=== PATIENT | male | born 1945 | race Caucasian/White ===

== ENCOUNTER 2018-04-08 14:43 | Outpatient (CLI) | payer MEDICARE, SELFPAY ==
--- NOTE | 2018-04-08 14:08 | DI.RAD_ITS ---
SYMPTOMS/DIAGNOSIS: KNEE PAIN, SWELLING, MEDIAL TENDERNESS, M25.562 LEFT KNEE: There are severe degenerative changes involving the left knee with narrowing of the medial tibial femoral joint compartment, articular sclerosis and periarticular hypertrophic spurring. There is no evidence of a fracture or dislocation. There is no evidence of a joint effusion. SUMMARY: Severe DJD left knee.
== END 2018-04-08 15:03 ==
PROVIDERS: PCP Family Medicine; Visit Provider Student in an Organized Health Care Education/Training Program
DX: M25.562 Pain in left knee (principal); M17.12 Unilateral primary osteoarthritis, left knee
CPT/HCPCS: 73562

== ENCOUNTER 2018-05-18 13:00 | Outpatient (REF) | payer MEDICARE, SELFPAY ==
[2018-05-18 13:24] LABS: Anion Gap 9.7 mmol/L (3-11); BUN 33 mg/dL (7-18); CO2 25.3 mmol/L (21.0-32.0); CREATININE 1.48 mg/dL (0.70-1.30); Calcium 9.2 mg/dL (8.5-10.1); Chloride 104 mmol/L (98-107); Estimated GFR 46.86 (mL/min/1.73m2); Glucose 152 mg/dL (70-100); Potassium 4.6 mmol/L (3.5-5.1); Sodium 139 mmol/L (136-145)
== END 2018-05-18 13:20 ==
LOC: LBN 13:00
PROVIDERS: PCP Family Medicine; Visit Provider Student in an Organized Health Care Education/Training Program
DX: Z79.1 Long term (current) use of non-steroidal anti-inflammatories (NSAID) (principal); M25.562 Pain in left knee; Z86.2 Personal history of diseases of the blood and blood-forming organs and certain disorders involving the immune mechanism; I10 Essential (primary) hypertension
CPT/HCPCS: 80048

== ENCOUNTER → 2018-06-16 09:01 | Outpatient (BNVA) | payer MEDICARE, SELFPAY | PROVIDERS: PCP Student in an Organized Health Care Education/Training Program; Referring Provider Student in an Organized Health Care Education/Training Program; Visit Provider Orthopaedic Surgery | DX: M17.12 Unilateral primary osteoarthritis, left knee (principal); E11.9 Type 2 diabetes mellitus without complications; Z79.84 Long term (current) use of oral hypoglycemic drugs; I10 Essential (primary) hypertension | CPT/HCPCS: 99201; 99214 ==

== ENCOUNTER 2018-06-17 14:18 | Outpatient (REF) | payer MEDICARE, SELFPAY ==
[2018-06-17 15:00] LABS: Anion Gap 10.1 mmol/L (3-11); BUN 31 mg/dL (7-18); CO2 26.9 mmol/L (21.0-32.0); CREATININE 1.72 mg/dL (0.70-1.30); Calcium 8.8 mg/dL (8.5-10.1); Chloride 103 mmol/L (98-107); Estimated GFR 39.39 (mL/min/1.73m2); Glucose 91 mg/dL (70-100); Potassium 4.6 mmol/L (3.5-5.1); Sodium 140 mmol/L (136-145)
== END 2018-06-17 14:38 ==
LOC: LBN 14:18
PROVIDERS: PCP Student in an Organized Health Care Education/Training Program; Visit Provider Student in an Organized Health Care Education/Training Program
DX: E87.5 Hyperkalemia (principal)
CPT/HCPCS: 80048

== ENCOUNTER 2018-06-29 12:56 | Outpatient (REF) | payer MEDICARE, SELFPAY ==
[2018-06-29 13:20] LABS: Anion Gap 11.3 mmol/L (3-11); BUN 30 mg/dL (7-18); CO2 24.7 mmol/L (21.0-32.0); Calcium 9.1 mg/dL (8.5-10.1); Chloride 102 mmol/L (98-107); Estimated GFR 46.13 (mL/min/1.73m2); Glucose 123 mg/dL (70-100); Potassium 4.8 mmol/L (3.5-5.1); Sodium 138 mmol/L (136-145)
[2018-06-29 13:21] LABS: HCT 42.1 % (40.0-50.0); HGB 14.1 g/dL (13.5-17.5); Mean Corp. HGB Concentration 33.5 g/dL (32.0-36.0); Mean Corpuscular Hemoglobin 31.8 pg (27.0-33.0); Mean Platelet Volume 11.2 fL (8.0-11.0); Platelet Count 228 x1000/uL (130-400); RBC 4.43 m/cumm (4.50-6.00); RBC Distribution Width 13.8 % (11.8-14.1); White Blood Cell Count 8.52 k/cumm (4.4-10.8)
== END 2018-06-29 13:16 ==
LOC: LBN 12:56
PROVIDERS: PCP Student in an Organized Health Care Education/Training Program; Visit Provider Student in an Organized Health Care Education/Training Program
DX: R79.89 Other specified abnormal findings of blood chemistry (principal); Z86.2 Personal history of diseases of the blood and blood-forming organs and certain disorders involving the immune mechanism; Z01.818 Encounter for other preprocedural examination
CPT/HCPCS: 80048; 85027

== ENCOUNTER 2018-07-08 09:03 | Outpatient (CLI) | payer MEDICARE, SELFPAY ==
[2018-07-08 10:47] LABS: Abs Immature Grans 0.02 k/cumm (0.0-0.09); Absolute Basophil Count 0.05 k/cumm (0.0-0.2); Absolute Lymphocyte Count 2.28 k/cumm (1.2-3.4); Absolute Monocyte Count 0.71 k/cumm (0.11-0.7); Absolute Neutrophil Count 6.12 k/cumm (1.2-6.7); Basophils % 0.5; Eosinophils % 5.2; HCT 43.1 % (40.0-50.0); Immature Grans % 0.2; Lymphocytes % 23.6; Mean Corp. HGB Concentration 32.5 g/dL (32.0-36.0); Mean Corpuscular Volume 95.6 fL (80-95); Mean Platelet Volume 11.1 fL (8.0-11.0); Monocytes % 7.3; Neutrophils % 63.2; Platelet Count 219 x1000/uL (130-400); RBC 4.51 m/cumm (4.50-6.00); RBC Distribution Width 13.8 % (11.8-14.1); White Blood Cell Count 9.68 k/cumm (4.4-10.8)
== END 2018-07-08 11:00 | disposition home or self-care (01) ==
PROVIDERS: PCP Student in an Organized Health Care Education/Training Program; Visit Provider Orthopaedic Surgery
DX: M25.562 Pain in left knee (principal); M17.12 Unilateral primary osteoarthritis, left knee; R78.5 Finding of other psychotropic drug in blood; E11.8 Type 2 diabetes mellitus with unspecified complications; I10 Essential (primary) hypertension; I25.10 Atherosclerotic heart disease of native coronary artery without angina pectoris
CPT/HCPCS: 36415; 85025; 93005; 93010

== ENCOUNTER 2018-07-13 07:25 | Inpatient (IN) | payer MEDICARE, SELFPAY ==
[2018-07-13] VITALS (16 sets, daily range): BP systolic 110–143; BP diastolic 60–80; PULSE 74–98; RESP 13–20; TEMP 35.8–37.2; O2SAT 92–97
[2018-07-13] MEDS: Lactated Ringers 1,000 ML 80 ML IV ×2 (08:10→09:37)
[2018-07-13] MEDS: Bupivacaine 0.5% Pres-Free 30 ML VIAL (08:33)
[2018-07-13] MEDS: Bupivacaine LIPOSOME/PF 133 MG/10 ML VIAL IJ (08:33)
[2018-07-13] MEDS: Hydrogen Peroxide 3% 480 ML BTL (10:48)
--- NOTE | 2018-07-13 11:43 | DI.RAD_ITS ---
SYMPTOM/DIAGNOSIS: CHECKL TOTAL KNEE COMPONENTS IN RR LEFT KNEE: Two views. Comparison is 04/08/18 The patient is now status post left total knee replacement. The orthopaedic hardware appears in good position. The bones appear intact. Skin viktoriya are present. Vascular calcifications are present. IMPRESSION: Status post left TKR.
[2018-07-13] MEDS: Normal Saline Flush 10 ML SYR IV (11:54)
[2018-07-13] MEDS: HYDROmorphone 2 MG/ML VIAL IVP (11:54)
[2018-07-13] MEDS: Acetaminophen 325 MG TAB 650 MG PO (12:36)
[2018-07-13] MEDS: Normal Saline 1,000 ML 125 ML IV ×2 (13:25→22:19)
[2018-07-13] MEDS: Docusate Sodium 100 MG CAP PO (13:30)
[2018-07-13] MEDS: metFORMIN 500 MG TAB PO (16:42)
[2018-07-13] MEDS: oxyCODONE-CR 10 MG TABCR PO (19:10)
[2018-07-13] MEDS: Magnesium Oxide 400 MG TAB PO (19:11)
[2018-07-13] MEDS: Ketorolac 15 MG/ML VIAL IVP ×2 (19:11→23:52)
[2018-07-13] MEDS: Atorvastatin 40 MG TAB 80 MG PO (19:12)
--- NOTE | 2018-07-13 21:38 | ROE_ITS ---
DATE OF PROCEDURE: July 13, 2018 PREOPERATIVE DIAGNOSIS: Osteoarthritis left knee with varus deformity. POSTOPERATIVE DIAGNOSIS: Osteoarthritis left knee with varus deformity. PROCEDURE: Left total knee arthroplasty. COMPONENTS USED: A size 4 posterior cruciate substituting femoral component, a size 4 tibial compone nt, a size 4 12.5-mm rotating platform posterior cruciate substituting polyethylene insert, a 38-mm t riprong patella. All components were cemented. SURGEON: Shahbaz Castillo M.D. COPY ROOM TECHNICIAN: Dee Villa PA-C ANESTHESIA: General. INDICATIONS: This is a 73-year-old white male with disabling left knee pain due to osteoarthritis of his knee. He has reached the point where he is extremely limited in ambulation and activities of da joan living because of knee pain. Conservative treatment is no longer providing him any useful relief of pain. X-rays showed advanced osteoarthritis of his left knee with a mild varus deformity. Total knee replacement was recommended to alleviate his pain and, hopefully, to increase his ambulatory ab ilities. The risks and complications of the procedure were explained to the patient in detail preope ratively. PROCEDURE: The patient was taken to the Operating Room on 07/13/18. A femoral nerve block was perfor med. Next, a general anesthetic was administered. A roll was placed under his left buttock. A prox imal tourniquet was applied to the left thigh and then the left lower extremity was prepped from toes to tourniquet and draped free in the usual sterile fashion. Under proximal tourniquet control, an a nterior midline incision was made beginning just distal to the tibial tubercle and extending four inc hes proximal to the patella. The incision was carried down to the fascia. A medial parapatellar cap sular incision was made which was extended proximally in line with the midportion of the quadriceps t endon. A complete medial periosteal release was performed. The patella was everted and the knee was hyperflexed. The distal femur was resected using intramedullary alignment guides and jigs. The pat ient was found to require a size 4 posterior cruciate sacrificing femoral component. The proximal ti sadi was then resected using the extramedullary alignment guides and jigs. The patient was found to r equire a size 4 tibial component. The keel for the tibial component was then reamed and punched out in proper rotational alignment. Medial osteophytes were removed. At this point, medial and lateral meniscectomies were performed. Anterior and posterior cruciate lig aments were sacrificed. Using periosteal elevators, the posterior capsule was freed from the distal femur and posterior tibia. The trial femoral component was put in place and then, using this as a gu francis, osteophytes proximal to the posterior flanges of the femoral component were removed using an ost eotome and a mallet and pituitary rongeurs. These osteophytes were removed so they would not block f lexion. Finally, the patella was resected using the patellar resection guide. The patella was measu red and then sizing was performed. The patient was found to require a size 38 triprong patella. Per recommendations, 9 mm of patella were then resected using the patellar resection guide and an oscill ating saw. The holes for the triprong patella were drilled out in proper rotational alignment. The proximal tibia was repaired for cementing with pulsed irrigation lavage of saline solution and th en drying with peroxide-soaked strip sponges. One batch of gentamicin-impregnated methylmethacrylate was vacuum mixed and then hand packed onto the prepared tibia. The tibial component was inserted an d impacted into place with impactor and mallet and was further pressurized using the trial components and extending the knee. Excess cement was trimmed from the margins of the tibial component while th e cement was still soft using the plastic cement removal tool. When the first batch of methylmethacr ylate had cured the trial components were removed. Another batch of gentamicin-impregnated methylmet hacrylate was vacuum mixed and hand packed onto the distal femur and patella. The femoral component was impacted into place with impactor and mallet and was further pressurized using the trial insert a nd extending the knee. The patellar component was inserted and pressurized using a patellar clamp. Excess cement was trimmed from the margins of the femoral and patellar components while the cement wa s still soft using the plastic cement removal tool. When the second batch of methylmethacrylate had cured, the patellar clamp was removed. Sizing had been performed and it was found that a 12.5-mm ins ert provided the best balancing for the ligaments. It allowed the knee to come to full extension and was stable to stressing throughout the full range of flexion. The posterior recesses were then irri gated a final time with pulsed irrigation lavage to remove any residual bone or cement debris. The a ctual insert 12.5 size 4 posterior cruciate substituting was then placed on the tibial component and reduced onto the femoral condyles. Patellar tracking was checked using the rule of no thumb. The daniel muro tracked anatomically. The left knee was flexed over soft goods and closure was begun. The capsule margins and the subcu were infiltrated with 0.5% Marcaine with epinephrine solution. Bet adine and saline solution was instilled into the left knee and allowed to stay for a minute before pineda ctioning. The medial parapatellar capsular incision was repaired using interrupted [id number] s utures of #1 Vicryl suture material. The quadriceps tendon incision was repaired with interrupted fi [id number]-[id number] sutures of #1 Vicryl suture material. The subcu was approximated with interrupted #2-0 Vicryl sutures. The skin edges were approximated with skin viktoriya. One gram of tranexamic acid wa s given IV prior to tourniquet inflation. A second gram of tranexamic acid was given after the tourn iquet was deflated. The wound was dressed with Xeroform gauze, sterile gauze 4x4s, an ABD pad, and w rapped with a Kerlix bandage. A Yousif long leg compressive dressing was applied. The tourniquet was released. There was no breakthrough bleeding to the dressings. A knee immobilizer splint was place d over the Yousif dressing to maintain the knee in extension. The patient's anesthesia was reversed w ithout complication. Blood loss was <50 cc and the patient experiences no intraoperative complicatio ns. He was discharged to the Recovery Room in good condition.
[2018-07-14 03:26] VITALS: BP 133/81; PULSE 91; RESP 19; TEMP 36.7; O2SAT 92
[2018-07-14] MEDS: oxyCODONE-CR 10 MG TABCR PO ×2 (05:49→17:05)
[2018-07-14] MEDS: Ketorolac 15 MG/ML VIAL IVP ×4 (05:51→23:33)
[2018-07-14] MEDS: Normal Saline 1,000 ML 125 ML IV (05:51)
[2018-07-14 07:10] LABS: HCT 38.5 % (40.0-50.0); HGB 12.5 g/dL (13.5-17.5); Mean Corp. HGB Concentration 32.5 g/dL (32.0-36.0); Mean Corpuscular Hemoglobin 31.3 pg (27.0-33.0); Mean Corpuscular Volume 96.3 fL (80-95); Platelet Count 192 x1000/uL (130-400); RBC Distribution Width 13.4 % (11.8-14.1); White Blood Cell Count 14.09 k/cumm (4.4-10.8)
[2018-07-14 07:43] VITALS: BP 131/81; PULSE 90; RESP 16; TEMP 36.8; O2SAT 95
[2018-07-14] MEDS: Tamsulosin 0.4 MG CAPCR PO (09:29)
[2018-07-14] MEDS: Lisinopril 5 MG TAB PO (09:29)
[2018-07-14] MEDS: buPROPion-XL 150 MG TABCR PO (09:30)
[2018-07-14] MEDS: Pantoprazole 40 MG TABCR PO (09:30)
[2018-07-14] MEDS: Docusate Sodium 100 MG CAP PO ×3 (09:30→19:54)
[2018-07-14] MEDS: Magnesium Oxide 400 MG TAB PO ×2 (09:30→19:54)
[2018-07-14] MEDS: metFORMIN 500 MG TAB PO ×2 (09:30→17:05)
[2018-07-14 10:05] VITALS: O2SAT 95
[2018-07-14 11:15] VITALS: BP 134/84; PULSE 102; RESP 19; TEMP 37.4; O2SAT 96
[2018-07-14] MEDS: Enoxaparin 30 MG/0.3 ML SYR SC (11:53)
[2018-07-14] MEDS: Normal Saline Flush 10 ML SYR IV (11:55)
--- NOTE | 2018-07-14 12:05 | PT.INIE ---
Date of service: 07/14/18 Time of Service: 11:00 PT Notes Inpatient Physical Therapy Evaluation Date: 07/14/18 Referring Doctor: Dr. Castillo PT Orders: PT CONSULT: mobilize post-op left total knee. WBAT LLE Precautions: fall, standard Patient Profile/Admitting Diagnosis: Patient admitted 1 day s/p left TKA. PMHX: History of CVA x3, with dysarthria and anarthria; DM; history of anemia; hyperlipidemia; hypertension; CAD; CKD Social History/Home Situation: Patient is a resident of the [facility]. He reports that he typically ambulates with a Rollator walker. He has a friend present with him who reports that he is able to walk to the elevator and down to the dining madden independently. She reports that he has had multiple falls in the past several months. Equipment Owned/DME: Rollator walker, resides in an assisted living facility Subjective: Cl communicates with brief, single word responses and hand gestures. He has a note pad with him, and provides more extensive responses in writing. He is anxious to get up out of bed. Objective: General Observation: Resting in bed with IV in left upper extremity, Morgan catheter in place. He has a Yousif wrap on the left lower extremity, and a knee immobilizer. Mental Status: A and O x3. Significant dysarthria, although with appropriate responses to all questions either with gestures or written responses Pain: 4/10 ROM: Right Upper Extremity: WFL Left Upper Extremity: WFL Right Lower Extremity: WFL Left Lower Extremity: Patient is able to perform ankle pumps and wiggle his toes. Knee motion not assessed due to Yousif wrap. Strength: Right Upper Extremity: Shoulder flexion 4-/5. Biceps 4/5. Triceps 4-/5. Ground Operations Supervisor is strong. Left Upper Extremity: Shoulder flexion 4+/5. Biceps 4+/5. Triceps 4+/5. Ground Operations Supervisor is strong. Right Lower Extremity: Hip flexion 5/5. Quads 4+/5. Hamstrings 4/5. Ankle dorsiflexion 5/5. Left Lower Extremity: Functionally patient is able to perform SLR with Yousif wrap and knee immobilizer in place. Sensation: Intact distally Bed Mobility/Transfers: Supine sit: Mod assist x1 Sit to stand: Mod assist x2 Stand to sit: Mod assist x2 Bed to chair: Mod assist x2 with FW W Gait: Patient tolerates ambulation times 6 feet with FW W, mod assist x2, knee immobilizer on left lower extremity. He requires cues for equipment management and technique. Balance: Static Sitting: Fair Dynamic Sitting: Fair Static Standing:poor Dynamic Standing: Poor Special Tests: Mobility Limitations Standardized Measure [facility] AM-PAC 6 clicks Basic Mobility Inpatient Short Form: Raw Score: 11 CMS Score: 73% deficit Informed Consent/Education: Patient instructed in purpose of PT consult and plan of care. Treatment: Today's session consisted of evaluation, followed by gait and transfer training as noted above. He was instructed in early strengthening activities, consisting of ankle pumps quad sets and glutes sets, as noted on flowsheet. He was also able to perform 10 SLR independently, although with knee immobilizer in place. Assessment: Patient is a 73 year old male referred to physical therapy services with the diagnosis of 1 day status post left TKA. Patient presents with clinical signs and symptoms consistent with postoperative status, with chronic mobility issues and an extensive medical history. Patient is a long-term resident of the [facility], although required a significant level of assistance today, and may require continued rehabilitation in a nursing home facility prior to transitioning back to assisted living. He currently demonstrates the following impairment level findings: 1. Decreased left knee range of motion 2. Decreased left lower extremity strength 3. Decreased activity tolerance 4. Gait impairments 5. Decreased balance 6. History of falls Impairments are contributing to the following functional limitations: 1. Unable to tolerate household distance ambulation without significant assistance 2. Dependent for bed mobility 3. Dependent for transfers 4. Balance deficits, with patient currently at high fall risk 5. Decreased activity tolerance Patient is assessed as High [id number] complexity based on the following: History: 73-year-old male with extensive medical history including history of multiple strokes, history of falls and diabetes, now 1 day status post left TKA. He has mobility deficits at baseline, and is a long-term resident of an assisted living facility. Examination: Functional limitations as noted above Presentation: Unstable, given patient's extensive medical history Decision Making: High complexity Goals: Goals X1 week 1. Supine-Sit: Supervision 2. Sit-Supine: Supervision 3. Sit-Stand: Supervision 4. Stand-Sit: Supervision 5. Bed-Chair: Min assist with FW W 6. Chair-Bed: Min assist with FW W 7. Gait: Min assist with FW W times 25 feet Plan of Care/Treatment Plan: 1-2x/day, 7 days/week x 1 week. Plan of care has been reviewed with the AUDIT OFFICER providing the service under Physical Therapy direction. Initiate Physical Therapy intervention for strengthening, bed mobility, transfers, gait, stairs, balance training, use of assistive device. DISCHARGE RECOMMENDATIONS: Patient will likely require continued rehabilitation and nursing home facility prior to transitioning back to assisted living facility TREATMENT CODE/TIME: 11:00?1130 ([id number])
--- NOTE | 2018-07-14 12:08 | IN_ITS ---
Date of service: 07/14/18 Time of Service: 11:00 PT Notes Inpatient Physical Therapy Evaluation Date: 07/14/18 Referring Doctor: Dr. Castillo PT Orders: PT CONSULT: mobilize post-op left total knee. WBAT LLE Precautions: fall, standard Patient Profile/Admitting Diagnosis: Patient admitted 1 day s/p left TKA. PMHX: History of CVA x3, with dysarthria and anarthria; DM; history of anemia; hyperlipidemia; hypertension; CAD; CKD Social History/Home Situation: Patient is a resident of the [facility]. He reports that he typically ambulates with a Rollator walker. He has a friend present with him who reports that he is able to walk to the elevator and down to the dining madden independently. She reports that he has had multiple falls in the past several months. Equipment Owned/DME: Rollator walker, resides in an assisted living facility Subjective: Cl communicates with brief, single word responses and hand gestures. He has a note pad with him, and provides more extensive responses in writing. He is anxious to get up out of bed. Objective: General Observation: Resting in bed with IV in left upper extremity, Morgan catheter in place. He has a Yousif wrap on the left lower extremity, and a knee immobilizer. Mental Status: A and O x3. Significant dysarthria, although with appropriate responses to all questions either with gestures or written responses Pain: 4/10 ROM: Right Upper Extremity: WFL Left Upper Extremity: WFL Right Lower Extremity: WFL Left Lower Extremity: Patient is able to perform ankle pumps and wiggle his toes. Knee motion not assessed due to Yousif wrap. Strength: Right Upper Extremity: Shoulder flexion 4-/5. Biceps 4/5. Triceps 4-/5. Hopper Attendant is strong. Left Upper Extremity: Shoulder flexion 4+/5. Biceps 4+/5. Triceps 4+/5. Hopper Attendant is strong. Right Lower Extremity: Hip flexion 5/5. Quads 4+/5. Hamstrings 4/5. Ankle dorsiflexion 5/5. Left Lower Extremity: Functionally patient is able to perform SLR with Yousif wrap and knee immobilizer in place. Sensation: Intact distally Bed Mobility/Transfers: Supine sit: Mod assist x1 Sit to stand: Mod assist x2 Stand to sit: Mod assist x2 Bed to chair: Mod assist x2 with FW W Gait: Patient tolerates ambulation times 6 feet with FW W, mod assist x2, knee immobilizer on left lower extremity. He requires cues for equipment management and technique. Balance: Static Sitting: Fair Dynamic Sitting: Fair Static Standing:poor Dynamic Standing: Poor Special Tests: Mobility Limitations Standardized Measure [facility] AM-PAC 6 clicks Basic Mobility Inpatient Short Form: Raw Score: 11 CMS Score: 73% deficit Informed Consent/Education: Patient instructed in purpose of PT consult and plan of care. Treatment: Today's session consisted of evaluation, followed by gait and transfer training as noted above. He was instructed in early strengthening activities, consisting of ankle pumps quad sets and glutes sets, as noted on flowsheet. He was also able to perform 10 SLR independently, although with knee immobilizer in place. Assessment: Patient is a 73 year old male referred to physical therapy services with the diagnosis of 1 day status post left TKA. Patient presents with clinical signs and symptoms consistent with postoperative status, with chronic mobility issues and an extensive medical history. Patient is a long-term resident of the [facility], although required a significant level of assistance today, and may require continued rehabilitation in a retirement facility prior to transitioning back to assisted living. He currently demonstrates the following impairment level findings: 1. Decreased left knee range of motion 2. Decreased left lower extremity strength 3. Decreased activity tolerance 4. Gait impairments 5. Decreased balance 6. History of falls Impairments are contributing to the following functional limitations: 1. Unable to tolerate household distance ambulation without significant assistance 2. Dependent for bed mobility 3. Dependent for transfers 4. Balance deficits, with patient currently at high fall risk 5. Decreased activity tolerance Patient is assessed as High [id number] complexity based on the following: History: 73-year-old male with extensive medical history including history of multiple strokes, history of falls and diabetes, now 1 day status post left TKA. He has mobility deficits at baseline, and is a long-term resident of an assisted living facility. Examination: Functional limitations as noted above Presentation: Unstable, given patient's extensive medical history Decision Making: High complexity Goals: Goals X1 week 1. Supine-Sit: Supervision 2. Sit-Supine: Supervision 3. Sit-Stand: Supervision 4. Stand-Sit: Supervision 5. Bed-Chair: Min assist with FW W 6. Chair-Bed: Min assist with FW W 7. Gait: Min assist with FW W times 25 feet Plan of Care/Treatment Plan: 1-2x/day, 7 days/week x 1 week. Plan of care has been reviewed with the FUEL CELL ENGINEER providing the service under Physical Therapy direction. Initiate Physical Therapy intervention for strengthening, bed mobility, transfers, gait, stairs, balance training, use of assistive device. DISCHARGE RECOMMENDATIONS: Patient will likely require continued rehabilitation and retirement facility prior to transitioning back to assisted living facility TREATMENT CODE/TIME: 11:00?1130 ([id number])
--- NOTE | 2018-07-14 12:14 | PDOC.CMIN ---
- If Service Date Differs Date of service: 07/14/18 Time of Service: 12:14 Care Management Initial Assess REASON FOR HOSPITALIZATION:: Total Right Knee PAST MEDICAL HISTORY/PAST SURGICAL HISTORY:: Medical: HTN, Hyperlipidemia, Other (Patent foramen ovale), CVA (With residual dysphagia and expressive aphasia), Dysphagia; history of colon polyps); Depression, Osteoarthritis, Overactive bladder, Diabetes (Type 2 diabetes mellitus). Surgical: Other (Previous G-tube placement after his stroke. This was removed last summer), Other (Hammertoe repair) PREVIOUS FUNCTIONAL STATUS/SOCIAL/FAMILY SUPPORTS:: Cl lives at the [facility] living. He identifies his support person as Luc Mauricio who also lives at [facility]. Cl is transported by [facility] for appointments. CURRENT FUNCTIONAL STATUS:: Cl is alert and engaged during conversation. He uses pen and paper to communitcate. Cl was able to update his HIPPA with this insurance underwriter sales which was scanned to access. Cl is considering [facility] for [facility] rehab prior to transition back to [facility]. ADVANCE DIRECTIVES:: None on file CM contacted [facility] there is none on file at facility. Has patient been provided with information about the portal?: Yes Did the patient sign up for the portal?: No CODE STATUS:: DNR/DNI INSURANCE COVERAGE / FINANCIAL ISSUES:: Medicare and AARP. CURRENT HOME/COMMUNITY SERVICES/EQUIPMENT:: Assisted living at [facility], Per nursing at [facility] he has a FWW PRIMARY CARE PHYSICIAN:: POTENTIAL DISCHARGE NEEDS:: Cl will need to follow up with orthopedic provider post discharge as directed. PATIENT/FAMILY EDUCATION NEEDS:: Discharge education, limitations and follow up plan of care. ANTICIPATED BARRIERS TO DISCHARGE:: None identified TRANSPORTATION:: Pending discharge disposition. PLAN:: Cl is post op day one, per PT he will need an inpatient stay at SNF prior to returning to [facility]. Patient agrees to referral to [facility] for short stay.CM to continue to provide support to pt ongoing discharge planning and dispositon.
--- NOTE | 2018-07-14 13:11 | INITIAL_ITS ---
- If Service Date Differs Date of service: 07/14/18 Time of Service: 12:14 Care Management Initial Assess REASON FOR HOSPITALIZATION:: Total Right Knee PAST MEDICAL HISTORY/PAST SURGICAL HISTORY:: Medical: HTN, Hyperlipidemia, Other (Patent foramen ovale), CVA (With residual dysphagia and expressive aphasia), Dysphagia; history of colon polyps); Depression, Osteoarthritis, Overactive bladder, Diabetes (Type 2 diabetes mellitus). Surgical: Other (Previous G-tube placement after his stroke. This was removed last summer), Other (Hammertoe repair) PREVIOUS FUNCTIONAL STATUS/SOCIAL/FAMILY SUPPORTS:: Cl lives at the [facility] living. He identifies his support person as Luc Mauricio who also lives at [facility]. Cl is transported by [facility] for appointments. CURRENT FUNCTIONAL STATUS:: Cl is alert and engaged during conversation. He uses pen and paper to communitcate. Cl was able to update his HIPPA with this mortgage or loan underwriter which was scanned to access. Cl is considering [facility] for short term rehab prior to transition back to [facility]. ADVANCE DIRECTIVES:: None on file CM contacted [facility] there is none on file at facility. Has patient been provided with information about the portal?: Yes Did the patient sign up for the portal?: No CODE STATUS:: DNR/DNI INSURANCE COVERAGE / FINANCIAL ISSUES:: Medicare and AARP. CURRENT HOME/COMMUNITY SERVICES/EQUIPMENT:: Assisted living at [facility], Per nursing at [facility] he has a FWW PRIMARY CARE PHYSICIAN:: POTENTIAL DISCHARGE NEEDS:: Cl will need to follow up with orthopedic provider post discharge as directed. PATIENT/FAMILY EDUCATION NEEDS:: Discharge education, limitations and follow up plan of care. ANTICIPATED BARRIERS TO DISCHARGE:: None identified TRANSPORTATION:: Pending discharge disposition. PLAN:: Cl is post op day one, per PT he will need an inpatient stay at SNF prior to returning to [facility]. Patient agrees to referral to [facility] for [facility].CM to continue to provide support to pt ongoing discharge planning and dispositon.
[2018-07-14] MEDS: HYDROcodone 5/Acetaminophen 325 TAB PO (13:34)
--- NOTE | 2018-07-14 13:37 | PT.INTREAT ---
Date of service: 07/14/18 Time of Service: 13:37 PT Notes Inpatient Physical Therapy Treatment Note [facility] Date: 07/14/18 PRECAUTIONS: Fall, WBAT on L SUBJECTIVE: Philip is asking to get back into bed after sitting up in recliner chair for several hours. He reports L knee pain. OBJECTIVE: PAIN: Patient c/o L knee pain with transfers, weight bearing, and ther ex. BED MOBILITY/TRANSFERS Sit-supine: Min A Sit-stand: Mod A Stand-sit: Min A GAIT Assistive Device: FWW Weight bearing: WBAT on L Assist: Min A x2 Distance: 6' THEREX: Patient completed a LE strengthening and stabilization program, in a supine position, as per flow sheet. ASSESSMENT: Patient tolerated session with complaint of left knee pain with transfers, weight bearing, and ther ex. Patient required decreased assist for transfers and gait in the afternoon versus this morning, although continues to require significant cueing for FWW mechanics and for directions. Patient would benefit from continued transfer and gait training as well as strengthening for continued improvement in activity tolerance and improved mobility. PLAN: Continue with PT's POC TREATMENT CODE/TIME: 30 minutes; [id number], [id number]
--- NOTE | 2018-07-14 14:25 | W.PM.PROGNOT ---
Date of Service Date of service: 07/14/18 Time of Service: 14:25 Assessment and Plan (1) Primary osteoarthritis of left knee: Current visit: Yes Status: Acute Assessment: Stable postop day #1 left total knee replacement. Plan: Mobilize with physical therapy per protocol. MANJU Morgan. Will remove his Yousif dressing and start him flexing his knee tomorrow. Subjective Interval history since last seen: Mr. Ortiz says his pain is of moderate intensity. He was able to sleep well last night however. Exam Narrative Exam Narrative: Cl is sitting in the chair eating lunch. Is good sensation to light touch of his left toes. He has good capillary refill of the toes. INR was a good. Hemoglobin 12.5 g this morning. PT was able to get him up and he walked 6 steps to the chair and 6 steps back with moderate assist. Objective Objective Clinical Data: Abnormal lab results 07/14/18 Range/Units 06:50 WBC 14.09 H (4.4-10.8) k/cumm RBC 4.00 L (4.50-6.00) m/cumm Hgb 12.5 L (13.5-17.5) g/dL Hct 38.5 L (40.0-50.0) % MCV 96.3 H (80-95) fL Vital Signs Temperature 37.4 C 07/14/18 11:15 Temperature Source Tympanic 07/14/18 11:15 Pulse 102 H 07/14/18 11:15 Pulse Rhythm Regular 07/13/18 23:54 Respiratory Rate 19 07/14/18 11:15 Respiratory Effort 07/14/18 11:01 Respiratory Depth Normal 07/14/18 11:01 Respiratory Pattern Irregular 07/14/18 11:01 Blood Pressure 134/84 07/14/18 11:15 Pulse Oximetry 96 07/14/18 11:15 Respiratory End-tidal CO2 20 07/13/18 12:50 Oxygen Delivery Method Room Air 07/14/18 11:15 Oxygen Flow Rate 0 07/14/18 11:15 Pain Level 10 07/14/18 13:34 Comment 07/14/18 03:26 Intake & Output 07/13/18 07/14/18 07/14/18 23:59 11:59 23:59 Intake Total 1372.667 / 3042.667 1747.083 / 2627.083 880 / 2627.083 Output Total 1300 / 1745 850 / 1200 350 / 1200 Balance 72.667 / 1297.667 897.083 / 1427.083 530 / 1427.083 Intake: IV 1372.667 / 3042.667 1077.083 / 7.083 880 / 7.083 Oral 670 / 670 Output: Urine 1300 / 1725 850 / 1200 350 / 1200 Other: Urine Color Yellow Yellow Yellow Urine Appearance Clear Clear Clear Comment in place urine flowing no distension Emesis Description None Laboratory Results WBC 14.09 k/cumm (4.4-10.8) H 07/14/18 06:50 RBC 4.00 m/cumm (4.50-6.00) L 07/14/18 06:50 Hgb 12.5 g/dL (13.5-17.5) L 07/14/18 06:50 Hct 38.5 % (40.0-50.0) L 07/14/18 06:50 MCV 96.3 fL (80-95) H 07/14/18 06:50 MCH 31.3 pg (27.0-33.0) 07/14/18 06:50 MCHC 32.5 g/dL (32.0-36.0) 07/14/18 06:50 RDW 13.4 % (11.8-14.1) 07/14/18 06:50 Plt Count 192 x1000/uL (130-400) 07/14/18 06:50 MPV 11.0 fL (8.0-11.0) 07/14/18 06:50
[2018-07-14] MEDS: Normal Saline 1,000 ML 60 ML IV (14:47)
[2018-07-14 15:37] VITALS: BP 100/62; PULSE 97; RESP 18; TEMP 37.4; O2SAT 94
[2018-07-14] MEDS: Atorvastatin 40 MG TAB 80 MG PO (19:54)
[2018-07-14] MEDS: Acetaminophen 325 MG TAB 650 MG PO (19:54)
[2018-07-14 20:19] VITALS: BP 112/67; PULSE 97; RESP 19; TEMP 37.4; O2SAT 93
[2018-07-15] VITALS (7 sets, daily range): BP systolic 126–157; BP diastolic 78–84; PULSE 88–112; RESP 17–20; TEMP 36–37.6; O2SAT 94–97
[2018-07-15] MEDS: Ketorolac 15 MG/ML VIAL IVP ×2 (05:02→12:36)
[2018-07-15] MEDS: Normal Saline 1,000 ML 60 ML IV (05:03)
[2018-07-15] MEDS: HYDROcodone 5/Acetaminophen 325 TAB PO ×2 (05:03→10:30)
[2018-07-15] MEDS: oxyCODONE-CR 10 MG TABCR PO ×2 (06:42→17:16)
[2018-07-15] MEDS: Pantoprazole 40 MG TABCR PO (06:42)
[2018-07-15 07:40] LABS: HGB 12.4 g/dL (13.5-17.5); Mean Corp. HGB Concentration 32.6 g/dL (32.0-36.0); Mean Corpuscular Hemoglobin 31.1 pg (27.0-33.0); Mean Corpuscular Volume 95.2 fL (80-95); Mean Platelet Volume 11.2 fL (8.0-11.0); Platelet Count 179 x1000/uL (130-400); RBC 3.99 m/cumm (4.50-6.00); RBC Distribution Width 13.4 % (11.8-14.1); White Blood Cell Count 14.44 k/cumm (4.4-10.8)
[2018-07-15] MEDS: Tamsulosin 0.4 MG CAPCR PO (08:52)
[2018-07-15] MEDS: Docusate Sodium 100 MG CAP PO ×3 (08:52→20:52)
[2018-07-15] MEDS: buPROPion-XL 150 MG TABCR PO (08:52)
[2018-07-15] MEDS: metFORMIN 500 MG TAB PO ×2 (08:53→17:16)
[2018-07-15] MEDS: Lisinopril 5 MG TAB PO (08:53)
[2018-07-15] MEDS: Magnesium Oxide 400 MG TAB PO ×2 (08:53→20:52)
[2018-07-15] MEDS: Enoxaparin 30 MG/0.3 ML SYR SC (12:36)
[2018-07-15] MEDS: Normal Saline Flush 10 ML SYR IV ×2 (12:38→14:19)
--- NOTE | 2018-07-15 12:59 | PT.INTREAT ---
Date of service: 07/15/18 Time of Service: 12:59 PT Notes Inpatient Physical Therapy Treatment Note [facility] Date: 07/15/18 PRECAUTIONS: Fall, WBAT on L SUBJECTIVE: Philip indicates that he continues to have pain in left knee, although is agreeable to participating in PT. OBJECTIVE: PAIN: Patient complained of left knee pain with transfers, weight bearing, and ROM BED MOBILITY/TRANSFERS Supine-sit: Min A Sit-supine: Max A x2 Sit-stand: Mod A x2 in a.m.; Max A x2 in p.m. Stand-sit: Min A in a.m.; Mod A x2 in p.m. Bed?chair: Min A x2 Chair?bed: Mod A x2 GAIT Assistive Device: FWW Weight bearing: WBAT L Assist: Min A x2 in a.m.; Mod A x2 in p.m. Distance: 6' in a.m.; stand pivot transfer chair?bed in p.m. Deviation: Cueing FWW mechanics and posture THEREX: Patient completed a LE strengthening and stabilization program, as per flow sheet. Patient was able to complete active SLR x10 following removal of Yousif dressing. Patient completed dangling at edge of bed, patient's active assistive left knee flexion is measured as 70 degrees. Patient ends with cryocuff to left knee. REMOVAL OF YOUSIF DRESSING: Following removal of Yousif dressing incision noted to be clean, dry, and intact. No presence of drainage, redness, or blistering. Nursing present to inspect incision site. Replaced with Xeroform gauze, 4 x 4 gauze, tape, and thigh-high Humphrey hose. ASSESSMENT: Patient tolerated session with significant complaints of left knee pain with weight bearing, transfers, and ther ex. Patient required significant cueing during gait training for posture and FWW mechanics. Patient would benefit from continued gait and transfer training, as well as strengthening for improved activity tolerance and mobility. PLAN: Continue with PT's POC TREATMENT CODE/TIME: Session 1: 50 minutes; [id number] x2, [id number] Session 2: 40 minutes; 14252 x2, [id number]
--- NOTE | 2018-07-15 14:20 | PHARADMIT ---
Addendum entered by Varun Maddox III 07/17/18 14:09: Continues to have pain. has ordered Toradol x 6 doses (also on Celebrex) so as to avoid narcotics. PT continues. VS-OK Pain: 10/09 No BM yet. Weight corrected (76.2 kg) [id number]-166 Original Note: Addendum entered by Varun Maddox III 07/16/18 15:36: notes patient is progressing slowly. May stay the weekend and return to [facility] on Friday or Friday Will go to Swing Bed VS-OK [id number]_171 No BM yet Original Note: Admission Pharmacy Clinical Review OA left knee Code Status DNR/DNI Current Weight Wgt- 35.8 kg incorrect wgt called nursing to correct. Renally Cleared and Narrow Therapeutic Index Meds CrCl~22 mL/min Meds-OK QTc Value / Action Taken QTc-425 na BP Control, Fever BP-157/83 Tmax- 37.4C Electrolytes reviewed na DVT Prophylaxis Lovenox Opiate Usage / Scheduled Bowel Regimen Ordered Yes Yes Plt/SCr for Heparin / Enoxaparin Plts-179 INR for Warfarin NA H/H stable, WBC/Bands H&H- 12.4/38.0 WBC- 14.44 Antibiotic appropriateness Ancef Cultures and Sensitivities NA Surgical ABX d/c within 24 hr Yes DM control / Insulin Dosing FSBS-195 Metformin, Heart Failure (Check EF%) (ROBERT's, B-Block, Diuretics) Lisinopril IV to PO Switch No Home Meds Reviewed Yes Home Meds Not Ordered ASA, Comments
--- NOTE | 2018-07-15 17:05 | NUR.NOTE ---
Nursing Note: patient was weighed at the request of the pharmacist. information was passed on, then prior to dinner patient was set up so he could wash his face and hands other than set up , patient was independent
--- NOTE | 2018-07-15 17:36 | PDOC.CMPRO ---
- If Service Date Differs Date of service: 07/15/18 Time of Service: 17:36 Care Management Progress Note S/O: CM reviewed referral with [facility] are able to offer a bed for this week. CM to follow up with to determine patients readiness for discharge. Cl accepts the bed offer from [facility] when he is ready for discharge. A: Cl is a 73 year old male admitted for total left knee. P:Cl is post op day 2, per PT he will need an inpatient stay at SNF prior to returning to [facility]. Patient will transfer when medically ready to [facility] for short stay.CM to coordinate wheelchair van and update [facility]. CM to continue to provide support to pt ongoing discharge planning and disposition.
--- NOTE | 2018-07-15 17:59 | CMPROGNOTE_ITS ---
- If Service Date Differs Date of service: 07/15/18 Time of Service: 17:36 Care Management Progress Note S/O: CM reviewed referral with [facility] they are able to offer a bed for this week. CM to follow up with to determine patients readiness for discharge. Cl accepts the bed offer from [facility] when he is ready for discharge. A: Cl is a 73 year old male admitted for total left knee. P:Cl is post op day 2, per PT he will need an inpatient stay at SNF prior to returning to [facility]. Patient will transfer when medically ready to [facility] for short stay.CM to coordinate wheelchair van and update [facility]. CM to continue to provide support to pt ongoing discharge planning and disposition.
[2018-07-15] MEDS: Atorvastatin 40 MG TAB 80 MG PO (20:52)
[2018-07-16] VITALS: BP 132/79; PULSE 113; RESP 20; TEMP 36.8; O2SAT 97
[2018-07-16 03:21] VITALS: BP 129/75; PULSE 110; RESP 20; TEMP 36.6; O2SAT 96
[2018-07-16] MEDS: HYDROcodone 5/Acetaminophen 325 TAB PO ×3 (04:52→16:38)
[2018-07-16] MEDS: oxyCODONE-CR 10 MG TABCR PO ×2 (06:20→18:00)
[2018-07-16 07:35] VITALS: BP 151/89; PULSE 109; RESP 20; TEMP 36.8; O2SAT 96
[2018-07-16 09:00] VITALS: O2SAT 96
[2018-07-16] MEDS: Lisinopril 5 MG TAB PO (09:03)
[2018-07-16] MEDS: Magnesium Oxide 400 MG TAB PO ×2 (09:03→20:55)
[2018-07-16] MEDS: metFORMIN 500 MG TAB PO ×2 (09:03→16:38)
[2018-07-16] MEDS: buPROPion-XL 150 MG TABCR PO (09:03)
[2018-07-16] MEDS: Tamsulosin 0.4 MG CAPCR PO (09:03)
[2018-07-16] MEDS: Pantoprazole 40 MG TABCR PO (09:03)
[2018-07-16] MEDS: Docusate Sodium 100 MG CAP PO ×2 (09:03→14:47)
--- NOTE | 2018-07-16 13:47 | W.PM.PROGNOT ---
Date of Service Date of service: 07/15/18 Time of Service: 15:01 Assessment and Plan (1) Primary osteoarthritis of left knee: Current visit: Yes Status: Acute Assessment: 48 hours postop left total knee replacement progressing slowly. I think that as his pain subsides he will regain his mobility. Plan: DC IV fluids. Continue to mobilize with physical therapy. May need to swing him on Friday. Subjective Patient reports: pain is less, tolerating a regular diet and voiding w/o difficulty Exam Narrative Exam Narrative: He moves his left toes fully. He has good sensation to light touch of his left toes. His Yousif is off and the incision is clean and dry. He was able to pivot transfer and walk about 6 feet to the chair and back to the bed. He is afebrile and his hemoglobin is 12.4 g today. Objective Objective Clinical Data: Vital Signs Temperature 36.8 C 07/16/18 07:35 Temperature Source Tympanic 07/16/18 07:35 Pulse 109 H 07/16/18 07:35 Pulse Rhythm Regular 07/16/18 08:40 Respiratory Rate 20 07/16/18 07:35 Respiratory Effort 07/16/18 08:40 Respiratory Depth Normal 07/16/18 08:40 Respiratory Pattern Normal 07/16/18 08:40 Blood Pressure 151/89 H 07/16/18 07:35 Pulse Oximetry 96 07/16/18 07:35 Respiratory End-tidal CO2 20 07/13/18 12:50 Oxygen Delivery Method Room Air 07/16/18 07:35 Oxygen Flow Rate 0 07/16/18 07:35 Pain Level 10 07/16/18 11:05 Comment 07/14/18 03:26 Intake & Output 07/15/18 07/16/18 07/16/18 23:59 11:59 23:59 Intake Total 777 / 1693 0 / 0 Output Total 100 / 1090 100 / 100 Balance 677 / 603 -100 / -100 0 / -100 Weight 76.2 kg Intake: IV 537 / 1393 Oral 240 / 300 0 / 0 Output: Urine 100 / 1090 100 / 100 Other: Urine Color Pale Yellow Yellow Urine Appearance Clear Clear Urine Odor None Normal Voiding Methods Urinal Urinal Laboratory Results WBC 14.44 k/cumm (4.4-10.8) H 07/15/18 06:50 RBC 3.99 m/cumm (4.50-6.00) L 07/15/18 06:50 Hgb 12.4 g/dL (13.5-17.5) L 07/15/18 06:50 Hct 38.0 % (40.0-50.0) L 07/15/18 06:50 MCV 95.2 fL (80-95) H 07/15/18 06:50 MCH 31.1 pg (27.0-33.0) 07/15/18 06:50 MCHC 32.6 g/dL (32.0-36.0) 07/15/18 06:50 RDW 13.4 % (11.8-14.1) 07/15/18 06:50 Plt Count 179 x1000/uL (130-400) 07/15/18 06:50 MPV 11.2 fL (8.0-11.0) H 07/15/18 06:50
--- NOTE | 2018-07-16 13:52 | W.PM.PROGNOT ---
Date of Service Date of service: 07/16/18 Time of Service: 13:53 Assessment and Plan (1) Primary osteoarthritis of left knee: Current visit: Yes Status: Acute Assessment: He is progressing slowly with his mobilization following a left total knee replacement. I think however that if he stays over the weekend he may be able to go back to the [facility] on Friday or Friday. Plan: Probably place him on a swing bed tomorrow, so we can continue to get physical therapy over the weekend. Would anticipate that that he would be able to return to [facility] rather than going to a fpc facility next week. Subjective Patient reports: no new complaints Exam Narrative Exam Narrative: He continues to progress only slowly with his ambulation. He has not been able to ambulate outside the room yet. Still needs some assist to get from the bed to standing. He can do a straight leg raise with some difficulty. He remains afebrile. His incision looks great. Objective Objective Clinical Data: Vital Signs Temperature 36.8 C 07/16/18 07:35 Temperature Source Tympanic 07/16/18 07:35 Pulse 109 H 07/16/18 07:35 Pulse Rhythm Regular 07/16/18 08:40 Respiratory Rate 20 07/16/18 07:35 Respiratory Effort 07/16/18 08:40 Respiratory Depth Normal 07/16/18 08:40 Respiratory Pattern Normal 07/16/18 08:40 Blood Pressure 151/89 H 07/16/18 07:35 Pulse Oximetry 96 07/16/18 07:35 Respiratory End-tidal CO2 20 07/13/18 12:50 Oxygen Delivery Method Room Air 07/16/18 07:35 Oxygen Flow Rate 0 07/16/18 07:35 Pain Level 10 07/16/18 11:05 Comment 07/14/18 03:26 Intake & Output 07/15/18 07/16/18 07/16/18 23:59 11:59 23:59 Intake Total 777 / 1693 0 / 0 Output Total 100 / 1090 100 / 100 Balance 677 / 603 -100 / -100 0 / -100 Weight 76.2 kg Intake: IV 537 / 1393 Oral 240 / 300 0 / 0 Output: Urine 100 / 1090 100 / 100 Other: Urine Color Pale Yellow Yellow Urine Appearance Clear Clear Urine Odor None Normal Voiding Methods Urinal Urinal Laboratory Results WBC 14.44 k/cumm (4.4-10.8) H 07/15/18 06:50 RBC 3.99 m/cumm (4.50-6.00) L 07/15/18 06:50 Hgb 12.4 g/dL (13.5-17.5) L 07/15/18 06:50 Hct 38.0 % (40.0-50.0) L 07/15/18 06:50 MCV 95.2 fL (80-95) H 07/15/18 06:50 MCH 31.1 pg (27.0-33.0) 07/15/18 06:50 MCHC 32.6 g/dL (32.0-36.0) 07/15/18 06:50 RDW 13.4 % (11.8-14.1) 07/15/18 06:50 Plt Count 179 x1000/uL (130-400) 07/15/18 06:50 MPV 11.2 fL (8.0-11.0) H 07/15/18 06:50
--- NOTE | 2018-07-16 13:56 | PGE_ITS ---
Date of Service Date of service: 07/16/18 Time of Service: 13:53 Assessment and Plan (1) Primary osteoarthritis of left knee: Current visit: Yes Status: Acute Assessment: He is progressing slowly with his mobilization following a left total knee replacement. I think however that if he stays over the weekend he may be able to go back to the [facility] on Friday or Friday. Plan: Probably place him on a swing bed tomorrow, so we can continue to get physical therapy over the weekend. Would anticipate that that he would be able to return to [facility] rather than going to a detention facility next week. Subjective Patient reports: no new complaints Exam Narrative Exam Narrative: He continues to progress only slowly with his ambulation. He has not been able to ambulate outside the room yet. Still needs some assist to get from the bed to standing. He can do a straight leg raise with some difficulty. He remains afebrile. His incision looks great. Objective Objective Clinical Data: Vital Signs Temperature 36.8 C 07/16/18 07:35 Temperature Source Tympanic 07/16/18 07:35 Pulse 109 H 07/16/18 07:35 Pulse Rhythm Regular 07/16/18 08:40 Respiratory Rate 20 07/16/18 07:35 Respiratory Effort 07/16/18 08:40 Respiratory Depth Normal 07/16/18 08:40 Respiratory Pattern Normal 07/16/18 08:40 Blood Pressure 151/89 H 07/16/18 07:35 Pulse Oximetry 96 07/16/18 07:35 Respiratory End-tidal CO2 20 07/13/18 12:50 Oxygen Delivery Method Room Air 07/16/18 07:35 Oxygen Flow Rate 0 07/16/18 07:35 Pain Level 10 07/16/18 11:05 Comment 07/14/18 03:26 Intake & Output 07/15/18 07/16/18 07/16/18 23:59 11:59 23:59 Intake Total 777 / 1693 0 / 0 Output Total 100 / 1090 100 / 100 Balance 677 / 603 -100 / -100 0 / -100 Weight 76.2 kg Intake: IV 537 / 1393 Oral 240 / 300 0 / 0 Output: Urine 100 / 1090 100 / 100 Other: Urine Color Pale Yellow Yellow Urine Appearance Clear Clear Urine Odor None Normal Voiding Methods Urinal Urinal Laboratory Results WBC 14.44 k/cumm (4.4-10.8) H 07/15/18 06:50 RBC 3.99 m/cumm (4.50-6.00) L 07/15/18 06:50 Hgb 12.4 g/dL (13.5-17.5) L 07/15/18 06:50 Hct 38.0 % (40.0-50.0) L 07/15/18 06:50 MCV 95.2 fL (80-95) H 07/15/18 06:50 MCH 31.1 pg (27.0-33.0) 07/15/18 06:50 MCHC 32.6 g/dL (32.0-36.0) 07/15/18 06:50 RDW 13.4 % (11.8-14.1) 07/15/18 06:50 Plt Count 179 x1000/uL (130-400) 07/15/18 06:50 MPV 11.2 fL (8.0-11.0) H 07/15/18 06:50
[2018-07-16] MEDS: Enoxaparin 30 MG/0.3 ML SYR SC (14:47)
--- NOTE | 2018-07-16 15:02 | PDOC.CMPRO ---
- If Service Date Differs Date of service: 07/16/18 Time of Service: 15:02 Care Management Progress Note S/O: CM met with the patient he will remain acute today and transition to SB1 on Friday. Goals of care PT through the weekend and return to [facility] on Friday or early next week with home health PT. Cl agrees with the plan. CM notified patient of planned to change to SB1 and reviewed contract. CM provided update to [facility]. CM updated [facility] on duty. A: Cl is a 73 year old male admitted for total left knee. P:Cl is post op day 3, patient transition to [facility] on Friday for PT. He will then return to the [facility] with new home health for PT, anticipate early next week. CM reviewed plan with Provider and PT. CM notified [facility] of return and [facility] of canceled discharge. lC will return to [facility] via private vehicle by [facility] transport.
--- NOTE | 2018-07-16 15:11 | CMPROGNOTE_ITS ---
- If Service Date Differs Date of service: 07/16/18 Time of Service: 15:02 Care Management Progress Note S/O: CM met with the patient he will remain acute today and transition to SB1 on Friday. Goals of care PT through the weekend and return to [facility] on Friday or early next week with home health PT. Cl agrees with the plan. CM notified patient of planned to change to SB1 and reviewed contract. CM provided update to [facility]. CM updated [facility] on duty. A: Cl is a 73 year old male admitted for total left knee. P:Cl is post op day 3, patient transition to SB1 on Friday for PT. He will then return to the [facility] with new home health for PT, anticipate early next week. CM reviewed plan with Provider and PT. CM notified [facility] of return and [facility] of canceled discharge. Cl will return to [facility] via private vehicle by [facility] transport.
--- NOTE | 2018-07-16 15:37 | PT.INTREAT ---
Date of service: 07/16/18 Time of Service: 11:25 PT Notes [facility] Date: 07/16/18 PRECAUTIONS: Fall, WBAT on L SUBJECTIVE: Philip states that he is agreeable to participating in PT. He continues to have left knee pain. OBJECTIVE: BED MOBILITY/TRANSFERS Supine-sit: Mod A x2 Sit-supine: Mod A x2 Sit-stand: Mod A x2 Stand-sit: Mod A x2 GAIT Assistive Device: FWW Weight bearing: WBAT L Assist: Mod A x2 Distance: 6' in a.m. x 1, and 6'in the pm x 1 Deviation: Cueing FWW mechanics and posture THEREX: Patient completed a LE strengthening and stabilization program, as per flow sheet. Patient was able to complete active SLR x10, and addition of theraband resisted UE strengthening activities. Patient completed dangling at edge of bed for knee flexion. Active assisted left knee flexion is measured as 78 degrees. Patient ends with cryocuff to left knee. ASSESSMENT: Patient continues to require significant cueing during gait training for posture and FWW mechanics, as well as a significant amount of assistance for short-distance ambulation. He will benefit from continued gait and transfer training, as well as strengthening for improved activity tolerance and mobility. PLAN: Continue per established POC TREATMENT CODE/TIME: Session 1: 30 minutes; [id number] , 76303 (11:20-11:50) Session 2: 30 minutes; 70561 , 24733 (1:35-2:05) Vita Artis, PT, DPT [facility]
--- NOTE | 2018-07-16 15:43 | PTTR_ITS ---
Date of service: 07/16/18 Time of Service: 11:25 PT Notes [facility] Date: 07/16/18 PRECAUTIONS: Fall, WBAT on L SUBJECTIVE: Philip states that he is agreeable to participating in PT. He continues to have left knee pain. OBJECTIVE: BED MOBILITY/TRANSFERS Supine-sit: Mod A x2 Sit-supine: Mod A x2 Sit-stand: Mod A x2 Stand-sit: Mod A x2 GAIT Assistive Device: FWW Weight bearing: WBAT L Assist: Mod A x2 Distance: 6' in a.m. x 1, and 6'in the pm x 1 Deviation: Cueing FWW mechanics and posture THEREX: Patient completed a LE strengthening and stabilization program, as per flow sheet. Patient was able to complete active SLR x10, and addition of theraband resisted UE strengthening activities. Patient completed dangling at edge of bed for knee flexion. Active assisted left knee flexion is measured as 78 degrees. Patient ends with cryocuff to left knee. ASSESSMENT: Patient continues to require significant cueing during gait training for posture and FWW mechanics, as well as a significant amount of assistance for short-distance ambulation. He will benefit from continued gait and transfer training, as well as strengthening for improved activity tolerance and mobility. PLAN: Continue per established POC TREATMENT CODE/TIME: Session 1: 30 minutes; 79612 , [id number] (11:20-11:50) Session 2: 30 minutes; 31863 , 55715 (1:35-2:05) Vita Artis, PT, DPT [facility]
[2018-07-16 16:04] VITALS: BP 111/69; PULSE 104; RESP 20; TEMP 36.7; O2SAT 96
[2018-07-16] MEDS: Atorvastatin 40 MG TAB 80 MG PO (20:54)
[2018-07-16] MEDS: Celecoxib 200 MG CAP PO (20:55)
[2018-07-17] VITALS (7 sets, daily range): BP systolic 101–135; BP diastolic 60–84; PULSE 89–111; RESP 16–20; TEMP 36.2–37.3; O2SAT 93–98
[2018-07-17] MEDS: oxyCODONE-CR 10 MG TABCR PO (05:12)
--- NOTE | 2018-07-17 08:57 | PDOC.CMPRO ---
- If Service Date Differs Date of service: 07/17/18 Time of Service: 08:57 Care Management Progress Note S/O: CM met with patient at the bedside reviewed the swing bed contract. Cl agrees to transition to SB1 today and contract was completed. Goals are that Cl will be here 5-7 days for PT and OT plan to return to [facility] at time of discharge. CM reviewed the plan with provider and notified [facility] of plan. CM requested pre account be placed in EMR for provider to complete orders. A: Cl is a 73 year old male admitted for total left knee. Cl lives in assisted living at [facility]. P: Cl will transition to 1 today for PT/OT prior to transition to [facility] with new home health PT.
--- NOTE | 2018-07-17 09:07 | CMPROGNOTE_ITS ---
- If Service Date Differs Date of service: 07/17/18 Time of Service: 08:57 Care Management Progress Note S/O: CM met with patient at the bedside reviewed the swing bed contract. Cl agrees to transition to SB1 today and contract was completed. Goals are that Cl will be here 5-7 days for PT and OT plan to return to [facility] at time of discharge. CM reviewed the plan with provider and notified [facility] of plan. CM requested pre account be placed in EMR for provider to complete orders. A: Cl is a 73 year old male admitted for total left knee. Cl lives in assisted living at [facility]. P: Cl will transition to [facility] today for PT/OT prior to transition to [facility] with new home health PT.
[2018-07-17] MEDS: HYDROcodone 5/Acetaminophen 325 TAB PO ×3 (09:27→22:14)
[2018-07-17] MEDS: Docusate Sodium 100 MG CAP PO ×3 (09:28→19:56)
[2018-07-17] MEDS: metFORMIN 500 MG TAB PO ×2 (09:28→16:18)
[2018-07-17] MEDS: Magnesium Oxide 400 MG TAB PO ×2 (09:28→19:56)
[2018-07-17] MEDS: buPROPion-XL 150 MG TABCR PO (09:28)
[2018-07-17] MEDS: Pantoprazole 40 MG TABCR PO (09:28)
[2018-07-17] MEDS: Tamsulosin 0.4 MG CAPCR PO (09:28)
[2018-07-17] MEDS: Celecoxib 200 MG CAP PO ×2 (09:28→19:56)
[2018-07-17] MEDS: Lisinopril 5 MG TAB PO (09:28)
[2018-07-17] MEDS: Acetaminophen 325 MG TAB 650 MG PO (11:30)
[2018-07-17] MEDS: Enoxaparin 30 MG/0.3 ML SYR SC (11:30)
--- NOTE | 2018-07-17 12:13 | PGE_ITS ---
Date of Service Date of service: 07/17/18 Time of Service: 12:07 Assessment and Plan (1) Primary osteoarthritis of left knee: Current visit: Yes Status: Acute Assessment: I do not know why he is having more pain today. He does not show any signs of any infection of his total knee. The pain however is significantly hampering his mobility. I do not think he should be on a swing be d right now. I think he needs to stay acute until his pain is controlled with just p.o. pain meds. Plan: I am going to put her on scheduled Toradol 30 mg every 6 hours for 6 doses. Hopefully this will be enough to decrease his pain so that just the oral meds are enough. Continue ice regularly and continue to mobilize with PT. We will leave his IV in until a Toradol is done, since it was not taken out previously as ordered. Subjective Interval history since last seen: Cl is having a lot more pain today. His p.o. hydrocodone does not appear to be covering it. Exam Narrative Exam Narrative: He is afebrile. His left total knee incision looks clean and dry there is no drainage. There is no surrounding erythema. He says he cannot do a straight leg raise today because of pain. He could do it yesterday. Objective Objective Clinical Data: Vital Signs Temperature 36.7 C 07/17/18 07:30 Temperature Source Tympanic 07/17/18 07:30 Pulse 94 H 07/17/18 07:30 Pulse Rhythm Regular 07/16/18 23:41 Respiratory Rate 18 07/17/18 07:30 Respiratory Effort Non-Labored 07/16/18 23:41 Respiratory Depth Normal 07/16/18 23:41 Respiratory Pattern Normal 07/16/18 23:41 Blood Pressure 114/71 07/17/18 07:30 Pulse Oximetry 97 07/17/18 07:30 Respiratory End-tidal CO2 20 07/13/18 12:50 Oxygen Delivery Method Room Air 07/17/18 07:30 Oxygen Flow Rate 0 07/17/18 07:30 Pain Level 10 07/17/18 11:30 Comment 07/14/18 03:26 Intake & Output 07/16/18 07/17/18 07/17/18 23:59 11:59 23:59 Intake Total 240 / 240 100 / 100 Output Total 280 / 280 Balance 240 / 140 -180 / -180 Intake: Oral 240 / 240 100 / 100 Output: Urine 280 / 280 Other: Urine Color Yellow Urine Appearance Clear Cloudy Urine Odor Normal Voiding Methods Urinal Laboratory Results WBC 14.44 k/cumm (4.4-10.8) H 07/15/18 06:50 RBC 3.99 m/cumm (4.50-6.00) L 07/15/18 06:50 Hgb 12.4 g/dL (13.5-17.5) L 07/15/18 06:50 Hct 38.0 % (40.0-50.0) L 07/15/18 06:50 MCV 95.2 fL (80-95) H 07/15/18 06:50 MCH 31.1 pg (27.0-33.0) 07/15/18 06:50 MCHC 32.6 g/dL (32.0-36.0) 07/15/18 06:50 RDW 13.4 % (11.8-14.1) 07/15/18 06:50 Plt Count 179 x1000/uL (130-400) 07/15/18 06:50 MPV 11.2 fL (8.0-11.0) H 07/15/18 06:50
--- NOTE | 2018-07-17 12:16 | PT.INTREAT ---
Date of service: 07/17/18 Time of Service: 10:25 PT Notes [facility] Date: 07/17/18 PRECAUTIONS: Fall, WBAT on L SUBJECTIVE: Philip states that he is agreeable to participating in PT. He states that his knee pain is worse, although continues to rate this as 5/10. OBJECTIVE: PAIN: 5/10 at rest. Post-rx, 10/10 BED MOBILITY/TRANSFERS Supine-sit: Mod A x2 Sit-supine: Mod A x2 Sit-stand: Mod A x2 Stand-sit: Mod A x2 GAIT Assistive Device: FWW Weight bearing: WBAT L Assist: Mod A x2 Distance: 6' Deviation: Cueing FWW mechanics and posture, chair follow THEREX: Patient completed a LE strengthening and stabilization program, as per flow sheet. Patient was able to complete active SLR x10, and addition of theraband resisted UE strengthening activities. Patient completed dangling at edge of bed for knee flexion. Active assisted left knee flexion is measured as 70 degrees. Patient ends with cryocuff to left knee. ASSESSMENT: Patient continues to require significant cueing during gait training for posture and FWW mechanics, as well as a significant amount of assistance for short-distance ambulation. His pain is increased today, which was a limiter for tolerance to mobilization and participation in therex. He will benefit from continued gait and transfer training, as well as strengthening for improved activity tolerance and mobility. PLAN: Continue per established POC TREATMENT CODE/TIME: 25 minutes; [id number] , [id number] (10:25-10:50) Vita Artis, PT, DPT [facility]
[2018-07-17] MEDS: Normal Saline Flush 10 ML SYR IV ×2 (13:34→19:54)
[2018-07-17] MEDS: Ketorolac 30 MG/ML VIAL IVP ×2 (13:34→19:54)
--- NOTE | 2018-07-17 15:19 | PT.INTREAT ---
Date of service: 07/17/18 Time of Service: 15:19 PT Notes Inpatient Physical Therapy Treatment Note [facility] Date: 07/17/18 PRECAUTIONS: Fall, WBAT L SUBJECTIVE: Philip continues to express significant pain in L knee with ther ex and weight bearing activities. OBJECTIVE: PAIN: Please see subjective portion of this note. BED MOBILITY/TRANSFERS Sit-supine: Max A x2 Sit-stand: Mod A x2 Stand-sit: Mod A x2 Chair-bed: Mod A x2 GAIT Assistive Device: FWW Weight bearing: WBAT L Assist: Mod A x2 Distance: Stand?step x10' Deviation: LOB x1, requiring Max A for recovery, max cueing for posture and FWW mechanics THEREX: Patient completed a lower extremity strengthening and stabilization program, as per flow sheet. ASSESSMENT: Patient tolerated session with significant complaints of L knee pain with weight bearing activities and ther ex. Patient was able to tolerate a slight progression in gait distance with FWW support and Mod A x2, with continued max cueing for posture and FWW mechanics. Patient would benefit from continued gait and transfer training as well as strengthening for improved mobility and improved ability to perform daily functional tasks at a more independent level. PLAN: Continue with PTs POC TREATMENT CODE/TIME: 35 minutes; [id number], [id number]
--- NOTE | 2018-07-17 15:23 | PTTR_ITS ---
Date of service: 07/17/18 Time of Service: 15:19 PT Notes Inpatient Physical Therapy Treatment Note [facility] Date: 07/17/18 PRECAUTIONS: Fall, WBAT L SUBJECTIVE: Philip continues to express significant pain in L knee with ther ex and weight bearing activities. OBJECTIVE: PAIN: Please see subjective portion of this note. BED MOBILITY/TRANSFERS Sit-supine: Max A x2 Sit-stand: Mod A x2 Stand-sit: Mod A x2 Chair-bed: Mod A x2 GAIT Assistive Device: FWW Weight bearing: WBAT L Assist: Mod A x2 Distance: Stand?step x10' Deviation: LOB x1, requiring Max A for recovery, max cueing for posture and FWW mechanics THEREX: Patient completed a lower extremity strengthening and stabilization program, as per flow sheet. ASSESSMENT: Patient tolerated session with significant complaints of L knee pain with weight bearing activities and ther ex. Patient was able to tolerate a sl ight progression in gait distance with FWW support and Mod A x2, with continued max cueing for posture and FWW mechanics. Patient would benefit from continued gait and transfer training as well as strengthening for improved mobility and improved ability to perform daily functional tasks at a more independent level. PLAN: Continue with PTs POC TREATMENT CODE/TIME: 35 minutes; [id number], [id number]
[2018-07-17] MEDS: Milk of Magnesia 30 ML CUP PO (19:53)
[2018-07-17] MEDS: Atorvastatin 40 MG TAB 80 MG PO (19:56)
[2018-07-18] MEDS: Normal Saline Flush 10 ML SYR IV ×5 (01:32→19:27)
[2018-07-18] MEDS: Ketorolac 30 MG/ML VIAL IVP ×4 (01:32→19:27)
[2018-07-18] MEDS: HYDROcodone 5/Acetaminophen 325 TAB PO ×3 (02:23→21:54)
[2018-07-18 07:28] LABS: HCT 34.9 % (40.0-50.0); HGB 11.3 g/dL (13.5-17.5); Mean Corp. HGB Concentration 32.4 g/dL (32.0-36.0); Mean Corpuscular Hemoglobin 30.7 pg (27.0-33.0); Mean Corpuscular Volume 94.8 fL (80-95); Mean Platelet Volume 11.1 fL (8.0-11.0); Platelet Count 232 x1000/uL (130-400); RBC 3.68 m/cumm (4.50-6.00); RBC Distribution Width 13.2 % (11.8-14.1); White Blood Cell Count 10.67 k/cumm (4.4-10.8)
[2018-07-18 07:30] VITALS: BP 118/72; PULSE 95; RESP 16; TEMP 36.5; O2SAT 96
[2018-07-18] MEDS: Docusate Sodium 100 MG CAP PO ×2 (07:55→19:28)
[2018-07-18] MEDS: buPROPion-XL 150 MG TABCR PO (07:55)
[2018-07-18] MEDS: Lisinopril 5 MG TAB PO (07:55)
[2018-07-18] MEDS: Tamsulosin 0.4 MG CAPCR PO (07:55)
[2018-07-18] MEDS: Celecoxib 200 MG CAP PO ×2 (07:55→19:27)
[2018-07-18] MEDS: Magnesium Oxide 400 MG TAB PO ×2 (07:55→19:28)
[2018-07-18] MEDS: Pantoprazole 40 MG TABCR PO (07:56)
[2018-07-18] MEDS: metFORMIN 500 MG TAB PO ×2 (07:56→17:16)
--- NOTE | 2018-07-18 10:14 | PT.INTREAT ---
Date of service: 07/18/18 Time of Service: 10:14 PT Notes 07/18/18 SUBJECTIVE: Cl stating 10/10 pain. OBJECTIVE: Seated in recliner. Agreeable to PT treatment. TRANSFERS Sit to stand: Mod x 2 Stand to sit: Mod x 2 GAIT: Device: FWW Weight bearing: AT Assist: Mod x 2 Distance: 10' Deviation: Chair follow Therex: LE strengthening and ROM performed. Perform AA SLR x 10 and PROM into flexion and extension. Perform desensitization massage surrounding medial and lateral joint line. Ends with cryo cuff. ASSESSMENT: Continues to require Mod A throughout for transfers and gait. He is having a hard time managing his pain level. Fatigues quickly with gait and requires quick sit rest so we will continue with chair follow. PLAN: Continue per established POC. Treatment time: 20 minutes [id number] Carolina Hermosillo, SOLAR FIELD SERVICE TECHNICIAN
[2018-07-18] MEDS: Acetaminophen 325 MG TAB 650 MG PO ×2 (10:17→19:28)
--- NOTE | 2018-07-18 10:17 | PTTR_ITS ---
Date of service: 07/18/18 Time of Service: 10:14 PT Notes 07/18/18 SUBJECTIVE: Cl stating 10/10 pain. OBJECTIVE: Seated in recliner. Agreeable to PT treatment. TRANSFERS Sit to stand: Mod x 2 Stand to sit: Mod x 2 GAIT: Device: FWW Weight bearing: AT Assist: Mod x 2 Distance: 10' Deviation: Chair follow Therex: LE strengthening and ROM performed. Perform AA SLR x 10 and PROM into flexion and extension. Perform desensitization massage surrounding medial and lateral joint line. Ends with cryo cuff. ASSESSMENT: Continues to require Mod A throughout for transfers and gait. He is having a hard time managing his pain level. Fatigues quickly with gait and requires quick sit rest so we will continue with chair follow. PLAN: Continue per established POC. Treatment time: 20 minutes [id number] Carolina Hermosillo, HEMMER AUTOMATIC
--- NOTE | 2018-07-18 11:08 | PGE_ITS ---
Date of Service Date of service: 07/18/18 Time of Service: 11:06 Assessment and Plan (1) Primary osteoarthritis of left knee: Current visit: Yes Status: Acute Assessment: 5 days postop left total knee replacement progressing slowly. I do think giving him some scheduled Toradol yesterday has helped with his pain. He still has not walked outside the room yet. I think that once he is able to do that he will be ready to go back to the [facility]. He will not need to go to a prison. I think he should be able to do this within the next 2-3 days. Plan: Continue to mobilize with PT. We will discontinue his IV after his last Toradol dose later today. DC back to [facility] when sufficiently independent. Subjective Patient reports: feels better and pain is less Exam Narrative Exam Narrative: He has no significant effusion palpable on his left knee today. He has no swelling in his left lower leg. He is sitting comfortably in the recliner. Physical therapy says they were able to have him ambulate back and forth across his room. He has not been able to ambulate outside the room yet. He remains afebrile vital signs stable. Objective Objective Clinical Data: Abnormal lab results 07/18/18 Range/Units 06:18 RBC 3.68 L (4.50-6.00) m/cumm Hgb 11.3 L (13.5-17.5) g/dL Hct 34.9 L (40.0-50.0) % MPV 11.1 H (8.0-11.0) fL Vital Signs Temperature 36.5 C 07/18/18 07:30 Temperature Source Tympanic 07/18/18 07:30 Pulse 95 H 07/18/18 07:30 Pulse Rhythm Regular 07/18/18 07:40 Respiratory Rate 16 07/18/18 07:30 Respiratory Effort Non-Labored 07/18/18 07:40 Respiratory Depth Normal 07/18/18 07:40 Respiratory Pattern Normal 07/18/18 07:40 Blood Pressure 118/72 07/18/18 07:30 Pulse Oximetry 96 07/18/18 07:30 Respiratory End-tidal CO2 20 07/13/18 12:50 Oxygen Delivery Method Room Air 07/18/18 07:30 Oxygen Flow Rate 0 07/18/18 07:30 Pain Level 5 07/18/18 06:29 Comment 07/14/18 03:26 Intake & Output 07/17/18 07/17/18 07/18/18 11:59 23:59 11:59 Intake Total 890 / 1160 270 / 1160 Output Total 280 / 480 200 / 480 150 / 150 Balance 610 / 680 70 / 680 -140 / -140 Intake: IV Oral 890 / 1130 240 / 1130 Output: Urine 280 / 480 200 / 480 150 / 150 Other: Urine Color Yellow Light Lillian Yellow Urine Appearance Cloudy Clear Clear Urine Odor Normal None Comment Void x1 in the urinal. Voiding Methods Urinal Urinal Urinal Laboratory Results WBC 10.67 k/cumm (4.4-10.8) 07/18/18 06:18 RBC 3.68 m/cumm (4.50-6.00) L 07/18/18 06:18 Hgb 11.3 g/dL (13.5-17.5) L 07/18/18 06:18 Hct 34.9 % (40.0-50.0) L 07/18/18 06:18 MCV 94.8 fL (80-95) 07/18/18 06:18 MCH 30.7 pg (27.0-33.0) 07/18/18 06:18 MCHC 32.4 g/dL (32.0-36.0) 07/18/18 06:18 RDW 13.2 % (11.8-14.1) 07/18/18 06:18 Plt Count 232 x1000/uL (130-400) 07/18/18 06:18 MPV 11.1 fL (8.0-11.0) H 07/18/18 06:18
[2018-07-18 11:21] VITALS: BP 108/70; PULSE 95; RESP 18; TEMP 35.9; O2SAT 97
[2018-07-18] MEDS: Enoxaparin 30 MG/0.3 ML SYR SC (13:23)
--- NOTE | 2018-07-18 14:23 | PDOC.CMPRO ---
Care Management Progress Note S/O: Sitting up in his recliner. Cryocuff in place. Says he is still in pain but did work with PT today. A: 73 y.o. male admitted for OA s/p L-TKA. Progressing slowly and is having difficulty managing pain. Remains Acute P: Return to [facility] when medically cleared for discharge. Will need [facility] for new Services PT.
--- NOTE | 2018-07-18 14:38 | CMPROGNOTE_ITS ---
Care Management Progress Note S/O: Sitting up in his recliner. Cryocuff in place. Says he is still in pain but did work with PT today. A: 73 y.o. male admitted for OA s/p L-TKA. Progressing slowly and is having difficulty managing pain. Remains Acute P: Return to [facility] when medically cleared for discharge. Will need [facility] for new Services PT.
[2018-07-18 15:40] VITALS: BP 103/67; PULSE 99; RESP 18; TEMP 36.8; O2SAT 96
[2018-07-18] MEDS: Atorvastatin 40 MG TAB 80 MG PO (19:28)
[2018-07-18 19:32] VITALS: BP 132/79; PULSE 99; RESP 18; TEMP 36.5; O2SAT 97
[2018-07-18 23:53] VITALS: BP 136/75; PULSE 99; RESP 18; TEMP 36.5; O2SAT 97
[2018-07-19] MEDS: Milk of Magnesia 30 ML CUP PO (02:12)
[2018-07-19] MEDS: HYDROcodone 5/Acetaminophen 325 TAB PO ×4 (02:12→20:37)
[2018-07-19 03:58] VITALS: BP 115/73; PULSE 89; RESP 18; TEMP 36.9; O2SAT 96
[2018-07-19 07:30] VITALS: BP 167/91; PULSE 92; RESP 18; TEMP 36.7; O2SAT 98
[2018-07-19] MEDS: Celecoxib 200 MG CAP PO ×2 (08:46→20:37)
[2018-07-19] MEDS: Tamsulosin 0.4 MG CAPCR PO (08:46)
[2018-07-19] MEDS: Lisinopril 5 MG TAB PO (08:46)
[2018-07-19] MEDS: buPROPion-XL 150 MG TABCR PO (08:46)
[2018-07-19] MEDS: Pantoprazole 40 MG TABCR PO (08:47)
[2018-07-19] MEDS: Magnesium Oxide 400 MG TAB PO ×2 (08:47→20:38)
[2018-07-19] MEDS: metFORMIN 500 MG TAB PO ×2 (08:47→16:36)
--- NOTE | 2018-07-19 10:06 | PT.INTREAT ---
Date of service: 07/19/18 Time of Service: 10:06 PT Notes 07/19/18 SUBJECTIVE: Pt noting improvement in his pain level today. Pt gives me a thumbs up as to how he is feeling. OBJECTIVE: Supine in bed. Agreeable to PT treatment. TRANSFERS: Supine to sit: Min A x 1 Sit to stand: Mod A x 2 Stand to sit: Mod A x 2 GAIT: Device: FWW Weight bearing: AT Assist: Mod x 2 Distance: 5' Deviation: Pt stood for prolong period of time for cleaning and he was unable to proceed with gait due to fatigue. THEREX: See flow sheet. Pt able to perform 10 active SLR today. ASSESSMENT: Pt appears to be more comfortable today throughout treatment. Continues to fatigue quite quickly and continues to require mod A x 2 for gait and transfers. PLAN: Continue per established POC. Treatment time: 30 minutes [id number], [id number] Carolina Hermosillo, GREENSTONE POLISHER OPERATOR
--- NOTE | 2018-07-19 10:10 | PTTR_ITS ---
Date of service: 07/19/18 Time of Service: 10:06 PT Notes 07/19/18 SUBJECTIVE: Pt noting improvement in his pain level today. Pt gives me a thumbs up as to how he is feeling. OBJECTIVE: Supine in bed. Agreeable to PT treatment. TRANSFERS: Supine to sit: Min A x 1 Sit to stand: Mod A x 2 Stand to sit: Mod A x 2 GAIT: Device: FWW Weight bearing: AT Assist: Mod x 2 Distance: 5' Deviation: Pt stood for prolong period of time for cleaning and he was unable to proceed with gait due to fatigue. THEREX: See flow sheet. Pt able to perform 10 active SLR today. ASSESSMENT: Pt appears to be more comfortable today throughout treatment. Continues to fatigue quite quickly and continues to require mod A x 2 for gait and transfers. PLAN: Continue per established POC. Treatment time: 30 minutes [id number], [id number] Carolina Hermosillo, DIRECTOR METABOLISM
[2018-07-19] MEDS: Acetaminophen 325 MG TAB 650 MG PO (11:37)
--- NOTE | 2018-07-19 12:42 | PGE_ITS ---
Date of Service Date of service: 07/19/18 Time of Service: 12:41 Assessment and Plan (1) Primary osteoarthritis of left knee: Current visit: Yes Status: Acute Assessment: I cannot explain the discrepancy between what he told me and what he told the physical therapist. I do not see any reason for him having increased pain now. He has not been requiring more pain medicines. His total knee is benign on exam. He fatigues easily and this is holding him back. I do not think he will be able to go back to his level 4 facility at [place]. I think he is going to need to go to a assisted facility until he can move a lot better. Plan: Have care management work on assisted facility placement as soon as possible this week. Continue to mobilize with PT. Subjective Patient reports: still having pain Interval history since last seen: Cl says he still having pain. He says it does not feel any less than preop. He is complaining of violent diarrhea last night. No further episodes today. According to today's PT notes, he was having much less pain. Exam Narrative Exam Narrative: He remains afebrile. Vital signs are stable. He has only minimal swelling of his left knee. His incision is clean and dry with no sign of infection. He did 10 active straight leg raises for PT today. He only walk 5 feet x2 because he fatigues easily. Objective Objective Clinical Data: Vital Signs Temperature 36.7 C 07/19/18 07:30 Temperature Source Tympanic 07/19/18 07:30 Pulse 92 H 07/19/18 07:30 Pulse Rhythm Regular 07/19/18 08:34 Respiratory Rate 18 07/19/18 07:30 Respiratory Effort Non-Labored 07/19/18 08:34 Respiratory Depth Normal 07/19/18 08:34 Respiratory Pattern Normal 07/19/18 08:34 Blood Pressure 167/91 H 07/19/18 07:30 Pulse Oximetry 98 07/19/18 07:30 Respiratory End-tidal CO2 20 07/13/18 12:50 Oxygen Delivery Method Room Air 07/19/18 07:30 Oxygen Flow Rate 0 07/19/18 07:30 Pain Level 5 07/19/18 08:47 Comment 07/14/18 03:26 Intake & Output 07/18/18 07/19/18 07/19/18 23:59 11:59 23:59 Intake Total 380 / 390 490 / 490 Output Total 400 / 550 550 / 550 Balance -20 / -160 -60 / -60 Weight 74.7 kg Intake: IV 10 Oral 360 / 360 480 / 480 Output: Urine 400 / 550 550 / 550 Other: Urine Color Straw Light Lillian Urine Appearance Clear Urine Odor Normal Stool Size Large Large Stool Characteristics Soft Liquid Brown Brown Voiding Methods Urinal Urinal Laboratory Results WBC 10.67 k/cumm (4.4-10.8) 07/18/18 06:18 RBC 3.68 m/cumm (4.50-6.00) L 07/18/18 06:18 Hgb 11.3 g/dL (13.5-17.5) L 07/18/18 06:18 Hct 34.9 % (40.0-50.0) L 07/18/18 06:18 MCV 94.8 fL (80-95) 07/18/18 06:18 MCH 30.7 pg (27.0-33.0) 07/18/18 06:18 MCHC 32.4 g/dL (32.0-36.0) 07/18/18 06:18 RDW 13.2 % (11.8-14.1) 07/18/18 06:18 Plt Count 232 x1000/uL (130-400) 07/18/18 06:18 MPV 11.1 fL (8.0-11.0) H 07/18/18 06:18
[2018-07-19] MEDS: Enoxaparin 30 MG/0.3 ML SYR SC (12:44)
--- NOTE | 2018-07-19 15:00 | PDOC.CMPRO ---
Care Management Progress Note S/O: Sitting up in his recliner. Says he is tired and his knee still hurts but doing better today. : 73 y.o. male admitted for OA s/p L-TKA. Progressing slowly and is having difficulty regaining mobility. Remains Acute P: Will need short term SNF placement prior to returning to [facility].
--- NOTE | 2018-07-19 15:09 | CMPROGNOTE_ITS ---
Care Management Progress Note S/O: Sitting up in his recliner. Says he is tired and his knee still hurts but doing better today. : 73 y.o. male admitted for OA s/p L-TKA. Progressing slowly and is having difficulty regaining mobility. Remains Acute P: Will need short term SNF placement prior to returning to [facility].
[2018-07-19 15:46] VITALS: BP 110/67; PULSE 103; RESP 18; TEMP 36.2; O2SAT 96
[2018-07-19 19:52] VITALS: BP 127/80; PULSE 105; RESP 19; TEMP 37.1; O2SAT 98
[2018-07-19] MEDS: Docusate Sodium 100 MG CAP PO (20:37)
[2018-07-19] MEDS: Atorvastatin 40 MG TAB 80 MG PO (20:38)
[2018-07-19] MEDS: Normal Saline Flush 10 ML SYR IV (20:38)
--- NOTE | 2018-07-19 23:32 | NUR.NOTE ---
Nursing Note: Pt complained of pain at a 10 at 2100 after receiving 1 [place] around 1800. He finished his last dose of 6 toradol IV yesterday. At 2100 I gave pt a second [place]. Last night he rated his pain 8-9 and tonight he is a 10. Reported to charge nurse pt's pain is not yet under control and is inhibiting his ambulation. CSM + BLE, 1+ nonpitting edema LLE with thigh high susana on at all times. Gauze dressing has very minimal dried drainage.
[2018-07-20] VITALS (8 sets, daily range): BP systolic 107–158; BP diastolic 68–83; PULSE 97–106; RESP 16–18; TEMP 36.3–36.6; O2SAT 94–98
[2018-07-20] MEDS: HYDROcodone 5/Acetaminophen 325 TAB PO ×2 (01:00→07:05)
[2018-07-20] MEDS: Acetaminophen 325 MG TAB 650 MG PO (02:04)
[2018-07-20] MEDS: Pantoprazole 40 MG TABCR PO (07:05)
[2018-07-20] MEDS: metFORMIN 500 MG TAB PO ×2 (07:05→17:06)
--- NOTE | 2018-07-20 07:08 | NUR.NOTE ---
Nursing Note: Pt pain is 10/10 last 12 hours. Current pain control regimen unsuccessful reported to charge nurse and MD.
[2018-07-20] MEDS: Tamsulosin 0.4 MG CAPCR PO (08:47)
[2018-07-20] MEDS: Celecoxib 200 MG CAP PO ×2 (08:47→22:13)
[2018-07-20] MEDS: Gabapentin 100 MG CAP PO ×3 (08:47→22:13)
[2018-07-20] MEDS: Lisinopril 5 MG TAB PO (08:47)
[2018-07-20] MEDS: buPROPion-XL 150 MG TABCR PO (08:47)
[2018-07-20] MEDS: Docusate Sodium 100 MG CAP PO ×3 (08:47→22:13)
[2018-07-20] MEDS: Magnesium Oxide 400 MG TAB PO ×2 (08:47→22:13)
--- NOTE | 2018-07-20 10:22 | PT.INTREAT ---
Date of service: 07/20/18 Time of Service: 07:55 PT Notes 07/20/18 SUBJECTIVE: Philip states that his pain is better managed, but that he is extremely tired. He rates his pain as a 2/10. OBJECTIVE: Supine in bed. Agreeable to PT treatment. TRANSFERS: Supine to sit: Min A x 1 Sit to stand: Mod A x 2 Stand to sit: Mod A x 2. He requires assist to LLE to prevent excessive loading of the knee during eccentric lowering. GAIT: Device: FWW Weight bearing: AT Assist: Mod x 2 Distance: 6' x 2. Deviation: Patient sat up to chair for approx 60 mintutes between bouts of walking, at which point he requests returning to bed. During second completion of ambulation, he initially requires only min A x2, although as he fatigues (approx penitentiary from chair to bed), he again requires mod A x 2 and max cues for foot placement and WW management. THEREX: See flow sheet. Pt able to perform 10 active SLR today. Also progressed to include tricep push ups with glute sets to initiate sit->stand activities. ASSESSMENT: Slight improvements in mobility today, although patient continues to fatigue easily and require a significant amount of assistance. PLAN: Continue per established POC. Treatment time: 7:55-8:25; 9:30-9:40; 40 minutes [id number], [id number]
--- NOTE | 2018-07-20 10:26 | PTTR_ITS ---
Date of service: 07/20/18 Time of Service: 07:55 PT Notes 07/20/18 SUBJECTIVE: Philip states that his pain is better managed, but that he is extremely tired. He rates his pain as a 2/10. OBJECTIVE: Supine in bed. Agreeable to PT treatment. TRANSFERS: Supine to sit: Min A x 1 Sit to stand: Mod A x 2 Stand to sit: Mod A x 2. He requires assist to LLE to prevent excessive loading of the knee during eccentric lowering. GAIT: Device: FWW Weight bearing: AT Assist: Mod x 2 Distance: 6' x 2. Deviation: Patient sat up to chair for approx 60 mintutes between bouts of walking, at which point he requests returning to bed. During second completion of ambulation, he initially requires only min A x2, although as he fatigues (approx senior care from chair to bed), he again requires mod A x 2 and max cues for foot placement and WW management. THEREX: See flow sheet. Pt able to perform 10 active SLR today. Also progressed to include tricep push ups with glute sets to initiate sit->stand activities. ASSESSMENT: Slight improvements in mobility today, although patient continues to fatigue easily and require a significant amount of assistance. PLAN: Continue per established POC. Treatment time: 7:55-8:25; 9:30-9:40; 40 minutes [id number], [id number]
[2018-07-20] MEDS: Enoxaparin 30 MG/0.3 ML SYR SC (12:32)
[2018-07-20] MEDS: oxyCODONE 5 mg/Acetaminophen 325 mg TAB 1 TAB PO (12:32)
--- NOTE | 2018-07-20 14:46 | PT.INTREAT ---
Date of service: 07/20/18 Time of Service: 14:46 PT Notes Inpatient Physical Therapy Treatment Note [facility] Date: 07/20/18 PRECAUTIONS: Fall, WBAT L SUBJECTIVE: Philip expresses that he continues to have left knee pain, although is agreeable to getting up and participating in PT. OBJECTIVE: PAIN: Patient complained of left knee pain with sit<> stand transfers, gait training, and ther ex BED MOBILITY/TRANSFERS Supine-sit: Mod A Sit-stand: Mod A x2 Stand-sit: Mod A x2 with assist for left knee extension as well as significant verbal cueing to reach back for chair GAIT Assistive Device: FWW Weight bearing: WBAT L Assist: Mod A x2 Distance: 8' + 3' Deviation: Seated rest x1, complaints of dizziness THEREX: Patient completed a lower extremity strengthening program, in a seated position, as per flow sheet. ASSESSMENT: Patient tolerated session with continued complaint of significant left knee pain with weight bearing activities and ther ex. Patient continues to require significant cueing for safety with transfers as well as assist for left knee extension with stand?to?sit transfer. He would benefit from continued gait and transfer training as well as strengthening for improved activity tolerance and mobility. PLAN: Continue with PTs POC TREATMENT CODE/TIME: 35 minutes; [id number], [id number]
--- NOTE | 2018-07-20 15:57 | PDOC.CMPRO ---
- If Service Date Differs Date of service: 07/20/18 Time of Service: 15:58 Care Management Progress Note S/O: CM met with the patient at the bedside, reviewed PT notes, and provider notes. Cl is requesting that he transition to a correction facility prior to returning to [facility]. Cl is able to express his discouragement today related to recovery from surgery. He states he continues to have quite a bit of pain. CM reviewed with patient how to communicate his need for pain medication. He states that he writes it down, CM suggested he use the face pain scale. CM did fax a referral to health and rehab today per patient's request, he has been accepted at facility. He will plan to have a short skilled stay for PT prior to returning to [facility]. CM provided update to nursing administration at [facility]. LARON reviewed the plan with Dr. Castillo who agrees with plan to discharge on Friday. A: Cl is a 73-year-old male admitted with osteoarthritis status post left total knee. P: Cl will transition to [facility] for short skilled rehab stay on Friday, , 2018. LARON has requested wheelchair van from health and rehab if not available [facility] wheelchair van. Cl agrees to the discharge plan, [facility] has been updated. LARON to complete forms placed in the chart for provider and nursing.
--- NOTE | 2018-07-20 16:05 | CMPROGNOTE_ITS ---
- If Service Date Differs Date of service: 07/20/18 Time of Service: 15:58 Care Management Progress Note S/O: CM met with the patient at the bedside, reviewed PT notes, and provider notes. Cl is requesting that he transition to a [facility] facility prior to returning to [facility]. Cl is able to express his discouragement today related to recovery from surgery. He states he continues to have quite a bit of pain. CM reviewed with patient how to communicate his need for pain medication. He states that he writes it down, CM suggested he use the face pain scale. CM did fax a referral to health and rehab today per patient's request, he has been accepted at facility. He will plan to have a short skilled stay for PT prior to returning to [facility]. CM provided update to nursing administration at [facility]. LARON reviewed the plan with Dr. Castillo who agrees with plan to discharge on Friday. A: Cl is a 73-year-old male admitted with osteoarthritis status post left total knee. P: Cl will transition to [facility] for short skilled rehab stay on Friday, , 2018. LARON has requested wheelchair van from health and rehab if not available [facility] wheelchair van. Cl agrees to the discharge plan, [facility] has been updated. LARON to complete forms placed in the chart for provider and nursing.
[2018-07-20] MEDS: Atorvastatin 40 MG TAB 80 MG PO (22:13)
[2018-07-21] MEDS: oxyCODONE 5 mg/Acetaminophen 325 mg TAB 1 TAB PO ×3 (03:54→13:32)
[2018-07-21 04:00] VITALS: BP 126/76; PULSE 94; RESP 18; TEMP 36.7; O2SAT 95
[2018-07-21 07:47] LABS: Platelet Count 308 x1000/uL (130-400)
[2018-07-21 07:49] VITALS: BP 142/88; PULSE 95; RESP 20; TEMP 36.7; O2SAT 98
--- NOTE | 2018-07-21 08:43 | W.PM.DS.N ---
Date of service: 07/21/18 Time of Service: 08:44 DS: Diagnosis Discharge Diagnosis (1) Primary osteoarthritis of left knee: Status: Acute Discharge Plan Disposition Patient Disposition: SKILLED NSG. FAC.(LEVEL 1) Condition: Good Discharge Details Reason For Visit: OA L KNEE Admit Date/Time: 07/13/18 07:25 Admit Provider: Shahbaz Castillo Attending Provider: Shahbaz Castillo Primary Care Provider: Madelin oRgers Hospital Course Hospital Course: The patient was taken to the operating room on the day of admission on 07/13/2018 where he underwent a left total knee replacement without complication. His postoperative course was slower than usual. I think that was because his ambulatory abilities have deteriorated preoperatively more than was thought by the level for facility where he resides. He remained afebrile throughout his postoperative course. He did not require transfusion. Pain was an issue that finally was controlled by 07/20/2018. He was able to take steps across the room and get out of bed but did not ambulate outside the room. I felt he would need much more rehab before he could ever go back to the level for facility. After discussion with the Cl and discharge planning was felt that level 1 fdc facility was indicated. He completed all acute care goals by 07/21/2018 and a bed was available. He was therefore transferred on 07/21/2018. Home Meds and New Rx's Prescriptions: New oxycodone-acetaminophen [Percocet] 5-325 mg tablet 1 tab PO Q6H PRN (Reason: pain) Qty: 20 RF: 0 gabapentin 100 mg capsule 100 mg PO TID 14 Days Qty: 42 RF: 0 Continued guaifenesin 100 mg/5 mL liquid 100 mg PO Q4H PRNRF: 0 metformin 500 mg tablet 500 mg PO BID Qty: 60 RF: 5 lisinopril 5 mg tablet 5 mg PO DAILY Qty: 90 RF: 3 ibuprofen 600 mg tablet 600 mg PO BID Qty: 60 RF: 1 bupropion HCl 150 mg tablet extended release 24 hr 150 mg PO QAM Qty: 90 RF: 3 magnesium oxide 400 mg (241.3 mg magnesium) tablet 400 mg PO BID Qty: 60 RF: 0 tamsulosin [Flomax] 0.4 mg capsule 0.4 mg PO DAILY Qty: 60 RF: 3 atorvastatin 80 mg tablet 80 mg PO DAILY Qty: 90 RF: 3 aspirin 325 MG tablet 325 mg PO DAILY RF: 0 acetaminophen 325 MG tablet 1 - 2 tab PO Q4H PRN PRNRF: 0 Discharge Instructions Instructions: Osteoarthritis (DC) Additional Instructions: See transfer forms. Care Plan Goals: Independant transfers and ambulation. Return to [facility]. Stand Alone Forms: Nursing Discharge Form Referrals: Shahbaz Castillo MD [ [facility] STAFF PHYSICIAN] - (f/u in 2 weeks.) Activity:: Activity as Tolerated Equipment/Supplies:: Walker Diet:: Carb Counting Discharge Orders Discharge Orders: Discharge Order (Routine); Ordered 07/21/18 Ordered By: Shahbaz Castillo DS: Data Vitals/I&O Vitals and I&O: Vital Signs Temperature 36.7 C 07/21/18 04:00 Temperature Source Skin 07/21/18 04:00 Pulse 94 H 07/21/18 04:00 Pulse Rhythm Regular 07/21/18 03:55 Respiratory Rate 18 07/21/18 04:00 Respiratory Effort 07/21/18 03:55 Respiratory Depth Normal 07/21/18 03:55 Respiratory Pattern Normal 07/21/18 03:55 Blood Pressure 126/76 07/21/18 04:00 Pulse Oximetry 95 07/21/18 04:00 Respiratory End-tidal CO2 20 07/13/18 12:50 Oxygen Delivery Method Room Air 07/21/18 04:00 Oxygen Flow Rate 0 07/21/18 04:00 Pain Level 0 07/21/18 04:00 Comment 07/14/18 03:26 Intake & Output 07/20/18 07/20/18 07/21/18 11:59 23:59 11:59 Intake Total 250 / 250 0 / 250 50 / 50 Output Total 175 / 175 Balance 250 / 250 0 / 250 -125 / -125 Intake: Oral 250 / 250 0 / 250 50 / 50 Output: Urine 175 / 175 Other: Urine Color Yellow Urine Appearance Clear Clear Clear Urine Odor Normal Comment large inc. uop, bed change incontinent of large amount of urine Voiding Methods Diaper Diaper Urinal Incontinent Incontinent Labs on day of discharge: Labs from last 24 hours 07/21/18 07:00 Plt Count 308 PFSH Medical History CVA (cerebral vascular accident) Depression Diabetes mellitus Hyperlipidemia Hypertension Surgical History Arthroplasty of knee (~06/2006) Cardiac Catheterization (~12/1999) Correction, Hammertoe (~2010) Gastrostomy Tube Placement Intracardiac Device-Cardioseal of PFO (~04/2000) Tonsillectomy V-P Shunt (~08/2009) Family History Mother No problems noted. Father No problems noted. Social History household members: other details: ErikaOracio Bon resident housing: assisted living facility lives independently: No number of children: 0 service: No current occupational status: retired well-balanced diet: daily or most days what type of physical activity do you participate in: none Smoking and Tabacco status: Former Tobacco Use alcohol intake: never substance use type: does not use Seatbelt use: always Drives intoxicated or rides with intoxicated drivers license examiner: No water heater temp set < 120 deg: Yes fire extinguisher in home: Yes carbon monox detector in home: Yes
--- NOTE | 2018-07-21 08:50 | DSE_ITS ---
Date of service: 07/21/18 Time of Service: 08:44 DS: Diagnosis Discharge Diagnosis (1) Primary osteoarthritis of left knee: Status: Acute Discharge Plan Disposition Patient Disposition: SKILLED NSG. FAC.(LEVEL 1) Condition: Good Discharge Details Reason For Visit: OA L KNEE Admit Date/Time: 07/13/18 07:25 Admit Provider: Shahbaz Castillo Attending Provider: Shahbaz Castillo Primary Care Provider: Madelin Rogers Hospital Course Hospital Course: The patient was taken to the operating room on the day of admission on 07/13/2018 where he underwent a left total knee replacement without complication. His postoperative course was slower than usual. I think that was because his ambulatory abilities have deteriorated preoperatively more than was thought by the level for facility where he resides. He remained afebrile throughout his postoperative course. He did not require transfusion. Pain was an issue that finally was controlled by 07/20/2018. He was able to take steps across the room and get out of bed but did not ambulate outside the room. I felt he would need much more rehab before he could ever go back to the level for facility. After discussion with the Cl and discharge planning was felt that level 1 group home facility was indicated. He completed all acute care goals by 07/21/2018 and a bed was available. He was therefore transferred on 07/21/2018. Home Meds and New Rx's Prescriptions: New oxycodone-acetaminophen [Percocet] 5-325 mg tablet 1 tab PO Q6H PRN (Reason: pain) Qty: 20 RF: 0 gabapentin 100 mg capsule 100 mg PO TID 14 Days Qty: 42 RF: 0 Continued guaifenesin 100 mg/5 mL liquid 100 mg PO Q4H PRNRF: 0 metformin 500 mg tablet 500 mg PO BID Qty: 60 RF: 5 lisinopril 5 mg tablet 5 mg PO DAILY Qty: 90 RF: 3 ibuprofen 600 mg tablet 600 mg PO BID Qty: 60 RF: 1 bupropion HCl 150 mg tablet extended release 24 hr 150 mg PO QAM Qty: 90 RF: 3 magnesium oxide 400 mg (241.3 mg magnesium) tablet 400 mg PO BID Qty: 60 RF: 0 tamsulosin [Flomax] 0.4 mg capsule 0.4 mg PO DAILY Qty: 60 RF: 3 atorvastatin 80 mg tablet 80 mg PO DAILY Qty: 90 RF: 3 aspirin 325 MG tablet 325 mg PO DAILY RF: 0 acetaminophen 325 MG tablet 1 - 2 tab PO Q4H PRN PRNRF: 0 Discharge Instructions Instructions: Osteoarthritis (DC) Additional Instructions: See transfer forms. Care Plan Goals: Independant transfers and ambulation. Return to [facility]. Stand Alone Forms: Nursing Discharge Form Referrals: Shahbaz Castillo MD [ [facility] STAFF PHYSICIAN] - (f/u in 2 weeks.) Activity:: Activity as Tolerated Equipment/Supplies:: Walker Diet:: Carb Counting Discharge Orders Discharge Orders: Discharge Order (Routine); Ordered 07/21/18 Ordered By: Shahbaz Castillo DS: Data Vitals/I&O Vitals and I&O: Vital Signs Temperature 36.7 C 07/21/18 04:00 Temperature Source Skin 07/21/18 04:00 Pulse 94 H 07/21/18 04:00 Pulse Rhythm Regular 07/21/18 03:55 Respiratory Rate 18 07/21/18 04:00 Respiratory Effort 07/21/18 03:55 Respiratory Depth Normal 07/21/18 03:55 Respiratory Pattern Normal 07/21/18 03:55 Blood Pressure 126/76 07/21/18 04:00 Pulse Oximetry 95 07/21/18 04:00 Respiratory End-tidal CO2 20 07/13/18 12:50 Oxygen Delivery Method Room Air 07/21/18 04:00 Oxygen Flow Rate 0 07/21/18 04:00 Pain Level 0 07/21/18 04:00 Comment 07/14/18 03:26 Intake & Output 07/20/18 07/20/18 07/21/18 11:59 23:59 11:59 Intake Total 250 / 250 0 / 250 50 / 50 Output Total 175 / 175 Balance 250 / 250 0 / 250 -125 / -125 Intake: Oral 250 / 250 0 / 250 50 / 50 Output: Urine 175 / 175 Other: Urine Color Yellow Urine Appearance Clear Clear Clear Urine Odor Normal Comment large inc. uop, bed change incontinent of large amount of urine Voiding Methods Diaper Diaper Urinal Incontinent Incontinent Labs on day of discharge: Labs from last 24 hours 07/21/18 07:00 Plt Count 308 PFSH Medical History CVA (cerebral vascular accident) Depression Diabetes mellitus Hyperlipidemia Hypertension Surgical History Arthroplasty of knee (~06/2006) Cardiac Catheterization (~12/1999) Correction, Hammertoe (~2010) Gastrostomy Tube Placement Intracardiac Device-Cardioseal of PFO (~04/2000) Tonsillectomy V-P Shunt (~08/2009) Family History Mother No problems noted. Father No problems noted. Social History household members: other details: ErikaOracio Bon resident housing: assisted living facility lives independently: No number of children: 0 service: No current occupational status: retired well-balanced diet: daily or most days what type of physical activity do you participate in: none Smoking and Tabacco status: Former Tobacco Use alcohol intake: never substance use type: does not use Seatbelt use: always Drives intoxicated or rides with intoxicated [id number] tank driver: No water heater temp set < 120 deg: Yes fire extinguisher in home: Yes carbon monox detector in home: Yes
[2018-07-21] MEDS: Magnesium Oxide 400 MG TAB PO (09:14)
[2018-07-21] MEDS: Gabapentin 100 MG CAP PO ×2 (09:14→13:32)
[2018-07-21] MEDS: Lisinopril 5 MG TAB PO (09:14)
[2018-07-21] MEDS: metFORMIN 500 MG TAB PO (09:14)
[2018-07-21] MEDS: Celecoxib 200 MG CAP PO (09:14)
[2018-07-21] MEDS: Tamsulosin 0.4 MG CAPCR PO (09:14)
[2018-07-21] MEDS: Docusate Sodium 100 MG CAP PO (09:14)
[2018-07-21] MEDS: Pantoprazole 40 MG TABCR PO (09:14)
[2018-07-21] MEDS: buPROPion-XL 150 MG TABCR PO (09:14)
[2018-07-21 09:45] VITALS: O2SAT 98
--- NOTE | 2018-07-21 10:46 | PT.INDS ---
Date of service: 07/21/18 Time of Service: 10:20 PT Notes Date: 07/21/18 Referring Doctor: Dr. Castillo PT Orders: PT CONSULT: mobilize post-op left total knee. WBAT LLE Precautions: fall, standard Treatment Note: 07/14/18 - 07/21/18 Patient Profile/Admitting Diagnosis: Patient admitted 1 day s/p left TKA. He has participated in PT intervention 1-2x/day for the past 7 days, with a total of 13 sessions. PMHX: History of CVA x3, with dysarthria and anarthria; DM; history of anemia; hyperlipidemia; hypertension; CAD; CKD Social History/Home Situation: Patient is a resident of the [facility]. He reports that he typically ambulates with a Rollator walker. He has a friend present with him who reports that he is able to walk to the elevator and down to the dining madden independently. She reports that he has had multiple falls in the past several months. Equipment Owned/DME: Rollator walker, resides in an assisted living facility Subjective: Cl communicates with brief, single word responses and hand gestures. He has a note pad with him, and provides more extensive responses in writing. He requests to get back to bed from the chair, stating that he was assisted to the chair by nursing earlier this morning. He reports that he is very tired and doesn't feel up to much. Objective: General Observation: Sitting up to chair. No lines. Mental Status: A and O x3. Significant dysarthria, although with appropriate responses to all questions either with gestures or written responses Pain: 5/10 ROM: Right Upper Extremity: WFL Left Upper Extremity: WFL Right Lower Extremity: WFL Left Lower Extremity: Knee ROM allows 0-90 degrees, limited by pain. Strength: Right Upper Extremity: Shoulder flexion 4-/5. Biceps 4/5. Triceps 4-/5. Director Of Government Sales is strong. Left Upper Extremity: Shoulder flexion 4+/5. Biceps 4+/5. Triceps 4+/5. Director Of Government Sales is strong. Right Lower Extremity: Hip flexion 5/5. Quads 4+/5. Hamstrings 4/5. Ankle dorsiflexion 5/5. Left Lower Extremity: Knee extension 3/5. Hip flexion 3-/5. HS 3/5. Ankle DF 4/5. Sensation: Intact distally Bed Mobility/Transfers: Supine sit: Min assist x1 sit to supine: mod A x 2 Sit to stand: Mod assist x2 Stand to sit: Mod assist x2 Bed to chair: Mod assist x2 with FW W. Patient requires max cues for technique, and assistance to walker. Gait: During today's session, patient tolerates ambulation times 6 feet with FW W, mod assist x2. He requires cues for equipment management and technique. His farthest distance was 10' (07/18/18). Balance: Static Sitting: Fair Dynamic Sitting: Fair Static Standing:poor Dynamic Standing: Poor Treatment: Today's session consisted of re-evaluation, followed by gait and transfer training as noted above. He was instructed in a limited therex program, as noted on flowsheet. These were all completed in chair, with patient tolerating only a limited number of exercises. He received manual stretching to the left knee in the seated position, tolerating 90 degrees flexion with empty end feel. Assessment: Patient is a 73 year old male referred to physical therapy services with the diagnosis of status post left TKA 07/14/18. Patient presents with clinical signs and symptoms consistent with postoperative status, with chronic mobility issues and an extensive medical history. He participated in skilled PT intervention for a total of 13 sessions, with limited gains in mobility and independence. He continues to require a great deal of assistance for transfers and ambulation, and will require continued rehabilitation prior to returning to [facility]. He does have planned transfer to [facility] this afternoon, and is now appropriate for d/c from PT services in acute care setting, with recommendation of continued PT in SNF setting. Goals: Goals X1 week 1. Supine-Sit: Supervision (NOT MET) 2. Sit-Supine: Supervision(NOT MET) 3. Sit-Stand: Supervision(NOT MET) 4. Stand-Sit: Supervision(NOT MET) 5. Bed-Chair: Min assist with FW W(NOT MET) 6. Chair-Bed: Min assist with FW W(NOT MET) 7. Gait: Min assist with FW W times 25 feet(NOT MET) Plan of Care/Treatment Plan: D/C from PT services in acute care setting. DISCHARGE RECOMMENDATIONS: Patient will require continued [facility] prior to transitioning back to assisted living facility TREATMENT CODE/TIME: 20 minutes (10:20-10:40); [id number]
--- NOTE | 2018-07-21 10:49 | INDS_ITS ---
Date of service: 07/21/18 Time of Service: 10:20 PT Notes Date: 07/21/18 Referring Doctor: Dr. Casitllo PT Orders: PT CONSULT: mobilize post-op left total knee. WBAT LLE Precautions: fall, standard Treatment Note: 07/14/18 - 07/21/18 Patient Profile/Admitting Diagnosis: Patient admitted 1 day s/p left TKA. He h as participated in PT intervention 1-2x/day for the past 7 days, with a total of 13 sessions. PMHX: History of CVA x3, with dysarthria and anarthria; DM; history of anemia; hyperlipidemia; hypertension; CAD; CKD Social History/Home Situation: Patient is a resident of the [facility]. He reports that he typically ambulates with a Rollator walker. He has a friend present with him who reports that he is able to walk to the elevator and down to the dining madden independently. She reports that he has had multiple falls in the past several months. Equipment Owned/DME: Rollator walker, resides in an assisted living facility Subjective: Cl communicates with brief, single word responses and hand gestures. He has a note pad with him, and provides more extensive responses in writing. He requests to get back to bed from the chair, stating that he was assisted to the chair by nursing earlier this morning. He reports that he is very tired and doesn't feel up to much. Objective: General Observation: Sitting up to chair. No lines. Mental Status: A and O x3. Significant dysarthria, although with appropriate responses to all questions either with gestures or written responses Pain: 5/10 ROM: Right Upper Extremity: WFL Left Upper Extremity: WFL Right Lower Extremity: WFL Left Lower Extremity: Knee ROM allows 0-90 degrees, limited by pain. Strength: Right Upper Extremity: Shoulder flexion 4-/5. Biceps 4/5. Triceps 4-/5. Senior Care Provider is strong. Left Upper Extremity: Shoulder flexion 4+/5. Biceps 4+/5. Triceps 4+/5. Senior Care Provider is strong. Right Lower Extremity: Hip flexion 5/5. Quads 4+/5. Hamstrings 4/5. Ankle dorsiflexion 5/5. Left Lower Extremity: Knee extension 3/5. Hip flexion 3-/5. HS 3/5. Ankle DF 4/5. Sensation: Intact distally Bed Mobility/Transfers: Supine sit: Min assist x1 sit to supine: mod A x 2 Sit to stand: Mod assist x2 Stand to sit: Mod assist x2 Bed to chair: Mod assist x2 with FW W. Patient requires max cues for technique, and assistance to walker. Gait: During today's session, patient tolerates ambulation times 6 feet with FW W, mod assist x2. He requires cues for equipment management and technique. His farthest distance was 10' (07/18/18). Balance: Static Sitting: Fair Dynamic Sitting: Fair Static Standing:poor Dynamic Standing: Poor Treatment: Today's session consisted of re-evaluation, followed by gait and transfer training as noted above. He was instructed in a limited therex program, as noted on flowsheet. These were all completed in chair, with patient tolerating only a limited number of exercises. He received manual stretching to the left knee in the seated position, tolerating 90 degrees flexion with empty end feel. Assessment: Patient is a 73 year old male referred to physical therapy services with the diagnosis of status post left TKA 07/14/18. Patient presents with clinical signs and symptoms consistent with postoperative status, with chronic mobility issues and an extensive medical history. He participated in skilled PT intervention for a total of 13 sessions, with limited gains in mobility and independence. He continues to require a great deal of assistance for transfers and ambulation, and will require continued rehabilitation prior to returning to [facility]. He does have planned transfer to [facility] this afternoon, and is now appropriate for d/c from PT services in acute care setting, with recommendation of continued PT in SNF setting. Goals: Goals X1 week 1. Supine-Sit: Supervision (NOT MET) 2. Sit-Supine: Supervision(NOT MET) 3. Sit-Stand: Supervision(NOT MET) 4. Stand-Sit: Supervision(NOT MET) 5. Bed-Chair: Min assist with FW W(NOT MET) 6. Chair-Bed: Min assist with FW W(NOT MET) 7. Gait: Min assist with FW W times 25 feet(NOT MET) Plan of Care/Treatment Plan: D/C from PT services in acute care setting. DISCHARGE RECOMMENDATIONS: Patient will require continued rehabilitation in correction facility prior to transitioning back to assisted living facility TREATMENT CODE/TIME: 20 minutes (10:20-10:40); [id number]
--- NOTE | 2018-07-21 11:28 | PDOC.CMDIS ---
- If Service Date Differs Date of service: 07/21/18 Time of Service: 11:28 LACE Index Scoring Tool - Questions: Length of Stay (in days): 7 - 13 Acuity (Admit via E.D.?): No Comorbidities: Cerebrovascular Disease E.D. Visits: 1 - Answers: Total Score: 7 Risk of Readmission: Low Risk Care Management Discharge Reason for Hospitalization: Total Right Knee Discharge Plan: Cl [facility], CM coordinated [facility] with [facility]. LARON contacted [facility] to notify of discharge and request that they bring him some clothes. LARON spoke to chief nursing officer and she will arrange to have them brought to him. Patient/Family Education Needs: Discharge education, limitations and follow up plan of care including ask me three and self management. Services Needed at Discharge: Care Home Facility, Transportation
[2018-07-21 11:35] VITALS: BP 130/73; PULSE 97; RESP 18; TEMP 36.7; O2SAT 97
--- NOTE | 2018-07-21 11:45 | CMDISCH_ITS ---
- If Service Date Differs Date of service: 07/21/18 Time of Service: 11:28 LACE Index Scoring Tool - Questions: Length of Stay (in days): 7 - 13 Acuity (Admit via E.D.?): No Comorbidities: Cerebrovascular Disease E.D. Visits: 1 - Answers: Total Score: 7 Risk of Readmission: Low Risk Care Management Discharge Reason for Hospitalization: Total Right Knee Discharge Plan: Cl will be [facility] to [facility], CM coordinated transportation with [facility]. LARON contacted [facility] to notify of discharge and request that they bring him some clothes. LARON spoke to nursing education specialist and she will arrange to have them brought to him. Patient/Family Education Needs: Discharge education, limitations and follow up plan of care including ask me three and self management. Services Needed at Discharge: Alf Facility, Transportation
[2018-07-21] MEDS: Enoxaparin 30 MG/0.3 ML SYR SC (13:32)
--- NOTE | 2018-07-21 16:09 | NUR.NOTE ---
Nursing Note: reviewed pt's med list for nurse at [facility] to clarify d/c order
== END 2018-07-21 14:10 | disposition skilled nursing facility (03) | DRG 470 ==
LOC: PDS 07:29 → MS 11:44
PROVIDERS: Admitting Provider Orthopaedic Surgery; PCP Student in an Organized Health Care Education/Training Program; Visit Provider Orthopaedic Surgery
PROC: 0SRD0J9 Replacement of Left Knee Joint with Synthetic Substitute, Cemented, Open Approach (ICD-10-PCS; CPT 27447; principal; 2018-07-13 09:00)
DX: M17.12 Unilateral primary osteoarthritis, left knee (principal); Z96.652 Presence of left artificial knee joint; M21.162 Varus deformity, not elsewhere classified, left knee; G89.18 Other acute postprocedural pain; E11.22 Type 2 diabetes mellitus with diabetic chronic kidney disease; Z79.84 Long term (current) use of oral hypoglycemic drugs; N18.9 Chronic kidney disease, unspecified; I12.9 Hypertensive chronic kidney disease with stage 1 through stage 4 chronic kidney disease, or unspecified chronic kidney disease; E78.5 Hyperlipidemia, unspecified; I69.322 Dysarthria following cerebral infarction
CPT/HCPCS: 27447; 36415; 76942; 85027; 97110; 97163; 97530; NC; 73560; 85049; J0690; J1100; J1650; J1885; J2250; J2405; J3010; L1830

== ENCOUNTER 2018-07-27 10:34 | Outpatient (REF) | payer MEDICARE, SELFPAY ==
[2018-07-27 14:47] LABS: Anion Gap 11.8 mmol/L (3-11); BUN 46 mg/dL (7-18); CO2 23.2 mmol/L (21.0-32.0); CREATININE 1.78 mg/dL (0.70-1.30); Calcium 8.5 mg/dL (8.5-10.1); Chloride 103 mmol/L (98-107); Estimated GFR 37.87 (mL/min/1.73m2); Glucose 225 mg/dL (70-100); Sodium 138 mmol/L (136-145)
[2018-07-27 14:48] LABS: Cholesterol 85 mg/dL (50-200)
[2018-07-27 14:58] LABS: Absolute Basophil Count 0.06 k/cumm (0.0-0.2); Absolute Eosinophil Count 0.69 k/cumm (0.0-0.7); Absolute Monocyte Count 0.88 k/cumm (0.11-0.7); Basophils % 0.5; Eosinophils % 5.5; HCT 41.2 % (40.0-50.0); HGB 13.4 g/dL (13.5-17.5); Immature Grans % 1.6; Lymphocytes % 18.7; Mean Corp. HGB Concentration 32.5 g/dL (32.0-36.0); Mean Corpuscular Hemoglobin 30.9 pg (27.0-33.0); Mean Corpuscular Volume 94.9 fL (80-95); Mean Platelet Volume 10.8 fL (8.0-11.0); Neutrophils % 66.7; Platelet Count 462 x1000/uL (130-400); RBC 4.34 m/cumm (4.50-6.00); RBC Distribution Width 13.6 % (11.8-14.1); White Blood Cell Count 12.59 k/cumm (4.4-10.8)
[2018-07-27 15:00] LABS: Absolute Lymphocyte Count 2.35 k/cumm (1.2-3.4)
== END 2018-07-27 10:54 ==
LOC: LBN 10:34
PROVIDERS: PCP Student in an Organized Health Care Education/Training Program; Visit Provider Family Medicine
DX: E78.5 Hyperlipidemia, unspecified (principal); I10 Essential (primary) hypertension
CPT/HCPCS: 80048; 82465; 85025

== ENCOUNTER → 2018-08-04 09:43 | Outpatient (BNVA) | payer MEDICARE, SELFPAY | PROVIDERS: PCP Student in an Organized Health Care Education/Training Program; Referring Provider Student in an Organized Health Care Education/Training Program; Visit Provider Orthopaedic Surgery | DX: Z47.1 Aftercare following joint replacement surgery (principal); Z96.652 Presence of left artificial knee joint; E11.9 Type 2 diabetes mellitus without complications; Z79.84 Long term (current) use of oral hypoglycemic drugs; I10 Essential (primary) hypertension ==

== ENCOUNTER 2018-08-14 13:17 | Outpatient (CLI) | payer MEDICARE, SELFPAY ==
--- NOTE | 2018-08-14 13:24 | DI.RAD_ITS ---
SYMPTOMS/DIAGNOSIS: FALL, PAIN OF LT KNEE, RECENTLY REPLACED, M17.52, Z96.659, W19.XXXA, ? BONY PATHOLOGY, IMPLANT TRAUMA LEFT KNEE: Comparison is made with [id number]. There has been no change in the left total knee prosthesis or surrounding bone. Mild anterior soft tissue swelling remains present.
== END 2018-08-14 13:37 ==
PROVIDERS: PCP Student in an Organized Health Care Education/Training Program; Visit Provider Student in an Organized Health Care Education/Training Program
DX: M25.562 Pain in left knee (principal); M17.12 Unilateral primary osteoarthritis, left knee; Z96.652 Presence of left artificial knee joint; M79.89 Other specified soft tissue disorders
CPT/HCPCS: 73562

== ENCOUNTER → 2018-09-02 09:48 | Outpatient (BNVA) | payer MEDICARE, SELFPAY | PROVIDERS: PCP Student in an Organized Health Care Education/Training Program; Referring Provider Student in an Organized Health Care Education/Training Program; Visit Provider Orthopaedic Surgery | DX: Z47.1 Aftercare following joint replacement surgery (principal); Z96.652 Presence of left artificial knee joint; I10 Essential (primary) hypertension; E11.9 Type 2 diabetes mellitus without complications ==

== ENCOUNTER → 2018-10-14 10:21 | Outpatient (BNVA) | payer MEDICARE, SELFPAY | PROVIDERS: PCP Student in an Organized Health Care Education/Training Program; Referring Provider Student in an Organized Health Care Education/Training Program; Visit Provider Orthopaedic Surgery | DX: Z47.1 Aftercare following joint replacement surgery (principal); Z96.652 Presence of left artificial knee joint; M25.562 Pain in left knee | CPT/HCPCS: 99213 ==

== ENCOUNTER 2018-10-14 13:25 | Outpatient (REF) | payer MEDICARE, SELFPAY ==
[2018-10-14 19:40] LABS: BUN 27 mg/dL (7-18); CREATININE 1.31 mg/dL (0.70-1.30); Chloride 103 mmol/L (98-107); Estimated GFR 53.94 (mL/min/1.73m2); Glucose 71 mg/dL (70-100); Potassium 4.7 mmol/L (3.5-5.1); Sodium 139 mmol/L (136-145)
== END 2018-10-14 13:45 ==
LOC: LBN 13:25
PROVIDERS: PCP Student in an Organized Health Care Education/Training Program; Visit Provider Student in an Organized Health Care Education/Training Program
DX: R79.89 Other specified abnormal findings of blood chemistry (principal); Z79.1 Long term (current) use of non-steroidal anti-inflammatories (NSAID)
CPT/HCPCS: 80048

== ENCOUNTER 2018-10-22 00:51 | Outpatient (CLI) | payer MEDICARE, SELFPAY ==
--- NOTE | 2018-10-22 10:41 | DI.RAD_ITS ---
SYMPTOMS/DIAGNOSIS: CONTINUED PAIN DESPITE TKR, RECENT FALLS ON KNEE, M25.562, Z96.652 LEFT KNEE: The patient is status post TKA. The prosthesis in good position. Surrounding bone intact with no interval change when compared with prior images of 08/14/18.
== END 2018-10-22 01:11 ==
PROVIDERS: PCP Student in an Organized Health Care Education/Training Program; Visit Provider Student in an Organized Health Care Education/Training Program
DX: M25.562 Pain in left knee (principal); Z96.652 Presence of left artificial knee joint; Z91.81 History of falling
CPT/HCPCS: 73564

== ENCOUNTER 2018-10-27 14:28 | Outpatient (CLI) | payer MEDICARE, SELFPAY ==
--- NOTE | 2018-10-27 12:16 | DI.RAD_ITS ---
SYMPTOMS/DIAGNOSIS: CONTINUED BACK PAIN S/P 2 FALLS, HITTING LOWER BACK AGAINST DOOR FRAME, S/P LEFT TKA, S39.92XA, Z96.652 LUMBAR SPINE: AP, lateral and bilateral oblique views were obtained. There are no priors for comparison. There are five lumbar-type vertebral bodies. No spondylolysis or spondylolisthesis is seen. There is an old compression fracture deformity of the superior endplate of L1 with loss of approximately 20% of the height of the vertebral body. There is an old L2 compression fracture deformity with loss of approximately 50-60% of the height of the vertebral body. There is a compression fracture of the superior endplate of L4 with loss of approximately 30-40% of the vertebral body height. No definite acute fracture or subluxation is seen. There are varying degrees of joint space narrowing and endplate osteophytosis throughout the lumbar spine. Degenerative changes are seen in the facets in the lumbar spine. There is calcium in the abdominal aorta noted. The bones are osteopenic. IMPRESSION: 1. Multiple old compression deformities. 2. Moderate to severe degenerative changes in the lumbar spine.
== END 2018-10-27 14:48 ==
PROVIDERS: PCP Student in an Organized Health Care Education/Training Program; Visit Provider Student in an Organized Health Care Education/Training Program
DX: S39.92XA Unspecified injury of lower back, initial encounter (principal); Z96.652 Presence of left artificial knee joint; M48.56XD Collapsed vertebra, not elsewhere classified, lumbar region, subsequent encounter for fracture with routine healing; M85.88 Other specified disorders of bone density and structure, other site; M47.816 Spondylosis without myelopathy or radiculopathy, lumbar region
CPT/HCPCS: 72110

== ENCOUNTER 2018-11-24 01:22 | Outpatient (CLI) | payer MEDICARE, SELFPAY ==
--- NOTE | 2018-11-24 13:12 | DI.RAD_ITS ---
SYMPTOMS/DIAGNOSIS: BASELINE FOR TREATMENT MONITORING; COLLAPSED VERTEBRA, LUMBAR REGION; COMPRESSION FRACTURE; OSTEOPENIA PER X-RAY, OSTEOPOROSIS PER COMPRESSION FRACTURE FINDINGS; M48.56XA, S39.92XA DEXA SCAN WITH INES: Comparison is made with plain films dated September,, which showed compression fractures of L1, L2, as well as L4. These are visible on the INES image and appear unchanged. The bone mineral density measurements of the lumbar spine correspond to a total T score of 0.2. The bone mineral density measurements of the left hip correspond to a total T score of -3.3 and a femoral neck T score of -3.4, in the osteoporotic range. IMPRESSION: Osteoporosis of the left hip. The lumbar spine shows multiple compression fractures.
== END 2018-11-24 01:42 ==
PROVIDERS: PCP Student in an Organized Health Care Education/Training Program; Visit Provider Student in an Organized Health Care Education/Training Program
DX: M48.56XD Collapsed vertebra, not elsewhere classified, lumbar region, subsequent encounter for fracture with routine healing (principal); S39.92XD Unspecified injury of lower back, subsequent encounter; M80.08XD Age-related osteoporosis with current pathological fracture, vertebra(e), subsequent encounter for fracture with routine healing
CPT/HCPCS: 77080

== ENCOUNTER 2018-11-24 11:58 | Outpatient (CLI) | payer MEDICARE, SELFPAY ==
--- NOTE | 2018-11-24 06:00 | DI.RAD_ITS ---
SYMPTOMS/DIAGNOSIS: LT KNEE PAIN C-ARM FLUOROSCOPY OF THE LEFT KNEE: Fluoroscopy was provided for guidance with pain clinic injection. Please see procedure note for details.
[2018-11-24 12:26] VITALS: BP 129/68; PULSE 90; RESP 24; TEMP 36.6; O2SAT 95
--- NOTE | 2018-11-24 12:52 | PDOC.PAIN ---
Pain Clinic Procedure Note Current Active Problems Problem Status Onset Osteoarthritis of knee Acute 12/02/17 LEFT GENICULAR NERVE BLOCK Date of Service: November 24, 2018 Patient: SOPHIA GUY Provider: Darin Rooney DO, MPH COMMENTS: Previously seen in this clinic on 10/22/18 by Oracio Sudheer. I did review these notes Pre-procedure VAS to the LEFT knee is 5/10. SOPHIA GUY has been [facility] for LEFT genicular nerve block. SOPHIA was interviewed and the medical record reviewed. There were no medical, pharmacologic, radiographic or other structural contraindications to attempting fluoroscopically guided LEFT genicular nerve block. Risks and potential side effects as well as potential benefit of the procedure were reviewed with SOPHIA , and HIS voiced concerns were addressed. After I believed that the patient was completely informed, the printed consent form was signed. Standard time-out procedure was performed. SOPHIA was placed in the supine position on the fluoroscopy table and automated blood pressure cuff and pulse oximeter applied. The skin entry points for approaching LEFT superolateral genicular nerve, the superomedial genicular nerve and the inferomedial genicular was identified under the most advantageous fluoroscopic view and marked. Following thorough Chlorhexadine preparation of the skin and draping, 1% lidocaine infiltration of the skin entry point and subcutaneous tissues was accomplished using a 1.5 25G needle. Next, the 3.5 25G spinal needle was advanced to os at the location of the specific nerve root using fluoroscopic guidance. Next, 1 cc of 2% Lidocaine was injected at each site. The needles were removed without difficulty. SOPHIA's vital signs were stable throughout the procedure and were as recorded in the docflowsheet by the nursing staff. If given, dosages of intravenous drugs for anxiolysis and analgesia were documented in MAR. Follow up plans and appointments were discussed with the SOPHIA . Post procedure instruction was given as documented in nursing documentation and having met discharge criteria, SOPHIA was [facility] from the [facility]. COMMENTS: No complications. Post-procedure VAS to the LEFT knee is 0/10. The patient will keep track of her LEFT knee pain over the next four hours. If SOPHIA has sufficient pain relief, SOPHIA will be a candidate for radiofrequency ablation at the same nerves. Emeka WJ1, Nayan SJ, Barry JG, Luca JG, Donta HUANG, Yarelis PH, Alberto JW. Radiofrequency treatment relieves chronic knee osteoarthritis pain: a double-blind randomized controlled trial. Pain. 2011 Jul;152(3):481-7. doi: 10.1016/j.pain.2010.09.029. Quita S1, Alek ON2, Tiera Y3, ?zl?elen P2, Rajan U1, Terrell ?m?rl? I. Which one is more effective for the clinical treatment of chronic pain in knee osteoarthritis: radiofrequency neurotomy of the genicular nerves or intra-articular injection? Int J Rheum Dis. 2016 Jan 11. F/U with our office by phone to let us know the 1-4 hour post-procedure pain scores. I personally performed this entire procedure. Darin Rooney DO, MPH Attending Physician
--- NOTE | 2018-11-24 12:56 | PDOC.PAIN_ITS ---
Pain Clinic Procedure Note Current Active Problems Problem Status Onset Osteoarthritis of knee Acute 12/02/17 LEFT GENICULAR NERVE BLOCK Date of Service: November 24, 2018 Patient: SOPHIA GUY Provider: Darin Rooney DO, MPH COMMENTS: Previously seen in this clinic on 10/22/18 by Oracio Sudheer. I did review these notes Pre-procedure VAS to the LEFT knee is 5/10. SOPHIA GUY has been referred to the [facility] for LEFT genicular nerve block. SOPHIA was interviewed and the medical record reviewed. There were no medical, pharmacologic, radiographic or other structural contraindications to attempting fluoroscopically guided LEFT genicular nerve block. Risks and potential side e ffects as well as potential benefit of the procedure were reviewed with SOPHIA , and HIS voiced concerns were addressed. After I believed that the patient was completely informed, the printed consent form was signed. Standard time-out procedure was performed. SOPHIA was placed in the supine position on the fluoroscopy table and automated blood pressure cuff and pulse oximeter applied. The skin entry points for approaching LEFT superolateral genicular nerve, the superomedial genicular nerve and the inferomedial genicular was identified under the most advantageous fluoroscopic view and marked. Following thorough Chlorhexadine preparation of the skin and draping, 1% lidocaine infiltration of the skin entry point and subcutaneous tissues was accomplished using a 1.5 25G needle. Next, the 3.5 25G spinal needle was advanced to os at the location of the specific nerve root using fluoroscopic guidance. Next, 1 cc of 2% Lidocaine was injected at each site. The needles were removed without difficulty. SOPHIA's vital signs were stable throughout the procedure and were as recorded in the docflowsheet by the nursing staff. If given, dosages of intravenous drugs for anxiolysis and analgesia were documented in MAR. Follow up plans and appointments were discussed with the SOPHIA . Post procedure instruction was given as documented in nursing documentation and having met discharge criteria, SOPHIA was discharged from the [facility]. COMMENTS: No complications. Post-procedure VAS to the LEFT knee is 0/10. The patient will keep track of her LEFT knee pain over the next four hours. If SOPHIA has sufficient pain relief, SOPHIA will be a candidate for radiofrequency ablation at the same nerves. Emeka WJ1, Nayan SJ, Barry JG, Luca JG, Donta HUANG, Yarelis PH, Alberto JW. Radiofrequency treatment relieves chronic knee osteoarthritis pain: a double-blind randomized controlled trial. Pain. 2010;152(3):481-7. doi: 10.1016/j.pain.2010.09.029. Quita S1, Alek ON2, Tiera Y3, ?zl?elen P2, Rajan U1, Terrell ?m?rl? I. Which one is more effective for the clinical treatment of chronic pain in knee osteoarthritis: radiofrequency neurotomy of the genicular nerves or intra- articular injection? Int J Rheum Dis. 2016 Jan 11. F/U with our office by phone to let us know the 1-4 hour post-procedure pain scores. I personally performed this entire procedure. Darin Rooney DO, MPH Attending Physician
[2018-11-24 13:06] VITALS: PULSE 85; O2SAT 97
[2018-11-24] MEDS: Bupivacaine 0.5% Pres-Free 10 ML VIAL IJ (13:07)
[2018-11-24] MEDS: Omnipaque 240 MG/ML 50 ML BTL IJ (13:07)
== END 2018-11-24 12:18 ==
PROVIDERS: PCP Student in an Organized Health Care Education/Training Program; Visit Provider Preventive Medicine Occupational Medicine
DX: M17.12 Unilateral primary osteoarthritis, left knee (principal); M48.56XA Collapsed vertebra, not elsewhere classified, lumbar region, initial encounter for fracture; S39.92XA Unspecified injury of lower back, initial encounter
CPT/HCPCS: 64640 ×3; 77002; 77080; Q9967

== ENCOUNTER 2018-12-29 07:30 | Outpatient (CLI) | payer MEDICARE, SELFPAY ==
[2018-12-29 07:56] VITALS: BP 110/64; PULSE 75; RESP 16; TEMP 36.7; O2SAT 96
[2018-12-29] MEDS: Midazolam 2 MG/2 ML VIAL IVP (08:30)
[2018-12-29] MEDS: fentaNYL 100 MCG/2 ML VIAL IVP (08:30)
[2018-12-29] MEDS: Lactated Ringers 1,000 ML 80 ML IV (08:32)
[2018-12-29 08:58] VITALS: BP 122/72; PULSE 75; RESP 15; O2SAT 100
--- NOTE | 2018-12-29 09:00 | DI.RAD_ITS ---
SYMPTOM/DIAGNOSIS: OSTEOARTHITIS OF LEFT KNEE PAIN CLINIC: Fluoroscopy Time: 42.8 seconds Fluoroscopy was utilized by Dr. Rooney during the performance of a genicular radiofrequency ablation Please refer to the procedure report for complete details.
--- NOTE | 2018-12-29 09:02 | PDOC.PAIN_ITS ---
Pain Clinic Procedure Note Current Active Problems Problem Status Onset Osteoarthritis of knee 12/02/17 LEFT GENICULAR NERVE RADIOFREQUENCY ABLATION USING THE [employer] MACHINE Date of Service: December 29, 2018 Patient: SOPHIA GUY Provider: Darin Rooney DO, MPH COMMENTS: Previous Genicular nerve block to the LEFT knee. SOPHIA GUY has been referred to the [facility] for LEFT genicular nerve radiofrequency ablation. SOPHIA was interviewed and the medical record reviewed. There were no medical, pharmacologic, radiographic or other structural contraindications to attempting fluoroscopically guided LEFT genicular nerve radiofrequency ablation. Risks and potential side effects as well as potential benefit of the procedure were reviewed with SOPHIA GUY , and HIS voiced concerns were addressed. After I believed that the patient was completely informed, the printed consent form was signed. Standard time-out procedure was performed. SOPHIA was placed in the supine position on the fluoroscopy table and automated blood pressure cuff and pulse oximeter applied. The skin entry points for approaching LEFT suprapellar, superolateral genicular nerve, the superomedial genicular nerve and the inferomedial genicular was identified under the most advantageous fluoroscopic view and marked. Following thorough Chlorhexadine preparation of the skin and draping, 1% lidocaine infiltration of the skin entry point and subcutaneous tissues was accomplished using a 1.5 25G needle. Next, the 10 cm 18G RF Cannula with a 10 mm active tip was advanced to os at the location of the specific nerves (4) using fluoroscopic guidance. Next, sensory and motor testing was performed and no abnormal findings were found. Next, 1 cc of 2% Lidocaine was injected at each site. The lesion was then created with 80 degrees C for 90 seconds. Each needle was advance 1 cm and the lesion was completed again. Each cannula was advanced until the tip reached the posterior aspect of the bone shaft. 1/4 cc of Depomedrol (40 mg/cc) was then injected at each site followed by 2 cc of 0.5% Bupivacaine as the needle was withdrawn. The needles were removed without difficulty. SOPHIA's vital signs were stable throughout the procedure and were as recorded in the docflowsheet by the nursing staff. If given, dosages of intravenous drugs for anxiolysis and analgesia were documented in MAR. Follow up plans and appointments were discussed with the SOPHIA GUY . Post procedure instruction was given as documented in nursing documentation and having met discharge criteria, SOPHIA was discharged from the [facility]. COMMENTS: No complications. Emeka KUMARI, Nayan SJ, Barry JG, Luca JG, Longo HUANG, Park PH, Dominguez JW. Radiofrequency treatment relieves chronic knee osteoarthritis pain: a double-blind randomized controlled trial. Pain. 2010;152(3):481-7. doi: 10.1016/j.pain.2009.09.029. Quita S1, Alek ON2, Tiera Y3, ?zl?elen P2, Rajan U1, Terrell ?m?rl? I. Which one is more effective for the clinical treatment of chronic pain in knee osteoarthritis: radiofrequency neurotomy of the genicular nerves or intra- articular injection? Int J Rheum Dis. 2016 Jan 11. F/U with our office as needed. I personally performed this entire procedure. Darin Rooney DO, MPH Attending Physician
[2018-12-29] MEDS: Bupivacaine 0.5% Pres-Free 10 ML VIAL IJ (09:13)
[2018-12-29] MEDS: Lidocaine 2% Pres-Free 5 ML VIAL IJ (09:16)
[2018-12-29] MEDS: methylPREDNISolone ACETATE 40 MG/ML VIAL IJ (09:17)
== END 2018-12-29 07:50 ==
PROVIDERS: PCP Student in an Organized Health Care Education/Training Program; Visit Provider Preventive Medicine Occupational Medicine
DX: M17.12 Unilateral primary osteoarthritis, left knee (principal)
CPT/HCPCS: 64640 ×4; 77002; J1030; J2250; J3010

== ENCOUNTER → 2019-01-06 09:51 | Outpatient (BNVA) | payer MEDICARE, SELFPAY | PROVIDERS: PCP Student in an Organized Health Care Education/Training Program; Referring Provider Student in an Organized Health Care Education/Training Program; Visit Provider Orthopaedic Surgery | DX: Z96.652 Presence of left artificial knee joint (principal); M25.562 Pain in left knee; Z47.1 Aftercare following joint replacement surgery | CPT/HCPCS: 99213 ==

== ENCOUNTER 2019-01-13 16:53 | Emergency (ER) | payer MEDICARE, SELFPAY ==
[2019-01-13] VITALS (18 sets, daily range): BP systolic 127–161; BP diastolic 69–97; PULSE 83–100; RESP 17–25; TEMP 36.6–36.8; O2SAT 95–98
--- NOTE | 2019-01-13 17:03 | DI.RAD_ITS ---
SYMPTOM/DIAGNOSIS: COUGH AP AND LATERAL CHEST: 01/13 The heart is not enlarged. The lungs appear grossly clear on frontal film, except for question minimal streaky basilar densities. On the lateral film there is apparent posteriorly located streaky area of consolidation, consider pneumonia. Appropriate follow up studies requested. No pleural effusions seen. An intracardiac device is again noted, unchanged from the previous study.
--- NOTE | 2019-01-13 17:05 | W.ED.GENAD ---
Discharge Plan Disposition Patient Disposition: OTHER Condition: Stable Discharge Details Chief Complaint: GenMedical Clinical Impression: Pneumonia Primary Care Provider: Madelin Rogers ED Provider: Phong Reardon Home Meds and New Rx's Prescriptions: No Action magnesium oxide 400 mg (241.3 mg magnesium) tablet 400 mg PO BID Qty: 60 RF: 4 metformin 500 mg tablet 500 mg PO BID Qty: 60 RF: 5 ibuprofen 600 mg tablet 600 mg PO TID RF: 0 lisinopril 5 mg tablet 5 mg PO DAILY Qty: 90 RF: 3 bupropion HCl 150 mg tablet extended release 24 hr 150 mg PO QAM Qty: 90 RF: 3 atorvastatin 80 mg tablet 80 mg PO DAILY Qty: 90 RF: 3 aspirin [Adult Low Dose Aspirin] 81 mg tablet,delayed release (DR/EC) 81 mg PO DAILY Qty: 90 RF: 3 tramadol 50 mg tablet 50 mg PO BID MDD 2 PRN (Reason: pain) Qty: 14 RF: 1 gabapentin 400 mg capsule 400 mg PO TID Qty: 90 RF: 3 (DME) lancets [Easy Touch Lancets] 28 gauge misc See Rx Instructions .ROUTE .MEDSUPPLY Qty: 200 RF: 3 (DME) FreeStyle Lite Strips Strip See Rx Instructions .ROUTE .MEDSUPPLY Qty: 200 RF: 3 prednisone 5 mg Tablet 10 mg PO DAILY AM RF: 0 tamsulosin 0.4 mg Capsule 0.4 mg PO DAILY RF: 0 oxycodone-acetaminophen 5-325 mg Tablet 1 tab PO Q6H PRNRF: 0 ergocalciferol (vitamin D2) [Vitamin D2] 50,000 unit Capsule 50,000 unit PO USEASDIRECTD RF: 0 Medical Decision Making Patient presenting to the emergency department for chief complaint of generalized weakness per Masha and staff. Patient has had a congested sounding cough that is been noticed the past 2 days by staff as well. Patient has history of CVA, diabetes, speech abnormality due to CVA, hypertension. Physical exam shows a alert and awake patient in no acute distress with a congested sounding respirations and rhonchi throughout all lung jose. Patient has soft nontender abdomen with normal active bowel sounds. Plan to check labs, chest x-ray, and EKG. patient's neuro status is at baseline so do not feel that head CT is required at this time. Was informed of the elevated lactate of 2.4 plan to give additional fluids. CBC was reviewed and shows leukocytosis. Review of chest x-ray and radiologist interpretation showsIMPRESSION: 1. Opacities are noted along the right heart border on the frontal radiograph and in the posterior lower lung region on the lateral radiograph which could represent atelectasis or infection. Short-term followup in 4-6 weeks recommended for reassessment. 2. Other findings/details as above. If symptoms remain concerning, CT scan could be considered. Given patient's history of chest congestion, increased cough, and history of CVA with speech abnormalities there is concern for possible aspiration pneumonia plan to start antibiotics. Blood cultures were drawn. patient started on Levaquin and metronidazole to cover for aspiration pneumonia due to patient's penicillin allergy that is listed. Due to no beds available at our facility contacted [facility] and spoke with Dr. Romero whom accepted the patient in transfer for treatment of pneumonia and concern of possible aspiration. ECG Data Attestation: I personally reviewed and interpreted this ECG (s) as follows: Prior ECG tracings: available for review Interpretation: EKG reviewed with attending physician Dr. Velasco and shows sinus rhythm, rate of 87, frequent PACs, no STEMI, nondiagnostic. HPI General Mode of arrival: EMS. Date/Time Provider Initiated Documentation: 01/13/19 17:00. Limitations to Documentation: language barrier. Information obtained by: patient, EMS and RN notes reviewed. History of Present Illness 74 year old M presents to the emergency department with the chief complaint of Generalized weakness, Patient started experiencing this day(s) (2) and it has been constant. No relieving factors improve symptom(s), No exacerbating factors reported . Patient notes cough. Patient did receive the following treatments prior to arrival, none Related Data Home Medications Medication Instructions Recorded Confirmed lisinopril 5 mg tablet 5 mg PO DAILY #90 tab 04/10/18 01/13/19 bupropion HCl 150 mg 24 hr tablet, 150 mg PO QAM #90 tab 05/12/18 01/13/19 extended release atorvastatin 80 mg tablet 80 mg PO DAILY #90 tab-cap 06/01/18 01/13/19 aspirin 81 mg tablet,delayed 81 mg PO DAILY #90 tab 08/18/18 01/13/19 release ibuprofen 600 mg tablet 600 mg PO TID 09/02/18 01/13/19 magnesium oxide 400 mg (241.3 mg 400 mg PO BID #60 tab 10/02/18 01/13/19 magnesium) tablet metformin 500 mg tablet 500 mg PO BID #60 tab-cap 10/02/18 01/13/19 tramadol 50 mg tablet 50 mg PO BID PRN #14 tab MDD 2 10/20/18 01/13/19 gabapentin 400 mg capsule 400 mg PO TID #90 cap 11/11/18 01/13/19 tamsulosin 0.4 mg PO DAILY 11/24/18 01/13/19 blood sugar diagnostic #200 each 12/24/18 01/13/19 lancets 28 gauge #200 each 12/24/18 01/13/19 ergocalciferol (vitamin D2) 50,000 unit PO USEASDIRECTD 12/29/18 01/13/19 [Vitamin D2] oxycodone-acetaminophen 1 tab PO Q6H PRN 12/29/18 01/13/19 prednisone 10 mg PO DAILY AM 01/13/19 01/13/19 Previous Rx's Medication Instructions Recorded lisinopril 5 mg tablet 5 mg PO DAILY #90 tab 04/10/18 bupropion HCl 150 mg 24 hr tablet, 150 mg PO QAM #90 tab 05/12/18 extended release atorvastatin 80 mg tablet 80 mg PO DAILY #90 tab-cap 06/01/18 aspirin 81 mg tablet,delayed 81 mg PO DAILY #90 tab 08/18/18 release magnesium oxide 400 mg (241.3 mg 400 mg PO BID #60 tab 10/02/18 magnesium) tablet metformin 500 mg tablet 500 mg PO BID #60 tab-cap 10/02/18 tramadol 50 mg tablet 50 mg PO BID PRN #14 tab MDD 2 10/20/18 gabapentin 400 mg capsule 400 mg PO TID #90 cap 11/11/18 blood sugar diagnostic #200 each 12/24/18 lancets 28 gauge #200 each 12/24/18 Allergies Allergy/AdvReac Type Severity Reaction Status Date / Time Penicillins Allergy Unknown unknown Verified 01/13/19 18:19 rofecoxib [From Vioxx] Allergy Unknown unknown Verified 01/13/19 18:19 Sulfa (Sulfonamide Allergy Unknown unknown Verified 01/13/19 18:19 Antibiotics) General Stated Complaint: GenMedical JUAN ANTONIO: 3 Review of Systems Constitutional Denies chills, Denies fever(s), Reports malaise and Reports weakness Cardiovascular Denies chest pain and Denies dyspnea Respiratory Reports change in phlegm color, Reports chest congestion, Reports cough and Denies dyspnea Gastrointestinal Denies abdominal pain, Denies nausea and Denies vomiting Genitourinary Denies dysuria Neurologic Reports weakness PFSH Medical History CVA (cerebral vascular accident) Depression Diabetes mellitus Hyperlipidemia Hypertension Surgical History Arthroplasty of knee (~06/2006) Cardiac Catheterization (~12/1999) Correction, Hammertoe (~2010) Gastrostomy Tube Placement History of total left knee replacement (TKR) (Acute) Intracardiac Device-Cardioseal of PFO (~04/2000) Tonsillectomy V-P Shunt (~08/2009) Family History Mother No problems noted. Father No problems noted. Social History Smoking/Tobacco Use Status: Former Tobacco Use Alcohol Intake: never Drug use: Never Substance use type: does not use Household members: other Details: [facility] resident Housing: assisted living facility Number of Children: 0 What type of physical activity do you participate in: none Seatbelt use: always Drive intox or ride w/intox team cdl driver: No Water heater temp set <120 deg: Yes Working smoke detector in home: Yes Fire extinguisher in home: Yes Carbon monox detector in home: Yes Do you feel safe at home: Yes Do you feel safe in your relationship?: Yes Additional Social history: pt lives at the [facility] assisted living Exam Const General: cooperative, no acute distress and not diaphoretic Orientation: alert and awake Neck Neck: normal visual inspection, full ROM, trachea midline, supple and no anterior neck swelling Resp Effort & Inspection: normal respiratory effort and not labored Auscultation: rhonchi (Throughout) Cardio Rate: regular rate Rhythm: regular rhythm Heart Sounds: S1 normal, S2 normal, no click, no gallops, no murmurs and no rubs Bruits: no abdominal aortic bruits and no carotid bruits Pulses: radial pulses present bilaterally 2+ GI Inspection: normal to inspection Palpation: soft, no aortic enlargement, no pulsatile masses and nontender Auscultation: normal bowel sounds Skin General skin exam: no rashes or lesions noted Neuro General: alert and awake Speech: abnormal speech garbled (At patient's baseline) Course Vital Signs Temperature 36.7 C 01/13/19 16:57 Pulse 96 H 01/13/19 16:57 Respiratory Rate 22 01/13/19 16:57 Blood Pressure 130/69 01/13/19 16:57 Pulse Oximetry 95 01/13/19 16:57 Temperature 36.7 C 01/13/19 16:57 Pulse 96 H 01/13/19 16:57 Respiratory Rate 22 01/13/19 16:57 Blood Pressure 130/69 01/13/19 16:57 Pulse Oximetry 95 01/13/19 16:57 Oxygen Delivery Method Room Air 01/13/19 16:57 Oxygen Flow Rate 0 01/13/19 16:57 Pain Level 0 01/13/19 16:57
[2019-01-13 17:34] LABS: Abs Immature Grans 0.04 k/cumm (0.0-0.09); Absolute Basophil Count 0.03 k/cumm (0.0-0.2); Basophils % 0.2; Eosinophils % 0.3; HCT 42.2 % (40.0-50.0); HGB 13.6 g/dL (13.5-17.5); Immature Grans % 0.3; Lymphocytes % 12.4; Mean Corp. HGB Concentration 32.2 g/dL (32.0-36.0); Mean Corpuscular Hemoglobin 29.9 pg (27.0-33.0); Mean Corpuscular Volume 92.7 fL (80-95); Mean Platelet Volume 11.4 fL (8.0-11.0); Monocytes % 7.6; Neutrophils % 79.2; Platelet Count 269 x1000/uL (130-400); RBC 4.55 m/cumm (4.50-6.00); RBC Distribution Width 13.7 % (11.8-14.1); White Blood Cell Count 14.41 k/cumm (4.4-10.8)
[2019-01-13 17:36] LABS: Absolute Eosinophil Count 0.04 k/cumm (0.0-0.7); Absolute Lymphocyte Count 1.79 k/cumm (1.2-3.4); Absolute Neutrophil Count 11.41 k/cumm (1.2-6.7)
[2019-01-13] MEDS: Normal Saline 1,000 ML 1000 ML IV ×2 (17:41→19:45)
[2019-01-13 17:43] LABS: Lactate 2.4 mmol/L (0.6-1.4)
[2019-01-13 17:55] LABS: ALT 13 U/L (12-78); AST 5 U/L (15-37); Albumin 3.4 g/dL (3.4-5.0); Alkaline Phosphatase 151 U/L (46-116); Anion Gap 10.7 mmol/L (3-11); BUN 47 mg/dL (7-18); Bilirubin, Total 0.3 mg/dL (0.2-1.0); CO2 24.3 mmol/L (21.0-32.0); CREATININE 1.65 mg/dL (0.70-1.30); Calcium 8.9 mg/dL (8.5-10.1); Chloride 104 mmol/L (98-107); Estimated GFR 41.21 (mL/min/1.73m2); Glucose 181 mg/dL (70-100); Potassium 4.9 mmol/L (3.5-5.1); Sodium 139 mmol/L (136-145); Total Protein 7.3 g/dL (6.4-8.2)
[2019-01-13 17:57] LABS: Magnesium 2.1 mg/dL (1.8-2.4)
[2019-01-13 17:58] LABS: Troponin I < 0.05 ng/mL (0.00-0.06)
--- NOTE | 2019-01-13 18:10 | DI.VRAD_ITS ---
EXAM: XR Chest, 2 Views EXAM DATE/TIME: 01/13/2019 5:06 PM CLINICAL HISTORY: 74 years old, male; Other: Cough TECHNIQUE: Imaging protocol: XR of the chest, 2 views. COMPARISON: SC PORTABLE CHEST ONE VIEW 09/06/2017 8:03 AM FINDINGS: Lungs: Opacities are noted along the right heart border on the frontal radiograph and in the posterior lower lung region on the lateral radiograph which could represent atelectasis or infection. There is minimal elevation of the right hemidiaphragm. Pleural space: No pneumothorax. Heart/Mediastinum: The mediastinum is measuring widened but unchanged. Cardiac shadow is unchanged. A radiopaque device overlies the cardiac shadow, similar to prior exam Bones/joints: Skeletal degenerative changes. IMPRESSION: 1. Opacities are noted along the right heart border on the frontal radiograph and in the posterior lower lung region on the lateral radiograph which could represent atelectasis or infection. Short-term followup in 4-6 weeks recommended for reassessment. 2. Other findings/details as above. If symptoms remain concerning, CT scan could be considered. Dictated and Authenticated by: Izzy Galvan MD. Ordering:SONNY Darling MD
[2019-01-13] MEDS: metroNIDAZOLE 500 MG/100 ML BAG 100 MG IVPB (18:20)
[2019-01-13] MEDS: levoFLOXacin 750 MG/150 ML BAG 100 MG IVPB (19:20)
[2019-01-13 19:43] LABS: Bilirubin Negative (Negative); Blood Negative (Negative); Clarity Clear (Clear); Glucose 100 mg/dL (Negative); Ketones Trace mg/dL (Negative); Leukocyte Esterase Negative (Negative); Nitrite Negative (Negative); Urobilinogen 0.2 EU/dL (Up TO 0.2); pH 6.5 (5-8)
[2019-01-13 19:58] LABS: Bacteria Negative HPF (Negative); C & S Indicated? No; Casts Negative LPF (Negative); Crystals Negative HPF (Negative); Epithelial Cells Negative HPF (Negative); Mucus Negative (Negative); Other Cells Negative (Negative); RBC Negative (0-2); WBC Negative HPF (0-5)
== END 2019-01-13 22:16 | disposition other institution (70) ==
PROVIDERS: Emergency Provider Nurse Practitioner Family; PCP Student in an Organized Health Care Education/Training Program
DX: J18.9 Pneumonia, unspecified organism (principal); E11.9 Type 2 diabetes mellitus without complications; Z79.84 Long term (current) use of oral hypoglycemic drugs; I10 Essential (primary) hypertension
CPT/HCPCS: 36415; 80053; 87040; 93005; 96361; 96365; 96367; 99285; 71046; 81003; 81015; 83605; 83735; 84484; 85025; 93010; 99284; J1956

== ENCOUNTER → 2019-03-10 09:06 | Outpatient (BNVA) | payer MEDICARE, SELFPAY | PROVIDERS: PCP Student in an Organized Health Care Education/Training Program; Referring Provider Student in an Organized Health Care Education/Training Program; Visit Provider Orthopaedic Surgery | DX: M25.562 Pain in left knee (principal); Z47.1 Aftercare following joint replacement surgery; Z96.652 Presence of left artificial knee joint; I10 Essential (primary) hypertension; E11.9 Type 2 diabetes mellitus without complications | CPT/HCPCS: 99213 ==

== ENCOUNTER 2019-03-18 08:35 | Outpatient (REF) | payer MEDICARE, SELFPAY ==
[2019-03-18 10:02] LABS: ALT 11 U/L (16-63); AST 12 U/L (15-37); Albumin 3.6 g/dL (3.4-5.0); Alkaline Phosphatase 143 U/L (46-116); Anion Gap 9.8 mmol/L (3-11); BUN 37 mg/dL (7-18); Bilirubin, Total 0.4 mg/dL (0.2-1.0); CO2 26.2 mmol/L (21.0-32.0); CREATININE 1.67 mg/dL (0.70-1.30); Calcium 8.9 mg/dL (8.5-10.1); Chloride 109 mmol/L (98-107); Estimated GFR 40.64 (mL/min/1.73m2); Glucose 122 mg/dL (70-100); Potassium 4.8 mmol/L (3.5-5.1); Sodium 145 mmol/L (136-145); Total Protein 6.4 g/dL (6.4-8.2)
[2019-03-18 12:59] LABS: Vitamin D 25 Total 66.7 ng/ml (30-100)
[2019-03-19 10:09] LABS: Parathyroid Hormone,Intact 39 pg/ml (19-88)
== END 2019-03-18 08:55 ==
LOC: LBN 08:35
PROVIDERS: PCP Student in an Organized Health Care Education/Training Program; Visit Provider Internal Medicine Endocrinology, Diabetes & Metabolism
DX: M80.80XS Other osteoporosis with current pathological fracture, unspecified site, sequela (principal)
CPT/HCPCS: 80053; 82306; 83970

== ENCOUNTER 2019-03-23 01:39 | Outpatient (CLI) | payer MEDICARE, SELFPAY ==
--- NOTE | 2019-03-23 10:50 | DI.MRI_ITS ---
EXAM: MR LUMBAR SPINE WO CLINICAL HISTORY: ? IMPINGEMENT SPINAL NERVE ROOT, M48.56XA COLLAPSED VERTEBRA LUMBAR REGION. TECHNIQUE: Multiplanar multisequence MRI was performed. COMPARISON: XR lumbar spine complete from 10/27/2018 XR lumbar spine complete from 10/27/2018 XR DEXA BONE DENSITY W/WO INES from 11/24/2018 FINDINGS: The T11 and T12 vertebral bodies are normal in height. There is a stable mild compression fracture o f the superior endplate of L1. There is a stable severe compression fracture of L2. There is mild c ompression of the inferior aspect of the L3 vertebral body, which shows some increased signal, consis tent with a subacute fracture. There is slightly more compression when compared with the previous pl ain films. There is a stable moderate compression fracture of L4. L5 shows no significant compressi on. Facet degenerative changes are seen throughout. There is moderate to severe neural foraminal narrowi ng throughout. The neural foraminal narrowing is most severe on the right at L3-4. There is moderate central canal stenosis secondary to a combination of degenerative changes at L2-3. Moderate central canal stenosis is also seen at L3-4, mainly secondary to facet degenerative changes . There is mild central canal stenosis at L4-5. There are prominent endplate osteophytes at L5-S1, which are eccentric toward the left and appear to impinge on the left L5 nerve root. There is no sig nificant central canal stenosis. The aorta is normal in diameter. The conus medullaris appears normal. IMPRESSION: Subacute compression fracture of the inferior endplate of L3. Multilevel degenerative disc changes and facet degenerative changes causing neural foraminal narrowin g throughout. Moderate central canal stenosis at L2-3 and L3-4. Left L5 nerve root impingement secondary to asymmetric left-sided osteophytes.
== END 2019-03-23 01:59 ==
PROVIDERS: PCP Student in an Organized Health Care Education/Training Program; Visit Provider Orthopaedic Surgery
DX: M48.56XA Collapsed vertebra, not elsewhere classified, lumbar region, initial encounter for fracture (principal); M48.061 Spinal stenosis, lumbar region without neurogenic claudication; M51.36 Other intervertebral disc degeneration, lumbar region; M51.16 Intervertebral disc disorders with radiculopathy, lumbar region; M25.78 Osteophyte, vertebrae
CPT/HCPCS: 72148

== ENCOUNTER → 2019-03-30 10:10 | Outpatient (BNVA) | payer MEDICARE, SELFPAY | PROVIDERS: PCP Student in an Organized Health Care Education/Training Program; Referring Provider Student in an Organized Health Care Education/Training Program; Visit Provider Orthopaedic Surgery | DX: M48.061 Spinal stenosis, lumbar region without neurogenic claudication (principal); I10 Essential (primary) hypertension; E11.9 Type 2 diabetes mellitus without complications; M25.562 Pain in left knee | CPT/HCPCS: 99213 ==

== ENCOUNTER 2019-07-07 08:14 | Outpatient (REF) | payer MEDICARE, SELFPAY ==
[2019-07-07 09:19] LABS: Anion Gap 12.5 mmol/L (3-11); BUN 34 mg/dL (7-18); CO2 23.5 mmol/L (21.0-32.0); CREATININE 1.52 mg/dL (0.70-1.30); Calcium 8.6 mg/dL (8.5-10.1); Calculated LDL 38 mg/dL (<100); Chloride 108 mmol/L (98-107); Cholesterol 76 mg/dL (<200); Estimated GFR 45.31 (mL/min/1.73m2); Glucose 119 mg/dL (74-106); HDL Cholesterol 28 mg/dL (40-60); Potassium 4.6 mmol/L (3.5-5.1); Sodium 144 mmol/L (136-145); Triglyceride 54 mg/dL (<150)
== END 2019-07-07 08:34 ==
LOC: LBN 08:14
PROVIDERS: PCP Student in an Organized Health Care Education/Training Program; Visit Provider Student in an Organized Health Care Education/Training Program
DX: I10 Essential (primary) hypertension (principal); E11.9 Type 2 diabetes mellitus without complications; N18.9 Chronic kidney disease, unspecified
CPT/HCPCS: 80048; 80061

== ENCOUNTER 2019-07-28 01:58 | Outpatient (RCR) | payer MEDICARE, SELFPAY ==
[2019-07-28] MEDS: Denosumab 60 MG/ML SYR SC (13:41)
== END 2019-07-31 23:59 | disposition home or self-care (01) ==
LOC: INF 01:58
PROVIDERS: PCP Student in an Organized Health Care Education/Training Program; Visit Provider Student in an Organized Health Care Education/Training Program
DX: M80.80XS Other osteoporosis with current pathological fracture, unspecified site, sequela (principal)
CPT/HCPCS: 96372; J0897

== ENCOUNTER 2019-08-12 09:49 | Outpatient (CLI) | payer MEDICARE, SELFPAY ==
--- NOTE | 2019-08-12 10:07 | DI.RAD_ITS ---
EXAM: XR CHEST 2V PA LATERAL CLINICAL HISTORY: ASPIRATION,COUGH,DYSPHAGIA,R05,T17.908A TECHNIQUE: 2D digital imaging was performed. COMPARISON: XR CHEST 2V PA LATERAL from 01/13/2019 FINDINGS: The lungs are suboptimally inflated. There is mild bibasilar densities seen on the lateral view. N o focal infiltrate or effusion is seen. Heart size is normal. The the aorta is mildly tortuous. IMPRESSION: No acute abnormality.
== END 2019-08-12 10:09 ==
PROVIDERS: PCP Student in an Organized Health Care Education/Training Program; Visit Provider Student in an Organized Health Care Education/Training Program
DX: R05 Cough (principal); R13.10 Dysphagia, unspecified
CPT/HCPCS: 71046

== ENCOUNTER 2019-11-03 18:03 | Outpatient (REF) | payer MEDICARE, SELFPAY ==
[2019-11-03 16:57] LABS: Anion Gap 9.3 mmol/L (3-11); BUN 35 mg/dL (7-18); CO2 24.7 mmol/L (21.0-32.0); Calcium 9.2 mg/dL (8.5-10.1); Chloride 104 mmol/L (98-107); Estimated GFR 39.82 (mL/min/1.73m2); Glucose 142 mg/dL (74-106); Potassium 5.2 mmol/L (3.5-5.1); Sodium 138 mmol/L (136-145)
[2019-11-03 17:09] LABS: Hemoglobin A1C 7.3 % (3.8-5.6)
== END 2019-11-03 18:23 ==
LOC: LBN 18:03
PROVIDERS: PCP Student in an Organized Health Care Education/Training Program; Visit Provider Student in an Organized Health Care Education/Training Program
DX: E11.9 Type 2 diabetes mellitus without complications (principal); I10 Essential (primary) hypertension; N18.9 Chronic kidney disease, unspecified
CPT/HCPCS: 80048; 83036

== ENCOUNTER 2020-01-26 01:37 | Outpatient (RCR) | payer MEDICARE, SELFPAY | END 2020-01-31 23:59 | disposition home or self-care (01) | LOC: INF 01:37 | PROVIDERS: PCP Student in an Organized Health Care Education/Training Program; Visit Provider Student in an Organized Health Care Education/Training Program | DX: R69 Illness, unspecified (principal) ==

== ENCOUNTER 2020-02-14 01:51 | Outpatient (RCR) | payer MEDICARE, SELFPAY ==
[2020-02-14] MEDS: Denosumab 60 MG/ML SYR SC (11:12)
== END 2020-03-01 23:59 | disposition home or self-care (01) ==
LOC: INF 01:51
PROVIDERS: PCP Student in an Organized Health Care Education/Training Program; Visit Provider Student in an Organized Health Care Education/Training Program
DX: M80.80XS Other osteoporosis with current pathological fracture, unspecified site, sequela (principal)
CPT/HCPCS: 96372; J0897

== ENCOUNTER 2020-02-21 16:42 | Observation (INO) | payer MEDICARE, SELFPAY ==
--- NOTE | 2020-02-21 16:30 | RT.EKG_ITS ---
APPROVED REPORT Exam: Resting ECG Patient Location: E HR:85 bpm ECG Measurements Heart Rate 85 AXIS TX 173 P 76 QRSd 78 QRS 48 QT 361 T 65 QTc 428 Conclusion Sinus rhythm...normal P axis, V-rate 60- 99 Low voltage, precordial leads...precordial leads <1.0mV
[2020-02-21 16:44] VITALS: BP 121/70; PULSE 88; TEMP 36.7; O2SAT 96
--- NOTE | 2020-02-21 17:07 | W.ED.GENAD ---
Discharge Plan Disposition Patient Disposition: [facility] INPATIENT Condition: Fair Discharge Details Clinical Impression: Acute kidney injury Admit Date/Time: 02/21/20 18:13 Admit Provider: Darin James Attending Provider: Darin James Primary Care Provider: Madelin Rogers ED Provider: Yoana Childress Medical Decision Making This is a 75-year-old gentleman who is been in his usual state of health who was found to have acute kidney injury and hyperkalemia on surveillance labs. I added a phosphorus which was normal magnesium which was elevated at 3.3. He was started on normal saline at 150 cc/h. A post void bladder scan showed 220 cc retained after voiding approximately 270 cc. He denies any dysuria frequency urgency or incontinence. He has no flank pain. He states he has been voiding at baseline. He has been taking ibuprofen 600 mg 3 times daily. Additionally he takes lisinopril and metformin. He reports his p.o. intake has been at baseline. His case was discussed with Dr. James from hospitalist service who requests a CAT scan. This was performed and shows no evidence of hydronephrosis with both kidneys with normal appearance. Patient will be admitted to the medical surgical unit for IV hydration further monitoring of electrolytes and kidney functions. We will avoid nephrotoxic medications. He was given one 8.4 g dose of V[place]. Report and care of patient signed off to Dr. James Medical Records Medical records reviewed: Yes I reviewed the patient's medical records. Lab Data Lab results reviewed: Yes I reviewed the patient's lab results. Lab results narrative: Most recent lab results Calcium 8.2 mg/dL (8.5-10.1) L 02/21/20 17:15 Phosphorus 4.5 mg/dL (2.6-4.7) 02/21/20 17:02 Magnesium 3.3 mg/dL (1.8-2.4) H 02/21/20 17:02 Laboratory Tests Range/Units 02/21/20 02/21/20 02/21/20 17:02 17:09 17:15 WBC (4.4-10.8) 10^3/uL 11.28 H RBC (4.36-5.78) 10^6/uL 4.28 L Hgb (13.5-17.5) g/dL 13.1 L Hct (40.0-50.0) % 41.0 MCV (80-95) fL 95.8 H MCH (27.0-33.0) pg 30.6 MCHC (32.0-36.0) % 32.0 RDW (11.8-14.1) % 13.9 Plt Count (130-400) 10^3/uL 256 MPV (8.0-11.0) fL 11.1 H Immature Gran % 0.4 Neutrophils % 70.4 Lymphocytes % 14.1 Monocytes % 7.3 Eosinophils % 7.4 Basophils % 0.4 Nucleated RBC % % 0 Absolute Neutrophils (1.2-6.7) 10^3/uL 7.94 H Absolute Lymphocytes (1.2-3.4) 10^3/uL 1.59 Absolute Monocytes (0.1-0.8) 10^3/uL 0.82 H Absolute Eosinophils (0.0-0.7) 10^3/uL 0.83 H Absolute Basophils (0.0-0.2) 10^3/uL 0.05 Sodium (136-145) mmol/L 137 Potassium (3.5-5.1) mmol/L 5.7 H Chloride (98-107) mmol/L 104 Carbon Dioxide (21.0-32.0) mmol/L 25.4 Anion Gap (3-11) mmol/L 7.6 BUN (7-18) mg/dL 68 H Creatinine (0.70-1.30) mg/dL 4.36 H* Estimated GFR/1.73 m2 (mL/min/1.73m2) 13.39 Glucose (74-106) mg/dL 201 H Calcium (8.5-10.1) mg/dL 8.2 L Phosphorus (2.6-4.7) mg/dL 4.5 Magnesium (1.8-2.4) mg/dL 3.3 H Total Bilirubin (0.2-1.0) mg/dL 0.2 AST (15-37) U/L 12 L ALT (16-63) U/L 14 L Alkaline Phosphatase (46-116) U/L 119 H Total Protein (6.4-8.2) g/dL 7.1 Albumin (3.4-5.0) g/dL 3.4 Urine Color (Yellow) Urine Clarity (Clear) Urine pH (5-8) Ur Specific [place] (1.005-1.025) Urine Protein (Negative) mg/dL Urine Ketones (Negative) mg/dL Urine Blood (Negative) Urine Nitrite (Negative) Urine Bilirubin (Negative) Urine Urobilinogen (Up TO 0.2) EU/dL Ur Leukocyte Esterase (Negative) Urine RBC (0-2) HPF Urine WBC (0-5) HPF Ur Epithelial Cells (Negative) HPF Urine Crystals (Negative) HPF Urine Bacteria (Negative) HPF Urine Casts (Negative) LPF Urine Mucus (Negative) Urine Other (Negative) Ur Culture Indicated? Urine Glucose (Negative) mg/dL Range/Units 02/21/20 17:48 WBC (4.4-10.8) 10^3/uL RBC (4.36-5.78) 10^6/uL Hgb (13.5-17.5) g/dL Hct (40.0-50.0) % MCV (80-95) fL MCH (27.0-33.0) pg MCHC (32.0-36.0) % RDW (11.8-14.1) % Plt Count (130-400) 10^3/uL MPV (8.0-11.0) fL Immature Gran % Neutrophils % Lymphocytes % Monocytes % Eosinophils % Basophils % Nucleated RBC % % Absolute Neutrophils (1.2-6.7) 10^3/uL Absolute Lymphocytes (1.2-3.4) 10^3/uL Absolute Monocytes (0.1-0.8) 10^3/uL Absolute Eosinophils (0.0-0.7) 10^3/uL Absolute Basophils (0.0-0.2) 10^3/uL Sodium (136-145) mmol/L Potassium (3.5-5.1) mmol/L Chloride (98-107) mmol/L Carbon Dioxide (21.0-32.0) mmol/L Anion Gap (3-11) mmol/L BUN (7-18) mg/dL Creatinine (0.70-1.30) mg/dL Estimated GFR/1.73 m2 (mL/min/1.73m2) Glucose (74-106) mg/dL Calcium (8.5-10.1) mg/dL Phosphorus (2.6-4.7) mg/dL Magnesium (1.8-2.4) mg/dL Total Bilirubin (0.2-1.0) mg/dL AST (15-37) U/L ALT (16-63) U/L Alkaline Phosphatase (46-116) U/L Total Protein (6.4-8.2) g/dL Albumin (3.4-5.0) g/dL Urine Color (Yellow) Yellow Urine Clarity (Clear) Clear Urine pH (5-8) 5.5 Ur Specific [place] (1.005-1.025) 1.020 Urine Protein (Negative) mg/dL 30 H Urine Ketones (Negative) mg/dL Negative Urine Blood (Negative) Negative Urine Nitrite (Negative) Negative Urine Bilirubin (Negative) Negative Urine Urobilinogen (Up TO 0.2) EU/dL 0.2 Ur Leukocyte Esterase (Negative) Negative Urine RBC (0-2) HPF Negative Urine WBC (0-5) HPF 3-5 Ur Epithelial Cells (Negative) HPF Negative Urine Crystals (Negative) HPF Negative Urine Bacteria (Negative) HPF Negative Urine Casts (Negative) LPF Negative Urine Mucus (Negative) Negative Urine Other (Negative) Many renal Ur Culture Indicated? No Urine Glucose (Negative) mg/dL 100 HPI General Mode of arrival: EMS. Date/Time Provider Initiated Documentation: 02/21/20 16:44. Information obtained by: patient, RN/MD and EMS. HPI Narrative: This is a 75-year-old gentleman who is been in his usual state of health who was found to have acute kidney injury and hyperkalemia on surveillance labs. I added a phosphorus which was normal magnesium which was elevated at 3.3. He was started on normal saline at 150 cc/h. A post void bladder scan showed 220 cc retained after voiding approximately 270 cc. He denies any dysuria frequency urgency or incontinence. He has no flank pain. He states he has been voiding at baseline. He has been taking ibuprofen 600 mg 3 times daily. Additionally he takes lisinopril and metformin. He reports his p.o. intake has been at baseline. Related Data Home Medications Medication Instructions Recorded Confirmed tramadol 50 mg tablet 50 mg PO BID PRN #14 tab MDD 2 10/20/18 02/21/20 oxycodone-acetaminophen 1 tab PO Q6H PRN 12/29/18 02/21/20 cholecalciferol (vitamin D3) 1,250 50,000 unit PO QMONTH 03/31/19 02/21/20 mcg (50,000 unit) capsule lisinopril 5 mg tablet 5 mg PO DAILY #90 tab 05/06/19 02/21/20 lancets 28 gauge #200 each 05/12/19 08/18/19 atorvastatin 80 mg tablet 80 mg PO DAILY #90 tab-cap 06/15/19 02/21/20 bupropion HCl 150 mg 24 hr tablet, 150 mg PO QAM #90 tab 06/15/19 02/21/20 extended release denosumab 60 mg/mL subcutaneous 60 mg SC [id number] 06/28/19 08/18/19 syringe aspirin 81 mg tablet,delayed 81 mg PO DAILY #90 tab 07/28/19 02/21/20 release denosumab 60 mg/mL subcutaneous 60 mg SC [id number] PRN 08/12/19 08/12/19 syringe metformin 500 mg tablet 500 mg PO BID #60 tab-cap 09/16/19 02/21/20 ibuprofen 600 mg tablet 600 mg PO TID #90 tab 10/26/19 02/21/20 blood sugar diagnostic #200 each 11/23/19 gabapentin 400 mg capsule 400 mg PO TID #90 cap 11/26/19 02/21/20 magnesium oxide 400 mg (241.3 mg 400 mg PO BID #60 tab 01/03/20 02/21/20 magnesium) tablet tamsulosin 0.4 mg capsule 0.4 mg PO DAILY #90 cap 01/21/20 02/21/20 oxycodone 10 mg PO BID PRN 02/21/20 02/21/20 Previous Rx's Medication Instructions Recorded tramadol 50 mg tablet 50 mg PO BID PRN #14 tab MDD 2 10/20/18 lisinopril 5 mg tablet 5 mg PO DAILY #90 tab 05/06/19 lancets 28 gauge #200 each 05/12/19 atorvastatin 80 mg tablet 80 mg PO DAILY #90 tab-cap 06/15/19 bupropion HCl 150 mg 24 hr tablet, 150 mg PO QAM #90 tab 06/15/19 extended release aspirin 81 mg tablet,delayed 81 mg PO DAILY #90 tab 07/28/19 release metformin 500 mg tablet 500 mg PO BID #60 tab-cap 09/16/19 ibuprofen 600 mg tablet 600 mg PO TID #90 tab 10/26/19 blood sugar diagnostic #200 each 11/23/19 gabapentin 400 mg capsule 400 mg PO TID #90 cap 11/26/19 magnesium oxide 400 mg (241.3 mg 400 mg PO BID #60 tab 01/03/20 magnesium) tablet tamsulosin 0.4 mg capsule 0.4 mg PO DAILY #90 cap 01/21/20 Allergies Allergy/AdvReac Type Severity Reaction Status Date / Time Penicillins Allergy Unknown unknown Verified 02/21/20 17:04 rofecoxib [From Vioxx] Allergy Unknown unknown Verified 02/21/20 17:04 Sulfa (Sulfonamide Allergy Unknown unknown Verified 02/21/20 17:04 Antibiotics) General Stated Complaint: GenMedical JUAN ANTONIO: 3 Review of Systems Narrative: Patient with no complaints All systems reviewed & are unremarkable except as noted in HPI and below PFSH Medical History Aspiration pneumonia CVA (cerebral vascular accident) Depression (12/02/17) Diabetes mellitus Hyperlipidemia Hypertension Surgical History Arthroplasty of knee (~06/2006) Left - Medial/Lateral Meniscectomy Cardiac Catheterization (~12/1999) Correction, Hammertoe (~2010) Left 2-4 Toes Gastrostomy Tube Placement History of total left knee replacement (TKR) in Jul Intracardiac Device-Cardioseal of PFO (~04/2000) Tonsillectomy 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 Father No problems noted. Social History Smoking/Tobacco Use Status: Former Tobacco Use Alcohol Intake: never Drug use: Never Substance use type: does not use Household members: other Details: 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 Water heater temp set <120 deg: Yes Working smoke detector in home: Yes Fire extinguisher in home: Yes Carbon monox detector in home: Yes Do you feel safe at home: Yes Do you feel safe in your relationship?: Yes Additional Social history: pt lives at the [facility] living Exam Const General: cooperative, comfortable and no acute distress Nutritional Appearance: average body habitus and well nourished Orientation: alert, awake and oriented x3 Limitations: other limitations (aphasia) HENCA Head: normal to inspection, normocephalic and atraumatic Mouth: oral mucosae normal Resp Effort & Inspection: normal respiratory effort Auscultation: clear to auscultation bilaterally Cardio Rate: regular rate Rhythm: regular rhythm GI Inspection: normal to inspection Palpation: soft Auscultation: normal bowel sounds Skin General skin exam: no rashes or lesions noted Neuro General: patient alert, patient awake and patient oriented x3 Course Vital Signs Vital signs: Vital Signs Temperature 36.7 C 02/21/20 16:44 Pulse 88 02/21/20 16:44 Blood Pressure 121/70 02/21/20 16:44 Pulse Oximetry 96 02/21/20 16:44 Temperature 36.7 C 02/21/20 16:44 Temperature Source Temporal Artery Scan 02/21/20 16:44 Pulse 88 02/21/20 16:44 Respiratory Effort Non-Labored 02/21/20 17:03 Blood Pressure 121/70 02/21/20 16:44 Blood Pressure Position Sitting 02/21/20 16:44 Pulse Oximetry 96 02/21/20 16:44 Oxygen Delivery Method Room Air 02/21/20 16:44 Oxygen Flow Rate 0 02/21/20 16:44 Pain Level 0 02/21/20 16:44
[2020-02-21 17:08] VITALS: RESP 16
[2020-02-21] MEDS: Normal Saline Flush 10 ML SYR IVP (17:39)
[2020-02-21] MEDS: Normal Saline 1,000 ML 150 ML IV (17:39)
[2020-02-21 17:43] LABS: Abs Immature Grans 0.05 10^3/uL (0.0-0.06); Absolute Basophil Count 0.05 10^3/uL (0.0-0.2); Absolute Eosinophil Count 0.83 10^3/uL (0.0-0.7); Absolute Lymphocyte Count 1.59 10^3/uL (1.2-3.4); Absolute Monocyte Count 0.82 10^3/uL (0.1-0.8); Absolute Neutrophil Count 7.94 10^3/uL (1.2-6.7); Basophils % 0.4; Eosinophils % 7.4; HGB 13.1 g/dL (13.5-17.5); Immature Grans % 0.4; Lymphocytes % 14.1; MCH 30.6 pg (27.0-33.0); MCV 95.8 fL (80-95); MPV 11.1 fL (8.0-11.0); Monocytes % 7.3; Neutrophils % 70.4; Nucleated RBC 0 %; Platelet Count 256 10^3/uL (130-400); RBC 4.28 10^6/uL (4.36-5.78); RDW 13.9 % (11.8-14.1); RDW-SD 49.3 fL; WBC 11.28 10^3/uL (4.4-10.8)
[2020-02-21 17:47] LABS: Magnesium 3.3 mg/dL (1.8-2.4); PHOSPHORUS 4.5 mg/dL (2.6-4.7)
[2020-02-21 17:48] LABS: ALT 14 U/L (16-63); AST 12 U/L (15-37); Albumin 3.4 g/dL (3.4-5.0); Alkaline Phosphatase 119 U/L (46-116); Anion Gap 7.6 mmol/L (3-11); BUN 68 mg/dL (7-18); Bilirubin, Total 0.2 mg/dL (0.2-1.0); CO2 25.4 mmol/L (21.0-32.0); Calcium 8.2 mg/dL (8.5-10.1); Chloride 104 mmol/L (98-107); Estimated GFR 13.39 (mL/min/1.73m2); Glucose 201 mg/dL (74-106); Potassium 5.7 mmol/L (3.5-5.1); Sodium 137 mmol/L (136-145); Total Protein 7.1 g/dL (6.4-8.2)
[2020-02-21 17:55] LABS: Bilirubin Negative (Negative); Blood Negative (Negative); Clarity Clear (Clear); Glucose 100 mg/dL (Negative); Ketones Negative (Negative); Leukocyte Esterase Negative (Negative); Nitrite Negative (Negative); Urobilinogen 0.2 EU/dL (Up TO 0.2); pH 5.5 (5-8)
[2020-02-21 17:59] LABS: CREATININE 4.36 mg/dL (0.70-1.30)
--- NOTE | 2020-02-21 18:01 | W.PM.HP.N ---
Date of service: 02/21/20 Time of Service: 18:01 Assessment and Plan Assessment and plan (1) Renal failure: Status: Chronic Assessment and plan: Renal failure, unclear time course. Last known creatinine 1.7 in October. No s/s uremia, mild hyperkalemia w/o EKG changes. Etiology unknown at present. Will await CT and U/A, will hydrate and hold ROBERT and NSAIDs (and Metformin), and track renal function. History of Present Illness History of Present Illness Chief Complaint: ELEVATED CREATININJE Narrative: 75 male with multiple problems, including HT and DM -- on routine lab work today was noted to be in renal failure with Creatinine 4.6 and BUN 68 (K 5.7, EKG with occ PAC, otherwise normal). Patient entirely asymptomatic. I was asked to admit for further w/u and management. No new meds, but is on ROBERT and NSAIDs (also on Mertformin which will need to be held). Patient resides at [facility]. PVR in ER approx 200. U/A and CT abdomen pending at this time. 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 Father No problems noted. 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 Water heater temp set <120 deg: Yes Working smoke detector in home: Yes Fire extinguisher in home: Yes Carbon monox detector in home: Yes Do you feel safe at home: Yes Do you feel safe in your relationship?: Yes Additional Social history: pt lives at the [facility] Medications and Allergies Home Medications Medication Instructions Recorded Confirmed Type tramadol 50 mg tablet 50 mg PO BID PRN #14 tab MDD 2 10/20/18 02/21/20 Rx oxycodone-acetaminophen 1 tab PO Q6H PRN 12/29/18 02/21/20 History cholecalciferol (vitamin D3) 1,250 50,000 unit PO QMONTH 03/31/19 02/21/20 History mcg (50,000 unit) capsule lisinopril 5 mg tablet 5 mg PO DAILY #90 tab 05/06/19 02/21/20 Rx lancets 28 gauge #200 each 05/12/19 08/18/19 Rx atorvastatin 80 mg tablet 80 mg PO DAILY #90 tab-cap 06/15/19 02/21/20 Rx bupropion HCl 150 mg 24 hr tablet, 150 mg PO QAM #90 tab 06/15/19 02/21/20 Rx extended release denosumab 60 mg/mL subcutaneous 60 mg SC [id number] 06/28/19 08/18/19 History syringe aspirin 81 mg tablet,delayed 81 mg PO DAILY #90 tab 07/28/19 02/21/20 Rx release denosumab 60 mg/mL subcutaneous 60 mg SC [id number] PRN 08/12/19 08/12/19 History syringe metformin 500 mg tablet 500 mg PO BID #60 tab-cap 09/16/19 02/21/20 Rx ibuprofen 600 mg tablet 600 mg PO TID #90 tab 10/26/19 02/21/20 Rx blood sugar diagnostic #200 each 11/23/19 Rx gabapentin 400 mg capsule 400 mg PO TID #90 cap 11/26/19 02/21/20 Rx magnesium oxide 400 mg (241.3 mg 400 mg PO BID #60 tab 01/03/20 02/21/20 Rx magnesium) tablet tamsulosin 0.4 mg capsule 0.4 mg PO DAILY #90 cap 01/21/20 02/21/20 Rx oxycodone 10 mg PO BID PRN 02/21/20 02/21/20 History Allergies Allergy/AdvReac Type Severity Reaction Status Date / Time Penicillins Allergy Unknown unknown Verified 02/21/20 17:04 rofecoxib [From Vioxx] Allergy Unknown unknown Verified 02/21/20 17:04 Sulfa (Sulfonamide Allergy Unknown unknown Verified 02/21/20 17:04 Antibiotics) Exam Narrative Exam Narrative: 121/70, 88, 36.7, 16, 96% RA. HEENT atraumatic; neck supple; lungs clear; heart RRR w/o MRG; abdomen soft and NT w/o organomegaly; extremities w/o edema; neuro Ox3, severe dysarthria, moves all 4s Results Labs Result diagrams: 02/21/20 17:09 02/21/20 17:15 Labs: Laboratory Results - last 24 hr 02/21/20 02/21/20 02/21/20 17:02 17:09 17:15 WBC 11.28 H RBC 4.28 L Hgb 13.1 L Hct 41.0 MCV 95.8 H MCH 30.6 MCHC 32.0 RDW 13.9 Plt Count 256 MPV 11.1 H Immature Gran % 0.4 Neutrophils % 70.4 Lymphocytes % 14.1 Monocytes % 7.3 Eosinophils % 7.4 Basophils % 0.4 Nucleated RBC % 0 Absolute Neutrophils 7.94 H Absolute Lymphocytes 1.59 Absolute Monocytes 0.82 H Absolute Eosinophils 0.83 H Absolute Basophils 0.05 Sodium 137 Potassium 5.7 H Chloride 104 Carbon Dioxide 25.4 Anion Gap 7.6 BUN 68 H Creatinine 4.36 H* Estimated GFR/1.73 m2 13.39 Glucose 201 H Calcium 8.2 L Phosphorus 4.5 Magnesium 3.3 H Total Bilirubin 0.2 AST 12 L ALT 14 L Alkaline Phosphatase 119 H Total Protein 7.1 Albumin 3.4 Last Vital Signs Temp 36.7 C 02/21/20 16:44 Pulse 88 02/21/20 16:44 Resp 16 02/21/20 17:08 BP 121/70 02/21/20 16:44 Pulse Ox 96 02/21/20 16:44 COVID-19 Screening Have you,or household,traveled outside [place] in last 14 days?: No Had IN PERSON contact w/suspected or confirmed C-19 person: No
[2020-02-21 18:15] LABS: Epithelial Cells Negative HPF (Negative); RBC Negative HPF (0-2)
[2020-02-21 18:16] LABS: Bacteria Negative HPF (Negative); C & S Indicated? No; Casts Negative LPF (Negative); Crystals Negative HPF (Negative); Mucus Negative (Negative)
--- NOTE | 2020-02-21 18:35 | DI.CT_ITS ---
EXAM: CT RENAL COLIC WO CLINICAL HISTORY: renal failure. TECHNIQUE: Imaging Protocol: Axial computed tomography images with coronal and sagittal reformatted images were created and reviewed. COMPARISON: MR MR LUMBAR SPINE WO from 03/23/2019 FINDINGS: Patient motion artifact limits examination. ABDOMEN: Lung Bases: Marked coronary artery calcification. Minimal dependent atelectasis. Dilated visualized portion of the ascending thoracic aorta up to 4.4 cm in diameter. Liver: Normal density. No measurable mass. Gallbladder and biliary tract: No radiodense calculus or biliary ductal dilation. Pancreas: Normal density, no abnormal calcifications or inflammatory process. Spleen: Normal. Kidneys: Normal size, contour and axis.No radiodense stones or obstructive uropathy. No masses seen. Adrenal glands: No mass is seen. Lymph nodes: Within normal limits. Abdominal Aorta: Abdominal portion non-dilated. Atherosclerosis. PELVIS: Bladder:Symmetric distention, no gross wall thickening. Bowel: No evidence of bowel obstruction. Moderate amount of stool in the colon. No evidence of acut e appendicitis. Several fluid-filled loops of small bowel which may represent an enteritis. Please correlate clinically. Peritoneal cavity: No ascites, collection or mesenteric inflammatory response note is made of a ventr iculoperitoneal shunt. Reproductive organs: Mildly enlarged prostate gland. Bones: Stable compression fractures of L1 through L4. These are present on the MRI of the lumbar spi ne from 03/23/2019. Degenerative changes in the lumbar spine. Soft Tissues: Within normal limits. IMPRESSION: 1. No evidence of nephrolithiasis or hydronephrosis. 2. Fluid-filled loops of small bowel which may represent a mild enteritis. No evidence of bowel obst ruction. 3. Dilatation of the visualized portions of the ascending thoracic aorta measuring up to 4.4 cm. RADIATION DOSE DELIVERED: 894.94mGy.cm Total DLP DATA REPOSITORY: All CT scans at this facility are submitted to the National Radiology Data Registry (NRDR) Dose Index Registry (DIR) with the [employer] (ACR). RADIATION OPTIMIZATION: All CT scans at this facility use at least one of these dose optimization te chniques: automated exposure control; mA and/or kV adjustment per patient size (includes targeted exa ms where dose is matched to clinical indication); or iterative reconstruction.
--- NOTE | 2020-02-21 18:57 | DI.VRAD_ITS ---
PROCEDURE INFORMATION: Exam: CT Abdomen And Pelvis Without Contrast Exam date and time: 02/21/2020 6:29 PM Age: 75 years old Clinical indication: Other: Renal failure TECHNIQUE: Imaging protocol: Computed tomography of the abdomen and pelvis without contrast. Radiation optimization: All CT scans at this facility use at least one of these dose optimization techniques: automated exposure control; mA and/or kV adjustment per patient size (includes targeted exams where dose is matched to clinical indication); or iterative reconstruction. COMPARISON: No relevant prior studies available. FINDINGS: Tubes, catheters and devices: A ventriculoperitoneal shunt is seen with tip projecting in the right lower quadrant. Lungs: Minimal dependent atelectasis is seen within the lower lobes. Pleural space: No pleural effusion. Heart: The heart is upper limits of normal in size. No pericardial effusion. Possible postoperative changes of an ASD repair. Extensive atherosclerotic calcifications and/or stents are seen throughout the left main, lad, circumflex and right coronary arteries. Mediastinal space: Mild wall thickening within the lower esophagus. Liver: The liver is mildly enlarged. Gallbladder and bile ducts: The gallbladder is normal appearance. No bile duct dilatation. Pancreas: Normal. No ductal dilation. Spleen: Normal. No splenomegaly. Adrenals: Normal. No mass. Kidneys and ureters: The bilateral kidneys are normal appearance. No hydronephrosis. Stomach and bowel: Minimal wall thickening throughout the stomach. The small bowel is fluid-filled. A moderate amount of stool is seen throughout the colon. No bowel obstruction. A few areas of minimal wall thickening are seen within the rectum which may represent a mild form of proctitis. Appendix: No evidence of appendicitis. Intraperitoneal space: Unremarkable. No free air. No significant fluid collection. Vasculature: The ascending thoracic aorta is dilated measuring 4.4 cm in diameter. The imaged descending thoracic aorta is normal in caliber measuring 2.8 cm. Moderate atherosclerotic calcifications are seen within the abdominal aorta without aneurysm. Lymph nodes: Unremarkable. No enlarged lymph nodes. Bladder: The urinary bladder is normal appearance. Reproductive: The prostate gland is mildly enlarged. Bones/joints: Age-indeterminate compression fractures are seen within the L1, L2, L3 and L4 vertebral bodies. The osseous structures are demineralized. Irregularity is seen within the bilateral inferior pubic rami and ischial tuberosities, which may represent chronic, healed fractures. Sequela of prior hamstring tendon tears could also have this appearance. No evidence for acute fracture. Soft tissues: Unremarkable. IMPRESSION: 1. The bilateral kidneys are normal appearance without hydroureteronephrosis or renal calculi. 2. Fluid-filled loops of small bowel, with mild thickening of the gastric wall. This may represent a mild form of gastroenteritis. No bowel obstruction. 3. Mildly enlarged liver. 4. Age-indeterminate compression fractures throughout the lumbar spine, likely chronic. 5. Dilatation of the imaged ascending thoracic aorta measuring up to 4.4 cm. Dictated and Authenticated by: Izzy Painting MD. Ordering:SUJATHA Lees MD
[2020-02-21 19:24] VITALS: BP 148/85; PULSE 95; RESP 17; TEMP 36.6; O2SAT 95
[2020-02-21 20:10] VITALS: BP 145/86; PULSE 100; RESP 20; TEMP 36; O2SAT 97
[2020-02-21 23:00] VITALS: BP 112/68; PULSE 85; RESP 18; TEMP 36.1; O2SAT 95
[2020-02-21] MEDS: Normal Saline 1,000 ML 100 ML IV (23:45)
[2020-02-22] VITALS (9 sets, daily range): BP systolic 132–168; BP diastolic 74–95; PULSE 60–100; RESP 4–20; TEMP 35.9–37.2; O2SAT 94–99
[2020-02-22] MEDS: Acetaminophen 325 MG TAB 650 MG PO ×2 (03:38→08:15)
[2020-02-22 07:31] LABS: Anion Gap 6.6 mmol/L (3-11); BUN 58 mg/dL (7-18); CO2 24.4 mmol/L (21.0-32.0); Chloride 109 mmol/L (98-107); Estimated GFR 17.84 (mL/min/1.73m2); Potassium 5.4 mmol/L (3.5-5.1); Sodium 140 mmol/L (136-145)
[2020-02-22] MEDS: Tamsulosin 0.4 MG CAPCR PO (08:15)
[2020-02-22] MEDS: Aspirin E.C. 81 MG TABEC PO (08:15)
[2020-02-22] MEDS: Atorvastatin 40 MG TAB 80 MG PO (08:18)
[2020-02-22] MEDS: buPROPion-XL 150 MG TABCR PO (08:18)
[2020-02-22 08:25] LABS: COVID-19 RT-PCR UVMMC Result Negative (Negative)
--- NOTE | 2020-02-22 08:49 | PHA.REVIEW ---
Pharmacy Admission Review - Admission Clinical Review (Last Reviewed 02/21/20 @ 18:05 by Darin James MD) Acute kidney injury (Acute) Penicillins Allergy (Unknown, Verified 02/21/20 17:04) unknown rofecoxib [From Vioxx] Allergy (Unknown, Verified 02/21/20 17:04) unknown Sulfa (Sulfonamide Antibiotics) Allergy (Unknown, Verified 02/21/20 17:04) unknown Height 5 ft 10.87 in Weight 165 kg - Renal Dosing Renal Dosing: BUN 58 mg/dL (7-18) H 02/22/20 06:20 Creatinine 3.40 mg/dL (0.70-1.30) H D 02/22/20 06:20 Medications needing adjustments: Intervened (CRCL ~19ML/MIN) List of meds needing interventions: GABAPENTIN dose adjusted - Anticoagulation Anticoagulation: Hgb 13.1 g/dL (13.5-17.5) L 02/21/20 17:09 Hct 41.0 % (40.0-50.0) 02/21/20 17:09 Plt Count 256 10^3/uL (130-400) 02/21/20 17:09 Creatinine 3.40 mg/dL (0.70-1.30) H D 02/22/20 06:20 DVT Prohphylaxis: Reviewed (none at this time h/o CVA will ask provider if appropriate today) - Relevant Labs Sodium 140 mmol/L (136-145) 02/22/20 06:20 Potassium 5.4 mmol/L (3.5-5.1) H 02/22/20 06:20 Chloride 109 mmol/L (98-107) H 02/22/20 06:20 Phosphorus 4.5 mg/dL (2.6-4.7) 02/21/20 17:02 Magnesium 3.3 mg/dL (1.8-2.4) H 02/21/20 17:02 Electrolytes, C-Reactive P, ESR: Reviewed (patiromer ordered to lower K+) - DM Control DM Control: Glucose 201 mg/dL (74-106) H 02/21/20 17:15 Finger Stick Blood Glucose 125 Insulin Dosing: Reviewed (insulin aspart ordered) - BP Control BP Control: Blood Pressure 168/93 Blood Pressure 132/74 Blood Pressure 112/68 If elevated: Reviewed (takes lisinopril at home not yet ordered) - Qtc Review If Elevated: N/A - IV to PO Switch IV Medications: Reviewed (IVF Ns @100) - Home Meds Home Med List reviewed: Reviewed Relevent Home Meds Not ordered & why?: vit D3, oxycodone, lisinopril, magox, metformin - Current meds Current Medication Order Review: Reviewed - Comments Comments/Follow Ups: watch for home med lisinopril to be added. ask if DVT prop appropriate
--- NOTE | 2020-02-22 09:35 | PDOC.CMIN ---
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 Surgical: Other (Previous G-tube placement after his stroke. This was removed last summer), Other (Hammertoe repair) PREVIOUS FUNCTIONAL STATUS/SOCIAL/FAMILY SUPPORTS:: Cl resides at the [facility], the assisted facility intends on Cl returning home once ready per MD. He is mostly independent though struggles with his speech which is garbled. He also requires support with bathing and toileting. He eats and dresses himself independently. There was concern expressed regarding Cl' ability to swallow; per provider he will have a S/T consult. Has patient been provided with info about the portal/API?: Yes Did the patient sign up for the portal?: No CODE STATUS:: DNR/DNI INSURANCE COVERAGE / FINANCIAL ISSUES:: Medicare and AARP. CURRENT HOME/COMMUNITY SERVICES/EQUIPMENT:: Assisted living at [facility], Per nursing at [facility] he has a FWW PRIMARY CARE PHYSICIAN:: Madelin Rogers POTENTIAL DISCHARGE NEEDS:: Evaluations for discharge planning considerations. PATIENT/FAMILY EDUCATION NEEDS:: Review of discharge instructions, discuss Ask Me Three. ANTICIPATED BARRIERS TO DISCHARGE:: None identified. TRANSPORTATION:: TBD by disposition. PLAN:: Cl will be evaluated for further needs. He will return to [place] when ready. He may require repeat Covid swab if not discharge ready within 72 hours of first testing.
[2020-02-22] MEDS: Albuterol/Ipratropium 3 ML UPD VIAL UPD (10:17)
[2020-02-22] MEDS: Gabapentin 300 MG CAP PO (11:25)
--- NOTE | 2020-02-22 11:57 | DI.RAD_ITS ---
EXAM: XR CHEST 2V PA LATERAL CLINICAL HISTORY: congested lung sounds TECHNIQUE: 2D digital imaging was performed. COMPARISON: CR XR CHEST 2V PA LATERAL from 08/12/2019 FINDINGS: MEDIASTINUM: Normal. HEART: Normal. PULMONARY VASCULATURE: Normal. LUNGS: Clear. PLEURAL SPACE: No pleural effusion or pneumothorax. BONE:Within normal limits for the patient's age. OTHER FINDINGS:Normal. IMPRESSION: No acute pulmonary findings. DATA REPOSITORY: RADIATION DOSE DELIVERED:
[2020-02-22] MEDS: Insulin Aspart 300 UNITS/3 ML PEN SC ×3 (12:09→18:20)
--- NOTE | 2020-02-22 14:13 | W.PM.PROGNOT ---
Date of Service Date of service: 02/22/20 Time of Service: 14:14 Assessment and Plan Assessment and plan (1) Acute kidney injury: Start date: 02/22/20 Start time: 14:16 Status: Acute Assessment and plan: Improving, Will continue IV hydration and recheck this afternoon. Down from 4.36 to 3.4. Baseline appears to be around 1.5 Hold nephrotoxic medications Will give IV lopressor for bp while npo telemetry (2) Renal failure: Start date: 02/22/20 Start time: 14:17 Status: Chronic Assessment and plan: Chronic. Hol Qualifiers: Renal failure chronicity: chronic Chronic kidney disease stage: stage 3 (moderate) Qualified Code(s): N18.3 - Chronic kidney disease, stage 3 (moderate) (3) Hyperkalemia: Start date: 02/22/20 Start time: 14:18 Status: Acute Assessment and plan: Given veltassa. Recheck cmp this afternoon. monitor potassium, on telemetry (4) Swallowing dysfunction: Start date: 02/22/20 Start time: 14:19 Status: Acute Assessment and plan: Nursing concerned patient struggles to swallow meds, fluids and food. When asked he denies but witnessed choking and coughing by staff. NPO Swallow eval PPI IV hydration Concern for possible aspiration, however cxr negative. above case discussed with Dr. Guy who is in agreement. Subjective Subjective Patient reports: other Interval history since last seen: Patient does not c/o coughing or choking however nurse concerned for aspiration, every time patient eats or drinks he chokes and coughs. Lungs with crackles and wheezing this am. CXR clear. Will make NPO, speech eval. Repeat BMP this evening. Exam Const General: cooperative, comfortable and no acute distress Nutritional Appearance: average body habitus and well nourished Orientation: alert, awake and oriented x3 Limitations: other limitations (aphasia) [facility] Head: normal to inspection, normocephalic and atraumatic Mouth: oral mucosae normal Resp Effort & Inspection: normal respiratory effort Auscultation: clear to auscultation bilaterally Cardio Rate: regular rate Rhythm: regular rhythm GI Inspection: normal to inspection Palpation: soft Auscultation: normal bowel sounds Skin General skin exam: no rashes or lesions noted Neuro General: patient alert, patient awake and patient oriented x3 Objective Last Vital Signs Temp 35.9 C L 02/22/20 12:45 Pulse 100 H 02/22/20 12:45 Resp 18 02/22/20 12:45 BP 154/84 H 02/22/20 12:45 Pulse Ox 97 02/22/20 12:45 Laboratory Results - last 24 hr 02/21/20 02/21/20 02/21/20 17:02 17:09 17:15 WBC 11.28 H RBC 4.28 L Hgb 13.1 L Hct 41.0 MCV 95.8 H MCH 30.6 MCHC 32.0 RDW 13.9 Plt Count 256 MPV 11.1 H Immature Gran % 0.4 Neutrophils % 70.4 Lymphocytes % 14.1 Monocytes % 7.3 Eosinophils % 7.4 Basophils % 0.4 Nucleated RBC % 0 Absolute Neutrophils 7.94 H Absolute Lymphocytes 1.59 Absolute Monocytes 0.82 H Absolute Eosinophils 0.83 H Absolute Basophils 0.05 Sodium 137 Potassium 5.7 H Chloride 104 Carbon Dioxide 25.4 Anion Gap 7.6 BUN 68 H Creatinine 4.36 H* Estimated GFR/1.73 m2 13.39 Glucose 201 H Calcium 8.2 L Phosphorus 4.5 Magnesium 3.3 H Total Bilirubin 0.2 AST 12 L ALT 14 L Alkaline Phosphatase 119 H Total Protein 7.1 Albumin 3.4 Urine Color Urine Clarity Urine pH Ur Specific [place] Urine Protein Urine Ketones Urine Blood Urine Nitrite Urine Bilirubin Urine Urobilinogen Ur Leukocyte Esterase Urine RBC Urine WBC Ur Epithelial Cells Urine Crystals Urine Bacteria Urine Casts Urine Mucus Urine Other Ur Culture Indicated? Urine Glucose COVID-19 PCR Nasopharyn COVID-19 PCR Ref Test Perform Site 02/21/20 02/21/20 02/22/20 17:48 17:55 06:20 WBC RBC Hgb Hct MCV MCH MCHC RDW Plt Count MPV Immature Gran % Neutrophils % Lymphocytes % Monocytes % Eosinophils % Basophils % Nucleated RBC % Absolute Neutrophils Absolute Lymphocytes Absolute Monocytes Absolute Eosinophils Absolute Basophils Sodium 140 Potassium 5.4 H Chloride 109 H Carbon Dioxide 24.4 Anion Gap 6.6 BUN 58 H Creatinine 3.40 H D Estimated GFR/1.73 m2 17.84 Glucose Calcium Phosphorus Magnesium Total Bilirubin AST ALT Alkaline Phosphatase Total Protein Albumin Urine Color Yellow Urine Clarity Clear Urine pH 5.5 Ur Specific [place] 1.020 Urine Protein 30 H Urine Ketones Negative Urine Blood Negative Urine Nitrite Negative Urine Bilirubin Negative Urine Urobilinogen 0.2 Ur Leukocyte Esterase Negative Urine RBC Negative Urine WBC 3-5 Ur Epithelial Cells Negative Urine Crystals Negative Urine Bacteria Negative Urine Casts Negative Urine Mucus Negative Urine Other Many renal Ur Culture Indicated? No Urine Glucose 100 COVID-19 PCR Negative Nasopharyn COVID-19 PCR Not Applicable Ref Test Perform Site [facility] [facility] 02/22/20 14:00 WBC RBC Hgb Hct MCV MCH MCHC RDW Plt Count MPV Immature Gran % Neutrophils % Lymphocytes % Monocytes % Eosinophils % Basophils % Nucleated RBC % Absolute Neutrophils Absolute Lymphocytes Absolute Monocytes Absolute Eosinophils Absolute Basophils Sodium Cancelled Potassium Cancelled Chloride Cancelled Carbon Dioxide Cancelled Anion Gap Cancelled BUN Cancelled Creatinine Cancelled Estimated GFR/1.73 m2 Cancelled Glucose Cancelled Calcium Cancelled Phosphorus Magnesium Total Bilirubin AST ALT Alkaline Phosphatase Total Protein Albumin Urine Color Urine Clarity Urine pH Ur Specific [place] Urine Protein Urine Ketones Urine Blood Urine Nitrite Urine Bilirubin Urine Urobilinogen Ur Leukocyte Esterase Urine RBC Urine WBC Ur Epithelial Cells Urine Crystals Urine Bacteria Urine Casts Urine Mucus Urine Other Ur Culture Indicated? Urine Glucose COVID-19 PCR Nasopharyn COVID-19 PCR Ref Test Perform Site
[2020-02-22] MEDS: Normal Saline Flush 10 ML SYR IVP (16:03)
[2020-02-22] MEDS: Normal Saline 1,000 ML 100 ML IV (16:03)
[2020-02-22 16:48] LABS: ALT 14 U/L (16-63); AST 11 U/L (15-37); Albumin 3.3 g/dL (3.4-5.0); Alkaline Phosphatase 126 U/L (46-116); Anion Gap 8.3 mmol/L (3-11); BUN 54 mg/dL (7-18); Bilirubin, Total 0.3 mg/dL (0.2-1.0); CO2 24.7 mmol/L (21.0-32.0); CREATININE 3.24 mg/dL (0.70-1.30); Calcium 8.7 mg/dL (8.5-10.1); Chloride 107 mmol/L (98-107); Estimated GFR 18.86 (mL/min/1.73m2); Glucose 175 mg/dL (74-106); Sodium 140 mmol/L (136-145); Total Protein 7.1 g/dL (6.4-8.2)
[2020-02-22] MEDS: Dextrose 50%-Water 25 GM/50 ML SYR IVP (18:20)
[2020-02-22] MEDS: Heparin 5,000 UNITS/ML VIAL 5000 UNITS SC (20:39)
[2020-02-22 20:45] LABS: Potassium 5.2 mmol/L (3.5-5.1)
[2020-02-23] MEDS: Heparin 5,000 UNITS/ML VIAL 5000 UNITS SC ×2 (01:37→09:14)
[2020-02-23] MEDS: Normal Saline 1,000 ML 100 ML IV ×2 (01:42→08:10)
[2020-02-23 03:56] VITALS: BP 134/84; PULSE 89; RESP 18; TEMP 37; O2SAT 94
[2020-02-23 07:18] LABS: Abs Immature Grans 0.03 10^3/uL (0.0-0.06); Absolute Basophil Count 0.06 10^3/uL (0.0-0.2); Absolute Eosinophil Count 0.81 10^3/uL (0.0-0.7); Absolute Lymphocyte Count 2.07 10^3/uL (1.2-3.4); Absolute Monocyte Count 0.89 10^3/uL (0.1-0.8); Absolute Neutrophil Count 6.45 10^3/uL (1.2-6.7); Basophils % 0.6; Eosinophils % 7.9; HCT 41.1 % (40.0-50.0); HGB 13.6 g/dL (13.5-17.5); Immature Grans % 0.3; Lymphocytes % 20.1; MCH 30.8 pg (27.0-33.0); MCHC 33.1 % (32.0-36.0); MCV 93.2 fL (80-95); MPV 11.2 fL (8.0-11.0); Monocytes % 8.6; Neutrophils % 62.5; Nucleated RBC 0 %; Platelet Count 246 10^3/uL (130-400); RBC 4.41 10^6/uL (4.36-5.78); RDW 13.2 % (11.8-14.1); RDW-SD 45.2 fL; WBC 10.31 10^3/uL (4.4-10.8)
[2020-02-23 07:35] LABS: Anion Gap 10.3 mmol/L (3-11); BUN 42 mg/dL (7-18); CO2 21.7 mmol/L (21.0-32.0); CREATININE 2.32 mg/dL (0.70-1.30); Calcium 8.1 mg/dL (8.5-10.1); Chloride 108 mmol/L (98-107); Estimated GFR 27.73 (mL/min/1.73m2); Glucose 132 mg/dL (74-106); Potassium 5.1 mmol/L (3.5-5.1); Sodium 140 mmol/L (136-145)
[2020-02-23] MEDS: Pantoprazole 40 MG VIAL IVP (08:14)
[2020-02-23 08:20] VITALS: BP 175/93; PULSE 69; RESP 20; TEMP 36; O2SAT 97
--- NOTE | 2020-02-23 09:06 | W.PM.DS.N ---
DS: Diagnosis Discharge Diagnosis (1) Acute kidney injury: Status: Acute (2) Renal failure: Status: Chronic (3) Hyperkalemia: Status: Acute (4) Swallowing dysfunction: Status: Acute Discharge Plan Disposition Patient Disposition: LEVEL III ANA JUANJOSE Condition: Improving Discharge Details Reason For Visit: RENAL FAILURE Admit Date/Time: 02/21/20 18:13 Admit Provider: Darin James Attending Provider: Darin James Primary Care Provider: Madelin Rogers Hospital Course Hospital Course: This is a 75-year-old male patient with a past medical history significant for CVA who is aphasic who has been taking scheduled ibuprofen for chronic pain from osteoarthritis who on surveillance labs was noted to have acute on chronic renal injury. Also noted to be hyperkalemic. He was sent to the emergency department for evaluation. He was voicing no complaints and has had no recent illness he has been eating and drinking at his baseline bowels and bladder functioning. He has had no symptoms of urinary retention. Bladder scan showed 220 cc of retained urine on postvoid. CAT scan showed no evidence of hydronephrosis or structural defects. He received a dose of Veltassa and some gentle IV fluids and was referred to observation on medical surgical unit. His metformin and lisinopril were placed on hold in addition to his ibuprofen which was discontinued. His dose of gabapentin was renally dosed. His creatinine did improve to 2.32 with his baseline of 1.5. His potassium normalized. His magnesium was noted to be elevated at 3.3 so his oral magnesium was discontinued as well. He was noted to have difficulty swallowing meds and certain consistencies of food. There was a swallow evaluation placed but it was reported that he has had multiple swallow evaluations in the past and that he refuses to comply with recommendations. We will defer any further work-up to his outpatient team. He was also advised to continue checking blood sugars as his metformin has been discontinued due to his decline in kidney function. Will leave further diabetes management to outpatient team. He will schedule outpatient follow-up appointment with his primary care provider with labs being drawn on Friday, February 28, 2020. He should call or return sooner for new or worsening symptoms. Discharge plan was discussed with who is in agreement Home Meds and New Rx's Prescriptions: Continued aspirin [Adult Low Dose Aspirin] 81 mg tablet,delayed release (DR/EC) 81 mg PO DAILY Qty: 90 RF: 3 cholecalciferol (vitamin D3) 50,000 unit capsule 50,000 unit PO QMONTH RF: 0 Prolia 60 mg/mL syringe 60 mg SC [id number] PRNRF: 0 tramadol 50 mg tablet 50 mg PO BID MDD 2 PRN (Reason: pain) Qty: 14 RF: 1 lisinopril 5 mg tablet 5 mg PO DAILY Qty: 90 RF: 3 (DME) lancets [Easy Touch Lancets] 28 gauge misc See Rx Instructions .ROUTE .MEDSUPPLY Qty: 200 RF: 3 atorvastatin 80 mg tablet 80 mg PO DAILY Qty: 90 RF: 3 bupropion HCl 150 mg tablet extended release 24 hr 150 mg PO QAM Qty: 90 RF: 3 Prolia 60 mg/mL syringe 60 mg SC [id number] RF: 0 (DME) blood sugar diagnostic [FreeStyle Lite Strips] Strip See Rx Instructions .ROUTE .MEDSUPPLY Qty: 200 RF: 3 tamsulosin 0.4 mg capsule 0.4 mg PO DAILY Qty: 90 RF: 3 oxycodone 10 mg Tablet 10 mg PO BID PRNRF: 0 oxycodone-acetaminophen 5-325 mg Tablet 1 tab PO Q6H PRNRF: 0 Changed gabapentin 400 mg capsule 400 mg PO BID Qty: 90 RF: 3 Discontinued metformin 500 mg tablet 500 mg PO BID Qty: 60 RF: 5 ibuprofen 600 mg tablet 600 mg PO TID Qty: 90 RF: 3 magnesium oxide 400 mg (241.3 mg magnesium) tablet 400 mg PO BID Qty: 60 RF: 4 Discharge Instructions Instructions: Acute Kidney Injury (DC) Additional Instructions: Stop motrin, magnesium, and metformin. Have lab work checked on Friday February 28, 2020 then as directed by primary care provider. Continue to check blood sugars as previously directed and review with primary care provider, you may need another diabetic oral agent added. Stand Alone Forms: Nursing Discharge Form Referrals: Olga Strickland NP [NURSE PRACTITIONER] - 03/01/20 10:30 am Activity:: Activity as Tolerated Equipment/Supplies:: No Equipment Needed Diet:: Carb Counting Discharge Orders Discharge Orders: Discharge Order (Routine); Ordered 02/23/20 Ordered By: Yoana Childress Other Ambulatory Orders: Basic Metabolic Panel (Routine) Timeframe: 20200228 Location: None Selected Ordered By: Yoana Childress Complete Blood Count w/Diff (Routine) Timeframe: 20200228 Location: None Selected Ordered By: Yoana Childress Magnesium (Routine) Timeframe: 20200228 Location: None Selected Ordered By: Yoana Childress DS: Summary Status at Discharge Functional status at discharge: wheelchair bound Overall status at discharge: patient is back to baseline Mental Status: mental status grossly normal Speech and Movement: other (aphasic) Mood: congruent mood Affect: normal affect Exam Const General: cooperative, comfortable and no acute distress Nutritional Appearance: average body habitus and well nourished Orientation: alert, awake and oriented x3 Limitations: other limitations (aphasia) H[facility] Head: normal to inspection, normocephalic and atraumatic Mouth: oral mucosae normal Resp Effort & Inspection: normal respiratory effort Auscultation: clear to auscultation bilaterally Cardio Rate: regular rate Rhythm: regular rhythm GI Inspection: normal to inspection Palpation: soft Auscultation: normal bowel sounds Skin General skin exam: no rashes or lesions noted Neuro General: patient alert, patient awake and patient oriented x3 Psych Mental Status: mental status grossly normal Speech and Movement: other (aphasic) Mood: congruent mood Affect: normal affect DS: Data Vitals/I&O Vitals and I&O: Vital Signs Temperature 36.0 C L 02/23/20 08:20 Temperature Source Tympanic 02/23/20 08:20 Pulse 69 02/23/20 08:20 Pulse Rhythm Irregular 02/22/20 23:45 Respiratory Rate 20 02/23/20 08:20 Respiratory Effort 02/22/20 23:45 Respiratory Depth Normal 02/22/20 23:45 Respiratory Pattern Normal 02/22/20 23:45 Blood Pressure 175/93 H 02/23/20 08:20 Blood Pressure Position Sitting 02/21/20 16:44 Pulse Oximetry 97 02/23/20 08:20 Oxygen Delivery Method Room Air 02/23/20 08:20 Oxygen Flow Rate 0 02/23/20 08:20 Pain Level 0 02/22/20 19:51 Comment 02/23/20 08:20 Intake & Output 02/22/20 02/22/20 02/23/20 11:59 23:59 11:59 Intake Total 2250 / 2250 1528.333 / 1528.333 Output Total 800 / 4375 3575 / 4375 700 / 700 Balance -800 / -2125 -1325 / -2125 828.333 / 828.333 Intake: IV 2009 1528.333 / 1528.333 Oral 240 / 240 Output: Urine 800 / 4175 3375 / 4175 700 / 700 Stool 200 / 200 Other: Urine Color Yellow Yellow Yellow Urine Appearance Clear Clear Clear Urine Odor Normal None None Comment pt voided approx 1 hour prior Stool Size Large Large Stool Characteristics Soft Soft Voiding Methods Urinal Urinal Urinal Diaper Data Completed and Pending Labs on day of discharge: Labs from last 24 hours 02/23/20 02/23/20 02/22/20 06:42 06:42 20:15 WBC 10.31 RBC 4.41 Hgb 13.6 Hct 41.1 MCV 93.2 MCH 30.8 MCHC 33.1 RDW 13.2 Plt Count 246 MPV 11.2 H Immature Gran % 0.3 Neutrophils % 62.5 Lymphocytes % 20.1 Monocytes % 8.6 Eosinophils % 7.9 Basophils % 0.6 Nucleated RBC % 0 Absolute Neutrophils 6.45 Absolute Lymphocytes 2.07 Absolute Monocytes 0.89 H Absolute Eosinophils 0.81 H Absolute Basophils 0.06 Sodium 140 Potassium 5.1 5.2 H Chloride 108 H Carbon Dioxide 21.7 Anion Gap 10.3 BUN 42 H D Creatinine 2.32 H D Estimated GFR/1.73 m2 27.73 Glucose 132 H Calcium 8.1 L Total Bilirubin AST ALT Alkaline Phosphatase Total Protein Albumin 02/22/20 02/22/20 16:05 14:00 WBC RBC Hgb Hct MCV MCH MCHC RDW Plt Count MPV Immature Gran % Neutrophils % Lymphocytes % Monocytes % Eosinophils % Basophils % Nucleated RBC % Absolute Neutrophils Absolute Lymphocytes Absolute Monocytes Absolute Eosinophils Absolute Basophils Sodium 140 Cancelled Potassium 6.0 H* Cancelled Chloride 107 Cancelled Carbon Dioxide 24.7 Cancelled Anion Gap 8.3 Cancelled BUN 54 H Cancelled Creatinine 3.24 H Cancelled Estimated GFR/1.73 m2 18.86 Cancelled Glucose 175 H Cancelled Calcium 8.7 Cancelled Total Bilirubin 0.3 AST 11 L ALT 14 L Alkaline Phosphatase 126 H Total Protein 7.1 Albumin 3.3 L PFSH Medical History Aspiration pneumonia CVA (cerebral vascular accident) Depression (12/02/17) Diabetes mellitus Hyperlipidemia Hypertension Surgical History Arthroplasty of knee (~06/2006) Left - Medial/Lateral Meniscectomy Cardiac Catheterization (~12/1999) Correction, Hammertoe (~2010) Left 2-4 Toes Gastrostomy Tube Placement History of total left knee replacement (TKR) in Jul Intracardiac Device-Cardioseal of PFO (~04/2000) Tonsillectomy 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 Father No problems noted. Social History Smoking/Tobacco Use Status: Former Tobacco Use Alcohol Intake: never Drug use: Never Substance use type: does not use Household members: other Details: [facility] resident Housing: assisted living facility Number of Children: 0 Current gender identity: male What type of physical activity do you participate in: none Seatbelt use: always Drive intox or ride w/intox motor pool driver: No Water heater temp set <120 deg: Yes Working smoke detector in home: Yes Fire extinguisher in home: Yes Carbon monox detector in home: Yes Do you feel safe at home: Yes Do you feel safe in your relationship?: Yes Additional Social history: pt lives at the [facility]
--- NOTE | 2020-02-23 09:10 | NUR.NOTE ---
Nursing Note: Clarified prn IV metoprolol order with Darrel Hartman RN. Was told not to give prn metoprolol due to HR not being > 110 beats/min, even though SBP > 150.
[2020-02-23] MEDS: buPROPion-XL 150 MG TABCR PO (09:14)
--- NOTE | 2020-02-23 10:04 | STREC_ITS ---
Date of service: 02/23/20 Time of Service: 09:00 Speech Therapy Recommendations Report ST Recommendations: Swallow consult order received this morning. Per chart, nsg with concerns for dysphagia/aspiration due to noting pt having difficulty swallowing medications, fluids, and food with observed coughing and choking every time he eats or drinks. Pt reportedly denies any swallowing trouble. Pt was placed NPO pending inpatient clinical dysphagia evaluation. MATH SPECIALIST consulted with [facility] and scheduled initial evaluation for this afternoon. MedSurg contacted MATH SPECIALIST shortly after, informing that the order had been cancelled, with pt scheduled to be discharged. MATH SPECIALIST contacted attending MD to discuss POC and recommended follow-up, such as a swallow evaluation in the assisted living home upon his return. MD reported that he spoke with the DON at [facility], where pt resides, and his current swallow status is his baseline. MD indicates that pt has had swallow assessment and studies in the past and refuses to follow recommendations/is non-compliant. MD confirms that no further MATH SPECIALIST consultation is needed at this time, living facility aware of pt's swallow hx. Charge Code: 23811-ec charge
--- NOTE | 2020-02-23 11:14 | CMDISCH_ITS ---
- If Service Date Differs Date of service: 02/23/20 Time of Service: 11:14 LACE Index Scoring Tool - Questions: Length of Stay (in days): 3 Acuity (Admit via E.D.?): Yes Comorbidities: Cerebrovascular Disease, Diabetes w/o Complication E.D. Visits: 1 - Answers: Total Score: 9 Risk of Readmission: Low Risk Care Management Discharge Reason for Hospitalization: Renal Failure Discharge Plan: Cl will return to the [facility] where he resides. He will be transported by [facility] staff, coordinated by CM. He will follow up with his PCP and discharge plan of care. He is agreeable to returning home. Patient/Family Education Needs: Review discharge instructions regarding activity levels and medications, discussion of self care needs and goals of care. Services Needed at Discharge: Transportation ([facility] staff)
[2020-02-23 11:20] VITALS: BP 166/102; PULSE 107; RESP 19; TEMP 36.5; O2SAT 98
[2020-02-23 11:24] VITALS: PULSE 109
[2020-02-23] MEDS: Insulin Aspart 300 UNITS/3 ML PEN SC (12:04)
== END 2020-02-23 13:17 | disposition designated cancer center or children's hospital (05) ==
LOC: ER 19:01 → MS 19:35
PROVIDERS: Family Medicine; Nurse Practitioner Family; Admitting Provider General Practice; Emergency Provider Nurse Practitioner Acute Care; PCP Student in an Organized Health Care Education/Training Program; Visit Provider General Practice
DX: N17.9 Acute kidney failure, unspecified (principal); E87.5 Hyperkalemia; N18.3 Chronic kidney disease, stage 3 (moderate); Z86.73 Personal history of transient ischemic attack (TIA), and cerebral infarction without residual deficits; E78.5 Hyperlipidemia, unspecified; F32.9 Major depressive disorder, single episode, unspecified; Z79.84 Long term (current) use of oral hypoglycemic drugs; E11.22 Type 2 diabetes mellitus with diabetic chronic kidney disease; I12.9 Hypertensive chronic kidney disease with stage 1 through stage 4 chronic kidney disease, or unspecified chronic kidney disease; R13.10 Dysphagia, unspecified
CPT/HCPCS: 36415; 80048; 80051; 80053; 84520; 93005; 96360; 96361; 99217; 99222; 99233; 99285; U0003; 71046; 74176; 81003; 81015; 82565; 83735; 84100; 84132; 85025; 93010; 94640; 94667; 99219; 99226; 99284; G0378; J1644; J7620

== ENCOUNTER 2020-02-21 18:45 | Outpatient (REF) | payer MEDICARE, SELFPAY ==
[2020-02-21 14:56] LABS: Anion Gap 10.1 mmol/L (3-11); BUN 69 mg/dL (7-18); CO2 23.9 mmol/L (21.0-32.0); Calcium 8.1 mg/dL (8.5-10.1); Chloride 105 mmol/L (98-107); Estimated GFR 12.98 (mL/min/1.73m2); Glucose 152 mg/dL (74-106); Potassium 5.7 mmol/L (3.5-5.1); Sodium 139 mmol/L (136-145)
[2020-02-21 15:15] LABS: CREATININE 4.48 mg/dL (0.70-1.30); Hemoglobin A1C 7.8 % (<5.7)
== END 2020-02-21 19:05 ==
LOC: LBN 18:45
PROVIDERS: PCP Student in an Organized Health Care Education/Training Program; Visit Provider Student in an Organized Health Care Education/Training Program
DX: E11.8 Type 2 diabetes mellitus with unspecified complications (principal); I10 Essential (primary) hypertension; N18.9 Chronic kidney disease, unspecified
CPT/HCPCS: 80048; 83036

== ENCOUNTER 2020-02-28 13:23 | Outpatient (REF) | payer MEDICARE, SELFPAY ==
[2020-02-28 13:51] LABS: Abs Immature Grans 0.05 10^3/uL (0.0-0.06); Absolute Basophil Count 0.06 10^3/uL (0.0-0.2); Absolute Lymphocyte Count 1.94 10^3/uL (1.2-3.4); Absolute Monocyte Count 0.81 10^3/uL (0.1-0.8); Basophils % 0.6; Eosinophils % 6.6; HCT 38.2 % (40.0-50.0); HGB 12.1 g/dL (13.5-17.5); Immature Grans % 0.5; Lymphocytes % 18.2; MCH 30.6 pg (27.0-33.0); MCHC 31.7 % (32.0-36.0); MCV 96.7 fL (80-95); MPV 11.5 fL (8.0-11.0); Monocytes % 7.6; Neutrophils % 66.5; Nucleated RBC 0 %; Platelet Count 260 10^3/uL (130-400); RBC 3.95 10^6/uL (4.36-5.78); RDW 13.7 % (11.8-14.1); RDW-SD 48.9 fL; WBC 10.66 10^3/uL (4.4-10.8)
[2020-02-28 14:19] LABS: Anion Gap 11.9 mmol/L (3-11); BUN 61 mg/dL (7-18); CO2 20.1 mmol/L (21.0-32.0); CREATININE 2.67 mg/dL (0.70-1.30); Chloride 106 mmol/L (98-107); Estimated GFR 23.58 (mL/min/1.73m2); Glucose 399 mg/dL (74-106); Magnesium 2.2 mg/dL (1.8-2.4); Potassium 5.5 mmol/L (3.5-5.1); Sodium 138 mmol/L (136-145)
== END 2020-02-28 13:43 ==
LOC: LBN 13:23
PROVIDERS: PCP Student in an Organized Health Care Education/Training Program; Visit Provider Nurse Practitioner Acute Care
DX: E87.5 Hyperkalemia (principal); N17.9 Acute kidney failure, unspecified; E83.41 Hypermagnesemia
CPT/HCPCS: 80048; 83735; 85025

== ENCOUNTER 2020-02-28 14:22 | Outpatient (REF) | payer MEDICARE, SELFPAY | END 2020-02-28 14:42 | LOC: LBN 14:22 | PROVIDERS: PCP Student in an Organized Health Care Education/Training Program; Visit Provider Family Medicine | DX: L60.0 Ingrowing nail (principal); L03.032 Cellulitis of left toe | CPT/HCPCS: 87077; 87070; 87186; 87205 ==

== ENCOUNTER 2020-03-06 11:12 | Outpatient (REF) | payer MEDICARE, SELFPAY ==
[2020-03-06 11:56] LABS: Anion Gap 11.7 mmol/L (3-11); BUN 28 mg/dL (7-18); CO2 22.3 mmol/L (21.0-32.0); CREATININE 1.99 mg/dL (0.70-1.30); Calcium 7.9 mg/dL (8.5-10.1); Chloride 104 mmol/L (98-107); Estimated GFR 33.11 (mL/min/1.73m2); Glucose 315 mg/dL (74-106); Potassium 4.3 mmol/L (3.5-5.1); Sodium 138 mmol/L (136-145)
== END 2020-03-06 11:32 ==
LOC: LBN 11:12
PROVIDERS: PCP Student in an Organized Health Care Education/Training Program; Visit Provider Nurse Practitioner Adult Health
DX: N17.9 Acute kidney failure, unspecified (principal)
CPT/HCPCS: 80048

== ENCOUNTER 2020-04-03 18:02 | Outpatient (REF) | payer MEDICARE, SELFPAY ==
[2020-04-03 20:20] LABS: Anion Gap 10.1 mmol/L (3-11); BUN 24 mg/dL (7-18); CO2 24.9 mmol/L (21.0-32.0); CREATININE 1.74 mg/dL (0.70-1.30); Calcium 8.8 mg/dL (8.5-10.1); Chloride 103 mmol/L (98-107); Estimated GFR 38.65 (mL/min/1.73m2); Glucose 359 mg/dL (74-106); Magnesium 1.8 mg/dL (1.8-2.4); Potassium 4.2 mmol/L (3.5-5.1); Sodium 138 mmol/L (136-145)
== END 2020-04-03 18:22 ==
LOC: LBN 18:02
PROVIDERS: PCP Student in an Organized Health Care Education/Training Program; Visit Provider Student in an Organized Health Care Education/Training Program
DX: E83.41 Hypermagnesemia (principal); E87.5 Hyperkalemia; N17.9 Acute kidney failure, unspecified
CPT/HCPCS: 80048; 83735

== ENCOUNTER 2020-06-28 17:24 | Outpatient (REF) | payer MEDICARE, SELFPAY ==
[2020-06-28 14:33] LABS: ALT 11 U/L (16-63); AST 7 U/L (15-37); Alkaline Phosphatase 126 U/L (46-116); Anion Gap 8.4 mmol/L (3-11); BUN 25 mg/dL (7-18); Bilirubin, Total 0.3 mg/dL (0.2-1.0); CO2 25.6 mmol/L (21.0-32.0); CREATININE 1.73 mg/dL (0.70-1.30); Calcium 8.4 mg/dL (8.5-10.1); Chloride 101 mmol/L (98-107); Estimated GFR 38.91 (mL/min/1.73m2); Glucose 373 mg/dL (74-106); Sodium 135 mmol/L (136-145); TSH (W/Ref FT4) 1.67 uIU/mL (0.36-3.74); Total Protein 6.3 g/dL (6.4-8.2)
[2020-06-28 15:00] LABS: Hemoglobin A1C 10.4 % (<5.7)
[2020-07-03 05:08] LABS: Vitamin D 25 Total 60.9 ng/ml (30-100)
== END 2020-06-28 17:44 ==
LOC: NCHCN 17:24
PROVIDERS: Internal Medicine Endocrinology, Diabetes & Metabolism; PCP Student in an Organized Health Care Education/Training Program; Visit Provider Nurse Practitioner Family
DX: E87.5 Hyperkalemia; E83.42 Hypomagnesemia; N18.9 Chronic kidney disease, unspecified; E11.22 Type 2 diabetes mellitus with diabetic chronic kidney disease; M81.8 Other osteoporosis without current pathological fracture
CPT/HCPCS: 80053; 82306; 83036; 84443

== ENCOUNTER 2020-08-22 02:22 | Outpatient (RCR) | payer MEDICARE, SELFPAY ==
[2020-08-22] MEDS: Denosumab 60 MG/ML SYR SC (10:07)
== END 2020-08-30 23:59 | disposition home or self-care (01) ==
LOC: INF 02:22
PROVIDERS: PCP Student in an Organized Health Care Education/Training Program; Visit Provider Nurse Practitioner Family
DX: M81.8 Other osteoporosis without current pathological fracture (principal)
CPT/HCPCS: 96372; J0897

== ENCOUNTER 2020-09-13 17:00 | Outpatient (REF) | payer MEDICARE, SELFPAY ==
[2020-09-13 16:04] LABS: Hemoglobin A1C 8.2 % (<5.7)
[2020-09-13 16:10] LABS: Bilirubin Negative (Negative); Blood Trace-intact (Negative); Clarity Sl Cloudy (Clear); Glucose 500 mg/dL (Negative); Ketones Negative (Negative); Leukocyte Esterase Small (Negative); Nitrite Negative (Negative); Specific Gravity 1.025 (1.005-1.025); Urobilinogen 0.2 EU/dL (Up TO 0.2); pH 6.5 (5-8)
[2020-09-13 16:17] LABS: COMMENT (LAB VIEW ONLY) 80.79 mg/dL
[2020-09-13 16:26] LABS: Bacteria Many HPF (Negative); Epithelial Cells Rare HPF (Negative); Other Cells Negative (Negative); RBC 0-2 HPF (0-2); WBC 20-50 HPF (0-5)
[2020-09-13 16:27] LABS: C & S Indicated? Yes; Casts Negative LPF (Negative); Crystals Few Amorphous HPF (Negative); Mucus Negative (Negative)
[2020-09-13 16:37] LABS: Microalb ug/mg Crea 1147.5 ug/mg Cr
== END 2020-09-13 17:01 | disposition home or self-care (01) ==
LOC: NCHCN 17:00
PROVIDERS: PCP Student in an Organized Health Care Education/Training Program; Visit Provider Nurse Practitioner Family
DX: E11.9 Type 2 diabetes mellitus without complications (principal); I10 Essential (primary) hypertension; E83.42 Hypomagnesemia; F32.9 Major depressive disorder, single episode, unspecified; N18.9 Chronic kidney disease, unspecified; R39.9 Unspecified symptoms and signs involving the genitourinary system; M54.5 Low back pain
CPT/HCPCS: 87077; 81003; 81015; 82043; 82570; 83036; 87086; 87186

== ENCOUNTER 2020-10-09 14:53 | Outpatient (REF) | payer MEDICARE, SELFPAY ==
[2020-10-09 17:54] LABS: BUN 25 mg/dL (7-18); CREATININE 1.9 mg/dL (0.70-1.30); Chloride 105 mmol/L (98-107); Estimated GFR 34.92 (mL/min/1.73m2); Glucose 134 mg/dL (74-106); Potassium 4.8 mmol/L (3.5-5.1); Sodium 140 mmol/L (136-145)
[2020-10-09 17:58] LABS: Calcium 8.6 mg/dL (8.5-10.1)
== END 2020-10-09 14:54 | disposition home or self-care (01) ==
LOC: NCHCN 14:53
PROVIDERS: PCP Student in an Organized Health Care Education/Training Program; Visit Provider Nurse Practitioner Family
DX: I10 Essential (primary) hypertension (principal); E11.9 Type 2 diabetes mellitus without complications; F32.9 Major depressive disorder, single episode, unspecified; R13.10 Dysphagia, unspecified
CPT/HCPCS: 80048

== ENCOUNTER 2020-10-13 07:49 | Outpatient (REF) | payer MEDICARE, SELFPAY ==
[2020-10-13 09:28] LABS: Hemoglobin A1C 7.8 % (<5.7)
== END 2020-10-13 07:50 | disposition home or self-care (01) ==
LOC: NCHCN 07:49
PROVIDERS: PCP Student in an Organized Health Care Education/Training Program; Visit Provider Nurse Practitioner Family
DX: E11.9 Type 2 diabetes mellitus without complications (principal); I10 Essential (primary) hypertension
CPT/HCPCS: 83036

== ENCOUNTER 2020-11-13 16:38 | Outpatient (REF) | payer MEDICARE, SELFPAY ==
[2020-11-13 15:12] LABS: BUN 26 mg/dL (7-18); CREATININE 1.8 mg/dL (0.70-1.30); Calcium 8.1 mg/dL (8.5-10.1); Chloride 106 mmol/L (98-107); Estimated GFR 37.17 (mL/min/1.73m2); Glucose 174 mg/dL (74-106); Potassium 4.2 mmol/L (3.5-5.1); Sodium 140 mmol/L (136-145)
== END 2020-11-13 16:39 | disposition home or self-care (01) ==
LOC: NCHCN 16:38
PROVIDERS: PCP Student in an Organized Health Care Education/Training Program; Visit Provider Nurse Practitioner Family
DX: I10 Essential (primary) hypertension (principal); E11.9 Type 2 diabetes mellitus without complications
CPT/HCPCS: 80048

== ENCOUNTER 2020-12-07 01:36 | Outpatient (CLI) | payer MEDICARE, SELFPAY ==
--- NOTE | 2020-12-07 | DI.DEXA_ITS ---
Exam(s) XR DEXA BONE DENSITY W/WO INES EXAM: XR DEXA BONE DENSITY W/WO INES CLINICAL HISTORY: OTHER OSTEOPOROSIS,M81.8 TECHNIQUE: Brainient C densitometer COMPARISON: DX XR DEXA BONE DENSITY W/WO INES from 11/24/2018 DX XR DEXA BONE DENSITY W/WO INES from 11/24/[address] RENAL COLIC WO from 02/21/[address] RENAL COLIC WO from 02/21/2020 FINDINGS: Lateral view of the thoracic and lumbar spine shows compression fractures of L1 through L4.. Bone mineral density measurements of the lumbar spine correspond to a total T-score of 1.3, 11.1 perc ent increase when compared with 2019. Bone mineral density measurements of the left hip correspond to a total T-score of -3.1. The femoral neck T-score is -3.6, consistent with osteoporosis. This is not significantly changed from the previ ous exam. . The left forearm bone mineral density measurements correspond to a T-score of the distal 3rd of -2.0 , consistent with osteopenia. Forearm was not analyzed on the previous exam.. IMPRESSION: Stable osteoporosis of the left hip. Multiple compression fractures of the lumbar spine. Osteopenia o f the left forearm.
== END 2020-12-07 01:56 ==
PROVIDERS: PCP Student in an Organized Health Care Education/Training Program; Visit Provider Internal Medicine Endocrinology, Diabetes & Metabolism
DX: M81.0 Age-related osteoporosis without current pathological fracture (principal); S32.010A Wedge compression fracture of first lumbar vertebra, initial encounter for closed fracture; S32.020A Wedge compression fracture of second lumbar vertebra, initial encounter for closed fracture; S32.030A Wedge compression fracture of third lumbar vertebra, initial encounter for closed fracture; S32.040A Wedge compression fracture of fourth lumbar vertebra, initial encounter for closed fracture; M85.832 Other specified disorders of bone density and structure, left forearm; X58.XXXA Exposure to other specified factors, initial encounter
CPT/HCPCS: 77080

== ENCOUNTER 2020-12-22 19:13 | Outpatient (REF) | payer MEDICARE, SELFPAY ==
[2020-12-22 12:11] LABS: Albumin 3.4 g/dL (3.4-5.0); Anion Gap 10.9 mmol/L (3-11); BUN 25 mg/dL (7-18); CO2 23.1 mmol/L (21.0-32.0); Calcium 8.1 mg/dL (8.5-10.1); Chloride 107 mmol/L (98-107); Estimated GFR 32.92 (mL/min/1.73m2); Glucose 234 mg/dL (74-106); Potassium 4.6 mmol/L (3.5-5.1); Sodium 141 mmol/L (136-145)
== END 2020-12-22 19:14 | disposition home or self-care (01) ==
LOC: NCHCN 19:13
PROVIDERS: PCP Student in an Organized Health Care Education/Training Program; Visit Provider Nurse Practitioner Family
DX: I12.9 Hypertensive chronic kidney disease with stage 1 through stage 4 chronic kidney disease, or unspecified chronic kidney disease (principal); N18.9 Chronic kidney disease, unspecified
CPT/HCPCS: 80048; 82040; 83735

== ENCOUNTER 2020-12-25 11:53 | Outpatient (CLI) | payer MEDICARE, SELFPAY ==
--- NOTE | 2020-12-25 11:00 | DI.RAD_ITS ---
Exam(s) XR KNEE LT 3V AP,LAT,CANDY EXAM: XR KNEE LT 3V AP,LAT,CANDY CLINICAL HISTORY: left knee pain; s/p left TKA. TECHNIQUE: 2D digital imaging was performed. COMPARISON: CR XR knee LT 4V AP,lat,candy,pat from 10/22/2018 FINDINGS: Position alignment of the components of the prosthesis remain stable. No fracture or loosening evide nt. Vascular calcification in the femoral and popliteal arteries is again noted. IMPRESSION: DATA REPOSITORY: RADIATION DOSE DELIVERED:
== END 2020-12-25 11:54 | disposition home or self-care (01) ==
LOC: DIORS 11:53
PROVIDERS: PCP Student in an Organized Health Care Education/Training Program; Referring Provider Student in an Organized Health Care Education/Training Program; Visit Provider Student in an Organized Health Care Education/Training Program
DX: G89.29 Other chronic pain (principal); M25.562 Pain in left knee; T84.84XA Pain due to internal orthopedic prosthetic devices, implants and grafts, initial encounter; Z96.652 Presence of left artificial knee joint; T84.82XA Fibrosis due to internal orthopedic prosthetic devices, implants and grafts, initial encounter
CPT/HCPCS: 73562; 99213

== ENCOUNTER 2021-01-11 11:53 | Outpatient (REF) | payer MEDICARE, SELFPAY ==
[2021-01-11 11:19] LABS: Abs Immature Grans 0.03 10^3/uL (0.0-0.06); Absolute Basophil Count 0.08 10^3/uL (0.0-0.2); Absolute Eosinophil Count 0.67 10^3/uL (0.0-0.7); Absolute Lymphocyte Count 1.67 10^3/uL (1.2-3.4); Absolute Monocyte Count 0.69 10^3/uL (0.1-0.8); Absolute Neutrophil Count 6.18 10^3/uL (1.2-6.7); Basophils % 0.9; Eosinophils % 7.2; HCT 37.1 % (40.0-50.0); Immature Grans % 0.3; Lymphocytes % 17.9; MCHC 32.3 % (32.0-36.0); MCV 92.8 fL (80-95); MPV 11.5 fL (8.0-11.0); Monocytes % 7.4; Neutrophils % 66.3; Nucleated RBC 0 %; Platelet Count 222 10^3/uL (130-400); RDW 13.5 % (11.8-14.1); RDW-SD 46.6 fL; WBC 9.32 10^3/uL (4.4-10.8)
[2021-01-11 11:21] LABS: ESR 16 mm/hr (0-20)
[2021-01-11 11:31] LABS: C-Reactive Protein 0.06 mg/dL (0.0-0.3)
== END 2021-01-11 11:54 | disposition home or self-care (01) ==
LOC: LBN 11:53
PROVIDERS: PCP Nurse Practitioner Family; Visit Provider Physician Assistant
DX: M25.562 Pain in left knee (principal); T84.84XA Pain due to internal orthopedic prosthetic devices, implants and grafts, initial encounter; Z96.652 Presence of left artificial knee joint; G89.29 Other chronic pain
CPT/HCPCS: 85652; 85025; 86140

== ENCOUNTER 2021-02-23 05:31 | Outpatient (RCR) | payer MEDICARE, SELFPAY ==
[2021-02-23] MEDS: Denosumab 60 MG/ML SYR SC (13:33)
== END 2021-03-01 23:59 | disposition home or self-care (01) ==
LOC: INF 05:31
PROVIDERS: PCP Nurse Practitioner Family; Visit Provider Nurse Practitioner Family
DX: M81.8 Other osteoporosis without current pathological fracture (principal)
CPT/HCPCS: 96372; J0897

== ENCOUNTER 2021-04-18 15:16 | Outpatient (REF) | payer MEDICARE, SELFPAY ==
[2021-04-18 16:46] LABS: Hemoglobin A1C 7.6 % (<5.7)
== END 2021-04-18 15:17 | disposition home or self-care (01) ==
LOC: NCHCN 15:16
PROVIDERS: PCP Nurse Practitioner Family; Visit Provider Nurse Practitioner Family
DX: I10 Essential (primary) hypertension (principal); E11.9 Type 2 diabetes mellitus without complications
CPT/HCPCS: 83036

== ENCOUNTER 2021-04-25 13:11 | Inpatient (IN) | payer MEDICARE, SELFPAY ==
[2021-04-25] VITALS (27 sets, daily range): BP systolic 126–158; BP diastolic 75–98; PULSE 105–118; RESP 5–29; TEMP 36.9; O2SAT 96–99
--- NOTE | 2021-04-25 13:30 | RT.EKG_ITS ---
APPROVED REPORT Exam: Resting ECG Reason for Exam: SOB Patient Location: E HR:106 bpm ECG Measurements Heart Rate 106 AXIS NE 154 P 68 QRSd 92 QRS 32 QT 375 T 76 QTc 498 Conclusion Sinus tachycardia...rate> 99 Atrial premature complex...SV complex w/ short R-R interval Probable left atrial enlargement...P >50mS, <-0.10mV V1 Nonspecific T abnormalities, lateral leads...T <-0.10mV, I aVL V5 V6
[2021-04-25 13:53] LABS: Abs Immature Grans 0.04 10^3/uL (0.0-0.06); Absolute Basophil Count 0.04 10^3/uL (0.0-0.2); Absolute Eosinophil Count 0.04 10^3/uL (0.0-0.7); Absolute Lymphocyte Count 1.41 10^3/uL (1.2-3.4); Absolute Monocyte Count 1.64 10^3/uL (0.1-0.8); Absolute Neutrophil Count 7.09 10^3/uL (1.2-6.7); Basophils % 0.4; Eosinophils % 0.4; HCT 44.3 % (40.0-50.0); HGB 14.2 g/dL (13.5-17.5); Immature Grans % 0.4; Lymphocytes % 13.7; MCH 29.6 pg (27.0-33.0); MCHC 32.1 % (32.0-36.0); MCV 92.5 fL (80-95); MPV 10.7 fL (8.0-11.0); Neutrophils % 69.1; Nucleated RBC 0 %; Platelet Count 197 10^3/uL (130-400); RBC 4.79 10^6/uL (4.36-5.78); RDW 13.2 % (11.8-14.1); RDW-SD 44.9 fL; WBC 10.26 10^3/uL (4.4-10.8)
--- NOTE | 2021-04-25 14:00 | DI.RAD_ITS ---
Exam(s) XR CHEST 2V PA LATERAL EXAM: XR CHEST 2V PA LATERAL CLINICAL HISTORY: cough, fever, concern for aspiration TECHNIQUE: COMPARISON: CR PORTABLE CHEST ONE VIEW from 09/06/2017 CR XR CHEST 2V PA LATERAL from 02/22/2020 FINDINGS: Heart is not enlarged. There is device projected over the region of the right atrium, present on yoan or films.. Lungs are clear. No pleural effusion. IMPRESSION: No evidence of acute process. RADIATION DOSE DELIVERED: Total DLP
[2021-04-25 14:02] LABS: Diff Comment Diff Reviewed; RBC Morphology Normal
[2021-04-25 14:08] LABS: Source Nasal/Nares
[2021-04-25 14:21] LABS: ALT 17 U/L (16-63); AST 18 U/L (15-37); Albumin 4.1 g/dL (3.4-5.0); Alkaline Phosphatase 112 U/L (46-116); Anion Gap 12.3 mmol/L (3-11); BUN 30 mg/dL (7-18); Bilirubin, Total 0.6 mg/dL (0.2-1.0); CO2 22.7 mmol/L (21.0-32.0); Calcium 8.6 mg/dL (8.5-10.1); Chloride 104 mmol/L (98-107); Estimated GFR 32.82 (mL/min/1.73m2); Glucose 179 mg/dL (74-106); Potassium 4.4 mmol/L (3.5-5.1); Sodium 139 mmol/L (136-145); Total Protein 8.6 g/dL (6.4-8.2)
--- NOTE | 2021-04-25 14:39 | W.PM.HP.N ---
Date of service: 04/25/21 Time of Service: 14:40 Assessment and Plan Assessment and plan (1) Aspiration pneumonia: Status: Acute Assessment and plan: started on levaquin, will continue (pcn allergic) pulmonary toilet speech evaluation (2) Type 2 diabetes mellitus with complication: Status: Chronic Assessment and plan: diabetic diet continue home medication A1C 7.6 April 18, 2021 (3) Chronic kidney disease: Status: Acute Assessment and plan: creatinine at baseline hold justin and arb for now, med rec pending renal dosing avoid nephrotoxic drugs gentle IV fluids discussed with dr Guy History of Present Illness History of Present Illness Chief Complaint: shortness of breath Narrative: [id number] male with history of CVA, residual dysphagia and dysarthria, diabetes, hypertension, hyperlipidemia, here with chief complaint of cough. Patient sent from [facility] with concern for aspiration pneumonia. He has had low-grade fever, increased secretions and cough for the past day. Review of Systems All systems reviewed & are unremarkable except as noted in HPI and below PFSH Active Problem List Arthrofibrosis of total knee arthroplasty (Acute) Painful total knee replacement, left (Acute) Chronic pain of left knee (Acute) Social isolation (Chronic) Living in assisted living (Chronic) Chronic dental infection (Acute) DNI (do not intubate) (Acute) DNR (do not resuscitate) (Acute) POLST (Physician Orders for Life-Sustaining Treatment) (Acute) History of alcohol dependence (Acute) Dysarthria (Chronic) Goals of care, counseling/discussion (Acute) Palliative care patient (Chronic) Ingrown toenail of left foot (Acute) Hypermagnesemia (Acute) Swallowing dysfunction (Chronic) Hyperkalemia (Acute) Acute kidney injury (Acute) Depression (Chronic 12/02/17) Lumbar spinal stenosis (Acute) Osteoporosis (Chronic 09/2018) Compression fracture of lumbar spine, non-traumatic (Acute ~09/2018) Back pain due to injury (Acute 08/2018) Adenoma of colon (Acute 12/02/17) History of total left knee replacement (TKR) (Chronic) Status post total knee replacement, left (Chronic 07/13/18) Pre-op examination (Acute 06/2018) History of anemia (Acute ~08/2017) Left medial knee pain (Acute) Type 2 diabetes mellitus with complication (Chronic) Osteoarthritis of knee (Acute 12/02/17) Hyperlipidemia (Acute 12/02/17) Essential hypertension (Acute 12/02/17) Dysphagia (Acute 12/02/17) Dysarthria and anarthria (Acute 12/02/17) Coronary artery disease with angina pectoris (Acute 12/02/17) Chronic kidney disease (Acute 12/02/17) Cerebral infarction (Acute 12/02/17) (Idiopathic) normal pressure hydrocephalus (Acute 12/02/17) Anemia (Acute) Ventricular tachycardia (Acute) Influenza, bronchopneumonia (Acute) Medical History Aspiration pneumonia CVA (cerebral vascular accident) Diabetes mellitus Hyperlipidemia Hypertension Influenza B Surgical History Arthroplasty of knee (~06/2006) Left - Medial/Lateral Meniscectomy Cardiac Catheterization (~12/1999) Correction, Hammertoe (~2010) Left 2-4 Toes Gastrostomy Tube Placement History of total left knee replacement (TKR) in Jul Intracardiac Device-Cardioseal of PFO (~04/2000) Tonsillectomy V-P Shunt (~08/2009) for NPH Family History Nephew Patient has active durable power of traffic law attorney (DPOA) designee for healthcare Social History Smoking/Tobacco Use Status: Former Tobacco Use Smoking risk assessment performed?: Yes Alcohol Intake: never Details: used to drink heavily, until about 15 years ago (2004) Drug use: Never Substance use type: does not use Household members: other Details: 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 [employer] Pets and animals: No Current gender identity: male What is your relationship status?: How often do you talk on the phone with friends or family?: never How often do you get together with friends or relatives?: never Panel score (0-1 are the most socially isolated patients): 0 What type of physical activity do you participate in: none Special derian needs: No Seatbelt use: always Drive intox or ride w/intox inventory associate and driver: No Water heater temp set <120 deg: Yes Working smoke detector in home: Yes Fire extinguisher in home: Yes Carbon monox detector in home: Yes Do you feel safe at home: Yes Do you feel safe in your relationship?: Yes Additional Social history: pt lives at the [facility] Allergies and Home Medications Allergies Allergy/AdvReac Type Severity Reaction Status Date / Time Penicillins Allergy Unknown unknown Verified 04/25/21 17:22 rofecoxib [From Vioxx] Allergy Unknown unknown Verified 04/25/21 17:22 Sulfa (Sulfonamide Allergy Unknown unknown Verified 04/25/21 17:22 Antibiotics) Home Medications Medication Instructions Recorded Confirmed Type lancets 28 gauge #200 each 05/12/19 12/25/20 Rx blood sugar diagnostic #200 each 11/23/19 12/25/20 Rx tamsulosin 0.4 mg capsule 0.4 mg PO DAILY #90 cap 01/21/20 04/25/21 Rx linagliptin 5 mg tablet 5 mg PO DAILY #90 tab 04/07/20 04/25/21 Rx gabapentin 300 mg capsule 300 mg PO BID #180 cap 05/18/20 04/25/21 Rx atorvastatin 80 mg tablet 80 mg PO DAILY #90 tab-cap 06/05/20 04/25/21 Rx bupropion HCl 150 mg 24 hr tablet, 150 mg PO QAM #90 tab 06/05/20 04/25/21 Rx extended release cholecalciferol (vitamin D3) 1,250 50,000 unit PO QMONTH #90 cap 06/05/20 12/25/20 Rx mcg (50,000 unit) capsule aspirin 81 mg tablet,delayed 81 mg PO DAILY #90 tab 08/17/20 04/25/21 Rx release acetaminophen 325 mg capsule 650 mg PO Q6H PRN cap 12/25/20 12/25/20 History amlodipine 10 mg tablet 5 mg PO DAILY 12/25/20 04/25/21 History insulin glargine 100 unit/mL (3 16 unit SUBCUT QPM 12/25/20 04/25/21 History mL) subcutaneous pen losartan 50 mg tablet 50 mg PO DAILY 12/25/20 04/25/21 History acetaminophen [Tylenol Arthritis] 650 mg PO BID 04/25/21 04/25/21 History benzonatate [Tessalon Perles] 100 mg PO TID PRN 04/25/21 04/25/21 History fluoxetine [Prozac] 10 mg PO DAILY 04/25/21 04/25/21 History Exam Const General: cooperative and no acute distress HENMT Mouth: moist mucous membranes Eyes Conjunctivae: normal conjunctivae Sclera: normal sclerae Neck Neck: trachea midline and supple Resp Effort & Inspection: cough and tachypneic Auscultation: rhonchi and wheezes left lower Cardio Rate: tachycardic Rhythm: regular rhythm GI Palpation: soft, not firm, no guarding, no masses, not rigid and nontender Skin General skin exam: no rashes or lesions noted Neuro General: patient alert, patient awake and tone normal Extrem General: no edema Psych Appearance: grossly normal Mental Status: mental status grossly normal Results Labs Result diagrams: 04/26/21 05:27 04/26/21 05:27 Labs: Laboratory Results - last 24 hr 04/25/21 04/25/21 04/25/21 13:45 13:45 13:45 WBC 10.26 RBC 4.79 Hgb 14.2 Hct 44.3 MCV 92.5 MCH 29.6 MCHC 32.1 RDW 13.2 Plt Count 197 MPV 10.7 Immature Gran % 0.4 Neutrophils % 69.1 Lymphocytes % 13.7 Monocytes % 16.0 Eosinophils % 0.4 Basophils % 0.4 Nucleated RBC % 0 Absolute Neutrophils 7.09 H Absolute Lymphocytes 1.41 Absolute Monocytes 1.64 H Absolute Eosinophils 0.04 Absolute Basophils 0.04 RBC Morphology Normal VBG Lactate 1.0 Sodium 139 Potassium 4.4 Chloride 104 Carbon Dioxide 22.7 Anion Gap 12.3 H BUN 30 H Creatinine 2.0 H Estimated GFR/1.73 m2 32.82 Glucose 179 H Calcium 8.6 Total Bilirubin 0.6 AST 18 ALT 17 Alkaline Phosphatase 112 Total Protein 8.6 H Albumin 4.1 COVID-19 Source 04/25/21 14:05 WBC RBC Hgb Hct MCV MCH MCHC RDW Plt Count MPV Immature Gran % Neutrophils % Lymphocytes % Monocytes % Eosinophils % Basophils % Nucleated RBC % Absolute Neutrophils Absolute Lymphocytes Absolute Monocytes Absolute Eosinophils Absolute Basophils RBC Morphology VBG Lactate Sodium Potassium Chloride Carbon Dioxide Anion Gap BUN Creatinine Estimated GFR/1.73 m2 Glucose Calcium Total Bilirubin AST ALT Alkaline Phosphatase Total Protein Albumin COVID-19 Source Nasal/Nares Last Vital Signs Temp 36.9 C 04/25/21 13:17 Pulse 115 H 04/25/21 13:17 Resp 28 H 04/25/21 13:17 BP 158/93 H 04/25/21 13:17 Pulse Ox 98 04/25/21 13:17
[2021-04-25 15:07] LABS: COVID-19 PCR Negative (Negative)
--- NOTE | 2021-04-25 15:32 | ED.GENADUL_ITS ---
Discharge Plan Disposition Patient Disposition: [facility] INPATIENT Condition: Serious Discharge Details Chief Complaint: RespSymp Clinical Impression: Aspiration pneumonia Primary Care Provider: Dayana Novak ED Provider: Parmjit Milan Home Meds and New Rx's Prescriptions: No Action amlodipine 10 mg tablet 10 mg PO DAILY RF: 0 losartan 50 mg tablet 50 mg PO DAILY RF: 0 Lantus Solostar U-100 Insulin 100 unit/mL (3 mL) insulin pen 10 unit subcut QPM RF: 0 acetaminophen 325 mg capsule 650 mg PO Q6H PRNRF: 0 lisinopril 5 mg tablet 5 mg PO DAILY Qty: 90 RF: 3 Hold Instructions: Home Medication placed on hold at Doctor's office (DME) lancets [Easy Touch Lancets] 28 gauge misc See Rx Instructions .ROUTE .MEDSUPPLY Qty: 200 RF: 3 (DME) FreeStyle Lite Strips Strip See Rx Instructions .ROUTE .MEDSUPPLY Qty: 200 RF: 3 tamsulosin 0.4 mg capsule 0.4 mg PO DAILY Qty: 90 RF: 3 Tradjenta 5 mg tablet 5 mg PO DAILY Qty: 90 RF: 3 gabapentin 300 mg capsule 300 mg PO BID Qty: 180 RF: 3 atorvastatin 80 mg tablet 80 mg PO DAILY Qty: 90 RF: 3 bupropion HCl 150 mg tablet extended release 24 hr 150 mg PO QAM Qty: 90 RF: 3 cholecalciferol (vitamin D3) 1,250 mcg (50,000 unit) capsule 50,000 unit PO QMONTH Qty: 90 RF: 3 aspirin [Adult Low Dose Aspirin] 81 mg tablet,delayed release (DR/EC) 81 mg PO DAILY Qty: 90 RF: 3 Medical Decision Making 76-year-old male with multiple local problems including history of CVA with residual dysarthria dysphagia, frequent aspiration pneumonitis in the past, here with increased cough, increased secretions, low-grade fever. Staff at nursing facility concern for aspiration pneumonia. Patient does have rhonchi and subtle wheeze on exam. Patient is saturating well with frequent coughing spells. He is tachycardic and normotensive. IV fluid 500 mL bolus of LR administered. Considered Covid. Covid test negative. Consider aspiration pneumonia. Chest x-ray reviewed and interpreted by radiology and there is no evidence of acute process. I suspect early pneumonitis. Plan to initiate coverage with Levaquin -penicillin allergy noted. I called and spoke with the on-call hospitalist, Dr. Guy, he will admit the patient. Care transitioned to hospitalist service. I did speak with the charge nurse on [facility] and provided clinical report. Lab Data Lab results reviewed: Yes I reviewed the patient's lab results. Labs: Laboratory Tests Range/Units 04/25/21 04/25/21 04/25/21 13:45 13:45 13:45 WBC (4.4-10.8) 10^3/uL 10.26 RBC (4.36-5.78) 10^6/uL 4.79 Hgb (13.5-17.5) g/dL 14.2 Hct (40.0-50.0) % 44.3 MCV (80-95) fL 92.5 MCH (27.0-33.0) pg 29.6 MCHC (32.0-36.0) % 32.1 RDW (11.8-14.1) % 13.2 Plt Count (130-400) 10^3/uL 197 MPV (8.0-11.0) fL 10.7 Immature Gran % 0.4 Neutrophils % 69.1 Lymphocytes % 13.7 Monocytes % 16.0 Eosinophils % 0.4 Basophils % 0.4 Nucleated RBC % % 0 Absolute Neutrophils (1.2-6.7) 10^3/uL 7.09 H Absolute Lymphocytes (1.2-3.4) 10^3/uL 1.41 Absolute Monocytes (0.1-0.8) 10^3/uL 1.64 H Absolute Eosinophils (0.0-0.7) 10^3/uL 0.04 Absolute Basophils (0.0-0.2) 10^3/uL 0.04 RBC Morphology Normal VBG Lactate (0.6-1.4) mmol/L 1.0 Sodium (136-145) mmol/L 139 Potassium (3.5-5.1) mmol/L 4.4 Chloride (98-107) mmol/L 104 Carbon Dioxide (21.0-32.0) mmol/L 22.7 Anion Gap (3-11) mmol/L 12.3 H BUN (7-18) mg/dL 30 H Creatinine (0.70-1.30) mg/dL 2.0 H Estimated GFR/1.73 m2 (mL/min/1.73m2) 32.82 Glucose (74-106) mg/dL 179 H Calcium (8.5-10.1) mg/dL 8.6 Total Bilirubin (0.2-1.0) mg/dL 0.6 AST (15-37) U/L 18 ALT (16-63) U/L 17 Alkaline Phosphatase (46-116) U/L 112 Total Protein (6.4-8.2) g/dL 8.6 H Albumin (3.4-5.0) g/dL 4.1 COVID-19 Source SARS-CoV-2 (PCR) (Negative) Range/Units 04/25/21 14:05 WBC (4.4-10.8) 10^3/uL RBC (4.36-5.78) 10^6/uL Hgb (13.5-17.5) g/dL Hct (40.0-50.0) % MCV (80-95) fL MCH (27.0-33.0) pg MCHC (32.0-36.0) % RDW (11.8-14.1) % Plt Count (130-400) 10^3/uL MPV (8.0-11.0) fL Immature Gran % Neutrophils % Lymphocytes % Monocytes % Eosinophils % Basophils % Nucleated RBC % % Absolute Neutrophils (1.2-6.7) 10^3/uL Absolute Lymphocytes (1.2-3.4) 10^3/uL Absolute Monocytes (0.1-0.8) 10^3/uL Absolute Eosinophils (0.0-0.7) 10^3/uL Absolute Basophils (0.0-0.2) 10^3/uL RBC Morphology VBG Lactate (0.6-1.4) mmol/L Sodium (136-145) mmol/L Potassium (3.5-5.1) mmol/L Chloride (98-107) mmol/L Carbon Dioxide (21.0-32.0) mmol/L Anion Gap (3-11) mmol/L BUN (7-18) mg/dL Creatinine (0.70-1.30) mg/dL Estimated GFR/1.73 m2 (mL/min/1.73m2) Glucose (74-106) mg/dL Calcium (8.5-10.1) mg/dL Total Bilirubin (0.2-1.0) mg/dL AST (15-37) U/L ALT (16-63) U/L Alkaline Phosphatase (46-116) U/L Total Protein (6.4-8.2) g/dL Albumin (3.4-5.0) g/dL COVID-19 Source Nasal/Nares SARS-CoV-2 (PCR) (Negative) Negative HPI General Mode of arrival: EMS . Date/Time Provider Initiated Documentation: 04/25/21 13:42 . Limitations to Documentation: physical limitation . Information obtained by: patient and EMS . HPI Narrative: [id number] male with history of CVA, residual dysphagia and dysarthria, diabetes, hypertension, hyperlipidemia, here with chief complaint of cough. Patient sent from [facility] with concern for aspiration pneumonia. He has had low-grade fe daylin, increased secretions and cough for the past day. Symptoms are moderate. No modifiers. Patient has had frequent aspiration pneumonia in the past. Related Data Home Medications Medication Instructions Recorded Confirmed lisinopril 5 mg tablet 5 mg PO DAILY #90 tab 05/06/19 12/25/20 lancets 28 gauge #200 each 05/12/19 12/25/20 blood sugar diagnostic #200 each 11/23/19 12/25/20 tamsulosin 0.4 mg capsule 0.4 mg PO DAILY #90 cap 01/21/20 12/25/20 linagliptin 5 mg tablet 5 mg PO DAILY #90 tab 04/07/20 12/25/20 gabapentin 300 mg capsule 300 mg PO BID #180 cap 05/18/20 12/25/20 atorvastatin 80 mg tablet 80 mg PO DAILY #90 tab-cap 06/05/20 12/25/20 bupropion HCl 150 mg 24 hr tablet, 150 mg PO QAM #90 tab 06/05/20 12/25/20 extended release cholecalciferol (vitamin D3) 1,250 50,000 unit PO QMONTH #90 cap 06/05/20 12/25/20 mcg (50,000 unit) capsule aspirin 81 mg tablet,delayed 81 mg PO DAILY #90 tab 08/17/20 12/25/20 release acetaminophen 325 mg capsule 650 mg PO Q6H PRN cap 12/25/20 12/25/20 amlodipine 10 mg tablet 10 mg PO DAILY 12/25/20 12/25/20 insulin glargine 100 unit/mL (3 10 unit SUBCUT QPM 12/25/20 12/25/20 mL) subcutaneous pen losartan 50 mg tablet 50 mg PO DAILY 12/25/20 12/25/20 Previous Rx's Medication Instructions Recorded lisinopril 5 mg tablet 5 mg PO DAILY #90 tab 05/06/19 lancets 28 gauge #200 each 05/12/19 blood sugar diagnostic #200 each 11/23/19 tamsulosin 0.4 mg capsule 0.4 mg PO DAILY #90 cap 01/21/20 linagliptin 5 mg tablet 5 mg PO DAILY #90 tab 04/07/20 gabapentin 300 mg capsule 300 mg PO BID #180 cap 05/18/20 atorvastatin 80 mg tablet 80 mg PO DAILY #90 tab-cap 06/05/20 bupropion HCl 150 mg 24 hr tablet, 150 mg PO QAM #90 tab 06/05/20 extended release cholecalciferol (vitamin D3) 1,250 50,000 unit PO QMONTH #90 cap 06/05/20 mcg (50,000 unit) capsule aspirin 81 mg tablet,delayed 81 mg PO DAILY #90 tab 08/17/20 release Allergies Allergy/AdvReac Type Severity Reaction Status Date / Time Penicillins Allergy Unknown unknown Verified 12/25/20 10:43 rofecoxib [From Vioxx] Allergy Unknown unknown Verified 12/25/20 10:43 Sulfa (Sulfonamide Allergy Unknown unknown Verified 12/25/20 10:43 Antibiotics) General Stated Complaint: RespSymp JUAN ANTONIO: 3 Review of Systems All systems reviewed & are unremarkable except as noted in HPI and below Constitutional Constitutional: Reports as per HPI and Reports fever(s) Respiratory Respiratory: Reports as per HPI PFSH Active Problem List Arthrofibrosis of total knee arthroplasty (Acute) Painful total knee replacement, left (Acute) Chronic pain of left knee (Acute) Social isolation (Chronic) Living in assisted living (Chronic) Chronic dental infection (Acute) DNI (do not intubate) (Acute) DNR (do not resuscitate) (Acute) POLST (Physician Orders for Life-Sustaining Treatment) (Acute) History of alcohol dependence (Acute) Dysarthria (Chronic) Goals of care, counseling/discussion (Acute) Palliative care patient (Chronic) Ingrown toenail of left foot (Acute) Hypermagnesemia (Acute) Swallowing dysfunction (Chronic) Hyperkalemia (Acute) Acute kidney injury (Acute) Depression (Chronic 12/02/17) Lumbar spinal stenosis (Acute) Osteoporosis (Chronic 09/2018) Compression fracture of lumbar spine, non-traumatic (Acute ~09/2018) Back pain due to injury (Acute 08/2018) Adenoma of colon (Acute 12/02/17) History of total left knee replacement (TKR) (Chronic) Status post total knee replacement, left (Chronic 07/13/18) Pre-op examination (Acute 06/2018) History of anemia (Acute ~08/2017) Left medial knee pain (Acute) Type 2 diabetes mellitus with complication (Chronic) Osteoarthritis of knee (Acute 12/02/17) Hyperlipidemia (Acute 12/02/17) Essential hypertension (Acute 12/02/17) Dysphagia (Acute 12/02/17) Dysarthria and anarthria (Acute 12/02/17) Coronary artery disease with angina pectoris (Acute 12/02/17) Chronic kidney disease (Acute 12/02/17) Cerebral infarction (Acute 12/02/17) (Idiopathic) normal pressure hydrocephalus (Acute 12/02/17) Anemia (Acute) Ventricular tachycardia (Acute) Influenza, bronchopneumonia (Acute) Medical History Aspiration pneumonia CVA (cerebral vascular accident) Diabetes mellitus Hyperlipidemia Hypertension Influenza B Surgical History Arthroplasty of knee (~06/2006) Left - Medial/Lateral Meniscectomy Cardiac Catheterization (~12/1999) Correction, Hammertoe (~2010) Left 2-4 Toes Gastrostomy Tube Placement History of total left knee replacement (TKR) in Jul Intracardiac Device-Cardioseal of PFO (~04/2000) Tonsillectomy V-P Shunt (~08/2009) for NPH Family History Nephew Patient has active durable power of trust and estates attorney (DPOA) designee for healthcare Social History Smoking/Tobacco Use Status: Former Tobacco Use Smoking risk assessment performed?: Yes Alcohol Intake: never Details: used to drink heavily, until about 15 years ago (2004) Drug use: Never Substance use type: does not use Household members: other Details: [facility] resident Housing: assisted living facility Number of Children: 0 Communication Needs: Hard of Hearing and Corrective Lenses Education Level: college Do you need help understanding health information?: Often 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, 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 [employer] Pets and animals: No Current gender identity: male What is your relationship status?: How often do you talk on the phone with friends or family?: never How often do you get together with friends or relatives?: never Panel score (0-1 are the most socially isolated patients): 0 What type of physical activity do you participate in: none Special derian needs: No Seatbelt use: always Drive intox or ride w/intox drivers' cash clerk: No Water heater temp set <120 deg: Yes Working smoke detector in home: Yes Fire extinguisher in home: Yes Carbon monox detector in home: Yes Do you feel safe at home: Yes Do you feel safe in your relationship?: Yes Additional Social history: pt lives at the [facility] assisted living Exam Const General: cooperative and no acute distress [facility] Mouth: moist mucous membranes Eyes Conjunctivae: normal conjunctivae Sclera: normal sclerae Neck Neck: trachea midline and supple Resp Effort & Inspection: cough and tachypneic Auscultation: rhonchi and wheezes left lower Cardio Rate: tachycardic Rhythm: regular rhythm GI Palpation: soft, not firm, no guarding, no masses, not rigid and nontender Skin General skin exam: no rashes or lesions noted Neuro General: patient alert, patient awake and tone normal Extrem General: no edema Psych Appearance: grossly normal Mental Status: mental status grossly normal Course Vital Signs Vital signs: Vital Signs Temperature 36.9 C 04/25/21 13:17 Pulse 115 H 04/25/21 13:17 Respiratory Rate 28 H 04/25/21 13:17 Blood Pressure 158/93 H 04/25/21 13:17 Pulse Oximetry 98 04/25/21 13:17 Temperature 36.9 C 04/25/21 13:17 Temperature Source Temporal Artery Scan 04/25/21 13:17 Pulse 115 H 04/25/21 13:17 Respiratory Rate 28 H 04/25/21 13:17 Respiratory Effort Labored 04/25/21 13:26 Respiratory Depth Deep 04/25/21 13:26 Blood Pressure 158/93 H 04/25/21 13:17 Blood Pressure Position Sitting 04/25/21 13:17 Pulse Oximetry 98 04/25/21 13:17 Oxygen Delivery Method Room Air 04/25/21 13:17 Oxygen Flow Rate 0 04/25/21 13:17 Pain Level 0 04/25/21 13:17 Lab/Test Results Lab/Test Results: Laboratory Tests Range/Units 04/25/21 04/25/21 04/25/21 13:45 13:45 13:45 WBC (4.4-10.8) 10^3/uL 10.26 RBC (4.36-5.78) 10^6/uL 4.79 Hgb (13.5-17.5) g/dL 14.2 Hct (40.0-50.0) % 44.3 MCV (80-95) fL 92.5 MCH (27.0-33.0) pg 29.6 MCHC (32.0-36.0) % 32.1 RDW (11.8-14.1) % 13.2 Plt Count (130-400) 10^3/uL 197 MPV (8.0-11.0) fL 10.7 Immature Gran % 0.4 Neutrophils % 69.1 Lymphocytes % 13.7 Monocytes % 16.0 Eosinophils % 0.4 Basophils % 0.4 Nucleated RBC % % 0 Absolute Neutrophils (1.2-6.7) 10^3/uL 7.09 H Absolute Lymphocytes (1.2-3.4) 10^3/uL 1.41 Absolute Monocytes (0.1-0.8) 10^3/uL 1.64 H Absolute Eosinophils (0.0-0.7) 10^3/uL 0.04 Absolute Basophils (0.0-0.2) 10^3/uL 0.04 RBC Morphology Normal VBG Lactate (0.6-1.4) mmol/L 1.0 Sodium (136-145) mmol/L 139 Potassium (3.5-5.1) mmol/L 4.4 Chloride (98-107) mmol/L 104 Carbon Dioxide (21.0-32.0) mmol/L 22.7 Anion Gap (3-11) mmol/L 12.3 H BUN (7-18) mg/dL 30 H Creatinine (0.70-1.30) mg/dL 2.0 H Estimated GFR/1.73 m2 (mL/min/1.73m2) 32.82 Glucose (74-106) mg/dL 179 H Calcium (8.5-10.1) mg/dL 8.6 Total Bilirubin (0.2-1.0) mg/dL 0.6 AST (15-37) U/L 18 ALT (16-63) U/L 17 Alkaline Phosphatase (46-116) U/L 112 Total Protein (6.4-8.2) g/dL 8.6 H Albumin (3.4-5.0) g/dL 4.1 COVID-19 Source SARS-CoV-2 (PCR) (Negative) Range/Units 04/25/21 14:05 WBC (4.4-10.8) 10^3/uL RBC (4.36-5.78) 10^6/uL Hgb (13.5-17.5) g/dL Hct (40.0-50.0) % MCV (80-95) fL MCH (27.0-33.0) pg MCHC (32.0-36.0) % RDW (11.8-14.1) % Plt Count (130-400) 10^3/uL MPV (8.0-11.0) fL Immature Gran % Neutrophils % Lymphocytes % Monocytes % Eosinophils % Basophils % Nucleated RBC % % Absolute Neutrophils (1.2-6.7) 10^3/uL Absolute Lymphocytes (1.2-3.4) 10^3/uL Absolute Monocytes (0.1-0.8) 10^3/uL Absolute Eosinophils (0.0-0.7) 10^3/uL Absolute Basophils (0.0-0.2) 10^3/uL RBC Morphology VBG Lactate (0.6-1.4) mmol/L Sodium (136-145) mmol/L Potassium (3.5-5.1) mmol/L Chloride (98-107) mmol/L Carbon Dioxide (21.0-32.0) mmol/L Anion Gap (3-11) mmol/L BUN (7-18) mg/dL Creatinine (0.70-1.30) mg/dL Estimated GFR/1.73 m2 (mL/min/1.73m2) Glucose (74-106) mg/dL Calcium (8.5-10.1) mg/dL Total Bilirubin (0.2-1.0) mg/dL AST (15-37) U/L ALT (16-63) U/L Alkaline Phosphatase (46-116) U/L Total Protein (6.4-8.2) g/dL Albumin (3.4-5.0) g/dL COVID-19 Source Nasal/Nares SARS-CoV-2 (PCR) (Negative) Negative
[2021-04-25] MEDS: Heparin 5,000 UNITS/ML VIAL 5000 UNITS SC ×2 (15:40→22:21)
[2021-04-25] MEDS: Lactated Ringers 500 ML IV (15:48)
[2021-04-25] MEDS: levoFLOXacin 750 MG/150 ML BAG 100 MG IVPB (15:49)
[2021-04-25] MEDS: Albuterol/Ipratropium 3 ML UPD VIAL UPD ×2 (17:04→22:21)
[2021-04-25] MEDS: Lactated Ringers 1,000 ML 100 ML IV (17:42)
--- NOTE | 2021-04-25 18:40 | W.SPSTE ---
Date of service: 04/25/21 Time of Service: 16:42 Subjective Patient referred for Clinical Swallow Evaluation from Yoana Childress given admit with aspiration pneumonia. Patient received supine, awake, agreeable to evaluation. Able to communicate wants/needs effectively with speech and written supplementation when needed. Able to demonstrate comprehension of recommendations for safe p.o. intake upon discharge once deemed medically stable. Patient reports eating cut up solid foods at home. He does report coughing/sputtering at least once daily but is unsure if this happens more with solids or liquids. While he is partially edentulous, he reports he is awaiting dental implants. 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 Covid negative. Active Problem List Arthrofibrosis of total knee arthroplasty (Acute) Painful total knee replacement, left (Acute) Chronic pain of left knee (Acute) Social isolation (Chronic) Living in assisted living (Chronic) Chronic dental infection (Acute) DNI (do not intubate) (Acute) DNR (do not resuscitate) (Acute) POLST (Physician Orders for Life-Sustaining Treatment) (Acute) History of alcohol dependence (Acute) Dysarthria (Chronic) Goals of care, counseling/discussion (Acute) Palliative care patient (Chronic) Ingrown toenail of left foot (Acute) Hypermagnesemia (Acute) Swallowing dysfunction (Chronic) Hyperkalemia (Acute) Acute kidney injury (Acute) Depression (Chronic 12/02/17) Lumbar spinal stenosis (Acute) Osteoporosis (Chronic 09/2018) Compression fracture of lumbar spine, non-traumatic (Acute ~09/2018) Back pain due to injury (Acute 08/2018) Adenoma of colon (Acute 12/02/17) History of total left knee replacement (TKR) (Chronic) Status post total knee replacement, left (Chronic 07/13/18) Pre-op examination (Acute 06/2018) History of anemia (Acute ~08/2017) Left medial knee pain (Acute) Type 2 diabetes mellitus with complication (Chronic) Osteoarthritis of knee (Acute 12/02/17) Hyperlipidemia (Acute 12/02/17) Essential hypertension (Acute 12/02/17) Dysphagia (Acute 12/02/17) Dysarthria and anarthria (Acute 12/02/17) Coronary artery disease with angina pectoris (Acute 12/02/17) Chronic kidney disease (Acute 12/02/17) Cerebral infarction (Acute 12/02/17) (Idiopathic) normal pressure hydrocephalus (Acute 12/02/17) Anemia (Acute) Ventricular tachycardia (Acute) Influenza, bronchopneumonia (Acute) Medical History Aspiration pneumonia CVA (cerebral vascular accident) Diabetes mellitus Hyperlipidemia Hypertension Influenza B Surgical History Arthroplasty of knee (~06/2006) Left - Medial/Lateral Meniscectomy Cardiac Catheterization (~12/1999) Correction, Hammertoe (~2010) Left 2-4 Toes Gastrostomy Tube Placement History of total left knee replacement (TKR) in Jul Intracardiac Device-Cardioseal of PFO (~04/2000) Tonsillectomy V-P Shunt (~08/2009) for NPH Recent Imaging: Chest XR 04/25 ?No evidence of acute process? Social History/Home Situation: Pt lives at [facility] living facility. [place]. 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 . No Children. Current Diet:Admitted on Pureed/Mild Thick. Predisposing dysphagia risk factors: prior CVA with residual/baseline dysphagia and dysarthria Clinical signs of possible chronic dysphagia: known dysphagia s/p CVA 2018 Precipitating dysphagia risk factors / triggering event: worsening SOB Vitals Temp: 98.4 F Sp02: 98% RR: 26 / [room air, oxygen] Cranial nerve exam / Oral Motor: CN V: facial sensation intact to light touch labial protrusion poorly coordinated labial coordination/ROM WFL Jaw excursion/lateralization WFL mastication impaired (likely 2/2 edentulousness) lingual/labial sensation impaired suspect superior hyoid movement is reduced although cannot rule out at bedside CN VII: lateral sulcus residue minimal anterior spillage present CN IX/X: palatal elevation - symmetrical Vocal Quality - WFL taste - WFL onset of swallow - suspect possible delay pharyngeal residue - WFL per report nasopharyngeal regurgitation - none CN XII: bolus preparation/manipulation/control - impaired AP transit ? likely impairment lingual protrusion symmetrical/weak lingual coordination/ROM impaired lingual residue present, R>L Dentition/Oral Structures/Hygiene: Upper (maxillary) edentulous Mandibular incisors absent, missing mandibular molars, partial premolars (L) oral hygiene appears poor, reports no daily oral care Language: Largely intact, speaks in short phrases due to moderate-severe dysarthria. Supplements with writing which is messy but grammatically correct, full sentences. May benefit from additional rate improvement strategies if interested. Hearing: WFL at short distance Mental Status: AAOx3, recall of current events intact Speech: dysarthric largely 2/2 tongue weakness. Stimulable to cues for reduced rate, but cues for ?over-exaggerated? speech did not improve tongue articulatory contact or precision. Laryngeal function exam: Secretions: WFL Vocal quality: WFL Pitch range: WFL Cough: appears with strong respiratory support but unable to produce sharp coup Glottal coup: not sharp Food items tested: [ ] None. Further swallow assessment not warranted at this time. [ ] Ice: [X] IDDSI 0: [ ] IDDSI 1: [ ] IDDSI 2: [ ] IDDSI 3: [X] IDDSI 4: [ ] IDDSI 5: [ ] IDDSI 6: [X] IDDSI 7: [ ] Pill/tablet: Oral phase: [ ] WFL [X] Leakage from mouth [X] Difficulty with bolus manipulation [X] Difficulty with a-p transport [X] Difficulty chewing [ ] Pocketing [X] Residue solid>puree>liquid Pharyngeal phase: [ ] WFL [ ] Delayed swallow initiation [X] Reduced hyolaryngeal elevation/excursion [ ] Cough after swallow [ ] Voice change after swallow [ ] Throat clearing [ ] Endorsed stasis [place] Swallow Protocol: PASS Assessment IMPRESSIONS Patient is at moderate risk for aspiration-related pulmonary complication, given history of such as well as recent increased work of breathing, poor oral hygiene & moderate oral>pharyngeal dysphagia. No overt s/sx aspiration this date, primarily noting oral impairments though unable to rule out pharyngeal component or silent aspiration without objective instrumental evaluation. Improvements in physical , oral care, and overall pulmonary function likely to further reduce this risk. Suspect his swallow function is stable as compared to baseline, noting clear chest imaging this date, though patient would benefit from monitoring for diet tolerance as well as review of education r/t aspiration precautions, oral care recommendations, and safe swallow strategies. Further VETERINARY ASSISTANT TECHNICIAN services warranted at this time. Provided education to patient, RN re: anatomy/physiology of swallowing mechanism, overt s/sx to monitor for re: potential aspiration of food liquids, recommendations for improved oral care, relationship between respiratory function changes and deglutition. Instrumentation: N/A ? may be appropriate for MBS if patient is still admitted Friday or on outpatient basis. Recommendations: Diet Texture Modification(s): IDDSI Level(s) 4-Pureed Solids 0-Thin Liquids Medication Intake: Whole with 4-Extremely Thick Liquids RISK MANAGEMENT: Oral hygiene BID/2x per day and before/after PO intake using friction with toothbrush on all oral structures as tolerated HOB upright as tolerated; upright for all PO intake. Encourage physical mobility as tolerated. Level of Assistance/Supervision: Distant supervision for all PO intake PO intake only when awake/alert Strategies/Adaptations/Assistive Equipment: Reduce auditory and/or visual distractions when eating Small sips and bites when eating Slow rate of intake Alternate intake of liquids and solids Posture/Positioning Needs: Maintain upright position at least 30 minutes after meals Specialist referrals: N/A Ancillary tests: N/A COMMUNICATION RECOMMENDATIONS: Provide notepad for speech supplementation within arm?s reach of patient. Encourage patient to speak one word at a time if unable to understand. Encourage patient to write only rosas words to reduce communicative burden. Plan VETERINARY ASSISTANT TECHNICIAN to follow while on unit 2-4 x weekly Senior Care Goals: = Short Term Goals, for now 1. Patient will tolerate least restrictive diet without s/sx aspiration with use of swallow strategies and aspiration precautions. 2. Patient will demonstrate understanding of education related to normal vs disordered swallowing, impact of CVA on swallow function, relationship between respiration and deglutition, and recommended strategies for minimizing aspiration/choking risk and risk of aspiration related complication. Dee Palacios [phone] Speech Language Pathologist VETERINARY ASSISTANT TECHNICIAN CPT Code: 20201 Clinical Swallowing Evaluation Time spent: 30 minutes Coding
[2021-04-25] MEDS: Gabapentin 300 MG CAP PO (22:21)
[2021-04-25] MEDS: Insulin Glargine 300 UNITS/3 ML PEN 10 UNITS SC (22:22)
[2021-04-26 00:04] VITALS: BP 117/71; PULSE 101; RESP 20; TEMP 37; O2SAT 97
[2021-04-26 05:44] LABS: Abs Immature Grans 0.04 10^3/uL (0.0-0.06); HCT 35.8 % (40.0-50.0); HGB 11.7 g/dL (13.5-17.5); MCHC 32.7 % (32.0-36.0); MCV 91.8 fL (80-95); MPV 10.9 fL (8.0-11.0); Nucleated RBC 0 %; Platelet Count 172 10^3/uL (130-400); RDW 13.2 % (11.8-14.1); RDW-SD 44.4 fL; WBC 8.17 10^3/uL (4.4-10.8)
[2021-04-26 06:00] LABS: ALT 11 U/L (16-63); AST 11 U/L (15-37); Albumin 2.9 g/dL (3.4-5.0); Alkaline Phosphatase 83 U/L (46-116); Anion Gap 10.8 mmol/L (3-11); BUN 24 mg/dL (7-18); Bilirubin, Total 0.4 mg/dL (0.2-1.0); CO2 22.2 mmol/L (21.0-32.0); Calcium 7.7 mg/dL (8.5-10.1); Chloride 106 mmol/L (98-107); Estimated GFR 32.82 (mL/min/1.73m2); Glucose 126 mg/dL (74-106); Potassium 3.8 mmol/L (3.5-5.1); Sodium 139 mmol/L (136-145); Total Protein 6.6 g/dL (6.4-8.2)
[2021-04-26 06:10] LABS: Absolute Lymphocyte Count 1.72 10^3/uL (1.2-3.4); Absolute Monocyte Count 1.39 10^3/uL (0.1-0.8); Absolute Neutrophil Count 5.07 10^3/uL (1.2-6.7); Atypical Lymphocytes % 2; Diff Comment Manual Differential; RBC Morphology Normal
[2021-04-26] MEDS: Heparin 5,000 UNITS/ML VIAL 5000 UNITS SC ×3 (06:27→21:47)
[2021-04-26 07:40] VITALS: BP 131/78; PULSE 92; RESP 18; TEMP 36.8; O2SAT 95
[2021-04-26] MEDS: Gabapentin 300 MG CAP PO ×2 (08:18→20:22)
[2021-04-26] MEDS: Tamsulosin 0.4 MG CAPCR PO (08:18)
[2021-04-26] MEDS: Aspirin E.C. 81 MG TABEC PO (08:19)
[2021-04-26] MEDS: amLODIPine 10 MG TAB PO (08:19)
[2021-04-26] MEDS: buPROPion-XL 150 MG TABCR PO (08:19)
[2021-04-26] MEDS: Atorvastatin 40 MG TAB 80 MG PO (08:19)
--- NOTE | 2021-04-26 11:12 | W.PM.PROGNOT ---
Date of Service Date of service: 04/26/21 Time of Service: 11:12 Assessment and Plan Assessment and plan (1) Aspiration pneumonia: Status: Acute Assessment and plan: started on levaquin, will continue (pcn allergic) pulmonary toilet speech evaluation (2) Type 2 diabetes mellitus with complication: Status: Chronic Assessment and plan: diabetic diet continue home medication A1C 7.6 April 18, 2021 (3) Chronic kidney disease: Status: Acute Assessment and plan: creatinine at baseline hold justin and arb for now, med rec pending renal dosing avoid nephrotoxic drugs gentle IV fluids discussed with DR Guy Subjective Subjective Interval history since last seen: c/o sore throat, otherwise doing ok, no shortness of breath or cough, no oxygen requirements. tolerating modified diet. vitals stable Exam Const General: cooperative and no acute distress HENMT Mouth: moist mucous membranes Eyes Conjunctivae: normal conjunctivae Sclera: normal sclerae Neck Neck: trachea midline and supple Resp Effort & Inspection: cough and tachypneic Auscultation: rhonchi and wheezes left lower Cardio Rate: tachycardic Rhythm: regular rhythm GI Palpation: soft, not firm, no guarding, no masses, not rigid and nontender Skin General skin exam: no rashes or lesions noted Neuro General: patient alert, patient awake and tone normal Extrem General: no edema Psych Appearance: grossly normal Mental Status: mental status grossly normal Objective Last Vital Signs Temp 36.8 C 04/26/21 07:40 Pulse 92 H 04/26/21 07:40 Resp 18 04/26/21 07:40 BP 131/78 04/26/21 07:40 Pulse Ox 95 04/26/21 07:40 Laboratory Results - last 24 hr 04/25/21 04/25/21 04/25/21 13:45 13:45 13:45 WBC 10.26 RBC 4.79 Hgb 14.2 Hct 44.3 MCV 92.5 MCH 29.6 MCHC 32.1 RDW 13.2 Plt Count 197 MPV 10.7 Immature Gran % 0.4 Neutrophils % 69.1 Lymphocytes % 13.7 Atypical Lymphs % Monocytes % 16.0 Eosinophils % 0.4 Basophils % 0.4 Nucleated RBC % 0 Absolute Neutrophils 7.09 H Absolute Lymphocytes 1.41 Absolute Monocytes 1.64 H Absolute Eosinophils 0.04 Absolute Basophils 0.04 RBC Morphology Normal VBG Lactate 1.0 Sodium 139 Potassium 4.4 Chloride 104 Carbon Dioxide 22.7 Anion Gap 12.3 H BUN 30 H Creatinine 2.0 H Estimated GFR/1.73 m2 32.82 Glucose 179 H Calcium 8.6 Total Bilirubin 0.6 AST 18 ALT 17 Alkaline Phosphatase 112 Total Protein 8.6 H Albumin 4.1 COVID-19 Source SARS-CoV-2 (PCR) 04/25/21 04/26/21 04/26/21 14:05 05:27 05:27 WBC 8.17 RBC 3.90 L Hgb 11.7 L D Hct 35.8 L MCV 91.8 MCH 30.0 MCHC 32.7 RDW 13.2 Plt Count 172 MPV 10.9 Immature Gran % 0.0 Neutrophils % 62.0 Lymphocytes % 19.0 Atypical Lymphs % 2 Monocytes % 17.0 Eosinophils % 0.0 Basophils % 0.0 Nucleated RBC % 0 Absolute Neutrophils 5.07 Absolute Lymphocytes 1.72 Absolute Monocytes 1.39 H Absolute Eosinophils 0.00 Absolute Basophils 0.00 RBC Morphology Normal VBG Lactate Sodium 139 Potassium 3.8 Chloride 106 Carbon Dioxide 22.2 Anion Gap 10.8 BUN 24 H Creatinine 2.0 H Estimated GFR/1.73 m2 32.82 Glucose 126 H Calcium 7.7 L Total Bilirubin 0.4 AST 11 L ALT 11 L Alkaline Phosphatase 83 Total Protein 6.6 Albumin 2.9 L COVID-19 Source Nasal/Nares SARS-CoV-2 (PCR) Negative
[2021-04-26 12:10] VITALS: RESP 5
[2021-04-26] MEDS: Albuterol/Ipratropium 3 ML UPD VIAL UPD ×3 (12:10→20:22)
[2021-04-26 14:59] VITALS: BP 138/79; PULSE 100; RESP 18; TEMP 36.6; O2SAT 94
[2021-04-26] MEDS: Insulin Glargine 300 UNITS/3 ML PEN 10 UNITS SC (20:23)
[2021-04-26 23:18] VITALS: BP 101/76; PULSE 98; RESP 18; TEMP 36.8; O2SAT 98
[2021-04-27] MEDS: Heparin 5,000 UNITS/ML VIAL 5000 UNITS SC (05:26)
[2021-04-27 07:27] VITALS: BP 129/81; PULSE 100; RESP 19; TEMP 36.7; O2SAT 96
[2021-04-27] MEDS: Aspirin E.C. 81 MG TABEC PO (07:32)
[2021-04-27] MEDS: Tamsulosin 0.4 MG CAPCR PO (07:32)
[2021-04-27] MEDS: amLODIPine 10 MG TAB PO (07:32)
[2021-04-27] MEDS: buPROPion-XL 150 MG TABCR PO (07:32)
[2021-04-27] MEDS: Atorvastatin 40 MG TAB 80 MG PO (07:32)
[2021-04-27] MEDS: Gabapentin 300 MG CAP PO (07:32)
--- NOTE | 2021-04-27 08:08 | PDOC.CMIN ---
- If Service Date Differs Date of service: 04/27/21 Time of Service: 08:08 Care Management Initial Assess REASON FOR HOSPITALIZATION:: aspiration pneumonia
--- NOTE | 2021-04-27 10:02 | W.PM.DS.N ---
Documented by User: Yoana Childress NP 04/27/21 10:14 Date of service: 04/27/21 Time of Service: 10:03 DS: Diagnosis Discharge Diagnosis (1) Aspiration pneumonia: Status: Acute (2) Type 2 diabetes mellitus with complication: Status: Chronic (3) Chronic kidney disease: Status: Acute Discharge Plan Disposition Patient Disposition: HOME Condition: Stable Discharge Details Reason For Visit: Aspiration Pneumonia Admit Date/Time: 04/25/21 14:35 Admit Provider: Rom Guy Attending Provider: Rom Guy Primary Care Provider: [facility] Hospital Course: This is a 76 year old male with history of CVA, dysphagia who presented to the ED after a choking episode. He was admitted to med/surg on levaquin d/t pcn allergy. He had no elevated white count or oxygen requirements, his chest xray was clear. He remained medically stable. He was seen by speech therapy and tolerating pureed with thin liquids well. He remains hemodynamically stable and is ready for discharge to home. He will not be discharged on antibiotics in setting of negative chest xray, respiratory status at baseline, no fever or white count since admission. discharge discussed with Dr Guy Home Meds and New Rx's Prescriptions: Continued amlodipine 10 mg tablet 5 mg PO DAILY RF: 0 losartan 50 mg tablet 50 mg PO DAILY RF: 0 Lantus Solostar U-100 Insulin 100 unit/mL (3 mL) insulin pen 16 unit subcut QPM RF: 0 acetaminophen 325 mg capsule 650 mg PO Q6H PRNRF: 0 (DME) lancets [Easy Touch Lancets] 28 gauge misc See Rx Instructions .ROUTE .MEDSUPPLY Qty: 200 RF: 3 (DME) FreeStyle Lite Strips Strip See Rx Instructions .ROUTE .MEDSUPPLY Qty: 200 RF: 3 tamsulosin 0.4 mg capsule 0.4 mg PO DAILY Qty: 90 RF: 3 Tradjenta 5 mg tablet 5 mg PO DAILY Qty: 90 RF: 3 gabapentin 300 mg capsule 300 mg PO BID Qty: 180 RF: 3 atorvastatin 80 mg tablet 80 mg PO DAILY Qty: 90 RF: 3 bupropion HCl 150 mg tablet extended release 24 hr 150 mg PO QAM Qty: 90 RF: 3 cholecalciferol (vitamin D3) 1,250 mcg (50,000 unit) capsule 50,000 unit PO QMONTH Qty: 90 RF: 3 aspirin [Adult Low Dose Aspirin] 81 mg tablet,delayed release (DR/EC) 81 mg PO DAILY Qty: 90 RF: 3 acetaminophen 650 mg Tablet Extended Release 650 mg PO BID RF: 0 fluoxetine 10 mg Tablet 10 mg PO DAILY RF: 0 benzonatate 100 mg Capsule 100 mg PO TID PRNRF: 0 Discharge Instructions Instructions: Aspiration Pneumonia (DC) Stand Alone Forms: Nursing Discharge Form Referrals: Dayana Novak [Primary Care Provider] - 06/07/21 3:00 pm (Alyssa Novak will do a Home Visit on June 07 at 3:00. Have [place] Call [facility] if needed before that date) Activity:: Activity as Tolerated Equipment/Supplies:: No Equipment Needed Diet:: Carb Counting Discharge Orders Discharge Orders: Discharge Order (Routine); Ordered 04/27/21 Ordered By: Yoana Childress DS: Summary Time Spent with Patient providing and/or coordinating discharge services: Less than 30 minutes Status at Discharge Functional status at discharge: independent ambulation Overall status at discharge: patient is back to baseline Mental Status: mental status grossly normal Speech and Movement: other Mood: congruent mood Affect: normal affect Exam Const General: cooperative and no acute distress HENMT Mouth: moist mucous membranes Eyes Conjunctivae: normal conjunctivae Sclera: normal sclerae Neck Neck: trachea midline and supple Resp Effort & Inspection: cough and tachypneic Auscultation: rhonchi and wheezes left lower Cardio Rate: tachycardic Rhythm: regular rhythm GI Palpation: soft, not firm, no guarding, no masses, not rigid and nontender Skin General skin exam: no rashes or lesions noted Neuro General: patient alert, patient awake and tone normal Extrem General: no edema Psych Appearance: grossly normal Mental Status: mental status grossly normal Speech and Movement: other Mood: congruent mood Affect: normal affect DS: Data Vitals/I&O Vitals and I&O: Vital Signs Temperature 36.7 C 04/27/21 07:27 Temperature Source Tympanic 04/27/21 07:27 Pulse 100 H 04/27/21 07:27 Pulse Rhythm Regular 04/27/21 02:08 Pulse 116 H 04/25/21 15:50 Respiratory Rate 19 04/27/21 07:27 Respiratory Effort Non-Labored 04/27/21 02:08 Respiratory Depth Normal 04/27/21 02:08 Respiratory Pattern Normal 04/27/21 02:08 Blood Pressure 129/81 04/27/21 07:27 Blood Pressure Mean 94 04/25/21 15:30 Blood Pressure Position Sitting 04/25/21 13:17 Pulse Oximetry 96 04/27/21 07:27 Oxygen Delivery Method Room Air 04/27/21 07:27 Oxygen Flow Rate 0 04/27/21 07:27 Pain Level 0 04/27/21 07:27 Intake & Output 04/26/21 04/26/21 04/27/21 11:59 23:59 11:59 Intake Total 2150 / 2150 Output Total 500 / 1150 650 / 1150 450 / 450 Balance -500 / 1000 1500 / 1000 -450 / -450 Intake: IV 1650 / 1650 Oral 500 / 500 Output: Urine 500 / 1150 650 / 1150 450 / 450 Other: Urine Color Yellow Yellow Pale Straw Yellow Urine Appearance Clear Clear Clear Urine Odor Normal Normal Voiding Methods Urinal Urinal Urinal [facility] Active Problem List Arthrofibrosis of total knee arthroplasty (Acute) Painful total knee replacement, left (Acute) Chronic pain of left knee (Acute) Social isolation (Chronic) Living in assisted living (Chronic) Chronic dental infection (Acute) DNI (do not intubate) (Acute) DNR (do not resuscitate) (Acute) POLST (Physician Orders for Life-Sustaining Treatment) (Acute) History of alcohol dependence (Acute) Dysarthria (Chronic) Goals of care, counseling/discussion (Acute) Palliative care patient (Chronic) Ingrown toenail of left foot (Acute) Hypermagnesemia (Acute) Swallowing dysfunction (Chronic) Hyperkalemia (Acute) Acute kidney injury (Acute) Depression (Chronic 12/02/17) Lumbar spinal stenosis (Acute) Osteoporosis (Chronic 09/2018) Compression fracture of lumbar spine, non-traumatic (Acute ~09/2018) Back pain due to injury (Acute 08/2018) Adenoma of colon (Acute 12/02/17) History of total left knee replacement (TKR) (Chronic) Status post total knee replacement, left (Chronic 07/13/18) Pre-op examination (Acute 06/2018) History of anemia (Acute ~08/2017) Left medial knee pain (Acute) Type 2 diabetes mellitus with complication (Chronic) Osteoarthritis of knee (Acute 12/02/17) Hyperlipidemia (Acute 12/02/17) Essential hypertension (Acute 12/02/17) Dysphagia (Acute 12/02/17) Dysarthria and anarthria (Acute 12/02/17) Coronary artery disease with angina pectoris (Acute 12/02/17) Chronic kidney disease (Acute 12/02/17) Cerebral infarction (Acute 12/02/17) (Idiopathic) normal pressure hydrocephalus (Acute 12/02/17) Anemia (Acute) Ventricular tachycardia (Acute) Influenza, bronchopneumonia (Acute) Medical History Aspiration pneumonia CVA (cerebral vascular accident) Diabetes mellitus Hyperlipidemia Hypertension Influenza B Surgical History Arthroplasty of knee (~06/2006) Left - Medial/Lateral Meniscectomy Cardiac Catheterization (~12/1999) Correction, Hammertoe (~2010) Left 2-4 Toes Gastrostomy Tube Placement History of total left knee replacement (TKR) in Jul Intracardiac Device-Cardioseal of PFO (~04/2000) Tonsillectomy V-P Shunt (~08/2009) for NPH Family History Nephew Patient has active durable power of prosecuting attorney (DPOA) designee for healthcare Social History Smoking/Tobacco Use Status: Former Tobacco Use Smoking risk assessment performed?: Yes Alcohol Intake: never Details: used to drink heavily, until about 15 years ago (2004) Drug use: Never Substance use type: does not use Household members: other Details: 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[employer] Pets and animals: No Current gender identity: male What is your relationship status?: How often do you talk on the phone with friends or family?: never How often do you get together with friends or relatives?: never Panel score (0-1 are the most socially isolated patients): 0 What type of physical activity do you participate in: none Special derian needs: No Seatbelt use: always Drive intox or ride w/intox cryogenic transport driver: No Water heater temp set <120 deg: Yes Working smoke detector in home: Yes Fire extinguisher in home: Yes Carbon monox detector in home: Yes Do you feel safe at home: Yes Do you feel safe in your relationship?: Yes Additional Social history: pt lives at the [facility] living Documented by User: Rom Guy MD 04/27/21 12:20 Discharge Plan Disposition Patient Disposition: HOME Condition: Stable Discharge Details Reason For Visit: Aspiration Pneumonia Admit Date/Time: 04/25/21 14:35 Admit Provider: Rom Guy Attending Provider: Rom Guy [facility] Hospital Course: This is a 76 year old male with history of CVA, dysphagia who presented to the ED after a choking episode. He was admitted to med/surg on levaquin d/t pcn allergy. He had no elevated white count or oxygen requirements, his chest xray was clear. He remained medically stable. He was seen by speech therapy and tolerating pureed with thin liquids well. He remains hemodynamically stable and is ready for discharge to home. He will not be discharged on antibiotics in setting of negative chest xray, respiratory status at baseline, no fever or white count since admission. discharge discussed with Dr Guy Home Meds and New Rx's Prescriptions: Continued amlodipine 10 mg tablet 5 mg PO DAILY RF: 0 losartan 50 mg tablet 50 mg PO DAILY RF: 0 Lantus Solostar U-100 Insulin 100 unit/mL (3 mL) insulin pen 16 unit subcut QPM RF: 0 acetaminophen 325 mg capsule 650 mg PO Q6H PRNRF: 0 (DME) lancets [Easy Touch Lancets] 28 gauge misc See Rx Instructions .ROUTE .MEDSUPPLY Qty: 200 RF: 3 (DME) FreeStyle Lite Strips Strip See Rx Instructions .ROUTE .MEDSUPPLY Qty: 200 RF: 3 tamsulosin 0.4 mg capsule 0.4 mg PO DAILY Qty: 90 RF: 3 Tradjenta 5 mg tablet 5 mg PO DAILY Qty: 90 RF: 3 gabapentin 300 mg capsule 300 mg PO BID Qty: 180 RF: 3 atorvastatin 80 mg tablet 80 mg PO DAILY Qty: 90 RF: 3 bupropion HCl 150 mg tablet extended release 24 hr 150 mg PO QAM Qty: 90 RF: 3 cholecalciferol (vitamin D3) 1,250 mcg (50,000 unit) capsule 50,000 unit PO QMONTH Qty: 90 RF: 3 aspirin [Adult Low Dose Aspirin] 81 mg tablet,delayed release (DR/EC) 81 mg PO DAILY Qty: 90 RF: 3 acetaminophen 650 mg Tablet Extended Release 650 mg PO BID RF: 0 fluoxetine 10 mg Tablet 10 mg PO DAILY RF: 0 benzonatate 100 mg Capsule 100 mg PO TID PRNRF: 0 Discharge Instructions Instructions: Aspiration Pneumonia (DC) Stand Alone Forms: Nursing Discharge Form Referrals: Dayana Novak [Primary Care Provider] - 06/07/21 3:00 pm (Alyssa Novak will do a Home Visit on June 07 at 3:00. Have [place] Call [facility] if needed before that date) Activity:: Activity as Tolerated Equipment/Supplies:: No Equipment Needed Diet:: Carb Counting Discharge Orders Discharge Orders: Discharge Order (Routine); Ordered 04/27/21 Ordered By: Yoana Childress [facility] Active Problem List Arthrofibrosis of total knee arthroplasty (Acute) Painful total knee replacement, left (Acute) Chronic pain of left knee (Acute) Social isolation (Chronic) Living in assisted living (Chronic) Chronic dental infection (Acute) DNI (do not intubate) (Acute) DNR (do not resuscitate) (Acute) POLST (Physician Orders for Life-Sustaining Treatment) (Acute) History of alcohol dependence (Acute) Dysarthria (Chronic) Goals of care, counseling/discussion (Acute) Palliative care patient (Chronic) Ingrown toenail of left foot (Acute) Hypermagnesemia (Acute) Swallowing dysfunction (Chronic) Hyperkalemia (Acute) Acute kidney injury (Acute) Depression (Chronic 12/02/17) Lumbar spinal stenosis (Acute) Osteoporosis (Chronic 09/2018) Compression fracture of lumbar spine, non-traumatic (Acute ~09/2018) Back pain due to injury (Acute 08/2018) Adenoma of colon (Acute 12/02/17) History of total left knee replacement (TKR) (Chronic) Status post total knee replacement, left (Chronic 07/13/18) Pre-op examination (Acute 06/2018) History of anemia (Acute ~08/2017) Left medial knee pain (Acute) Type 2 diabetes mellitus with complication (Chronic) Osteoarthritis of knee (Acute 12/02/17) Hyperlipidemia (Acute 12/02/17) Essential hypertension (Acute 12/02/17) Dysphagia (Acute 12/02/17) Dysarthria and anarthria (Acute 12/02/17) Coronary artery disease with angina pectoris (Acute 12/02/17) Chronic kidney disease (Acute 12/02/17) Cerebral infarction (Acute 12/02/17) (Idiopathic) normal pressure hydrocephalus (Acute 12/02/17) Anemia (Acute) Ventricular tachycardia (Acute) Influenza, bronchopneumonia (Acute) Medical History Aspiration pneumonia CVA (cerebral vascular accident) Diabetes mellitus Hyperlipidemia Hypertension Influenza B Surgical History Arthroplasty of knee (~06/2006) Left - Medial/Lateral Meniscectomy Cardiac Catheterization (~12/1999) Correction, Hammertoe (~2010) Left 2-4 Toes Gastrostomy Tube Placement History of total left knee replacement (TKR) in Jul Intracardiac Device-Cardioseal of PFO (~04/2000) Tonsillectomy V-P Shunt (~08/2009) for NPH Family History Nephew Patient has active durable power of prosecuting attorney (DPOA) designee for healthcare Social History Smoking/Tobacco Use Status: Former Tobacco Use Smoking risk assessment performed?: Yes Alcohol Intake: never Details: used to drink heavily, until about 15 years ago (2004) Drug use: Never Substance use type: does not use Household members: other Details: [facility] resident Housing: assisted living facility Number of Children: 0 Communication Needs: Hard of Hearing and Corrective Lenses Education Level: college Do you need help understanding health information?: Often 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, 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[employer] Pets and animals: No Current gender identity: male What is your relationship status?: How often do you talk on the phone with friends or family?: never How often do you get together with friends or relatives?: never Panel score (0-1 are the most socially isolated patients): 0 What type of physical activity do you participate in: none Special derian needs: No Seatbelt use: always Drive intox or ride w/intox cryogenic transport driver: No Water heater temp set <120 deg: Yes Working smoke detector in home: Yes Fire extinguisher in home: Yes Carbon monox detector in home: Yes Do you feel safe at home: Yes Do you feel safe in your relationship?: Yes Additional Social history: pt lives at the [facility]
--- NOTE | 2021-04-27 12:17 | CMPROGNOTE_ITS ---
- If Service Date Differs Date of service: 04/27/21 Time of Service: 12:17 Care Management Progress Note Cl is a 76 year old man admitted from [facility] on 04/25/21 with aspiration pneumonia. His vital signs have been stable and his symptoms improved. He has not required supplemental oxygen and is ready for discharge back to the [facility]. The facility will provide transportation at 1pm.
[2021-04-27 12:25] VITALS: RESP 7
[2021-04-27] MEDS: Albuterol/Ipratropium 3 ML UPD VIAL UPD (12:25)
== END 2021-04-27 13:10 | disposition home or self-care (01) | DRG 178 ==
LOC: ER 15:59 → MS 17:22
PROVIDERS: Nurse Practitioner Acute Care; Admitting Provider Family Medicine; Emergency Provider Student in an Organized Health Care Education/Training Program; PCP Nurse Practitioner Family; Visit Provider Family Medicine
DX: J69.0 Pneumonitis due to inhalation of food and vomit (principal); G91.2 (Idiopathic) normal pressure hydrocephalus; E11.22 Type 2 diabetes mellitus with diabetic chronic kidney disease; N18.9 Chronic kidney disease, unspecified; I69.391 Dysphagia following cerebral infarction; I69.322 Dysarthria following cerebral infarction; I12.9 Hypertensive chronic kidney disease with stage 1 through stage 4 chronic kidney disease, or unspecified chronic kidney disease; Z66 Do not resuscitate; E78.5 Hyperlipidemia, unspecified; R13.10 Dysphagia, unspecified; Z20.822 Contact with and (suspected) exposure to COVID-19; I25.119 Atherosclerotic heart disease of native coronary artery with unspecified angina pectoris; Z98.2 Presence of cerebrospinal fluid drainage device; Z87.891 Personal history of nicotine dependence; Z79.4 Long term (current) use of insulin
CPT/HCPCS: 36415; 80053; 87635; 90662; 92610; 93005; 96365; 96375; 96376; 99285; 71046; 83605; 85025; 93010; 94640; 99223; 99233; 99238; J1644; J1956; J7620

== ENCOUNTER 2021-05-08 17:34 | Outpatient (REF) | payer MEDICARE, SELFPAY ==
[2021-05-08 18:18] LABS: Anion Gap 13.6 mmol/L (3-11); BUN 26 mg/dL (7-18); CO2 21.4 mmol/L (21.0-32.0); Calcium 7.9 mg/dL (8.5-10.1); Chloride 105 mmol/L (98-107); Estimated GFR 32.82 (mL/min/1.73m2); Glucose 232 mg/dL (74-106); Sodium 140 mmol/L (136-145)
== END 2021-05-08 17:35 | disposition home or self-care (01) ==
LOC: LBN 17:34
PROVIDERS: PCP Nurse Practitioner Family; Visit Provider Internal Medicine Nephrology
DX: N17.9 Acute kidney failure, unspecified (principal)
CPT/HCPCS: 80048

== ENCOUNTER 2021-06-08 11:10 | Outpatient (CLI) | payer MEDICARE, SELFPAY ==
[2021-06-09 17:57] LABS: COVID-19 RT-PCR UVMMC Result Negative (Negative)
== END 2021-06-08 11:11 | disposition home or self-care (01) ==
PROVIDERS: PCP Nurse Practitioner Family; Visit Provider Nurse Practitioner Family
DX: Z20.822 Contact with and (suspected) exposure to COVID-19 (principal)
CPT/HCPCS: U0003; U0005

== ENCOUNTER → 2021-07-16 13:04 | Outpatient (BNVA) | payer MEDICARE, SELFPAY | PROVIDERS: PCP Nurse Practitioner Family; Referring Provider Nurse Practitioner Family; Visit Provider Student in an Organized Health Care Education/Training Program | DX: T84.84XA Pain due to internal orthopedic prosthetic devices, implants and grafts, initial encounter (principal); T84.82XA Fibrosis due to internal orthopedic prosthetic devices, implants and grafts, initial encounter; Z96.652 Presence of left artificial knee joint | CPT/HCPCS: 99214 ==

== ENCOUNTER 2021-07-26 14:04 | Outpatient (REF) | payer MEDICARE, SELFPAY ==
[2021-07-26 15:11] LABS: Hemoglobin A1C 8.2 % (<5.7)
== END 2021-07-26 14:05 | disposition home or self-care (01) ==
LOC: NCHCN 14:04
PROVIDERS: PCP Nurse Practitioner Family; Visit Provider Nurse Practitioner Family
DX: E11.9 Type 2 diabetes mellitus without complications (principal); E83.42 Hypomagnesemia; N17.9 Acute kidney failure, unspecified
CPT/HCPCS: 80048; 83036; 83735

== ENCOUNTER 2021-07-30 14:50 | Outpatient (REF) | payer MEDICARE, SELFPAY | END 2021-07-30 14:51 | disposition home or self-care (01) | LOC: NCHCN 14:50 | PROVIDERS: PCP Nurse Practitioner Family; Visit Provider Nurse Practitioner Family | DX: E11.9 Type 2 diabetes mellitus without complications (principal); E83.42 Hypomagnesemia | CPT/HCPCS: 83735 ==

== ENCOUNTER 2021-08-01 13:42 | Outpatient (REF) | payer MEDICARE, SELFPAY ==
[2021-08-01 21:56] LABS: HCT 40.2 % (40.0-50.0); HGB 12.7 g/dL (13.5-17.5); MCH 27.8 pg (27.0-33.0); MCHC 31.6 % (32.0-36.0); MPV 12.3 fL (8.0-11.0); Platelet Count 237 10^3/uL (130-400); RBC 4.57 10^6/uL (4.36-5.78); RDW 13.8 % (11.8-14.1); RDW-SD 44.3 fL; WBC 10.39 10^3/uL (4.4-10.8)
[2021-08-01 22:23] LABS: ALT 10 U/L (16-63); AST 10 U/L (15-37); Albumin 3.3 g/dL (3.4-5.0); Alkaline Phosphatase 135 U/L (46-116); Anion Gap 10.8 mmol/L (3-11); BUN 22 mg/dL (7-18); Bilirubin, Total 0.5 mg/dL (0.2-1.0); CO2 25.2 mmol/L (21.0-32.0); CREATININE 2.1 mg/dL (0.70-1.30); Calcium 8.7 mg/dL (8.5-10.1); Chloride 104 mmol/L (98-107); Estimated GFR 31.03 (mL/min/1.73m2); Glucose 205 mg/dL (74-106); Potassium 3.6 mmol/L (3.5-5.1); Sodium 140 mmol/L (136-145); Total Protein 7.2 g/dL (6.4-8.2)
== END 2021-08-01 13:43 | disposition home or self-care (01) ==
LOC: NCHCN 13:42
PROVIDERS: PCP Nurse Practitioner Family; Visit Provider Family Medicine
DX: Z01.818 Encounter for other preprocedural examination (principal)
CPT/HCPCS: 80053; 85027

== ENCOUNTER 2021-08-30 02:56 | Outpatient (RCR) | payer MEDICARE, SELFPAY ==
[2021-08-30] MEDS: Denosumab 60 MG/ML SYR SC (10:47)
== END 2021-08-30 23:59 | disposition home or self-care (01) ==
LOC: INF 02:56
PROVIDERS: PCP Nurse Practitioner Family; Visit Provider Nurse Practitioner Acute Care
DX: M81.8 Other osteoporosis without current pathological fracture (principal)
CPT/HCPCS: 96372; J0897

== ENCOUNTER 2021-09-06 08:58 | Outpatient (CLI) | payer MEDICARE, SELFPAY ==
--- NOTE | 2021-09-06 08:45 | RT.EKG_ITS ---
APPROVED REPORT Exam: Resting ECG Reason for Exam: CAD Patient Location: O HR:99 bpm ECG Measurements Heart Rate 99 AXIS ND 160 P 62 QRSd 93 QRS 18 QT 376 T 181 QTc 483 Conclusion Sinus rhythm...rate> 99 Probable left atrial enlargement...P >50mS, <-0.10mV V1 Nonspecific repol abnormality, diffuse leads...ST dep, T flat/neg, ant/lat/inf Baseline wander in lead(s) V3
== END 2021-09-06 08:59 | disposition home or self-care (01) ==
LOC: DI.CARD 08:59
PROVIDERS: PCP Nurse Practitioner Family; Visit Provider Internal Medicine Cardiovascular Disease
DX: I25.119 Atherosclerotic heart disease of native coronary artery with unspecified angina pectoris (principal); I10 Essential (primary) hypertension; Z01.810 Encounter for preprocedural cardiovascular examination
CPT/HCPCS: 93010

== ENCOUNTER → 2021-09-06 11:22 | Outpatient (BNVA) | payer MEDICARE, SELFPAY | PROVIDERS: PCP Nurse Practitioner Family; Referring Provider Nurse Practitioner Family; Visit Provider Internal Medicine Cardiovascular Disease | DX: T84.82XA Fibrosis due to internal orthopedic prosthetic devices, implants and grafts, initial encounter (principal); Z96.652 Presence of left artificial knee joint; I25.119 Atherosclerotic heart disease of native coronary artery with unspecified angina pectoris; I10 Essential (primary) hypertension | CPT/HCPCS: 93005; 99202; 99214 ==

== ENCOUNTER 2021-10-05 22:37 | Outpatient (REF) | payer MEDICARE, SELFPAY ==
[2021-10-06 14:36] LABS: COVID-19 RT-PCR UVMMC Result Positive (Negative)
== END 2021-10-05 22:38 | disposition home or self-care (01) ==
LOC: NCHCN 22:37
PROVIDERS: PCP Nurse Practitioner Family; Visit Provider Nurse Practitioner Family
DX: Z20.822 Contact with and (suspected) exposure to COVID-19 (principal)
CPT/HCPCS: U0003; U0005

== ENCOUNTER 2021-10-09 09:22 | Outpatient (CLI) | payer MEDICARE, SELFPAY ==
[2021-10-09 13:05] VITALS: BP 131/77; PULSE 101; RESP 16; TEMP 36.6; O2SAT 99
[2021-10-09 14:00] VITALS: BP 130/79; PULSE 100; RESP 18; TEMP 37; O2SAT 98
== END 2021-10-09 09:23 | disposition home or self-care (01) ==
LOC: INF 09:23
PROVIDERS: PCP Nurse Practitioner Family; Visit Provider Family Medicine
DX: U07.1 COVID-19 (principal)
CPT/HCPCS: 96374; Q0222

== ENCOUNTER 2021-10-23 18:42 | Outpatient (REF) | payer MEDICARE, SELFPAY ==
[2021-10-23 19:39] LABS: Hemoglobin A1C 6.7 % (<5.7)
[2021-10-23 20:03] LABS: ALT 17 U/L (16-63); AST 18 U/L (15-37); Albumin 3.4 g/dL (3.4-5.0); Alkaline Phosphatase 123 U/L (46-116); Anion Gap 11.6 mmol/L (3-11); BUN 18 mg/dL (7-18); Bilirubin, Total 0.5 mg/dL (0.2-1.0); CO2 23.4 mmol/L (21.0-32.0); CREATININE 2.1 mg/dL (0.70-1.30); Calcium 7.9 mg/dL (8.5-10.1); Chloride 109 mmol/L (98-107); Estimated GFR 31.03 (mL/min/1.73m2); Glucose 157 mg/dL (74-106); Magnesium 2.1 mg/dL (1.8-2.4); Potassium 4.2 mmol/L (3.5-5.1); Sodium 144 mmol/L (136-145); Total Protein 6.9 g/dL (6.4-8.2); Vitamin B12 457 pg/mL (193-986)
[2021-10-25 08:58] LABS: GGT 26 U/L (15-85)
== END 2021-10-23 18:43 | disposition home or self-care (01) ==
LOC: NCHCN 18:42
PROVIDERS: PCP Nurse Practitioner Family; Visit Provider Nurse Practitioner Family
DX: I10 Essential (primary) hypertension (principal); E11.9 Type 2 diabetes mellitus without complications; E83.42 Hypomagnesemia; N18.32 Chronic kidney disease, stage 3b; Z86.2 Personal history of diseases of the blood and blood-forming organs and certain disorders involving the immune mechanism
CPT/HCPCS: 80053; 82607; 82977; 83036; 83735

== ENCOUNTER 2022-01-24 15:08 | Outpatient (REF) | payer MEDICARE, SELFPAY ==
[2022-01-24 16:36] LABS: Hemoglobin A1C 6.7 % (<5.7)
== END 2022-01-24 15:09 | disposition home or self-care (01) ==
LOC: NCHCN 15:08
PROVIDERS: PCP Nurse Practitioner Family; Visit Provider Nurse Practitioner Family
DX: E11.9 Type 2 diabetes mellitus without complications (principal)
CPT/HCPCS: 80048; 83036

== ENCOUNTER 2022-01-28 17:12 | Outpatient (REF) | payer MEDICARE, SELFPAY ==
[2022-01-28 13:50] LABS: Anion Gap 12.1 mmol/L (3-11); BUN 26 mg/dL (7-18); CO2 22.9 mmol/L (21.0-32.0); CREATININE 2.2 mg/dL (0.70-1.30); Calcium 8.3 mg/dL (8.5-10.1); Chloride 107 mmol/L (98-107); Estimated GFR 30.47 (mL/min/1.73m2); Glucose 242 mg/dL (74-106); Potassium 3.6 mmol/L (3.5-5.1); Sodium 142 mmol/L (136-145)
[2022-01-28 14:28] LABS: Hemoglobin A1C 6.5 % (<5.7)
== END 2022-01-28 17:13 | disposition home or self-care (01) ==
LOC: NCHCN 17:12
PROVIDERS: PCP Nurse Practitioner Family; Visit Provider Nurse Practitioner Family
DX: E11.9 Type 2 diabetes mellitus without complications (principal)
CPT/HCPCS: 80048; 83036

== ENCOUNTER 2022-02-19 16:02 | Emergency (ER) | payer MEDICARE, SELFPAY ==
[2022-02-19 16:00] VITALS: BP 121/79; PULSE 94; RESP 16; TEMP 37.2; O2SAT 98
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
[2022-02-19 16:49] LABS: Abs Immature Grans 0.04 10^3/uL (0.0-0.06); Absolute Basophil Count 0.07 10^3/uL (0.0-0.2); Absolute Eosinophil Count 0.92 10^3/uL (0.0-0.7); Absolute Lymphocyte Count 1.98 10^3/uL (1.2-3.4); Absolute Monocyte Count 0.95 10^3/uL (0.1-0.8); Basophils % 0.6; Eosinophils % 7.9; HCT 38.8 % (40.0-50.0); HGB 12.6 g/dL (13.5-17.5); Immature Grans % 0.3; Lymphocytes % 17.1; MCH 29.4 pg (27.0-33.0); MCHC 32.5 % (32.0-36.0); MCV 91 fL (80-95); MPV 10.7 fL (8.0-11.0); Monocytes % 8.2; Neutrophils % 65.9; Platelet Count 268 10^3/uL (130-400); RBC 4.28 10^6/uL (4.36-5.78); RDW-SD 46.5 fL; WBC 11.59 10^3/uL (4.4-10.8)
[2022-02-19 16:51] LABS: Absolute Neutrophil Count 7.64 10^3/uL (1.2-6.7)
[2022-02-19] MEDS: Normal Saline 1,000 ML 1000 ML IV (16:51)
[2022-02-19 17:16] LABS: ALT 14 U/L (16-63); AST 10 U/L (15-37); Albumin 3.6 g/dL (3.4-5.0); Alkaline Phosphatase 130 U/L (46-116); Anion Gap 13.4 mmol/L (3-11); BUN 25 mg/dL (7-18); Bilirubin, Total 0.5 mg/dL (0.2-1.0); CO2 22.6 mmol/L (21.0-32.0); CREATININE 2.6 mg/dL (0.70-1.30); Chloride 105 mmol/L (98-107); Estimated GFR 24.94 (mL/min/1.73m2); Glucose 98 mg/dL (74-106); Lipase 50 U/L (73-393); Potassium 3.2 mmol/L (3.5-5.1); Sodium 141 mmol/L (136-145); Total Protein 7.4 g/dL (6.4-8.2)
[2022-02-19 17:34] LABS: C Diff PCR Negative (Negative)
[2022-02-19] MEDS: Potassium Chloride 20 MEQ TABCR 40 MEQ PO (17:36)
[2022-02-19] MEDS: Lactated Ringers 1,000 ML 1000 ML IV (17:36)
--- NOTE | 2022-02-19 18:15 | DI.CT_ITS ---
Exam(s) CT ABDOMEN PELVIS WO EXAM: CT ABDOMEN PELVIS WO CLINICAL HISTORY: Diarrhea, leukocytosis. TECHNIQUE: Imaging Protocol: Axial computed tomography images with coronal and sagittal reformatted images were created and reviewed CONTRAST MATERIAL: Intravenous: none Oral: None COMPARISON: CT CT RENAL COLIC WO from 02/21/2020 FINDINGS: VISUALIZED LUNG BASES: There are bilateral ground-glass infiltrates in the lung bases, more so than p revious although this may be somewhat exaggerated by the amount of respiratory motion artifact here. There are no pleural effusions. Findings may represent significant infiltrates. ABDOMEN: There is a deep subcutaneous vertically orientated ventriculoperitoneal shunt on the right side. Its distal tip is in the right-side of the abdomen. There is no ascites. LIVER: There are no obvious focal hepatic lesions evident of this noninfused study. GALLBLADDER/BILIARY: No obvious gallbladder pathology. CBD is not dilated. PANCREAS: No evidence of pancreatic mass nor dilatation of the pancreatic duct. SPLEEN: Spleen is not enlarged. No obvious intrasplenic lesions. ADRENALS: There are no significant adrenal masses. KIDNEYS:No cysts evident. No solid renal masses. No calculi nor hydronephrosis. . ABDOMINAL AORTA: Calcified but not enlarged. Common iliac arteries are also calcified but not enlarg ed. LYMPH NODES: There is no retroperitoneal nor paraaortic adenopathy. ABDOMINAL WALL: No evidence of significant anterior abdominal wall nor inguinal hernia. GI: There is no evidence of bowel obstruction, free air, nor abscess. Fluid seen throughout the colon consistent with probable diarrhea PELVIS: LYMPH NODES: There is no intrapelvic nor inguinal adenopathy. GI: Appendix is not well seen on this study.No evidence of sigmoid diverticulitis. URINARY BLADDER: No calculi nor obvious masses evident REPRODUCTIVE: Prostate gland is mildly enlarged. OSSEOUS: Chronic deformity left inferior pubic ramus and ischial tuberosity which is probably healed fracture site. There are multiple compression fractures in involving L1, L2, L3, and L4, not acute i n appearance and unchanged from prior CT scan February 2020. IMPRESSION: 1. Right-sided ventriculoperitoneal shunt. No ascites. 2. Mildly is pattern and fluid within the:, Probably related to diarrhea illness. 3. Chronic fracture deformities of multiple lumbar vertebrae as well as the left inferior pubic ramus . 4. Ground-glass infiltrates noted in both lower lobes-lung bases. RADIATION DOSE DELIVERED: 815.22mGy.cm Total DLP DATA REPOSITORY: All CT scans at this facility are submitted to the National Radiology Data Registry (NRDR) Dose Index Registry (DIR) with the [employer] ([employer]). RADIATION OPTIMIZATION: All CT scans at this facility use at least one of these dose optimization te chniques: automated exposure control; mA and/or kV adjustment per patient size (includes targeted exa ms where dose is matched to clinical indication); or iterative reconstruction.
--- NOTE | 2022-02-19 19:27 | DI.VRAD_ITS ---
PROCEDURE INFORMATION: Exam: CT Abdomen And Pelvis Without Contrast Exam date and time: 02/19/2022 6:48 PM Age: 77 years old Clinical indication: Other: Diarrhea, leukocytosis; Prior surgery; Surgery date: 6+ months; Surgery type: Cholecystectomy TECHNIQUE: Imaging protocol: Computed tomography of the abdomen and pelvis without contrast. Radiation optimization: All CT scans at this facility use at least one of these dose optimization techniques: automated exposure control; mA and/or kV adjustment per patient size (includes targeted exams where dose is matched to clinical indication); or iterative reconstruction. COMPARISON: CT RENAL COLIC WO 02/21/2020 6:27 PM FINDINGS: Lungs: Findings suggest mild subpleural ground-glass opacity within the lung bases, increased from prior study, which may represent mild interstitial pulmonary fibrosis. Liver: Normal. No mass. Gallbladder and bile ducts: Normal. No calcified stones. No ductal dilation. Pancreas: The pancreas is moderately atrophic but appears otherwise unremarkable without focal lesion or evidence of acute inflammation. Spleen: Normal. No splenomegaly. Adrenal glands: Normal. No mass. Kidneys and ureters: No renal or ureteral stones are identified. There is no hydronephrosis or hydroureter. There is moderate atrophy of both kidneys, as on prior study. Stomach and bowel: There is liquid stool throughout the colon, new since prior study, consistent with diarrheal illness. There are increased prominent air-filled loops of small and large bowel without transition point, suggesting ileus. There is no clear evidence for active small or large bowel inflammation. Appendix: The appendix is dilated to approximately 1.4 cm, as seen around coronal image 49, series 4. On prior study, the appendix had a diameter of 2.5 cm. Findings are consistent with chronic appendiceal dilatation, without clear evidence for acute appendicitis. Intraperitoneal space: There appears to be a ventriculoperitoneal shunt in place with its tip in the region the small bowel mesentery in the right lower quadrant. No focal fluid collection around the shunt is identified. There is no free intraperitoneal air. There is no evidence of free intraperitoneal fluid. Vasculature: The aorta and iliac arteries demonstrate moderate atherosclerotic calcification without aneurysm formation. Lymph nodes: Unremarkable. No enlarged lymph nodes. Urinary bladder: No bladder stones are identified. Reproductive: Unremarkable as visualized. Bones/joints: There is moderate facet arthrosis of the lower lumbar spine. There are multiple chronic compression deformities of lumbar vertebra, most marked at L2, stable since prior study. No acute fractures are identified. Soft tissues: Unremarkable. IMPRESSION: 1. New liquid stool throughout the colon consistent with diarrheal illness. 2. Prominent air-filled loops of small and large bowel without transition point, increased from prior study, consistent with ileus. Dictated and Authenticated by: Bharath Feliciano MD. Ordering:ANKUSH Nina MD
[2022-02-20 23:26] LABS: Campylobacter PCR Negative (Negative); Salmonella PCR Negative (Negative); Shiga Toxin PCR Negative (Negative); Shigella/Enteroinvasive Ecoli Negative (Negative)
== END 2022-02-19 21:00 | disposition designated cancer center or children's hospital (05) ==
PROVIDERS: Emergency Provider Physician Assistant; PCP Nurse Practitioner Family
DX: K56.7 Ileus, unspecified (principal); I10 Essential (primary) hypertension; E11.9 Type 2 diabetes mellitus without complications; Z87.891 Personal history of nicotine dependence; Z79.4 Long term (current) use of insulin
CPT/HCPCS: 36415; 80053; 83690; 87493; 87505; 96360; 96361; 99285; 74176; 85025; 99284

== ENCOUNTER 2022-03-01 01:05 | Outpatient (RCR) | payer MEDICARE, SELFPAY ==
[2022-03-01] MEDS: Denosumab 60 MG/ML SYR SC (10:36)
== END 2022-03-01 23:59 | disposition home or self-care (01) ==
LOC: INF 01:05
PROVIDERS: PCP Nurse Practitioner Family; Visit Provider Nurse Practitioner Acute Care
DX: M81.8 Other osteoporosis without current pathological fracture (principal)
CPT/HCPCS: 96372; 96374; J0897

== ENCOUNTER 2022-03-07 18:27 | Outpatient (REF) | payer MEDICARE, SELFPAY ==
[2022-03-07 17:58] LABS: Abs Immature Grans 0.03 10^3/uL (0.0-0.06); Absolute Basophil Count 0.08 10^3/uL (0.0-0.2); Absolute Lymphocyte Count 1.86 10^3/uL (1.2-3.4); Absolute Monocyte Count 0.86 10^3/uL (0.1-0.8); Absolute Neutrophil Count 5.84 10^3/uL (1.2-6.7); Basophils % 0.8; Eosinophils % 9.4; HCT 37.6 % (40.0-50.0); HGB 12.3 g/dL (13.5-17.5); Immature Grans % 0.3; Lymphocytes % 19.4; MCH 29.8 pg (27.0-33.0); MCHC 32.7 % (32.0-36.0); MCV 91 fL (80-95); MPV 11.1 fL (8.0-11.0); Neutrophils % 61.1; Platelet Count 249 10^3/uL (130-400); RBC 4.13 10^6/uL (4.36-5.78); RDW 14.5 % (11.8-14.1); RDW-SD 48.8 fL; WBC 9.57 10^3/uL (4.4-10.8)
[2022-03-07 18:24] LABS: BUN 19 mg/dL (7-18); CREATININE 2.2 mg/dL (0.70-1.30); Calcium 7.4 mg/dL (8.5-10.1); Chloride 106 mmol/L (98-107); Estimated GFR 30.47 (mL/min/1.73m2); Glucose 168 mg/dL (74-106); Potassium 3.7 mmol/L (3.5-5.1); Sodium 139 mmol/L (136-145)
[2022-03-07 18:28] LABS: ALT 11 U/L (16-63); AST 16 U/L (15-37); Albumin 3.4 g/dL (3.4-5.0); Alkaline Phosphatase 128 U/L (46-116); Anion Gap 11.6 mmol/L (3-11); BUN 17 mg/dL (7-18); Bilirubin, Total 0.4 mg/dL (0.2-1.0); CO2 22.4 mmol/L (21.0-32.0); CREATININE 2.2 mg/dL (0.70-1.30); Calcium 7.3 mg/dL (8.5-10.1); Chloride 105 mmol/L (98-107); Estimated GFR 30.47 (mL/min/1.73m2); Glucose 164 mg/dL (74-106); Potassium 3.7 mmol/L (3.5-5.1); Sodium 139 mmol/L (136-145)
[2022-03-07 19:44] LABS: Vitamin D 25 Total 39.1 ng/mL (30-100)
== END 2022-03-07 18:28 | disposition home or self-care (01) ==
LOC: NCHCN 18:27
PROVIDERS: Internal Medicine Endocrinology, Diabetes & Metabolism; PCP Nurse Practitioner Family; Visit Provider Nurse Practitioner Family
DX: R19.7 Diarrhea, unspecified (principal); M81.8 Other osteoporosis without current pathological fracture
CPT/HCPCS: 80048; 80053; 82306; 85025

== ENCOUNTER 2022-04-03 17:05 | Outpatient (REF) | payer MEDICARE, SELFPAY ==
[2022-04-03 16:55] LABS: Bilirubin Negative (Negative); Blood Trace-lysed (Negative); Clarity Sl Cloudy (Clear); Glucose 250 mg/dL (Negative); Hemoglobin A1C 6.2 % (<5.7); Ketones Negative (Negative); Leukocyte Esterase Negative (Negative); Nitrite Negative (Negative); Specific Gravity 1.025 (1.005-1.025); Urobilinogen 0.2 EU/dL (Up TO 0.2); pH 6.5 (5-8)
[2022-04-03 17:00] LABS: ALT 13 U/L (16-63); AST 19 U/L (15-37); Albumin 3.5 g/dL (3.4-5.0); Alkaline Phosphatase 134 U/L (46-116); Bilirubin, Direct 0.2 mg/dL (0.0-0.2); Bilirubin, Total 0.5 mg/dL (0.2-1.0); Total Protein 7.2 g/dL (6.4-8.2)
[2022-04-03 17:08] LABS: Bacteria Negative HPF (Negative); C & S Indicated? No; Casts 3-5 Hyaline LPF (Negative); Crystals Negative HPF (Negative); Epithelial Cells Few HPF (Negative); Mucus Negative (Negative); RBC 0-2 HPF (0-2); WBC Negative HPF (0-5)
[2022-04-03 17:23] LABS: COMMENT (LAB VIEW ONLY) 75.74 mg/dL
[2022-04-03 17:28] LABS: Microalb ug/mg Crea 884.1 ug/mg Cr
[2022-04-03 18:05] LABS: Vitamin D 25 Total 38.6 ng/mL (30-100)
== END 2022-04-03 17:06 | disposition home or self-care (01) ==
LOC: NCHCN 17:05
PROVIDERS: PCP Nurse Practitioner Family; Visit Provider Nurse Practitioner Family
DX: E11.49 Type 2 diabetes mellitus with other diabetic neurological complication (principal); N18.32 Chronic kidney disease, stage 3b
CPT/HCPCS: 80076; 82306; 81003; 81015; 82043; 82570; 83036

== ENCOUNTER 2022-06-01 10:10 | Emergency (ER) | payer MEDICARE, SELFPAY ==
--- NOTE | 2022-06-01 10:15 | RT.EKG_ITS ---
APPROVED REPORT Exam: Resting ECG Reason for Exam: sob Patient Location: E HR:98 bpm ECG Measurements Heart Rate 98 AXIS MA 167 P 58 QRSd 87 QRS 29 QT 362 T 171 QTc 464 Conclusion Sinus rhythm...normal P axis, V-rate 60- 99 Probable left atrial enlargement...P >50mS, <-0.10mV V1 sinus tachycardia, normal axis, normal intervls
--- NOTE | 2022-06-01 10:15 | DI.RAD_ITS ---
Exam(s) XR PORTABLE CHEST AP EXAM: XR PORTABLE CHEST AP CLINICAL HISTORY: SOB, hx aspiration TECHNIQUE: 2D digital imaging was performed. COMPARISON: 25 April 2021 FINDINGS: The film is under penetrated the lungs are poorly inflated. There are small bilateral pleural effusi ons. There are increased interstitial markings and vascular prominence consistent with CHF. Portion of the cardiac silhouette is obscured.. IMPRESSION: CHF. DATA REPOSITORY: RADIATION DOSE DELIVERED:
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
[2022-06-01 10:22] VITALS: BP 140/77; PULSE 103; RESP 28; TEMP 37; O2SAT 99
[2022-06-01 10:25] VITALS: O2SAT 99
--- NOTE | 2022-06-01 10:45 | DI.VRAD_ITS ---
PROCEDURE INFORMATION: Exam: XR Chest Exam date and time: 06/01/2022 10:13 AM Age: 77 years old Clinical indication: Other: SOB, HX aspiration TECHNIQUE: Imaging protocol: Radiologic exam of the chest. Views: 1 view. COMPARISON: CR XR CHEST 2V PA LATERAL 04/25/2021 2:42 PM FINDINGS: Lungs: See Heart/Mediastinum finding. Pleural spaces: See Heart/Mediastinum finding. Heart/Mediastinum: There is cardiomegaly with bilateral pleural effusions and pulmonary edema consistent with CHF/fluid overload. Bones/joints: Unremarkable. IMPRESSION: CHF/fluid overload. Dictated and Authenticated by: Michell De León MD. Ordering:DENI Love MD
[2022-06-01] MEDS: Albuterol/Ipratropium 3 ML UPD VIAL UPD (10:49)
[2022-06-01] MEDS: Furosemide 40 MG/4 ML VIAL 20 MG IVP (10:49)
[2022-06-01] MEDS: Normal Saline Flush 10 ML SYR IVP (10:50)
[2022-06-01] MEDS: methylPREDNISolone SUCC 125 MG VIAL IVP (10:50)
[2022-06-01 10:54] LABS: Abs Immature Grans 0.03 10^3/uL (0.0-0.06); Absolute Basophil Count 0.07 10^3/uL (0.0-0.2); Absolute Eosinophil Count 0.23 10^3/uL (0.0-0.7); Absolute Lymphocyte Count 0.93 10^3/uL (1.2-3.4); Absolute Monocyte Count 0.68 10^3/uL (0.1-0.8); Absolute Neutrophil Count 6.64 10^3/uL (1.2-6.7); Basophils % 0.8; Eosinophils % 2.7; HCT 34.7 % (40.0-50.0); HGB 11.3 g/dL (13.5-17.5); Immature Grans % 0.3; Lymphocytes % 10.8; MCH 30.1 pg (27.0-33.0); MCHC 32.6 % (32.0-36.0); MCV 92 fL (80-95); MPV 11.2 fL (8.0-11.0); Monocytes % 7.9; Neutrophils % 77.5; Platelet Count 223 10^3/uL (130-400); RBC 3.76 10^6/uL (4.36-5.78); RDW 15.5 % (11.8-14.1); WBC 8.58 10^3/uL (4.4-10.8)
[2022-06-01 11:20] LABS: ALT 12 U/L (16-63); AST 12 U/L (15-37); Albumin 3.6 g/dL (3.4-5.0); Alkaline Phosphatase 87 U/L (46-116); Anion Gap 10.2 mmol/L (3-11); BUN 30 mg/dL (7-18); Bilirubin, Total 0.8 mg/dL (0.2-1.0); CO2 21.8 mmol/L (21.0-32.0); CREATININE 2.6 mg/dL (0.70-1.30); Calcium 8.4 mg/dL (8.5-10.1); Chloride 111 mmol/L (98-107); Estimated GFR 24.94 (mL/min/1.73m2); Glucose 165 mg/dL (74-106); NT-proBNP 4818 pg/mL (<300); Potassium 3.5 mmol/L (3.5-5.1); Sodium 143 mmol/L (136-145); Total Protein 7.4 g/dL (6.4-8.2)
[2022-06-01 11:44] LABS: Troponin I < 50 ng/L (<or=60)
[2022-06-01] MEDS: Furosemide 20 MG TAB PO (12:38)
== END 2022-06-01 12:54 | disposition skilled nursing facility (03) ==
PROVIDERS: Emergency Provider Physician Assistant; PCP Nurse Practitioner Family
DX: I11.0 Hypertensive heart disease with heart failure (principal); I50.9 Heart failure, unspecified; E87.70 Fluid overload, unspecified; R79.89 Other specified abnormal findings of blood chemistry; E11.9 Type 2 diabetes mellitus without complications; I25.10 Atherosclerotic heart disease of native coronary artery without angina pectoris; E78.5 Hyperlipidemia, unspecified; Z86.73 Personal history of transient ischemic attack (TIA), and cerebral infarction without residual deficits; Z79.4 Long term (current) use of insulin; Z79.82 Long term (current) use of aspirin; Z20.822 Contact with and (suspected) exposure to COVID-19
CPT/HCPCS: 36415; 80053; 93005; 96374; 96375; 99285; 71045; 83735; 83880; 84484; 85025; 93010; J1940; J2930; J7620

== ENCOUNTER 2022-06-06 14:08 | Inpatient (IN) | payer MEDICARE, SELFPAY ==
[2022-06-06] VITALS (115 sets, daily range): BP systolic 107–136; BP diastolic 43–95; PULSE 87–117; RESP 10–48; TEMP 36.9–37; O2SAT 87–100
--- NOTE | 2022-06-06 14:00 | DI.RAD_ITS ---
Exam(s) XR PORTABLE CHEST AP EXAM: XR PORTABLE CHEST AP CLINICAL HISTORY: shortness of breath. TECHNIQUE: 2D digital imaging was performed. COMPARISON: CR,XR XR PORTABLE CHEST AP from 06/01/2022 FINDINGS: Single AP portable view. Please in place. Heart size is upper normal. The mediastinum is not widened. Bilateral interstitial edema pattern has slightly from 06/01/2022. Seen no obvious pleural effusions realized limitations a single study. IMPRESSION: Improving but not yet resolved pulmonary edema. DATA REPOSITORY: RADIATION DOSE DELIVERED:
--- NOTE | 2022-06-06 14:00 | RT.EKG_ITS ---
APPROVED REPORT Exam: Resting ECG Reason for Exam: SUDDEN ONSET SOB Patient Location: E HR:93 bpm ECG Measurements Heart Rate 93 AXIS MO 165 P -8 QRSd 89 QRS 17 QT 369 T 206 QTc 460 Conclusion Sinus rhythm...normal P axis, V-rate 60- 99 st inv laterally v4-5, no change from prior
[2022-06-06 14:27] LABS: Abs Immature Grans 0.02 10^3/uL (0.0-0.06); Absolute Basophil Count 0.06 10^3/uL (0.0-0.2); Absolute Eosinophil Count 0.44 10^3/uL (0.0-0.7); Absolute Lymphocyte Count 1.52 10^3/uL (1.2-3.4); Absolute Monocyte Count 0.79 10^3/uL (0.1-0.8); Absolute Neutrophil Count 5.97 10^3/uL (1.2-6.7); BE (Venous) -5 mmol/L (-2-3); Basophils % 0.7; HCO3 (Venous) 21 mmol/L (23-28); HCT 34.9 % (40.0-50.0); HGB 11.4 g/dL (13.5-17.5); Immature Grans % 0.2; Lymphocytes % 17.3; MCH 30.1 pg (27.0-33.0); MCHC 32.7 % (32.0-36.0); MCV 92 fL (80-95); Neutrophils % 67.8; O2 Sat (Venous) 96 %; Platelet Count 222 10^3/uL (130-400); RBC 3.79 10^6/uL (4.36-5.78); RDW 15.4 % (11.8-14.1); RDW-SD 52.2 fL; TCO2 (Venous) 19 mmol/L (24-29); pCO2 (Venous) 39 mmHg (41-51); pH (Venous) 7.34 (7.31-7.41); pO2 (Venous) 75 mmHg
[2022-06-06 14:51] LABS: ALT 14 U/L (16-63); AST 17 U/L (15-37); Albumin 3.7 g/dL (3.4-5.0); Alkaline Phosphatase 88 U/L (46-116); Anion Gap 10.9 mmol/L (3-11); BUN 29 mg/dL (7-18); Bilirubin, Total 0.7 mg/dL (0.2-1.0); CO2 22.1 mmol/L (21.0-32.0); CREATININE 2.5 mg/dL (0.70-1.30); Calcium 7.8 mg/dL (8.5-10.1); Chloride 108 mmol/L (98-107); Estimated GFR 26.14 (mL/min/1.73m2); Glucose 129 mg/dL (74-106); NT-proBNP 6631 pg/mL (<300); Potassium 3.1 mmol/L (3.5-5.1); Sodium 141 mmol/L (136-145); Total Protein 7.3 g/dL (6.4-8.2); Troponin I < 50 ng/L (<or=60)
[2022-06-06 15:00] LABS: INR 1.1 (0.9-1.1); PTT Activated 25.2 sec (21.0-27.5); Prothrombin Time 11.4 sec (9.3-11.0)
[2022-06-06] MEDS: nitroGLYcerin in D5W 50 MG/250 ML BTL IV (15:01)
[2022-06-06 15:11] LABS: COVID-19 PCR Negative (Negative); Influenza A PCR Negative (Negative); Influenza B PCR Negative (Negative); RSV PCR Negative (Negative)
[2022-06-06 15:14] LABS: Source Nasopharynx
[2022-06-06] MEDS: Furosemide 100 MG/10 ML VIAL 80 MG IVP (16:23)
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
[2022-06-06 17:33] LABS: Troponin I < 50 ng/L (<or=60)
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
[2022-06-06] MEDS: Atorvastatin 40 MG TAB 80 MG PO (19:57)
[2022-06-06] MEDS: Insulin Glargine 300 UNITS/3 ML PEN 10 UNITS SC (20:26)
[2022-06-06] MEDS: Enoxaparin 30 MG/0.3 ML SYR SC (20:26)
[2022-06-06] MEDS: Potassium Chloride 20 MEQ TABCR 40 MEQ PO (20:27)
[2022-06-07] VITALS (112 sets, daily range): BP systolic 92–146; BP diastolic 49–105; PULSE 84–115; RESP 10–32; TEMP 36.4–37.3; O2SAT 91–100
[2022-06-07] MEDS: Normal Saline Flush 10 ML SYR IVP (01:42)
[2022-06-07 06:36] LABS: Abs Immature Grans 0.03 10^3/uL (0.0-0.06); Absolute Basophil Count 0.05 10^3/uL (0.0-0.2); Absolute Eosinophil Count 0.79 10^3/uL (0.0-0.7); Absolute Lymphocyte Count 1.38 10^3/uL (1.2-3.4); Absolute Monocyte Count 0.86 10^3/uL (0.1-0.8); Absolute Neutrophil Count 7.41 10^3/uL (1.2-6.7); Basophils % 0.5; Eosinophils % 7.5; HCT 34.7 % (40.0-50.0); HGB 11.3 g/dL (13.5-17.5); Immature Grans % 0.3; Lymphocytes % 13.1; MCH 30.1 pg (27.0-33.0); MCHC 32.6 % (32.0-36.0); MCV 93 fL (80-95); MPV 12.1 fL (8.0-11.0); Monocytes % 8.2; Neutrophils % 70.4; Platelet Count 194 10^3/uL (130-400); RBC 3.75 10^6/uL (4.36-5.78); RDW 15.3 % (11.8-14.1); RDW-SD 51.9 fL; WBC 10.52 10^3/uL (4.4-10.8)
[2022-06-07 07:07] LABS: ALT 12 U/L (16-63); AST 14 U/L (15-37); Albumin 3.5 g/dL (3.4-5.0); Alkaline Phosphatase 83 U/L (46-116); Anion Gap 10.9 mmol/L (3-11); BUN 27 mg/dL (7-18); Bilirubin, Total 0.7 mg/dL (0.2-1.0); CO2 23.1 mmol/L (21.0-32.0); CREATININE 2.6 mg/dL (0.70-1.30); Calcium 7.7 mg/dL (8.5-10.1); Chloride 110 mmol/L (98-107); Estimated GFR 24.94 (mL/min/1.73m2); Glucose 78 mg/dL (74-106); Potassium 3.3 mmol/L (3.5-5.1); Sodium 144 mmol/L (136-145); Total Protein 6.7 g/dL (6.4-8.2)
[2022-06-07] MEDS: Potassium Chloride 20 MEQ TABCR PO ×2 (07:37→19:53)
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
[2022-06-07] MEDS: buPROPion-XL 150 MG TABCR PO (09:08)
[2022-06-07] MEDS: Tamsulosin 0.4 MG CAPCR PO (09:08)
[2022-06-07] MEDS: Gabapentin 300 MG CAP PO ×2 (09:08→19:52)
[2022-06-07] MEDS: amLODIPine 10 MG TAB PO (09:08)
[2022-06-07] MEDS: Aspirin E.C. 81 MG TABEC PO (09:08)
[2022-06-07] MEDS: Furosemide 100 MG/10 ML VIAL 40 MG IVP ×2 (09:09→15:51)
--- NOTE | 2022-06-07 15:29 | W.PM.PROGNOT ---
Date of Service Date of service: 06/07/22 Time of Service: 15:29 Assessment and Plan Assessment and plan (1) CHF (congestive heart failure): Status: Chronic Assessment and plan: No clear etiology. Dx'd with CHF/pulmonary edema in ED on 06/01/22. Did not require supplemental O2 at time of that d/c. + pulmonary edema and peripheral edema. Dietary intake of excessive Na? Troponin negative x 2. Echocardiogram unavailable today; will schedule as outpt. Given lasix IV in the ED and is feeling better. Cont lasix 40mg IV BID for 3 more doses. Now on RA. He was placed on a nitroglycerin drip; BP in ED not elevated. Now stopped. Was held for a period overnight d/t low BP. (2) Palliative care patient: Status: Chronic Assessment and plan: Last palliative visit was on 04/16/22. Will d/w palliative and consult if they feel this would be helpful. (3) CVA (cerebral vascular accident): Assessment and plan: Distant history. Residual dysphasia. (4) Diabetes mellitus: Assessment and plan: HIs lantus was started at a lower dose than his usual home dose; decreasedfrom 20 to 10 QHS. Glucose 99, 72 and 99 today. Will hold lantus tonight. SS correction insulin dosing. Diabetic diet. Monitor. (5) Hyperlipidemia: Assessment and plan: Cont atorvastatin. Heart healthy diet. (6) Hypokalemia: Status: Acute Assessment and plan: Improved from 3.1 to 3.3 Increase to 20meq BID. Monitor. (7) Discharge planning issues: Status: Acute Assessment and plan: DNR/DNI Likely will be able to d/c back to assisted living at [facility]. Subjective Subjective Patient reports: feels better, tolerating a regular diet and afebrile; denies nausea, vomiting or shortness of breath Interval history since last seen: Pt weaned off supplemental O2. Exam Narrative Exam Narrative: Elderly male sitting up in bed. Appears comfortable. Speech is not clear but can communicate verbally. Also writes to communicate. Pleasant and interactive. Const General: cooperative and no acute distress Nutritional Appearance: average body habitus Orientation: alert and oriented x3 Eyes General: appearance normal, both eyes and all related structures Sclera: sclerae normal Neck Neck: full ROM and no JVD Resp Effort & Inspection: normal respiratory effort Auscultation: rales bilaterally at the base Cardio Rate: tachycardic Rhythm: regular rhythm GI Inspection: normal to inspection Palpation: soft and nontender Skin General skin exam: no rashes or lesions noted Extrem General: no calf tenderness and edema Laterality: bilateral (1+) Psych Appearance: grossly normal Mood: congruent mood Affect: normal affect Objective Last Vital Signs Temp 36.6 C 06/07/22 12:09 Pulse 103 H 06/07/22 12:12 Resp 18 06/07/22 13:40 BP 130/84 06/07/22 12:12 Pulse Ox 98 06/07/22 14:21 Laboratory Results - last 24 hr 06/06/22 06/07/22 06/07/22 17:11 05:52 05:52 WBC 10.52 RBC 3.75 L Hgb 11.3 L Hct 34.7 L MCV 93 MCH 30.1 MCHC 32.6 RDW 15.3 H Plt Count 194 MPV 12.1 H Immature Gran % 0.3 Neutrophils % 70.4 Lymphocytes % 13.1 Monocytes % 8.2 Eosinophils % 7.5 Basophils % 0.5 Nucleated RBC % 0.0 Absolute Neutrophils 7.41 H Absolute Lymphocytes 1.38 Absolute Monocytes 0.86 H Absolute Eosinophils 0.79 H Absolute Basophils 0.05 Sodium 144 Potassium 3.3 L Chloride 110 H Carbon Dioxide 23.1 Anion Gap 10.9 BUN 27 H Creatinine 2.6 H Est GFR (CKD-EPI 2020) 24.94 Glucose 78 Calcium 7.7 L Total Bilirubin 0.7 AST 14 L ALT 12 L Alkaline Phosphatase 83 Troponin I < 50 Total Protein 6.7 Albumin 3.5 Time Spent with Patient Time Spent with Patient: 25-34 minutes Time was spent: preparing to see the patient(eg.review tests), ordering medications,tests, procedures, referring, communicating with other health manager wound care and indepentently interpreting results
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
[2022-06-07] MEDS: Insulin Glargine 300 UNITS/3 ML PEN 10 UNITS SC (19:53)
[2022-06-07] MEDS: Atorvastatin 40 MG TAB 80 MG PO (19:53)
[2022-06-07] MEDS: Enoxaparin 30 MG/0.3 ML SYR SC (22:10)
[2022-06-08] VITALS (19 sets, daily range): BP systolic 98–120; BP diastolic 63–69; PULSE 87–99; RESP 16–28; TEMP 37–37.3; O2SAT 90–97
[2022-06-08] MEDS: Lidocaine 2% Jelly 6 ML SYR (00:23)
[2022-06-08] MEDS: Insulin Aspart 300 UNITS/3 ML PEN SC (07:58)
[2022-06-08 08:27] LABS: Anion Gap 10.8 mmol/L (3-11); BUN 27 mg/dL (7-18); CO2 23.2 mmol/L (21.0-32.0); CREATININE 2.8 mg/dL (0.70-1.30); Calcium 7.6 mg/dL (8.5-10.1); Chloride 106 mmol/L (98-107); Estimated GFR 22.81 (mL/min/1.73m2); Glucose 173 mg/dL (74-106); Sodium 140 mmol/L (136-145)
[2022-06-08 08:29] LABS: Potassium 2.8 mmol/L (3.5-5.1)
[2022-06-08] MEDS: Potassium Chloride 20 MEQ TABCR PO (08:51)
[2022-06-08] MEDS: Aspirin E.C. 81 MG TABEC PO (08:51)
[2022-06-08] MEDS: buPROPion-XL 150 MG TABCR PO (08:51)
[2022-06-08] MEDS: Gabapentin 300 MG CAP PO (08:51)
[2022-06-08] MEDS: Tamsulosin 0.4 MG CAPCR PO (08:51)
[2022-06-08] MEDS: amLODIPine 10 MG TAB PO (08:51)
[2022-06-08] MEDS: POTASSIUM CHLORIDE 10 MEQ/100 ML BAG 100 MEQ IVPB ×2 (08:53→11:06)
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
--- NOTE | 2022-06-08 10:48 | CMDISCH_ITS ---
- If Service Date Differs Date of service: 06/08/22 Time of Service: 10:48 LACE Index Scoring Tool - Questions: Length of Stay (in days): 2 Acuity (Admit via E.D.?): Yes Comorbidities: Cerebrovascular Disease, Diabetes w/o Complication, Congestive Heart Failure, Liver or Renal Disease E.D. Visits: 3 - Answers: Total Score: 13 Risk of Readmission: High Risk Care Management Discharge Reason for Hospitalization: CHF Discharge Plan: Cl will discharge back to [facility]. He will follow up with his community providers and plan of care and transport with his nephew Antoni. Patient/Family Education Needs: Review of discharge instructions, limitations, follow up plan, Ask Me Three
[2022-06-08] MEDS: Furosemide 20 MG TAB PO (11:48)
== END 2022-06-08 14:15 | disposition home or self-care (01) | DRG 292 ==
LOC: ER 16:15 → ICU 18:06
PROVIDERS: Admitting Provider Family Medicine; Emergency Provider Student in an Organized Health Care Education/Training Program; PCP Nurse Practitioner Family; Visit Provider Family Medicine
DX: I13.0 Hypertensive heart and chronic kidney disease with heart failure and stage 1 through stage 4 chronic kidney disease, or unspecified chronic kidney disease (principal); G91.2 (Idiopathic) normal pressure hydrocephalus; I50.9 Heart failure, unspecified; I69.921 Dysphasia following unspecified cerebrovascular disease; E11.9 Type 2 diabetes mellitus without complications; E87.6 Hypokalemia; E78.5 Hyperlipidemia, unspecified; Z66 Do not resuscitate; F10.11 Alcohol abuse, in remission; I25.119 Atherosclerotic heart disease of native coronary artery with unspecified angina pectoris; R13.10 Dysphagia, unspecified; F32.A Depression, unspecified; E11.22 Type 2 diabetes mellitus with diabetic chronic kidney disease; I25.10 Atherosclerotic heart disease of native coronary artery without angina pectoris; D64.9 Anemia, unspecified; Z96.652 Presence of left artificial knee joint; N18.9 Chronic kidney disease, unspecified; Z79.4 Long term (current) use of insulin; Z98.2 Presence of cerebrospinal fluid drainage device
CPT/HCPCS: 36415; 36416; 80048; 80053; 82805; 82962; 87637; 93005; 96365; 96366; 96375; 99291; 71045; 83735; 83880; 84484; 85025; 85610; 85730; 93010; 94660; 99223; 99232; 99239; J1650; J1940; J3480

== ENCOUNTER 2022-06-13 15:29 | Outpatient (REF) | payer MEDICARE, SELFPAY ==
[2022-06-13 17:36] LABS: Anion Gap 9.8 mmol/L (3-11); BUN 30 mg/dL (7-18); CO2 23.2 mmol/L (21.0-32.0); CREATININE 2.5 mg/dL (0.70-1.30); Calcium 7.9 mg/dL (8.5-10.1); Chloride 106 mmol/L (98-107); Estimated GFR 26.14 (mL/min/1.73m2); Glucose 182 mg/dL (74-106); Potassium 3.6 mmol/L (3.5-5.1); Sodium 139 mmol/L (136-145)
== END 2022-06-13 15:30 | disposition home or self-care (01) ==
LOC: NCHCN 15:29
PROVIDERS: PCP Nurse Practitioner Family; Visit Provider Nurse Practitioner Family
DX: I50.9 Heart failure, unspecified (principal); E87.6 Hypokalemia; N18.32 Chronic kidney disease, stage 3b
CPT/HCPCS: 80048

== ENCOUNTER 2022-06-18 01:45 | Outpatient (CLI) | payer MEDICARE, SELFPAY ==
--- NOTE | 2022-06-18 15:10 | DI.US_ITS ---
APPROVED REPORT EXAM: Comprehensive 2D, Doppler, and color-flow Echocardiogram Patient Location: Out-Patient Lasting Machine Operator: Carina Correa RDCS (AE) Indications: Heart Failure, Pulmonary Edema Echo Enhancing Agent Indication: Endocardial border delineation Agent(s) / Amount(s) Used: Definity 10.0 cc Comments: Contrast study was performed with 1 IV injection of 2cc of diluted definity. Other Information Study Quality: Fair. Technically limited study due to body habitus, poor endocardial definition. Conclusion Technically difficult study Left ventricle is mildly dilated. Wall thickness is normal. Estimated ejection fraction is severely reduced, 20 to 25%, global hypokinesis Right ventricle is not well visualized Both atria appear normal in size Aortic valve is calcified and trileaflet without stenosis or regurgitation There is mitral annular calcification, moderate mitral regurgitation Normal tricuspid valve with trace regurgitation. Estimated right ventricular systolic pressure is no rmal, 22 mmHg Dilated ascending aorta measuring 4.15 cm Wall motion Left Ventricle Left ventricle is mildly dilated Left ventricular systolic function is severely decreased. Definity m icrobubble contrast injection was given. There is normal left ventricular wall thickness. There is gl obal hypokinesis of the left ventricle. There is no ventricular septal defect visualized. LVEF is 18% . Measured Visually appears 20 to 25% Right Ventricle Right ventricle is not well visualized. Right ventricular systolic function could not be assessed. Th e RVSP is 21.9mmHg. Atria The left atrium size is normal. The right atrium size is normal. The interatrial septum is intact wit h no evidence for an atrial septal defect. Aortic Valve The Aortic valve is sclerotic. There is no aortic valvular stenosis. No aortic regurgitation is prese nt. Mitral Valve There is mitral annular calcification. No evidence of mitral valve stenosis. Moderate mitral regurgit ation. Tricuspid Valve The tricuspid valve is normal in structure. There is no tricuspid valve stenosis. Trace tricuspid reg urgitation. Pulmonic Valve The pulmonary valve is normal in structure. There is no pulmonic valvular stenosis. Trace pulmonic re gurgitation. Great Vessels The aortic root is normal in size. The ascending aorta is moderately dilated. Aortic arch is not well visualized. IVC is normal in size and collapses >50% with inspiration. Pericardium There is no pericardial effusion. 2D Dimensions IVSD d PLAX 1.13 cm M: 0.6-1.2 LV Vol A2C d MOD 243.3 mL LVPW d PLAX 1.18 cm M: 0.6 - 1.2 LV Vol A4C d MOD 197.2 mL LVID d PLAX 5.33 cm M: 4.2 - 5.8 LV EF A4C MOD 18.0 % LVDs 5.00 cm M: 2.5 - 4.0 LV EF A2C MOD 19.5 % Ao Root d 3.29 cm M: 3.1 - 3.7 LV EF Biplane MOD 18.7 % RA Area A4C 14.85 cm2 SV 42.59 mL RA Vol/ BSA A4C s A-L 20.9 mL/m2 SV Index 21.09 mL/m2 Ao Asc Diam d 4.15 cm M: 2.6 - 3.4 LV EF Teichholz 13.1 % LVEF (Márquez's) 18.65 % M: 52 - 72 LV Volume 170.70 mL M: 62 - 150 LV Volume Index 84.50 mL/m2 M: 34 - 74 LV Vol Biplane MOD 228.3 mL FS 5.85 % M-Mode TAPSE 2.54 cm (M/F) >1.7 LV Diastology MV E' medial 0.050 (>0.07 m/s) E/A Ratio 0.9 LV E/e MED 17.45 (<14) MV E Vmax 0.87 (0.4-1.3 m/s) MV E' lateral 0.059 (>0.1 m/s) MV A Vmax 0.95 (0.4-1.3 m/s) LV E/e LAT 14.80 (<14) MV E/A Ratio 0.89 MV E/E' medial 17.45 MV E/E' lateral 14.83 Aortic Valve LVOT Area 3.29 cm2 AoV Area Vmax 2.78 cm2 LVOT Vmax 0.86 m/s AoV Area/ BSA (Vmax) 1.38 cm2/m2 LVOT Mean Marcos. 0.64 m/s CHELY Mean Marcos. 2.57 cm2 LVOT Peak Grad 3.0 mmHg CHELY Mean Marcos. Index 1.27 cm2/m2 LVOT Mean Grad 1.8 mmHg LVOT VTI 0.156 m LVOT Diam s 2.00 cm AoV Vmax 1.02 m/s Velocity Ratio 0.84 AoV Mean Marcos. 0.82 m/s AoV Peak Grad 4.1 mmHg LVOT SV 51.23 mL AoV Mean Grad 2.8 mmHg AoV VTI 0.206 m AoV Area VTI 2.49 cm2 AoV Area/ BSA (VTI) 1.23 cm/m2 Mitral Valve MV DT 196 (160-240 msec) MR Vmax 4.60 m/s MV PHT 57 msec MR VTI 1.467 m MV Area PHT 3.88 cm2 MR Peak Grad 84.5 mmHg MV VTI 0.314 m MR Mean Grad 56.7 mmHg MV Area VTI 1.63 (4.0-6.0 cm2) Pulmonary Valve PV Vmax 0.62 (0.5-1.5 m/s) RVOT Peak Gr. 1.19 mmHg PV Peak Grad 1.5 mmHg RVOT Mean Gr. 0.65 mmHg PV Mean Grad 0.8 mmHg RVOT VTI 0.099 m PV VTI 0.102 m RVOT Vmax 0.54 m/s Tricuspid Valve TR Peak Grad 18.9 mmHg TR Vmax 2.18 m/s RA Pressure 3.00 mmHg RVSP (TR) 21.9 mmHg
[2022-06-19] MEDS: Perflutren Lipid Microspheres 1.5 ML VIAL IVP (09:40)
== END 2022-06-18 02:05 ==
LOC: DI 01:57
PROVIDERS: PCP Nurse Practitioner Family; Visit Provider Nurse Practitioner Family
DX: I50.9 Heart failure, unspecified (principal)
CPT/HCPCS: 93306; C8929

== ENCOUNTER 2022-07-10 13:47 | Outpatient (REF) | payer MEDICARE, SELFPAY ==
[2022-07-10 10:49] LABS: Hemoglobin A1C 6.2 % (<5.7)
[2022-07-10 10:55] LABS: ALT 18 U/L (16-63); AST 17 U/L (15-37); Albumin 3.7 g/dL (3.4-5.0); Alkaline Phosphatase 109 U/L (46-116); Anion Gap 10.4 mmol/L (3-11); BUN 34 mg/dL (7-18); Bilirubin, Total 0.4 mg/dL (0.2-1.0); CO2 24.6 mmol/L (21.0-32.0); CREATININE 2.5 mg/dL (0.70-1.30); Calcium 8.9 mg/dL (8.5-10.1); Chloride 102 mmol/L (98-107); Estimated GFR 26.14 (mL/min/1.73m2); Glucose 228 mg/dL (74-106); Potassium 3.4 mmol/L (3.5-5.1); Sodium 137 mmol/L (136-145); Total Protein 6.9 g/dL (6.4-8.2)
== END 2022-07-10 13:48 | disposition home or self-care (01) ==
LOC: NCHCN 13:47
PROVIDERS: PCP Nurse Practitioner Family; Visit Provider Nurse Practitioner Family
DX: N18.32 Chronic kidney disease, stage 3b (principal); E83.42 Hypomagnesemia; I10 Essential (primary) hypertension; R74.8 Abnormal levels of other serum enzymes; E11.9 Type 2 diabetes mellitus without complications
CPT/HCPCS: 80053; 83036

== ENCOUNTER 2022-08-02 16:43 | Outpatient (REF) | payer MEDICARE, SELFPAY ==
[2022-08-02 16:24] LABS: Anion Gap 7.6 mmol/L (3-11); BUN 34 mg/dL (7-18); CO2 27.4 mmol/L (21.0-32.0); CREATININE 2.6 mg/dL (0.70-1.30); Chloride 106 mmol/L (98-107); Estimated GFR 24.94 (mL/min/1.73m2); Glucose 133 mg/dL (74-106); Potassium 3.9 mmol/L (3.5-5.1); Sodium 141 mmol/L (136-145)
== END 2022-08-02 16:44 | disposition home or self-care (01) ==
LOC: NCHCN 16:43
PROVIDERS: PCP Nurse Practitioner Family; Visit Provider Nurse Practitioner Family
DX: I10 Essential (primary) hypertension (principal); N18.32 Chronic kidney disease, stage 3b; E11.9 Type 2 diabetes mellitus without complications; R74.8 Abnormal levels of other serum enzymes; I50.9 Heart failure, unspecified
CPT/HCPCS: 80048

== ENCOUNTER 2022-09-06 01:21 | Outpatient (RCR) | payer MEDICARE, SELFPAY ==
[2022-09-06] MEDS: Denosumab 60 MG/ML SYR SC (10:14)
== END 2022-09-29 23:59 | disposition home or self-care (01) ==
LOC: INF 01:21
PROVIDERS: PCP Nurse Practitioner Family; Visit Provider Nurse Practitioner Acute Care
DX: M81.0 Age-related osteoporosis without current pathological fracture (principal)
CPT/HCPCS: 96372; J0897

== ENCOUNTER 2022-09-16 11:06 | Outpatient (REF) | payer MEDICARE, SELFPAY ==
[2022-09-16 07:47] LABS: Anion Gap 13.2 mmol/L (3-11); BUN 29 mg/dL (7-18); CO2 20.8 mmol/L (21.0-32.0); CREATININE 2.6 mg/dL (0.70-1.30); Calcium 7.3 mg/dL (8.5-10.1); Chloride 108 mmol/L (98-107); Estimated GFR 24.94 (mL/min/1.73m2); Glucose 179 mg/dL (74-106); Magnesium 2.5 mg/dL (1.8-2.4); Potassium 3.4 mmol/L (3.5-5.1); Sodium 142 mmol/L (136-145)
[2022-09-16 08:24] LABS: Vitamin D 25 Total 41.4 ng/mL (30-100)
== END 2022-09-16 11:07 | disposition home or self-care (01) ==
LOC: LBN 11:06
PROVIDERS: PCP Nurse Practitioner Family; Visit Provider Internal Medicine Endocrinology, Diabetes & Metabolism
DX: M81.8 Other osteoporosis without current pathological fracture (principal)
CPT/HCPCS: 80048; 82306; 83735

== ENCOUNTER 2022-10-03 18:22 | Outpatient (REF) | payer MEDICARE, SELFPAY ==
[2022-10-03 19:08] LABS: Albumin 3.5 g/dL (3.4-5.0)
== END 2022-10-03 18:23 | disposition home or self-care (01) ==
LOC: LBN 18:22
PROVIDERS: PCP Nurse Practitioner Family; Visit Provider Internal Medicine Endocrinology, Diabetes & Metabolism
DX: M81.8 Other osteoporosis without current pathological fracture (principal)
CPT/HCPCS: 82040; 82310

== ENCOUNTER 2022-10-15 08:22 | Inpatient (IN) | payer MEDICARE, SELFPAY ==
[2022-10-15] VITALS (93 sets, daily range): BP systolic 99–151; BP diastolic 55–99; PULSE 90–107; RESP 6–32; TEMP 36.8–37.7; O2SAT 89–98
--- NOTE | 2022-10-15 08:15 | RT.EKG_ITS ---
APPROVED REPORT Exam: Resting ECG Reason for Exam: sob Patient Location: E HR:99 bpm ECG Measurements Heart Rate 99 AXIS IA 163 P 72 QRSd 90 QRS 30 QT 389 T 99 QTc 499 Conclusion Sinus rhythm...normal P axis, V-rate 60- 99 Ventricular premature complex...V complex w/ short R-R interval Low voltage, extremity leads...all extremity leads <0.5mV Nonspecific repol abnormality, diffuse leads...ST dep, T flat/neg, ant/lat/inf sinus rhythm, normal axis, PVC, t wave inversions V5 V6
--- NOTE | 2022-10-15 08:30 | DI.RAD_ITS ---
Exam(s) XR PORTABLE CHEST AP EXAM: XR PORTABLE CHEST AP CLINICAL HISTORY: sob, chf TECHNIQUE: 2D digital imaging was performed of the chest. One image was obtained. An AP view was ob tained. COMPARISON: CR XR PORTABLE CHEST AP from 06/06/2022 FINDINGS: MEDIASTINUM: Normal. HEART: Normal. PULMONARY VASCULATURE: There is prominence of the pulmonary vasculature. LUNGS: Bilateral pulmonary opacities, right greater than left. PLEURAL SPACE: There are bilateral pleural effusions with blunting of the costophrenic angles, right greater than left. BONE:Within normal limits for the patient's age. OTHER FINDINGS:Normal. IMPRESSION: Pulmonary venous congestion and bilateral pulmonary infiltrates with small effusions bilaterally, rig ht greater than left. The findings are suspicious for congestive heart failure. DATA REPOSITORY: RADIATION DOSE DELIVERED:
[2022-10-15] MEDS: Furosemide 100 MG/10 ML VIAL 80 MG IVP (08:36)
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
[2022-10-15 08:41] LABS: Abs Immature Grans 0.04 10^3/uL (0.0-0.06); Absolute Basophil Count 0.06 10^3/uL (0.0-0.2); Absolute Eosinophil Count 0.17 10^3/uL (0.0-0.7); Absolute Lymphocyte Count 0.94 10^3/uL (1.2-3.4); Absolute Monocyte Count 0.62 10^3/uL (0.1-0.8); Absolute Neutrophil Count 7.64 10^3/uL (1.2-6.7); Basophils % 0.6; Eosinophils % 1.8; HCT 34.9 % (40.0-50.0); HGB 11.4 g/dL (13.5-17.5); Immature Grans % 0.4; Lymphocytes % 9.9; MCH 30.1 pg (27.0-33.0); MCHC 32.7 % (32.0-36.0); MCV 92 fL (80-95); MPV 10.8 fL (8.0-11.0); Monocytes % 6.5; Neutrophils % 80.8; Platelet Count 237 10^3/uL (130-400); RBC 3.79 10^6/uL (4.36-5.78); RDW 17.5 % (11.8-14.1); RDW-SD 59.5 fL; WBC 9.47 10^3/uL (4.4-10.8)
[2022-10-15 08:55] LABS: INR 1.1 (0.9-1.1); PTT Activated 26.6 sec (21.5-31.9); Prothrombin Time 11.3 sec (9.3-11.0)
[2022-10-15 09:07] LABS: ALT 10 U/L (16-63); AST 10 U/L (15-37); Albumin 3.7 g/dL (3.4-5.0); Alkaline Phosphatase 93 U/L (46-116); Anion Gap 11.2 mmol/L (3-11); BUN 23 mg/dL (7-18); Bilirubin, Total 1.1 mg/dL (0.2-1.0); CO2 18.8 mmol/L (21.0-32.0); CREATININE 2.5 mg/dL (0.70-1.30); Chloride 110 mmol/L (98-107); Estimated GFR 26.14 (mL/min/1.73m2); Glucose 143 mg/dL (74-106); NT-proBNP 5665 pg/mL (<300); Potassium 3.5 mmol/L (3.5-5.1); Sodium 140 mmol/L (136-145); TSH (W/Ref FT4) 1.72 uIU/mL (0.36-3.74); Total Protein 7.5 g/dL (6.4-8.2); Troponin I < 50 ng/L (<or=60)
--- NOTE | 2022-10-15 11:30 | RT.EKG_ITS ---
APPROVED REPORT Exam: Resting ECG Reason for Exam: SOB- Repeat EKG Patient Location: E HR:102 bpm ECG Measurements Heart Rate 102 AXIS NV 166 P 63 QRSd 88 QRS 24 QT 384 T 159 QTc 499 Conclusion Sinus tachycardia...rate> 99 Atrial premature complex...SV complex w/ short R-R interval sinus rhythm, normal axis, consider st depression V6
[2022-10-15 11:50] LABS: Troponin I < 50 ng/L (<or=60)
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
--- NOTE | 2022-10-15 13:08 | NUR.NOTE ---
Nursing Note: this Rn gave report to [facility], RN and transported patient to ICU with RT on Tele monitor
[2022-10-15] MEDS: Enoxaparin 30 MG/0.3 ML SYR SC (15:46)
[2022-10-15 16:49] LABS: Troponin I 50 ng/L (<or=60)
[2022-10-15 18:04] LABS: BE (Venous) -5 mmol/L (-2-3); HCO3 (Venous) 20 mmol/L (23-28); O2 Sat (Venous) 98 %; TCO2 (Venous) 19 mmol/L (24-29); pCO2 (Venous) 33 mmHg (41-51); pH (Venous) 7.39 (7.31-7.41); pO2 (Venous) 81 mmHg
[2022-10-15 18:06] LABS: Lactate 0.7 mmol/L (0.6-1.4)
[2022-10-15] MEDS: Atorvastatin 40 MG TAB 80 MG PO (20:16)
[2022-10-15] MEDS: Gabapentin 300 MG CAP PO (20:16)
[2022-10-16] VITALS (56 sets, daily range): BP systolic 95–132; BP diastolic 57–97; PULSE 81–104; RESP 7–36; TEMP 35.8–37.4; O2SAT 87–97
[2022-10-16 07:27] LABS: Abs Immature Grans 0.04 10^3/uL (0.0-0.06); Absolute Basophil Count 0.06 10^3/uL (0.0-0.2); Absolute Eosinophil Count 0.34 10^3/uL (0.0-0.7); Absolute Lymphocyte Count 1.18 10^3/uL (1.2-3.4); Absolute Monocyte Count 0.75 10^3/uL (0.1-0.8); Absolute Neutrophil Count 6.52 10^3/uL (1.2-6.7); Basophils % 0.7; Eosinophils % 3.8; HCT 38.5 % (40.0-50.0); HGB 12.4 g/dL (13.5-17.5); Immature Grans % 0.4; Lymphocytes % 13.3; MCH 29.6 pg (27.0-33.0); MCHC 32.2 % (32.0-36.0); MCV 92 fL (80-95); MPV 11.1 fL (8.0-11.0); Monocytes % 8.4; Neutrophils % 73.4; Platelet Count 248 10^3/uL (130-400); RBC 4.19 10^6/uL (4.36-5.78); RDW 17.2 % (11.8-14.1); RDW-SD 58.1 fL; WBC 8.89 10^3/uL (4.4-10.8)
[2022-10-16 08:02] LABS: ALT 11 U/L (16-63); AST 8 U/L (15-37); Albumin 3.7 g/dL (3.4-5.0); Alkaline Phosphatase 97 U/L (46-116); Anion Gap 11.9 mmol/L (3-11); BUN 22 mg/dL (7-18); Bilirubin, Total 1.3 mg/dL (0.2-1.0); CO2 25.1 mmol/L (21.0-32.0); CREATININE 2.6 mg/dL (0.70-1.30); Calculated LDL 15 mg/dL (<100); Chloride 107 mmol/L (98-107); Cholesterol 68 mg/dL (<200); Estimated GFR 24.94 (mL/min/1.73m2); Glucose 82 mg/dL (74-106); HDL Cholesterol 40 mg/dL (40-60); Sodium 144 mmol/L (136-145); Total Protein 7.6 g/dL (6.4-8.2); Triglyceride 66 mg/dL (<150)
--- NOTE | 2022-10-16 08:03 | W.PM.PROGNOT ---
Date of Service Date of service: 10/16/22 Time of Service: 07:30 Assessment and Plan Assessment and plan (1) Acute on chronic heart failure with reduced ejection fraction and diastolic dysfunction: Status: Acute Assessment and plan: patient has responded well to iv lasix and his acute pulmonary edema has resolved. Now will transition to oral diuretics and work on goal directed therapy adding low dose BB and spironolactone. If renal fxn remains stable then consider low dose ROBERT-I or ARB and addition of SGLT antagonist. No ACS this admission as evidenced by multiple negative troponin I levels. Consider outpatient stress MPI to further evaluate risks. Continue daily aspirin along w/ statin. Critical care time spent interviewing and examining the patient, reviewing studies, discussing case with patient's nurse and consulting physicians was 35 minutes (2) Chronic kidney disease: Status: Acute Assessment and plan: monitor urine output and daily BMP. add low dose Jardiance for CHF as well as DM management. Because of his GFR in the 20's, I will start at 10 mg daily. continue to monitor his urine output as he transitions to oral diuretics. (3) Dysarthria: Status: Chronic Assessment and plan: secondary to post CVA effects but he is able to communicate w/ gestures and writing and he has no trouble understanding speech (4) Dysphagia: Status: Acute Assessment and plan: previous dysphagia which has improved over the years. will place on soft small bites diet w/ thin liquids. If he has problem with this then will consult [employer] (5) Essential hypertension: Status: Acute Assessment and plan: monitor. once he is out of acute HF then will add BB and either ROBERT-I or ARB (6) Type 2 diabetes mellitus with complication: Status: Chronic Assessment and plan: hold dulaglutide for now and cover w/ novolog SSI (7) DVT prophylaxis: Status: Acute Assessment and plan: Enoxaparin subcutaneous 30 mg daily (8) Palliative care patient: Status: Chronic Assessment and plan: I reaffirmed w/ him that he want to be full code. He is known patient of palliative care team and last met Dr. Do on 08/28/22 who went over his advanced directives and at that time he declined to appoint a DPOA and requested to be full code and his COLST form was changed at that time. (9) Discharge planning issues: Status: Acute Assessment and plan: Nursing informs me that management at [facility] will not accept him back the ED and not feel that he is appropriate for assisted living and furthermore he apparently had given them his 30-day notice that he intended to leave the facility. I will ask case management to look in to discharge planning. We will get physical therapy to work with him and evaluate his ADL performance and gait stability. Patient remains a full code per his wishes. Subjective Subjective Interval history since last seen: Patient states that he feels much better. Dyspnea has resolved. He has been weaned down to 2 LPM oxygen. No CP. Exam Narrative Exam Narrative: He is alert and oriented. He thanked me for helping him to feel better. I explained to him that we are going to dc the lasix drip and get him back on oral diuretics HEENT: other than his dysarthria, is unremarkable Neck: no overt JVD Lungs: clear to ausculatation anteriorly and at the bases laterally Heart: RRR, no m, r, g Abdomen: soft, nontender, normal bowel sounds, nondistended Legs: trace of edema but markedly improved Morgan draining clear yellow urine U.O. 4500 mL yesterday and 3100 mL since last night Objective Last Vital Signs Temp 35.8 C L 10/16/22 03:24 Pulse 89 10/16/22 04:00 Resp 24 10/16/22 04:53 BP 124/66 10/16/22 04:00 Pulse Ox 95 10/16/22 07:35 Laboratory Results - last 24 hr 10/15/22 10/15/22 10/15/22 08:30 08:30 08:30 WBC 9.47 RBC 3.79 L Hgb 11.4 L Hct 34.9 L MCV 92 MCH 30.1 MCHC 32.7 RDW 17.5 H Plt Count 237 MPV 10.8 Immature Gran % 0.4 Neutrophils % 80.8 Lymphocytes % 9.9 Monocytes % 6.5 Eosinophils % 1.8 Basophils % 0.6 Nucleated RBC % 0.0 Absolute Neutrophils 7.64 H Absolute Lymphocytes 0.94 L Absolute Monocytes 0.62 Absolute Eosinophils 0.17 Absolute Basophils 0.06 PT 11.3 H INR 1.1 APTT 26.6 VBG pH VBG pCO2 VBG pO2 VBG HCO3 VBG Total CO2 VBG O2 Saturation VBG Base Excess VBG Lactate Sodium 140 Potassium 3.5 Chloride 110 H Carbon Dioxide 18.8 L Anion Gap 11.2 H BUN 23 H Creatinine 2.5 H Est GFR (CKD-EPI 2020) 26.14 Glucose 143 H Calcium 8.0 L Total Bilirubin 1.1 H AST 10 L ALT 10 L Alkaline Phosphatase 93 Troponin I < 50 NT-Pro-B Natriuret Pep 5665 H Total Protein 7.5 Albumin 3.7 TSH 1.72 10/15/22 10/15/22 10/15/22 11:26 16:25 17:53 WBC RBC Hgb Hct MCV MCH MCHC RDW Plt Count MPV Immature Gran % Neutrophils % Lymphocytes % Monocytes % Eosinophils % Basophils % Nucleated RBC % Absolute Neutrophils Absolute Lymphocytes Absolute Monocytes Absolute Eosinophils Absolute Basophils PT INR APTT VBG pH VBG pCO2 VBG pO2 VBG HCO3 VBG Total CO2 VBG O2 Saturation VBG Base Excess VBG Lactate 0.7 Sodium Potassium Chloride Carbon Dioxide Anion Gap BUN Creatinine Est GFR (CKD-EPI 2020) Glucose Calcium Total Bilirubin AST ALT Alkaline Phosphatase Troponin I < 50 50 NT-Pro-B Natriuret Pep Total Protein Albumin TSH 10/15/22 10/16/22 17:53 06:03 WBC 8.89 RBC 4.19 L Hgb 12.4 L Hct 38.5 L MCV 92 MCH 29.6 MCHC 32.2 RDW 17.2 H Plt Count 248 MPV 11.1 H Immature Gran % 0.4 Neutrophils % 73.4 Lymphocytes % 13.3 Monocytes % 8.4 Eosinophils % 3.8 Basophils % 0.7 Nucleated RBC % 0.0 Absolute Neutrophils 6.52 Absolute Lymphocytes 1.18 L Absolute Monocytes 0.75 Absolute Eosinophils 0.34 Absolute Basophils 0.06 PT INR APTT VBG pH 7.39 VBG pCO2 33 L VBG pO2 81 VBG HCO3 20 L VBG Total CO2 19 L VBG O2 Saturation 98 VBG Base Excess -5 L VBG Lactate Sodium Potassium Chloride Carbon Dioxide Anion Gap BUN Creatinine Est GFR (CKD-EPI 2020) Glucose Calcium Total Bilirubin AST ALT Alkaline Phosphatase Troponin I NT-Pro-B Natriuret Pep Total Protein Albumin TSH Time Spent with Patient Time Spent with Patient: 35-49 minutes Time was spent: preparing to see the patient(eg.review tests), referring, communicating with other health care specialist, indepentently interpreting results, counseling the patient and care coordination
[2022-10-16 08:04] LABS: Potassium 2.9 mmol/L (3.5-5.1)
[2022-10-16 08:42] LABS: Lab Add On Test DONE
[2022-10-16 08:49] LABS: Magnesium 1.9 mg/dL (1.8-2.4)
[2022-10-16] MEDS: amLODIPine 10 MG TAB PO (09:13)
[2022-10-16] MEDS: Aspirin E.C. 81 MG TABEC PO (09:14)
[2022-10-16] MEDS: Potassium Chloride 10 MEQ CAPCR 40 MEQ PO (09:15)
[2022-10-16] MEDS: Tamsulosin 0.4 MG CAPCR PO (09:19)
[2022-10-16] MEDS: Metoprolol 12.5 MG TAB PO ×3 (09:19→20:29)
[2022-10-16] MEDS: Gabapentin 300 MG CAP PO ×2 (09:19→20:29)
[2022-10-16] MEDS: FLUoxetine 10 MG TAB PO (09:19)
[2022-10-16] MEDS: buPROPion-XL 150 MG TABCR PO (09:19)
[2022-10-16] MEDS: Spironolactone 25 MG TAB PO (09:20)
[2022-10-16] MEDS: Normal Saline Flush 10 ML SYR IVP ×2 (09:22→20:34)
[2022-10-16] MEDS: Empaglifozin 10 MG TAB PO (09:32)
[2022-10-16] MEDS: Torsemide 20 MG TAB 40 MG PO (12:56)
[2022-10-16] MEDS: Potassium Chloride 10 MEQ CAPCR 20 MEQ PO ×3 (12:56→20:29)
[2022-10-16] MEDS: Cholecalciferol (Vitamin D3) 1,000 UNIT TAB 1000 UNITS PO (12:56)
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
[2022-10-16] MEDS: Enoxaparin 30 MG/0.3 ML SYR SC (14:24)
[2022-10-16 14:28] LABS: Potassium 3.1 mmol/L (3.5-5.1)
--- NOTE | 2022-10-16 15:49 | CHAPLAIN ---
I visited with Cl when he was in the ICU, then later this afternoon when he moved to med/surg. Cl communicates mostly by writing. He wrote a note telling me that his nephew Antoni was in to visit earlier today and that he loves Antoni and he's a good cecille. Cl asked for a prayer before I left so we prayed together. I brought him a prayer shawl later in the day. Cinthia Constantino NP, from Palliative Care, said that Cl had to told her that he is a L[employer]-day and asked about connecting with Rivka Berry, a Latter-day from [facility]. I don't recognize [facility], but tried calling the person from the [facility] that I know to see if he knows Rivka Berry. His phone's mailbox is full. I will keep trying.
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
--- NOTE | 2022-10-16 17:05 | NUR.NOTE ---
Nursing Note: spoke with clyde, family member, about [facility] refusal of pt after d/c, working with case mnngt to find different placement. family denies any additional questions
--- NOTE | 2022-10-16 17:20 | NUR.NOTE ---
Nursing Note: @[phone], this rn notified charge nurse rosalee that pt was refusing murray cath removal. this rn asked pt to follow up with primary provider and asked for f/u with any new orders.
[2022-10-16] MEDS: Atorvastatin 40 MG TAB 80 MG PO (20:30)
--- NOTE | 2022-10-17 | DI.RAD_ITS ---
Exam(s) XR KNEE LT 4V AP,LAT,CANDY,PAT EXAM: XR KNEE LT 4V AP,LAT,CANDY,PAT CLINICAL HISTORY: left knee pain. TECHNIQUE: 2D digital imaging was performed. Four images were obtained. Merchant's, AP, AP tunnel a nd lateral views were obtained. COMPARISON: CR XR KNEE LT 3V AP,LAT,CANDY from 12/25/2020 FINDINGS: BONES: There are stable post operative changes present. No fracture or dislocation. JOINTS: The orthopedic hardware is in good position. No evidence of hardware loosening. SOFT TISSUE: Atherosclerosis is present. IMPRESSION: Stable postoperative changes. DATA REPOSITORY: RADIATION DOSE DELIVERED:
[2022-10-17 03:18] VITALS: BP 90/52; PULSE 82; RESP 20; TEMP 37; O2SAT 93
[2022-10-17 06:46] LABS: Anion Gap 9.9 mmol/L (3-11); BUN 30 mg/dL (7-18); CO2 24.1 mmol/L (21.0-32.0); CREATININE 3.2 mg/dL (0.70-1.30); Chloride 105 mmol/L (98-107); Estimated GFR 19.44 (mL/min/1.73m2); Glucose 121 mg/dL (74-106); Magnesium 1.9 mg/dL (1.8-2.4); Potassium 3.7 mmol/L (3.5-5.1); Sodium 139 mmol/L (136-145)
[2022-10-17 06:54] LABS: NT-proBNP 12874 pg/mL (<300)
[2022-10-17 07:24] VITALS: BP 95/60; PULSE 83; RESP 22; TEMP 36.7; O2SAT 96
[2022-10-17] MEDS: Acetaminophen 325 MG TAB PO ×2 (07:29→17:39)
[2022-10-17] MEDS: Aspirin E.C. 81 MG TABEC PO (08:32)
[2022-10-17] MEDS: Potassium Chloride 10 MEQ CAPCR 20 MEQ PO ×3 (08:32→20:03)
[2022-10-17] MEDS: buPROPion-XL 150 MG TABCR PO (08:32)
[2022-10-17] MEDS: Gabapentin 300 MG CAP PO ×2 (08:33→20:03)
[2022-10-17] MEDS: Tamsulosin 0.4 MG CAPCR PO (08:33)
[2022-10-17] MEDS: FLUoxetine 10 MG TAB PO (08:33)
--- NOTE | 2022-10-17 09:49 | CMPROGNOTE_ITS ---
Date of service: 10/17/22 Time of Service: 09:50 Care Management Progress Note Progress Note Text Progress Note Text: S/O: Cl would still like to discharge to [facility], where his friend Yumi from the [facility] recently moved. CM sent to [facility], [facility], [facility] and the [facility]. Per PT, pt reports 10/10 left knee pain after walking a short distance and they recommend a consult with Ortho, CM notified M.D. CM will follow. A: 77 year old male admitted to [facility] on 10/15/22 for Acute on chronic heart failure with reduced ejection fraction and diastolic dysfunction P: CM will attempt to relocate Cl at his request, qualifying stay will be needed. Alternatively, Cl may need to return to the [facility] where he resides, while awaiting alternate placement. PT evaluation is ordered, awaiting discharge recommendations.? CM will follow.
--- NOTE | 2022-10-17 10:09 | W.NUTRFU ---
Date of service: 10/17/22 Time of Service: 10:10 Nutrition Note NOTE: Cl is not considered at nutritional risk. Weight stable and wnl and meeting macronutrient requirements. Will continue to follow. Time Spent in Nutritional Counseling and Treatment: 0
--- NOTE | 2022-10-17 10:15 | IN_ITS ---
PT Notes Visit Reasons: Acute pulmonary adema,acute on chronic CHF Inpatient Physical Therapy Evaluation Date: 10/17/22 Referring Doctor: Dr. Vides PT Orders: PT CONSULT: evaluate for discharge planning Precautions: fall, standard Patient Profile/Admitting Diagnosis: Patient admitted 10/15/22 after presenting to ER with shortness of breath. Admitted for medical management of acute on chronic heart failure. He is a resident of [facility]. PMHX: All Active Problems? DVT prophylaxis (Acute) Discharge planning issues (Acute) Acute on chronic heart failure with reduced ejection fraction and diastolic dysfunction (Acute) Advanced care planning/counseling discussion (Acute) Ascending aorta dilation (Acute) Arthrofibrosis of total knee arthroplasty (Acute) Painful total knee replacement, left (Acute) Chronic pain of left knee (Acute) Social isolation (Chronic) befriended resident [place] in assisted living (Chronic) [facility] Chronic dental infection (Acute) DNI (do not intubate) (Acute) DNR (do not resuscitate) (Acute) POLST (Physician Orders for Life-Sustaining Treatment) (Acute) signed March 2020: DNR/DNI, do not transfer nephhong Corrales is health care agentHistory of alcohol dependence (Acute) Dysarthria (Chronic) communication difficult; CI staff able to understand him pretty well, plus he can write his concerns/questionsGoals of care, counseling/discussion (Acute) Palliative care patient (Chronic) Swallowing dysfunction (Chronic) Hyperkalemia (Acute) Depression (Chronic 12/02/17) Lumbar spinal stenosis (Acute) Osteoporosis (Chronic 09/2018) Dx per compression Fx identified on 10/27/18 XR report. Bisphosphonate Tx in order, referring to bone clinic. Dexa (11/24/18) for follow up/monitoring [shows L Hip Osteoporosis & Compr Fx]. Recommending keeping pain clinic for possible Tx plan via injections/medication. SEVERE OSTEO Dx per Endo (Dr. Izzy Child, 12/14/18).. starting Forteo [ ]Compression fracture of lumbar spine, non-traumatic (Acute ~09/2018) ID'd on XR (10/27/18): multiple old compression deformities (L1 20% loss)(L2 50- 60%)(L4 30-40%). Possile bisphosphonate Tx (inject'n vs po per [facility]).Back pain due to injury (Acute 08/2018) Adenoma of colon (Acute 12/02/17) History of total left knee replacement (TKR) (Chronic) Orthopedic Surgery, TKR (Left) Jul 2018 Type 2 diabetes mellitus with complication (Chronic) A1C 6.6 (06/04/18) since re-starting Metformin. Metformin had been D/C'd during malnutrition phase .. since resolved. 07/01/18 ik .. Hx DM with hypoglycemia 2' malnutrition post CVA. weight regained. A1C 7.5 03/12/18 A1C? 6.1 09/17/18 GREAT.Osteoarthritis of knee (Acute 12/02/17) Hyperlipidemia (Acute 12/02/17) Atorvastatin tolerated. Chart review shows chol WNL while on Atorvastatin 80mg [Chol 100, HDL 51, TRIG < Mar] .. Planned Mar 2018, orders missed, re- entered [ ] .Essential hypertension (Acute 12/02/17) Well controlled. 07/01/18 ikDysphagia (Acute 12/02/17) Dysarthria and anarthria (Acute 12/02/17) Coronary artery disease with angina pectoris (Acute 12/02/17) Chronic kidney disease (Acute 12/02/17) Hx elevated Cr pressure hydrocephalus (Acute 12/02/17) Anemia (Acute) Social History/Home Situation: Has been residing at [facility], although with increasing care needs. He has planned departure from that living situation on 10/30/22. Baseline mobility difficult to determine; via handwritten notes, it sounds as though he's walking short distances with a FWW and occasionally using wheelchair. Equipment Owned/DME: FWW Subjective: Cl communicates via written notes and head nods. He is agreeable to getting up. States that he's been walking around his room a bit on his own, as he does not like to wait for nursing. His primary complaint is of l eft knee dysfunction. States that it has never been right since it was replaced. Objective: General Observation: Resting in bed, fully dressed. No lines. Mental Status: A&Ox3. Expresses frustration with his current state, particularly dissatisfaction with surgical outcomes from his knee replacement. ROM: Right Upper Extremity: Shoulder flexion 140*. Elbow, wrist and hand motion WFL. Left Upper Extremity: Shoulder flexion to 120*. Elbow, wrist and hand motion WFL. Right Lower Extremity: WFL Left Lower Extremity: -20* knee extension. Flexion to 100*. Strength: Right Upper Extremity: Flexion 3-/5. Biceps 4/5. Triceps 4/5. Left Upper Extremity: Flexion 3-/5. Biceps 4/5. Triceps 4-/5. Right Lower Extremity: Hip flexion 4+/5. Quads 5/5. Ankle DF 5/5. Left Lower Extremity: Hip flexion 4/5. Quads 3+/5 within available range. Ankle DF 3+/5. Bed Mobility/Transfers: supine-sit: independent sit-stand: independent stand-sit: supervision, with poor safety awareness and technique during transfer. Gait: Ambulates 50' with FWW, CGA initially, increasing to min A as he fatigues. Poor left foot clearance during ambulation, and increasing buckling as he fatigues. Requires max cues and intermittent assist to walker for FWW managemen t. Balance: Static Sitting: good Dynamic Sitting: good Static Standing: good Dynamic Standing: fair Special Tests: Mobility Limitations Standardized Measure [facility] AM-PAC 6 clicks Basic Mobility Inpatient Short Form: Raw Score: 18 CMS Score: 47% impairment Informed Consent/Education: Patient instructed in purpose of PT consult and plan of care. Treatment: Therapeutic Activities ([id number]): Safety training during transfers and ambulation with FWW Transfer training with use of FWW Assessment: Patient is referred to physical therapy services with the diagnosis of mobility impairments during acute care hospitalization for management of acute on chronic CHF. Patient presents with clinical signs and symptoms consistent with diagnosis, complicated by chronic mobility issues related to left knee ROM restrictions, and global LLE weakness. He has been a resident of [facility], however anticipate need for higher level of care given his current presentation and limitations in safety awareness. He currently demonstrates the following impairment level findings: 1. decreased left knee ROM 2. decreased LLE strength 3. decreased activity tolerance 4. decreased safety awareness Impairments are contributing to the following functional limitations: 1. unable to ambulate independently 2. unable to tolerate ambulation >50' Patient is assessed as Moderate 86206 complexity based on the following: History: Patient is a 77 year old male with chronic mobility issues, presenting with decreased mobility during hospitalization for medical management of acute on chronic CHF. He requires assistance with ambulation due to limitations in safety awareness and stability of LLE. Examination: functional limitations as above Presentation: evolving Decision Making: moderate complexity Goals: Goals X1 week 1. Supine-Sit : independent 2. Sit-Supine : independent 3. Sit-Stand : independent 4. Stand-Sit : independent with improved safety awareness and consistent demonstration of good technique 5. Bed-Chair : FWW with supervision 6. Chair-Bed : FWW with supervision 7. Gait : FWW with supervision x 50' Plan of Care/Treatment Plan: 1-2x/day, 7 days/week x 1 week. Plan of care has been reviewed with the [employer] providing the service under Physical Therapy direction. Initiate Physical Therapy intervention for strengthening, bed mobility, transfers, gait, stairs, balance training, use of assistive device. DISCHARGE RECOMMENDATIONS: SNF versus LTC based on ability to participate and progress TREATMENT CODE/TIME: 10:15 - 10:50 ([id number], [id number]) Vita Artis, PT, DPT [facility]
[2022-10-17 11:17] VITALS: BP 106/67; PULSE 80; RESP 14; TEMP 35.6; O2SAT 98
[2022-10-17] MEDS: Insulin Aspart 300 UNITS/3 ML PEN SC ×2 (11:50→17:11)
[2022-10-17] MEDS: Enoxaparin 30 MG/0.3 ML SYR SC (13:40)
[2022-10-17] MEDS: Metoprolol 12.5 MG TAB PO (13:40)
--- NOTE | 2022-10-17 14:15 | PGE_ITS ---
Date of Service Date of service: 10/17/22 Time of Service: 14:15 Assessment and Plan Assessment and plan (1) Acute on chronic heart failure with reduced ejection fraction and diastolic dysfunction: Status: Acute Assessment and plan: Baseline HFREF w/ LVEF 20 TO 25% and global HK and moderate MR but no PHTN as of 06/18/22. I held his diuretics today as he was getting prerenal azotemia w/ BUN 30 and creatinine of 3.2 up from his baseline of 2.5. Will recheck his BMP in the morning and resume his oral diuretics. He has lost 11 kg (down from 82.1 kg to 71.2 kg and his I/O is net negative 10.3 liters. Once he has become euvolemic then proceed w/ GDT including an SGLT2 inhibitor, consider ROBERT-I or ARB when creatinine has stabilized. I have put him on low dose lopressor. (2) Chronic kidney disease: Status: Acute Assessment and plan: holding diuretic for now. repeat BMP tomorrow (3) Essential hypertension: Status: Acute (4) Type 2 diabetes mellitus with complication: Status: Chronic Assessment and plan: hold dulaglutide for now and cover w/ novolog SSI (5) DVT prophylaxis: Status: Acute Assessment and plan: Enoxaparin subcutaneous 30 mg daily (6) Palliative care patient: Status: Chronic Assessment and plan: I reaffirmed w/ him that he want to be full code. He is known patient of [facility] care team and last met Dr. Do on 08/28/22 who went over his advanced directives and at that time he declined to appoint a DPOA and requested to be full code and his COLST form was changed at that time. (7) Discharge planning issues: Status: Acute Assessment and plan: Nursing informs me that management at [facility] will not accept him back the ED and not feel that he is appropriate for assisted living and furthermore he apparently had given them his 30-day notice that he intended to leave the facility. I will ask case management to look in to discharge planning. We will get physical therapy to work with him and evaluate his ADL performance and gait stability. Patient remains a full code per his wishes. (8) Left knee pain: Assessment and plan: chronic L knee pain despite prior TKA. P.T. requested orthopedic consultation w/ Dr. William. I have ordered voltaren gel and ordered an xray which did not show any fracture or dislocation or loosening of hardware. Subjective Subjective Interval history since last seen: Patient states that his breathing has improved. He is not dyspneic at rest or w/ transfers in/out of bed. No cough or sputum production Exam Narrative Exam Narrative: Elderly white male who is alert and oriented, sitting up in his chair watching TV Lungs: bilateral basilar rales Heart: RRR Abdomen: benign Legs: edema has improved, now down to trace Objective Last Vital Signs Temp 35.6 C L 10/17/22 11:17 Pulse 80 10/17/22 11:17 Resp 14 10/17/22 11:17 BP 106/67 10/17/22 11:17 Pulse Ox 98 10/17/22 11:17 Laboratory Results - last 24 hr 10/16/22 10/17/22 10/17/22 13:55 06:05 06:05 Sodium 139 Potassium 3.1 L 3.7 Chloride 105 Carbon Dioxide 24.1 Anion Gap 9.9 BUN 30 H Creatinine 3.2 H Est GFR (CKD-EPI 2020) 19.44 Glucose 121 H Calcium 8.0 L Magnesium 1.9 NT-Pro-B Natriuret Pep 89666 H Reviewed Pertinent PMH: Yes Objective Narrative Objective Narrative: BMP demonstreates worening renal fxn. I have put his diuretic on hold for today Time Spent with Patient Time Spent with Patient: 25-34 minutes Time was spent: preparing to see the patient(eg.review tests), ordering medications,tests, procedures, referring, communicating with other health health care facility administrator, indepentently interpreting results, counseling the patient and care coordination
[2022-10-17 15:38] VITALS: BP 95/58; PULSE 79; RESP 16; TEMP 35.3; O2SAT 99
--- NOTE | 2022-10-17 16:33 | PT.INTREAT ---
Date of service: 10/17/22 Time of Service: 15:29 PT Notes Visit Reasons: Acute pulmonary adema,acute on chronic CHF Inpatient Physical Therapy Treatment Note [facility] Date: 10/17/2022 PRECAUTIONS: Activity as tolerated. Fall. Standard. SUBJECTIVE: Expresses how for the past two years he has been struggling with chronic pain in his left since he had it replaced 2 years ago, states that the surgery crippled him. Wants to know if Dr. William can check his L knee out while here or whether he can do it soon as possible an outpatient. Reports 8/10 pain in L knee. Agreeable only to short distance walking. Feels much better, no longer short of breath as he was on admission. OBJECTIVE: L knee bent, absent terminal knee extension on L PAIN: (as above) BED MOBILITY/TRANSFERS Rolling L/R: independent Supine-sit: independent Sit-supine: independent Sit-stand: independent with FWW Stand-sit: independent with FWW Bed-Chair: supervision with FWW Chair-bed: supervision with FWW GAIT Assistive Device: FWW Weight bearing: WBAT on L LE Assist: stand by assist Distance: 100 feet Deviation: No terminal knee extension at midstance on L knee, decreased hip flexion/extension on L, needs to slow down during turning THEREX: Reviewed seated exercises to maximize B LE joint flexibility and minimize pain: Seated marches x 10 Seated clam shells x 10 Ankle DF/PF x 10 DBE incorporated into chest expansion exercises x 5 ASSESSMENT: Much more preoccupied about how he could get his L knee possibly fixed. Relayed patient's concerns to LARON Tejada. Able to tolerate short distances of up to 100 feet using FWW without shortness of breath nor loss of balance. Tolerance to walking significantly limited by pain report in the L knee. PLAN: Progress mobility level while maintaining L knee AROM and L knee muscle group strength while on admission. Will benefit from HH PT to address L knee pain, AROM, and general mobility. TREATMENT CODE/TIME: [id number] x 20 minutes, [id number] x 12 minutes beginning at 15:29 PM.
[2022-10-17 19:30] VITALS: BP 102/53; PULSE 76; RESP 16; TEMP 36.2; O2SAT 98
[2022-10-17] MEDS: Atorvastatin 40 MG TAB 80 MG PO (20:03)
[2022-10-17] MEDS: Diclofenac 1% Gel 100 GM TUBE TP (20:04)
[2022-10-18 00:20] VITALS: BP 102/67; PULSE 83; RESP 16; TEMP 36.2; O2SAT 94
[2022-10-18 05:49] VITALS: BP 109/67; PULSE 84; RESP 16; TEMP 36.6; O2SAT 93
[2022-10-18 07:13] VITALS: BP 114/67; PULSE 88; RESP 16; TEMP 36.9; O2SAT 98
[2022-10-18 07:53] VITALS: BP 167/88; PULSE 77; RESP 18; TEMP 36.3; O2SAT 90
[2022-10-18] MEDS: Acetaminophen 325 MG TAB PO (08:09)
[2022-10-18] MEDS: amLODIPine 10 MG TAB PO (08:10)
[2022-10-18] MEDS: Aspirin E.C. 81 MG TABEC PO (08:10)
[2022-10-18] MEDS: Tamsulosin 0.4 MG CAPCR PO (08:10)
[2022-10-18] MEDS: Gabapentin 300 MG CAP PO (08:10)
[2022-10-18] MEDS: Metoprolol 12.5 MG TAB PO (08:10)
[2022-10-18] MEDS: Potassium Chloride 10 MEQ CAPCR 20 MEQ PO ×2 (08:10→13:23)
[2022-10-18] MEDS: FLUoxetine 10 MG TAB PO (08:10)
[2022-10-18] MEDS: Normal Saline Flush 10 ML SYR IVP (08:13)
[2022-10-18] MEDS: Diclofenac 1% Gel 100 GM TUBE TP ×2 (08:14→13:24)
[2022-10-18] MEDS: buPROPion-XL 150 MG TABCR PO (08:14)
[2022-10-18 09:19] LABS: BUN 43 mg/dL (7-18); CREATININE 3.2 mg/dL (0.70-1.30); Calcium 8.3 mg/dL (8.5-10.1); Chloride 106 mmol/L (98-107); Estimated GFR 19.44 (mL/min/1.73m2); Glucose 134 mg/dL (74-106); Potassium 4.2 mmol/L (3.5-5.1); Sodium 141 mmol/L (136-145)
--- NOTE | 2022-10-18 09:45 | PDOC.CMPRO ---
Date of service: 10/18/22 Time of Service: 09:45 Care Management Progress Note Progress Note Text Progress Note Text: S/O: A: Glenna is an 82 year old woman admitted on 10/14/22 with mesenteric ischemia P: Glenna is well supported by her daughters, Gabrielle and Asha, she currently resides with Gabrielle in [facility] and will return home when ready per MD. She will return home with close outpatient follow up, including PC if covered by insurance per her request. She will also be evaluated for increased services; PT consult pending. Home health orders would be new-if recommended. CM will continue to support Glenna and assess for discharge needs.
[2022-10-18 11:05] VITALS: BP 105/69; PULSE 78; RESP 14; TEMP 35.5; O2SAT 97
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
[2022-10-18] MEDS: Lidocaine 5% Patch 1 PATCH TP (13:23)
[2022-10-18] MEDS: Enoxaparin 30 MG/0.3 ML SYR SC (13:24)
--- NOTE | 2022-10-18 13:54 | PDOC.CMDIS ---
Date of service: 10/18/22 Time of Service: 13:55 LACE Index Scoring Tool Questions: Length of Stay (in days): 3 Was the patient admitted via the E.D.?: Yes Comorbidities: Cerebrovascular Disease, Diabetes w/o Complication, Congestive Heart Failure and Liver or Renal Disease E.D. Visits: 3 Answers: Total Score: 14 Risk of Readmission: High Risk Care Management Discharge Plan Reason for Hospitalization: Acute on chronic heart failure with reduced ejection fraction and diastolic dysfunction Discharge Plan: Cl will be discharged back to [facility] where he resides. He will follow up with his community providers and plan of care. Cl will transport via RCT coordinated by CM. Patient/Family Education Needs: Review discharge instructions, limitations, medications and plan to follow up with community providers. Services Needed at Discharge: Home Health Care Services
--- NOTE | 2022-10-18 14:24 | PT.INTREAT ---
Date of service: 10/18/22 Time of Service: 13:15 PT Notes Visit Reasons: Acute pulmonary adema,acute on chronic CHF Inpatient Physical Therapy Treatment Note [facility] Date: 10/18/22 PRECAUTIONS: Fall, standard, activity as tolerated SUBJECTIVE: Patient reports pain as a result of a failed knee replacement. Reports there is no pain free range of motion, no point in exercising because nothing is going to change the hard stop limitation of the joint. Sitting up in recliner, agreeable to therapy. OBJECTIVE: PAIN: Yes. Chronic. BED MOBILITY/TRANSFERS Rolling L/R: not assessed Supine-sit: not assessed Sit-supine:not assessed Sit-stand: CGA Stand-sit: CGA Bed-Chair:not assessed Chair-bed: not assessed GAIT Patient reports that walking on a hard stop knee joint is stupid. Declines. THEREX: Patient participates in 2x5 straight leg raises, long arc quads, hip ab/adduction, sit to stands. Created and reviewed HEP with patient. ASSESSMENT: Patient's mobility is limited by pain, and his belief is that strengthening will not help overcome the pain. PLAN: Continue treatment per plan of care as patient is willing to participate. TREATMENT CODE/TIME: 37622 TherEx 45 minutes beginning at 1:15
[2022-10-18] MEDS: traMADol 50 MG TAB PO (14:48)
--- NOTE | 2022-10-18 18:03 | PT.INTREAT ---
PT Notes Visit Reasons: Acute pulmonary adema,acute on chronic CHF Inpatient Physical Therapy Treatment Note [facility] Date: 10/18/2022 PRECAUTIONS: Activity as tolerated. Fall. Standard. SUBJECTIVE: Agreeable to walking today although he states that he does not feel that it will be helping, however understands that if he is hoping to have good outcomes on said knee that he should stay limber. Nurse Sami, Nurse air intercept controller supervisor Bina, and Dr. Guy aware of patient complaint. OBJECTIVE: L knee bent,? absent terminal knee extension on L ? PAIN: 8/10 in the L knee ? BED MOBILITY/TRANSFERS? Rolling L/R: independent Supine-sit: independent? Sit-supine: independent? Sit-stand: independent with FWW ? Stand-sit: independent with FWW ? Bed-Chair: supervision with FWW ? Chair-bed: supervision with FWW ? GAIT? Assistive Device: FWW? Weight bearing: WBAT on L LE Assist: stand by assist ? Distance:? 150 feet?+ 150 feet? Deviation: No terminal knee extension at midstance on L knee,? decreased hip flexion/extension on L,? needs to slow down during turning ? ASSESSMENT:? Continues to be preoccupied about how he could get his L knee possibly fixed.? Relayed patient's concerns to Nurse Gallardo, Nurse Starcher And Tenter Range Feeder Bina, and Dr. Guy.? Able to tolerate short distances of up to 100 feet using FWW without shortness of breath nor loss of balance.? Tolerance to walking significantly limited by pain report in the L knee. PLAN: Progress mobility level while maintaining L knee AROM and L knee muscle group strength while on admission.? Will benefit from PT to address L knee pain,? AROM,? and general mobility. TREATMENT CODE/TIME: 93968 x 38 minutes beginning at 9:59 AM.
== END 2022-10-18 16:00 | disposition home health service (06) | DRG 291 ==
LOC: ER 12:09 → ICU 13:06 → MS 10-16 14:56
PROVIDERS: Admitting Provider Internal Medicine; Emergency Provider Emergency Medicine; PCP Nurse Practitioner Family; Visit Provider Internal Medicine
DX: I50.43 Acute on chronic combined systolic (congestive) and diastolic (congestive) heart failure (principal); G91.2 (Idiopathic) normal pressure hydrocephalus; T84.84XA Pain due to internal orthopedic prosthetic devices, implants and grafts, initial encounter; N18.9 Chronic kidney disease, unspecified; I13.0 Hypertensive heart and chronic kidney disease with heart failure and stage 1 through stage 4 chronic kidney disease, or unspecified chronic kidney disease; R13.10 Dysphagia, unspecified; K04.7 Periapical abscess without sinus; E78.5 Hyperlipidemia, unspecified; Z98.2 Presence of cerebrospinal fluid drainage device; Z96.652 Presence of left artificial knee joint; D64.9 Anemia, unspecified; I25.119 Atherosclerotic heart disease of native coronary artery with unspecified angina pectoris; M81.0 Age-related osteoporosis without current pathological fracture; I69.322 Dysarthria following cerebral infarction; E11.22 Type 2 diabetes mellitus with diabetic chronic kidney disease; F10.11 Alcohol abuse, in remission; F32.A Depression, unspecified; Z79.4 Long term (current) use of insulin; I77.810 Thoracic aortic ectasia; G89.29 Other chronic pain; M24.662 Ankylosis, left knee; M48.061 Spinal stenosis, lumbar region without neurogenic claudication; I34.0 Nonrheumatic mitral (valve) insufficiency; E87.6 Hypokalemia
CPT/HCPCS: 36415; 51702; 80048; 80053; 80061; 82805; 93005; 96374; 97110; 97162; 97530; 99285; 71045; 73564; 83605; 83735; 83880; 84132; 84443; 84484; 85025; 85610; 85730; 93010; 94660; 99232; 99239; 99291; J1650; J1940; J3490

== ENCOUNTER 2022-10-22 15:51 | Outpatient (REF) | payer MEDICARE, SELFPAY ==
[2022-10-22 14:33] LABS: Hemoglobin A1C 6.2 % (<5.7)
[2022-10-22 14:58] LABS: Bilirubin Negative (Negative); Blood Negative (Negative); Clarity Sl Cloudy (Clear); Glucose 500 mg/dL (Negative); Ketones Negative (Negative); Leukocyte Esterase Negative (Negative); Nitrite Negative (Negative); Specific Gravity 1.015 (1.005-1.025); Urobilinogen 0.2 mg/dL (Up to 0.2); pH 5.5 (5-8)
[2022-10-22 15:00] LABS: Microalb ug/mg Crea 209.1 ug/mg Cr
== END 2022-10-22 15:52 | disposition home or self-care (01) ==
LOC: NCHCN 15:51
PROVIDERS: PCP Nurse Practitioner Family; Visit Provider Nurse Practitioner Family
DX: E11.9 Type 2 diabetes mellitus without complications (principal); E83.42 Hypomagnesemia; R74.8 Abnormal levels of other serum enzymes; I10 Essential (primary) hypertension; N18.32 Chronic kidney disease, stage 3b; R82.998 Other abnormal findings in urine; M81.0 Age-related osteoporosis without current pathological fracture
CPT/HCPCS: 82306; 81003; 82043; 82570; 83036; 83735

== ENCOUNTER 2022-10-23 11:27 | Outpatient (REF) | payer MEDICARE, SELFPAY ==
[2022-10-23 12:08] LABS: Anion Gap 11.4 mmol/L (3-11); BUN 41 mg/dL (7-18); CO2 22.6 mmol/L (21.0-32.0); CREATININE 3.2 mg/dL (0.70-1.30); Calcium 7.9 mg/dL (8.5-10.1); Chloride 103 mmol/L (98-107); Estimated GFR 19.44 (mL/min/1.73m2); Glucose 185 mg/dL (74-106); Potassium 4.3 mmol/L (3.5-5.1); Sodium 137 mmol/L (136-145)
== END 2022-10-23 11:28 | disposition home or self-care (01) ==
LOC: NCHCN 11:27
PROVIDERS: PCP Nurse Practitioner Family; Visit Provider Nurse Practitioner Family
DX: N18.32 Chronic kidney disease, stage 3b (principal)
CPT/HCPCS: 80048

== ENCOUNTER 2022-10-29 13:11 | Outpatient (REF) | payer MEDICARE, SELFPAY ==
[2022-10-29 12:20] LABS: Anion Gap 13.4 mmol/L (3-11); BUN 64 mg/dL (7-18); CO2 22.6 mmol/L (21.0-32.0); Calcium 7.8 mg/dL (8.5-10.1); Chloride 103 mmol/L (98-107); Estimated GFR 14.03 (mL/min/1.73m2); Glucose 250 mg/dL (74-106); Potassium 3.7 mmol/L (3.5-5.1); Sodium 139 mmol/L (136-145)
[2022-10-29 12:47] LABS: CREATININE 4.2 mg/dL (0.70-1.30)
[2022-10-30 08:43] LABS: PSA, Screening 0.5 ng/mL (<=6.5)
== END 2022-10-29 13:12 | disposition home or self-care (01) ==
LOC: NCHCN 13:11
PROVIDERS: PCP Nurse Practitioner Family; Visit Provider Nurse Practitioner Family
DX: R74.8 Abnormal levels of other serum enzymes (principal); E11.9 Type 2 diabetes mellitus without complications; I10 Essential (primary) hypertension; N18.32 Chronic kidney disease, stage 3b; R39.89 Other symptoms and signs involving the genitourinary system; Z12.5 Encounter for screening for malignant neoplasm of prostate
CPT/HCPCS: 80048; 84153

== ENCOUNTER 2022-10-31 12:41 | Outpatient (REF) | payer MEDICARE, SELFPAY ==
[2022-10-31 14:50] LABS: Anion Gap 11.6 mmol/L (3-11); BUN 60 mg/dL (7-18); CO2 22.4 mmol/L (21.0-32.0); CREATININE 3.4 mg/dL (0.70-1.30); Calcium 7.8 mg/dL (8.5-10.1); Chloride 107 mmol/L (98-107); Estimated GFR 18.07 (mL/min/1.73m2); Glucose 130 mg/dL (74-106); Potassium 3.8 mmol/L (3.5-5.1); Sodium 141 mmol/L (136-145)
== END 2022-10-31 12:42 | disposition home or self-care (01) ==
LOC: NCHCN 12:41
PROVIDERS: PCP Nurse Practitioner Family; Visit Provider Internal Medicine
DX: N18.32 Chronic kidney disease, stage 3b (principal)
CPT/HCPCS: 80048

== ENCOUNTER 2022-11-04 00:54 | Outpatient (CLI) | payer MEDICARE, SELFPAY ==
--- NOTE | 2022-11-04 08:45 | DI.NM_ITS ---
APPROVED REPORT Exam: Pharmacologic Patient Location: Out-Patient Room/Bed: Stress Nurse: Jaimie Sims RN Ordering Provider:HYUN DAMICO, Contact Number: [phone] BMI: 20.18 Baseline Rhythm: Sinus Rhythm Comment: occ. PVCs Indications: Heart Failure, ascending aortic dilation, pulmonary edema, heart failure with LVEF <30% Medical History Medical History: CKD, CVA, Depression, Back pain, DM2, HTN, L knee pain, heart failure w. LVEF <30%, ascending aorta dilation, HLD, CAD, HTN, Normal pressure hydrocephalus with COLLAR TRIMMER shunt, Anemia, hyperka lemia, hypomagnesia, VTach, alcohol dependence Cardiac Medications: Torsemide, tamsulosin, spironolactone, potassium chloride, zofran, metoprolol pineda ccinate, gabapenting, fluoxetine, jardiance, trulicity, vitamin D3, buproprion, atrovastatin, ASA Allergies: Penicillin, sulfa, rofecoxib Cardiac Risk Factors: CVD, COPD, HTN, HLD, DM Previous Cardiac Procedures: PFO closure, cath 1999 Pretest Chest Pain Characteristics: none Exercise History: none Physical Disabilities: wheel chair bound Lung Sounds: Clear to auscultation Heart Sounds: Regular Stress Test Details Test: Pharmacologic stress testing performed using 0.4 mg of regadenoson per 5 mL given IV over 10 s econds. Nuclear Acquisition: Rest Tc-99m/Stress Tc-99m 1 day Rest Isotope: Tc-99m Sestamibi. Dose: 10 Date: 11/04/2022 Injection Time: 0900 Stress Isotope: Tc-99m Sestamibi. Dose: 31 Date: 11/04/2022 Injection Time: 1015 HR Resting HR Supine: 79 bpm Max Heart Rate (APMHR): 145.511804 bpm Target HR (85% APMHR): 123.582413 bpm Max HR Achieved: 101 bpm % of APMHR: 69.66 Recovery HR: 93 bpm BP Resting BP Supine: 154/98 mmHg Max BP: 154/98 mmHg Recovery BP: 130/78 mmHg ECG Resting ECG: Sinus Rhythm Ectopy: occ PVCs Stress ECG: Sinus Rhythm ST Change: No significant ST segment changes noted Arrhythmia: VPC's Recovery ECG: Sinus Rhythm Recovery ST Change: No significant ST segment changes noted Recovery Arrhythmia: VPC Clinical Rate Pressure Product: 73326 Stress ECG Conclusion 1. Resting electrocardiogram showed diffuse ST-T abnormalities 2. Patient underwent pharmacologic stress with regadenoson 3. Peak heart rate achieved was 70% of predicted for age 4. Electrocardiographic portion of the test was nondiagnostic 5. See MPI report Stress Test Summary STAGE HR BP SpO2 Symptoms NOTES Supine 79 154/98 97 1 min post Lexiscan injection 92 150/88 94 3 min post Lexiscan injection 96 124/74 98 6 min post Lexiscan injection 93 130/78 98 Patient wheel chair bound and aphasic. Laying lexiscan performed, patient denied any symptoms from in jection. MPI Conclusion There is no evidence of significant myocardial ischemia or prior infarction EF is 18%, global hypokinesis to dyskinesis Radiologist Interpretation Radiologist Interpretation by: Gonzalo Real MD Interpretation Date/Time: 11/06/2022 15:48:44
[2022-11-04] MEDS: Regadenoson 0.4 MG/5 ML SYR IVP (10:09)
== END 2022-11-04 01:14 ==
LOC: DI 00:54
PROVIDERS: PCP Nurse Practitioner Family; Visit Provider Nurse Practitioner Family
DX: I50.9 Heart failure, unspecified (principal)
CPT/HCPCS: 78452; 93016; 93018; 93017; J2785

== ENCOUNTER 2022-11-08 13:20 | Outpatient (REF) | payer MEDICARE, SELFPAY ==
[2022-11-08 11:13] LABS: Anion Gap 9.9 mmol/L (3-11); BUN 50 mg/dL (7-18); CO2 24.1 mmol/L (21.0-32.0); Calcium 8.1 mg/dL (8.5-10.1); Chloride 104 mmol/L (98-107); Glucose 212 mg/dL (74-106); Potassium 3.8 mmol/L (3.5-5.1); Sodium 138 mmol/L (136-145)
== END 2022-11-08 13:21 | disposition home or self-care (01) ==
LOC: NCHCN 13:20
PROVIDERS: PCP Nurse Practitioner Family; Visit Provider Nurse Practitioner Family
DX: J81.0 Acute pulmonary edema (principal); I10 Essential (primary) hypertension; E11.9 Type 2 diabetes mellitus without complications
CPT/HCPCS: 80048